=== PATIENT | female | born 1945 | race Caucasian/White ===

== ENCOUNTER → 2016-07-08 | Outpatient (CLI) | payer MEDICARE ==
--- NOTE | 2016-07-08 09:16 | BD ---
EXAMINATION TYPE: MG DEXA axial skeleton. DATE OF EXAM: 07/08/2016 7:49 AM COMPARISON: NONE CLINICAL HISTORY: Height: 62.5 Weight: 205 FRAX RISK QUESTIONS: Alcohol (3 or more units per day): no Family History (Parent hip fracture): no Glucocorticoids (More than 3mos): no (Ex: prednisone, prednisolone, methylprednisolone, dexamethasone, and hydrocortisone). History of Fracture in Adulthood: yes Secondary Osteoporosis: 1. Type 1 Diabetes: yes 2. Hyperthyroidism: no 3. Menopause before 45: yes, age 39 4. Malnutrition: no 5. Chronic liver disease: no Rheumatoid Arthritis: no Current Tobacco Use: no RISK FACTORS HISTORY OF: Hip Fracture (Right/Left): no Spine Fracture: no History of Wrist Fracture: no Surgery to Spine/Hip(right/left)/Wrist (right/left): no Other Fractures since Age 51: yes When: lower leg about 3 years ago; 2015 Family History of Osteoporosis: no Active: yes Diet low in dairy products/other sources of calcium: at least one serving a day Postmenopausal woman: yes Take estrogen and/or progesterone medications: no Lost more than 2 inches in height since high school: no Frequent falls: yes Poor Health: no Hyperparathyroidism: no Adrenal Insufficiency: no MEDICATIONS: Prednisone or other steroids: no Thyroid Medications: no Osteoporosis Medications: no Additional Medications: cholesterol meds, blood pressure, insulin Additional History: knee replacement, left low back pain when bends over, then loss of balance EXAM MEASUREMENTS: Bone mineral densitometry was performed using the [facility]. Bone mineral density as measured about the Lumbar spine is: ----- L1-L4(G/cm2): 1.648 T Score Values are as follows: ----- L2: 2.3 ----- L3: 2.9 ----- L4: 8.1 ----- L1-L4: 3.9 Bone mineral density BASELINE Bone mineral density about the R hip (g/cm2): 1.012 Bone mineral density about the L hip (g/cm2): 0.984 T Score values are as follows: -----R Neck: -0.2 -----L Neck: -0.4 -----R Intertrochanter: 0.5 -----L Intertrochanter: -0.2 Bone mineral density BASELINE IMPRESSION: Normal (Values between +1 and -1 indicate normal bone mass) Lumbar Spine & Bilateral Hips NOTE: T-SCORE=SD OF THE YOUNG ADULT MEAN.
== END | disposition home or self-care (01) ==
LOC: RADBDWWP 07:12
PROVIDERS: ATTEND Family Medicine
DX: Z78.0 Asymptomatic menopausal state (principal)
CPT/HCPCS: 77080

== ENCOUNTER 2016-10-19 09:58 | Day surgery (SDC) | payer MEDICARE ==
[2016-10-15 12:15] VITALS: BMI 35.2
[~2016-10-19 09:58] MED LIST: HYDROmorphone 1 MG/ML 1 ML SYRINGE IVP PRN; LACTATED RINGERS 1,000 ML IV SCH; LIDOCAINE 1% 20 ML VIAL (10MG/ML) FOR IV START INTRADERMA PRN; ONDANSETRON 4 MG/2 ML VIAL IVP ONE; ceFAZolin 2 GM in SODIUM CHLORIDE 0.9% 100 ML IVPB ONE
[2016-10-19 10:20] VITALS: TEMP 97.3
--- NOTE | 2016-10-19 10:26 | P.GSHP ---
History of Present Illness H&P Date: 10/19/16 Chief Complaint: Ulceration left third toe Patient is status post amputation of the left fifth toe. She has developed necrosis of the left third toe and has the proximal phalanx sticking out through the opening. She is a diabetic under poor control. - Constitutional Constitutional: Denies chills, Denies fever - EENT Eyes: denies blurred vision, denies pain Ears, nose, mouth and throat: Denies headache, Denies sore throat - Cardiovascular Cardiovascular: Reports decreased exercise tolerance, Reports edema, Denies chest pain, Denies dyspnea on exertion, Denies orthopnea, Denies paroxysmal nocturnal dyspnea, Denies shortness of breath - Respiratory Respiratory: Denies cough, Denies hemoptysis - Gastrointestinal Gastrointestinal: Denies abdominal pain, Denies coffee ground emesis, Denies diarrhea, Denies hematemesis, Denies jaundice, Denies melena, Denies nausea, Denies vomiting - Genitourinary (Female) Genitourinary: Denies dysuria, Denies hematuria - Genitourinary (Male) Genitourinary: Denies dysuria, Denies hematuria - Musculoskeletal Musculoskeletal: Denies myalgias - Integumentary Integumentary: Denies pruritus, Denies rash - Neurological Neurological: Denies numbness, Denies weakness - Psychiatric Psychiatric: Denies anxiety, Denies confusion, Denies depression, Denies paranoia - Endocrine Endocrine: Denies fatigue, Denies weight change - Hematologic/Lymphatic Hematologic/Lymphatic: Denies easy bleeding, Denies easy bruising, Denies lymphedema - Allergic/Immunologic Allergic/Immunologic: Denies anaphylaxis, Denies angioedema, Denies seasonal allergies Past Medical History Past Medical History: Coronary Artery Disease (CAD), Diabetes Mellitus, Hyperlipidemia, Myocardial Infarction ([place]) Additional Past Medical History / Comment(s): DIABETIC NEUROPATHY, HX OF CELLULITIS LEFT LEG Last Myocardial Infarction Date:: UNSURE History of Any Multi-Drug Resistant Organisms: None Reported Past Surgical History: Section, Cholecystectomy, Hernia Repair, Joint Replacement Additional Past Surgical History / Comment(s): IGNACIA cataract, LEFT SMALL toe amputation, LEFT KNEE REPLACEMENT, HX OF SKIN GRAFTS Past Anesthesia/Blood Transfusion Reactions: No Reported Reaction Past Psychological History: Depression Smoking Status: Former smoker Past Alcohol Use History: None Reported Additional Past Alcohol Use History / Comment(s): QUIT SMOKING 40 YRS AGO, SMOKED LESS THAN 1PPD FOR LESS THAN 10 YRS Past Drug Use History: None Reported - Past Family History Mother Family Medical History: Cancer Father Family Medical History: Cancer Medications and Allergies Home Medications Medication Instructions Recorded Confirmed Type Atenolol [Tenormin] 25 mg PO QAM 02/21/16 10/15/16 History Citalopram Hydrobromide 40 mg PO QAM 02/21/16 10/15/16 History [Citalopram HBr] Lisinopril [Lisinopril] 10 mg PO QAM 02/21/16 10/15/16 History Gemfibrozil [Lopid] 600 mg PO AC-BID 10/15/16 10/15/16 History Insulin NPH Hum/Reg Insulin Hm 25 unit SQ AC-LUNCH 10/15/16 10/15/16 History [NovoLIN 70-30 100 UNIT/ML VIAL] Insulin NPH Hum/Reg Insulin Hm 55 unit SQ AC-SUPPER 10/15/16 10/15/16 History [NovoLIN 70-30 100 UNIT/ML VIAL] Insulin NPH Hum/Reg Insulin Hm 65 unit SQ AC-BRKFST 10/15/16 10/15/16 History [NovoLIN 70-30 100 UNIT/ML VIAL] Mirabegron [Myrbetriq] 50 mg PO DAILY 10/15/16 10/15/16 History metFORMIN HCL 1,000 mg PO BID 10/15/16 10/15/16 History Allergies Allergy/AdvReac Type Severity Reaction Status Date / Time No Known Allergies Allergy Verified 10/15/16 12:07 Surgical - Exam Osteopathic Statement: *. No significant issues noted on an osteopathic structural exam other than those noted in the History and Physical/Consult. Vital Signs Temp Pulse Resp BP Pulse Ox 97.3 F L 84 18 130/63 99 10/19/16 10:18 10/19/16 10:18 10/19/16 10:18 10/19/16 10:18 10/19/16 10:18 - General well developed, well nourished, no distress, obese - Eyes normal ocular movement, no icteric - ENT no hearing loss, no congestion - Neck no masses, no bruits, trachea midline - Respiratory normal expansion, normal respiratory effort, clear to auscultation - Cardiovascular Rhythm: regular - Abdomen Abdomen: soft, non tender, no guarding, no rigid, no rebound - Integumentary no rash, no abnormal pigmentation - Neurologic no disoriented, no combative - Musculoskeletal normal gait, normal posture - Psychiatric oriented to time, oriented to person, oriented to place, speech is normal, memory intact Assessment and Plan (1) Diabetic foot ulcer associated with type 2 diabetes mellitus Status: Acute Plan: I discussed with the patient the options. We will proceed with amputation of the left third toe. I discussed with her the need to have better diabetes control. I discussed with her the possibility of leaving the wound open. I've also discussed with her the possibility of limb loss.
[2016-10-19] MEDS ORDERED: LIDOCAINE 1% 20 ML VIAL (10MG/ML) FOR IV START INTRADERMA ONE (10:45)
[2016-10-19 10:50] LABS: Glucose,Whole Blood 155 mg/dL (75-99)
[2016-10-19] MEDS ORDERED: PROPOFOL 10 MG/ML 20 ML VIAL IV ONE (10:53)
[2016-10-19] MEDS ORDERED: MIDAZOLAM 2 MG/2 ML VIAL ONE (10:53)
[2016-10-19] MEDS ORDERED: fentaNYL (PF) 50 MCG/ML 2 ML AMP ONE (10:53)
[2016-10-19] MEDS ORDERED: LIDOCAINE 1% INJ 10MG/ML (20 ML MDV) ONE (10:53)
[2016-10-19 11:59] VITALS: RESP 16
[2016-10-19 13:02] VITALS: BP 114/67; PULSE 67
--- NOTE | 2016-10-28 12:14 | P.PCN ---
Date of Procedure: 10/19/16 Preoperative Diagnosis: Hernandez grade 2 equivalent ulceration lateral left lower leg and Hernandez grade 3 ulceration with bone exposed left third toe Postoperative Diagnosis: Same Procedure(s) Performed: Amputation left third toe through proximal phalanx Anesthesia: MAC Surgeon: Collins Mendoza Estimated Blood Loss (ml): 20 Pathology: none sent Condition: stable Disposition: PACU Indications for Procedure: Patient has bone exposed with a gangrenous left third toe Operative Findings: Tissues of the very proximal toe and distal foot were clean and healthy with what appeared to be good blood supply Description of Procedure: With the patient supine position, under benefit of IV sedation we prepped and draped in standard fashion. We made a incision just proximal to the open wound of the distal toe. We excised around the entire toe through healthy tissue. We removed grossly the distal aspect of the toe. We then removed the distal portion of the proximal phalanx using a rongeur until we were well above the skin line. We irrigated with saline. We closed the incision with interrupted nylon. Sterile dressings were applied. The patient tolerated the procedure well. We then, with a sharp rongeur, debrided the ulcer in the anterior left lower leg. It was about 2.5 x 1.8 cm and about 0.2 cm in depth. Its dimensions were not changed with the debridement. There was a significant amount of slough which was removed with our curetting. We did not increase the size of the ulcer. This was removed down to healthy bleeding subcutaneous tissue. Hemostasis was accomplished with direct pressure. The wound was dressed with Opticel silver and a sterile wrap. She tolerated the procedure well.
== END 2016-10-19 13:35 | disposition home or self-care (01) ==
LOC: OR 09:58
PROVIDERS: ATTEND Thoracic Surgery (Cardiothoracic Vascular Surgery)
DX: E11.621 Type 2 diabetes mellitus with foot ulcer (principal); L97.524 Non-pressure chronic ulcer of other part of left foot with necrosis of bone; L97.821 Non-pressure chronic ulcer of other part of left lower leg limited to breakdown of skin; E11.65 Type 2 diabetes mellitus with hyperglycemia; E11.40 Type 2 diabetes mellitus with diabetic neuropathy, unspecified; I96 Gangrene, not elsewhere classified; M87.9 Osteonecrosis, unspecified; M86.9 Osteomyelitis, unspecified; I25.10 Atherosclerotic heart disease of native coronary artery without angina pectoris; E78.5 Hyperlipidemia, unspecified; I42.9 Cardiomyopathy, unspecified; I25.2 Old myocardial infarction; F32.9 Major depressive disorder, single episode, unspecified; Z87.891 Personal history of nicotine dependence; Z79.84 Long term (current) use of oral hypoglycemic drugs; Z79.4 Long term (current) use of insulin; Z79.899 Other long term (current) drug therapy
CPT/HCPCS: 88305; 88311; 87070; 87205; 87075; 28160; 11042; J2250; J0690; J2405; J2001; J3010; J2704

== ENCOUNTER → 2016-12-14 | Outpatient (CLI) | payer MEDICARE ==
--- NOTE | 2016-12-15 07:08 | MM ---
Reason for exam: screening (asymptomatic). Last mammogram was performed 1 year and 4 months ago. History: Patient is postmenopausal. Physical Findings: A clinical breast exam by your physician is recommended on an annual basis and results should be correlated with mammographic findings. MG 3D Screening Mammo W/Cad Bilateral CC and MLO view(s) were taken. Prior study comparison: August 05, 2015, bilateral MG screening mammo w CAD. May 11, 2014, bilateral MG screening mammo w CAD. There are scattered fibroglandular densities. No significant changes when compared with prior studies. ASSESSMENT: Benign, BI-RAD 2 RECOMMENDATION: Routine screening mammogram of both breasts in 1 year.
== END | disposition home or self-care (01) ==
LOC: RADMAMWWP 07:18
PROVIDERS: ATTEND Family Medicine
DX: Z12.31 Encounter for screening mammogram for malignant neoplasm of breast (principal)
CPT/HCPCS: 77063; G0202

== ENCOUNTER → 2017-02-03 | Outpatient (CLI) | payer MEDICARE ==
[2017-02-03 09:13] LABS: ALT 27 U/L (9-52); AST 20 U/L (14-36); Alkaline Phosphatase 119 U/L (38-126); Anion Gap 9 mmol/L; Blood Urea Nitrogen 35 mg/dL (7-17); Calcium 9.3 mg/dL (8.4-10.2); Carbon Dioxide 23 mmol/L (22-30); Chloride 110 mmol/L (98-107); Cholesterol 204 mg/dL (<200); Glucose 78 mg/dL (74-99); HDL Cholesterol 53 mg/dL (40-60); Non-African American GFR(MDRD) >60 (>60 ml/min/1.73 sqM); Potassium 5.1 mmol/L (3.5-5.1); Sodium 142 mmol/L (137-145); Total Bilirubin 0.5 mg/dL (0.2-1.3); Total Protein 6.9 g/dL (6.3-8.2); Triglycerides 103 mg/dL (<150)
[2017-02-03 16:03] LABS: Urine Creatinine 61.2 mg/dL
== END | disposition home or self-care (01) ==
LOC: LABWHC1 08:18
PROVIDERS: ATTEND Internal Medicine Endocrinology, Diabetes & Metabolism
DX: E11.65 Type 2 diabetes mellitus with hyperglycemia (principal)
CPT/HCPCS: 36415; 80053; 80061; 82043; 82570

== ENCOUNTER 2017-03-18 15:58 | Observation (INO) | payer MEDICARE ==
[2017-03-18] MEDS ORDERED: SODIUM CHLORIDE 0.9% 500 ML IV STA (16:22)
[2017-03-18 16:40] LABS: Glucose,Whole Blood 483 mg/dL (75-99)
[2017-03-18] MEDS ORDERED: SODIUM CHLORIDE 0.9% 1,000 ML IV ONE ×2 (16:40)
[2017-03-18] MEDS ORDERED: ONDANSETRON 4 MG/2 ML VIAL IVP STA (16:40)
[2017-03-18 16:52] LABS: Basophils % (A) 0 %; CH 28.9; CHCM 33.1; Eosinophils # (A) 0.1 k/uL (0-0.7); Eosinophils % (A) 1 %; HCT 35.5 % (34.0-46.0); HDW 2.78; HGB 11.4 gm/dL (11.4-16.0); Luc # (Auto) 0.22; Luc % (Auto) 3; Lymphocytes # (A) 1.4 k/uL (1.0-4.8); Lymphocytes % (A) 17 %; MCH 28.4 pg (25.0-35.0); MCHC 32.3 g/dL (31.0-37.0); Mean Platelet Volume 9.6; Monocytes # (A) 0.5 k/uL (0-1.0); Monocytes % (A) 5 %; Neutrophils # (A) 6.2 k/uL (1.3-7.7); Neutrophils % (A) 74 %; RBC 4.03 m/uL (3.80-5.40); RDW 14.2 % (11.5-15.5); WBC 8.4 k/uL (3.8-10.6); WBC (Perox) 9.18
[2017-03-18 16:58] LABS: INR 1.1 (<1.2); Partial Thromboplastin Time 24.6 sec (22.0-30.0); Prothrombin Time 10.7 sec (9.0-12.0)
[2017-03-18 17:07] LABS: ALT 24 U/L (9-52); AST 19 U/L (14-36); Alkaline Phosphatase 166 U/L (38-126); Anion Gap 13 mmol/L; Blood Urea Nitrogen 28 mg/dL (7-17); Calcium 9.5 mg/dL (8.4-10.2); Carbon Dioxide 23 mmol/L (22-30); Chloride 98 mmol/L (98-107); Magnesium 1.2 mg/dL (1.6-2.3); Non-African American GFR(MDRD) >60 (>60 ml/min/1.73 sqM); Potassium 4.5 mmol/L (3.5-5.1); Sodium 134 mmol/L (137-145); Total Bilirubin 0.5 mg/dL (0.2-1.3)
--- NOTE | 2017-03-18 17:16 | CT ---
EXAMINATION TYPE: CT brain sheridan goetz DATE OF EXAM: 03/18/2017 COMPARISON: NONE HISTORY: Fall today with frontal injury. Mulitiple facial abrasions CT DLP: 1582 mGycm Automated exposure control for dose reduction was used. TECHNIQUE: CT scan of the head and cervical spine are performed without contrast. FINDINGS: There is some cerebral cortical atrophy. There is bilateral thalamic calcification. There is no mass effect nor midline shift. There is no sign of intracranial hemorrhage. There is a left po sterior frontal lobe 1 cm extra-axial calcification at the convexity of the frontal lobe. This could be a calcifying meningioma. The calvarium is intact. There is scalp hematoma over the right frontal b one. The cervical vertebra have normal alignment. There is degenerative disc space narrowed from C3 to T1 with extensive spurring of the endplates from C3 to C7. Skull base is intact. Posterior elements are intact. I see no evidence of a fracture. There is posterior endplate spur formation C5-6 C6-7 with mi ld encroachment on the spinal canal. IMPRESSION: There is probably a left frontal calcifying small meningioma. Mild atrophy. Right frontal scalp hematoma. Spondylotic changes in the cervical spine. No fracture.
--- NOTE | 2017-03-18 17:18 | XR ---
EXAMINATION TYPE: XR elbow limited RT DATE OF EXAM: 03/18/2017 COMPARISON: NONE HISTORY: Elbow pain TECHNIQUE: 2 views FINDINGS: I see no fracture nor dislocation. Joint spaces are normal. There is no sign of elbow joint effusion. IMPRESSION: Negative right elbow exam
--- NOTE | 2017-03-18 17:20 | XR ---
EXAMINATION TYPE: XR facial bones complete DATE OF EXAM: 03/18/2017 COMPARISON: NONE HISTORY: Facial bruising TECHNIQUE: 4 views FINDINGS: Orbital margins appear intact. The paranasal sinuses appear normally aerated. Maxilla appea rs intact. I see no fracture. Mandible appears intact. IMPRESSION: Negative facial bone exam.
[2017-03-18 17:21] LABS: Creatine Kinase 93 U/L (30-135)
--- NOTE | 2017-03-18 17:21 | XR ---
EXAMINATION TYPE: XR chest 2V DATE OF EXAM: 03/18/2017 COMPARISON: 06/20/2010 HISTORY: Fall TECHNIQUE: Frontal and lateral views of the chest are obtained. FINDINGS: There is no heart failure nor confluent pneumonic infiltrate. Heart appears enlarged. Thor acic aorta is atheromatous. There is no sign of pleural effusion. Bony thorax appears intact. IMPRESSION: No active cardiopulmonary disease. No change.
[2017-03-18 17:22] LABS: Glucose 534 mg/dL (74-99)
[2017-03-18 17:34] LABS: Creatine Kinase MB 1.6 ng/mL (0.0-2.4); Troponin I <0.012 ng/mL (0.000-0.034)
[2017-03-18] MEDS ORDERED: POTASSIUM CHLORIDE ORAL LIQUID 40 MEQ/30 ML CUP PO ONE (17:44)
[2017-03-18] MEDS ORDERED: INSULIN REGULAR 100 UNIT/ML VIAL IV ONE ×2 (17:45→19:04)
[2017-03-18] MEDS ORDERED: INSULIN REGULAR 100 UNIT/ML VIAL SQ ONE (17:45)
[2017-03-18 18:12] LABS: Glucose,Whole Blood 441 mg/dL (75-99)
--- NOTE | 2017-03-18 18:48 | ED ---
Fall HPI - General Chief Complaint: Fall Stated Complaint: Fall Time Seen by Provider: 03/18/17 16:18 Source: patient Mode of arrival: EMS - History of Present Illness Initial Comments: 71 years old female fell today, she missed a step she said stopped was not too high at all she said it was 8 inches she lost her balance and she said she falls often she could follow-up with paper she stated she felt forward she hit her face and all surfaces now she has abrasion on her forehead also complaining about pain in the back of the neck and she has a headache she denies any loss of consciousness no nausea no vomiting no blurred vision no slurred speech. Denies any headaches no chest pain no shortness of breath no abdominal pain she said her sugar is quite high he was greater than 500 she ran out of her insulin few days ago and she has no money to buy - Related Data Home Medications Medication Instructions Recorded Confirmed Atenolol [Tenormin] 25 mg PO QAM 02/21/16 03/18/17 Citalopram Hydrobromide 60 mg PO QAM 02/21/16 03/18/17 [Citalopram HBr] Lisinopril [Lisinopril] 10 mg PO QAM 02/21/16 03/18/17 Gemfibrozil [Lopid] 600 mg PO AC-BID 10/15/16 03/18/17 Insulin NPH Hum/Reg Insulin Hm 25 unit SQ AC-LUNCH 10/15/16 03/18/17 [NovoLIN 70-30 100 UNIT/ML VIAL] Insulin NPH Hum/Reg Insulin Hm 55 unit SQ AC-SUPPER 10/15/16 03/18/17 [NovoLIN 70-30 100 UNIT/ML VIAL] Insulin NPH Hum/Reg Insulin Hm 66 unit SQ AC-BRKFST 10/15/16 03/18/17 [NovoLIN 70-30 100 UNIT/ML VIAL] metFORMIN HCL 1,000 mg PO BID 10/15/16 03/18/17 Atorvastatin [Lipitor] 40 mg PO HS 03/18/17 03/18/17 Mirabegron [Myrbetriq] 25 mg PO HS 03/18/17 03/18/17 Allergies Allergy/AdvReac Type Severity Reaction Status Date / Time No Known Allergies Allergy Verified 03/18/17 16:33 Review of Systems ROS Statement: Those systems with pertinent positive or pertinent negative responses have been documented in the HPI. ROS Other: All systems not noted in ROS Statement are negative. Past Medical History Past Medical History: Coronary Artery Disease (CAD), Diabetes Mellitus, Hyperlipidemia, Myocardial Infarction ([place]) Additional Past Medical History / Comment(s): ,DIABETIC NEUROPATHY, HX OF CELLULITIS LEFT LEG , amputation left 3rd toe and pinky toe. Last Myocardial Infarction Date:: UNSURE History of Any Multi-Drug Resistant Organisms: None Reported Past Surgical History: Section, Cholecystectomy, Hernia Repair, Joint Replacement Additional Past Surgical History / Comment(s): IGNACIA cataract, LEFT SMALL toe amputation, LEFT KNEE REPLACEMENT, HX OF SKIN GRAFTS Past Anesthesia/Blood Transfusion Reactions: No Reported Reaction Past Psychological History: Depression Smoking Status: Former smoker Past Alcohol Use History: None Reported Past Drug Use History: None Reported - Past Family History Mother Family Medical History: Cancer Father Family Medical History: Cancer General Exam - General Exam Comments Initial Comments: General: The patient is awake and alert, in no distress, and does not appear acutely ill. GCS is 15 Skin: Skin is warm and dry and no rashes or lesions are noted. She has some abrasions on the face Eye: Pupils are equal, round and reactive to light, extra-ocular movements are intact; there is normal conjunctiva bilaterally. Ears, nose, mouth and throat: There are moist mucous membranes and no oral lesions. Neck: The neck is supple, there is tenderness at C4 and C5 Cardiovascular: There is a regular rate and rhythm. No murmur, rub or gallop is appreciated. Respiratory: To auscultation bilateral, no wheezing no rhonchi no distress respiratory rich noticed Gastrointestinal: Soft, non-distended, non-tender abdomen without masses or organomegaly noted. There is no rebound or guarding present. Bowel sounds are unremarkable. Back: There is no tenderness to palpation in the midline. There is no obvious deformity. Musculoskeletal: Normal ROM, no tenderness, There is no pedal edema. There is no calf tenderness or swelling. No cords were appreciated. Neurological: CN II-XII intact, Cranial nerves III through XII are intact. There are no obvious motor or sensory deficits. Coordination appears grossly intact. Speech is normal. Psychiatric: Cooperative, appropriate mood & affect, normal judgment. Limitations: no limitations Course Vital Signs 03/18/17 03/18/17 03/18/17 16:00 17:24 18:54 Temperature 98.7 F Pulse Rate 70 67 72 Respiratory 19 19 17 Rate Blood Pressure 125/58 142/67 121/59 O2 Sat by Pulse 96 100 97 Oximetry 03/18/17 21:01 Temperature 99.2 F Pulse Rate 70 Respiratory 18 Rate Blood Pressure 142/64 O2 Sat by Pulse 95 Oximetry EKG is sinus rhythm with a first-degree AV block, ventricular rate is 70 GA interval is 210 QRS duration is 184 QT/QTc is 492/531, devious this EKG reveals left bundle branch block, today's EKG was compared with old EKG from 05/16/2012 she had no bundle-branch block the majority history bundle branch block Considering her hyperglycemia she was offered admission but sugar is 534 though she started ketoacidosis I discussed all her x-rays finding with her her chest x-ray is negative for elbow x-rays negative for head CT and cervical spine sure all unremarkable he did show meningioma head CT troponin is negative EKG is unchanged she do not want stay in the hospital she was given dexamethasone IV as well as subcu. She said she has her sugar because she ran out of insulin, her family guarantees that she would have and from tonight. Continue to monitor and the INITIAL comments below 200. - Reevaluation(s) Reevaluation #1: 03/18/17 21:07 Is in was reassessed at 2049 and sugar was still I finally she agreed to stay and she be admitted under Dr. Crain service for further evaluation and management Medical Decision Making - Lab Data Result diagrams: 03/18/17 16:00 03/18/17 16:00 Lab Results 03/18/17 03/18/17 03/18/17 Range/Units 16:00 16:00 16:00 WBC 8.4 (3.8-10.6) k/uL RBC 4.03 (3.80-5.40) m/uL Hgb 11.4 (11.4-16.0) gm/dL Hct 35.5 (34.0-46.0) % MCV 88.0 (80.0-100.0) fL MCH 28.4 (25.0-35.0) pg MCHC 32.3 (31.0-37.0) g/dL RDW 14.2 (11.5-15.5) % Plt Count 220 (150-450) k/uL Neutrophils % 74 % Lymphocytes % 17 % Monocytes % 5 % Eosinophils % 1 % Basophils % 0 % Neutrophils # 6.2 (1.3-7.7) k/uL Lymphocytes # 1.4 (1.0-4.8) k/uL Monocytes # 0.5 (0-1.0) k/uL Eosinophils # 0.1 (0-0.7) k/uL Basophils # 0.0 (0-0.2) k/uL PT (9.0-12.0) sec INR (<1.2) APTT (22.0-30.0) sec Sodium 134 L (137-145) mmol/L Potassium 4.5 (3.5-5.1) mmol/L Chloride 98 (98-107) mmol/L Carbon Dioxide 23 (22-30) mmol/L Anion Gap 13 mmol/L BUN 28 H (7-17) mg/dL Creatinine 0.87 (0.52-1.04) mg/dL Est GFR (MDRD) Af Amer >60 (>60 ml/min/1.73 sqM) Est GFR (MDRD) Non-Af >60 (>60 ml/min/1.73 sqM) Glucose 534 H* (74-99) mg/dL POC Glucose (mg/dL) (75-99) mg/dL POC Glu Director Of Strategic Sales ID Calcium 9.5 (8.4-10.2) mg/dL Magnesium 1.2 L (1.6-2.3) mg/dL Total Bilirubin 0.5 (0.2-1.3) mg/dL AST 19 (14-36) U/L ALT 24 (9-52) U/L Alkaline Phosphatase 166 H (38-126) U/L Total Creatine Kinase 93 (30-135) U/L CK-MB (CK-2) 1.6 (0.0-2.4) ng/mL CK-MB (CK-2) Rel Index 1.7 Troponin I <0.012 (0.000-0.034) ng/mL Total Protein 7.0 (6.3-8.2) g/dL Albumin 4.1 (3.5-5.0) g/dL 09/14/17 09/14/17 09/14/17 Range/Units 16:00 16:37 18:10 WBC (3.8-10.6) k/uL RBC (3.80-5.40) m/uL Hgb (11.4-16.0) gm/dL Hct (34.0-46.0) % MCV (80.0-100.0) fL MCH (25.0-35.0) pg MCHC (31.0-37.0) g/dL RDW (11.5-15.5) % Plt Count (150-450) k/uL Neutrophils % % Lymphocytes % % Monocytes % % Eosinophils % % Basophils % % Neutrophils # (1.3-7.7) k/uL Lymphocytes # (1.0-4.8) k/uL Monocytes # (0-1.0) k/uL Eosinophils # (0-0.7) k/uL Basophils # (0-0.2) k/uL PT 10.7 (9.0-12.0) sec INR 1.1 (<1.2) APTT 24.6 (22.0-30.0) sec Sodium (137-145) mmol/L Potassium (3.5-5.1) mmol/L Chloride (98-107) mmol/L Carbon Dioxide (22-30) mmol/L Anion Gap mmol/L BUN (7-17) mg/dL Creatinine (0.52-1.04) mg/dL Est GFR (MDRD) Af Amer (>60 ml/min/1.73 sqM) Est GFR (MDRD) Non-Af (>60 ml/min/1.73 sqM) Glucose (74-99) mg/dL POC Glucose (mg/dL) 483 H 441 H (75-99) mg/dL POC Glu Director Of Strategic Sales ID Angie Mcallister Joanna Calcium (8.4-10.2) mg/dL Magnesium (1.6-2.3) mg/dL Total Bilirubin (0.2-1.3) mg/dL AST (14-36) U/L ALT (9-52) U/L Alkaline Phosphatase (38-126) U/L Total Creatine Kinase (30-135) U/L CK-MB (CK-2) (0.0-2.4) ng/mL CK-MB (CK-2) Rel Index Troponin I (0.000-0.034) ng/mL Total Protein (6.3-8.2) g/dL Albumin (3.5-5.0) g/dL 03/18/17 03/18/17 Range/Units 18:59 20:15 WBC (3.8-10.6) k/uL RBC (3.80-5.40) m/uL Hgb (11.4-16.0) gm/dL Hct (34.0-46.0) % MCV (80.0-100.0) fL MCH (25.0-35.0) pg MCHC (31.0-37.0) g/dL RDW (11.5-15.5) % Plt Count (150-450) k/uL Neutrophils % % Lymphocytes % % Monocytes % % Eosinophils % % Basophils % % Neutrophils # (1.3-7.7) k/uL Lymphocytes # (1.0-4.8) k/uL Monocytes # (0-1.0) k/uL Eosinophils # (0-0.7) k/uL Basophils # (0-0.2) k/uL PT (9.0-12.0) sec INR (<1.2) APTT (22.0-30.0) sec Sodium (137-145) mmol/L Potassium (3.5-5.1) mmol/L Chloride (98-107) mmol/L Carbon Dioxide (22-30) mmol/L Anion Gap mmol/L BUN (7-17) mg/dL Creatinine (0.52-1.04) mg/dL Est GFR (MDRD) Af Amer (>60 ml/min/1.73 sqM) Est GFR (MDRD) Non-Af (>60 ml/min/1.73 sqM) Glucose (74-99) mg/dL POC Glucose (mg/dL) 393 H 361 H (75-99) mg/dL POC Glu Director Of Strategic Sales ID Alyssa Dale Danette Calcium (8.4-10.2) mg/dL Magnesium (1.6-2.3) mg/dL Total Bilirubin (0.2-1.3) mg/dL AST (14-36) U/L ALT (9-52) U/L Alkaline Phosphatase (38-126) U/L Total Creatine Kinase (30-135) U/L CK-MB (CK-2) (0.0-2.4) ng/mL CK-MB (CK-2) Rel Index Troponin I (0.000-0.034) ng/mL Total Protein (6.3-8.2) g/dL Albumin (3.5-5.0) g/dL Disposition Clinical Impression: Hyperglycemia, Facial trauma, Head injury, Neck injury, Meningioma Disposition: ADMITTED IP TO THIS HOSP Referrals: Shon Zhang MD [Primary Care Provider] - 1-2 days
[2017-03-18 19:01] LABS: Glucose,Whole Blood 393 mg/dL (75-99)
[2017-03-18 20:17] LABS: Glucose,Whole Blood 361 mg/dL (75-99)
[2017-03-18] MEDS ORDERED: NALOXONE 0.4 MG/ML 1 ML VIAL IV PRN (21:08)
[2017-03-18] MEDS ORDERED: ACETAMINOPHEN TAB 325 MG TAB PO PRN (21:08)
[2017-03-18] MEDS ORDERED: MAGNESIUM OXIDE 400 MG TAB PO STA (21:26)
[2017-03-18 23:07] VITALS: BMI 36.3
[2017-03-18 23:22] LABS: Glucose,Whole Blood 214 mg/dL (75-99)
[2017-03-19 06:07] LABS: Glucose,Whole Blood 264 mg/dL (75-99)
[2017-03-19 06:44] LABS: Appearance,Urine Cloudy (Clear); Bacteria,Urine Many /hpf; Bilirubin,Urine Negative (Negative); Glucose,Urine (UA) 1+ (Negative); Ketones,Urine Negative (Negative); Leukocyte Esterase,Urine Large (Negative); Nitrite,Urine Positive (Negative); Particle Count 19740; Protein,Urine Trace (Negative); RBC,Urine 2 /hpf (0-5); Specific Gravity,Urine 1.017 (1.001-1.035); Squamous Epithelial Cell,Urine 1 /hpf (0-4); UA Billing (MACRO vs. MICRO) MICRO; Urobilinogen,Urine <2.0 mg/dL (<2.0); WBC,Urine 44 /hpf (0-5)
[2017-03-19 07:05] LABS: Glucose,Whole Blood 265 mg/dL (75-99)
[2017-03-19] MEDS: GEMFIBROZIL 600 MG TAB PO SCH ×2 (07:55→17:18)
[2017-03-19] MEDS: CITALOPRAM HYDROBROMIDE 20 MG TAB PO SCH (07:55)
[2017-03-19] MEDS: ATENOLOL 25 MG TAB PO SCH (07:55)
[2017-03-19] MEDS: LISINOPRIL 10 MG TAB PO SCH (07:55)
[2017-03-19] MEDS: metFORMIN 500 MG TAB PO SCH ×2 (07:55→20:00)
[2017-03-19] MEDS: INSULIN NPH/REG INSULIN 70/30 300 UNIT/3 ML VIAL SQ SCH ×2 (08:19→12:42)
[2017-03-19 12:18] LABS: Glucose,Whole Blood 332 mg/dL (75-99)
--- NOTE | 2017-03-19 15:08 | P.HPIM ---
History of Present Illness 2-year-old female came in with complains of fall and patient underwent workup for falling , CT of the head and neck along with the x-rays multiple other x- rays all of which are negative for any fractures. Patient felt lightheaded and weak and fell. Patient is found to have hyponatremia secondary to hyperglycemia patient is severely hyperglycemic and patient the stop using her insulin for last few days as she ran out of insulin and doesn't have money to buy insulin. Patient denied any fever, chills, nausea, vomiting. Patient does have a diabetic foot ulcer on the third great toe not sure whether that is infected are not patient's wound is pretty deep and also colitis cannot be ruled out. Because of which I'm consulting infectious disease. Her blood sugars have come down patient was restarted back on on her insulin regimen patient follows with Dr. Thakkar endocrinology for diabetes mellitus as an outpatient. Patient is also found to have incidental finding of calcified meningioma which may need further workup with MRI as an outpatient. Patient denied any dysuria patient denied any nausea vomiting denied any abdominal pain. Review of Systems REVIEW OF SYSTEMS: CONSTITUTIONAL: No fever, no malaise, no fatigue. HEENT: No recent visual problems or hearing problems. Denied any sore throat. CARDIOVASCULAR: No chest pain, orthopnea, PND, no palpitations, no syncope. PULMONARY: No shortness of breath, no cough, no hemoptysis. GASTROINTESTINAL: No diarrhea, no nausea, no vomiting, no abdominal pain. Normoactive bowel sounds. NEUROLOGICAL: No headaches, no weakness, no numbness. HEMATOLOGICAL: Denies any bleeding or petechiae. GENITOURINARY: Denies any burning micturition, frequency, or urgency. MUSCULOSKELETAL/RHEUMATOLOGICAL: Denies any joint pain, swelling, or any muscle pain. ENDOCRINE: Denies any polyuria or polydipsia. The rest of the 14-point review of systems is negative. Past Medical History Past Medical History: Coronary Artery Disease (CAD), Diabetes Mellitus, Hyperlipidemia, Myocardial Infarction ([place]) Additional Past Medical History / Comment(s): ,DIABETIC NEUROPATHY, HX OF CELLULITIS LEFT LEG , amputation left 3rd toe and pinky toe. Last Myocardial Infarction Date:: UNSURE History of Any Multi-Drug Resistant Organisms: None Reported Past Surgical History: Section, Cholecystectomy, Hernia Repair, Joint Replacement Additional Past Surgical History / Comment(s): IGNACIA cataract, LEFT SMALL toe amputation, LEFT KNEE REPLACEMENT, HX OF SKIN GRAFTS Past Anesthesia/Blood Transfusion Reactions: No Reported Reaction Past Psychological History: Depression Smoking Status: Former smoker Past Alcohol Use History: None Reported Additional Past Alcohol Use History / Comment(s): QUIT SMOKING 40 YRS AGO, SMOKED LESS THAN 1PPD FOR LESS THAN 10 YRS Past Drug Use History: None Reported - Past Family History Mother Family Medical History: Cancer Father Family Medical History: Cancer Medications and Allergies Home Medications Medication Instructions Recorded Confirmed Type Atenolol [Tenormin] 25 mg PO QAM 02/21/16 03/18/17 History Citalopram Hydrobromide 60 mg PO QAM 02/21/16 03/18/17 History [Citalopram HBr] Lisinopril [Lisinopril] 10 mg PO QAM 02/21/16 03/18/17 History Gemfibrozil [Lopid] 600 mg PO AC-BID 10/15/16 03/18/17 History Insulin NPH Hum/Reg Insulin Hm 25 unit SQ AC-LUNCH 10/15/16 03/18/17 History [NovoLIN 70-30 100 UNIT/ML VIAL] Insulin NPH Hum/Reg Insulin Hm 55 unit SQ AC-SUPPER 10/15/16 03/18/17 History [NovoLIN 70-30 100 UNIT/ML VIAL] Insulin NPH Hum/Reg Insulin Hm 66 unit SQ AC-BRKFST 10/15/16 03/18/17 History [NovoLIN 70-30 100 UNIT/ML VIAL] metFORMIN HCL 1,000 mg PO BID 10/15/16 03/18/17 History Atorvastatin [Lipitor] 40 mg PO HS 03/18/17 03/18/17 History Mirabegron [Myrbetriq] 25 mg PO HS 03/18/17 03/18/17 History Allergies Allergy/AdvReac Type Severity Reaction Status Date / Time No Known Allergies Allergy Verified 03/18/17 16:33 Physical Exam Vitals: Vital Signs Temp Pulse Pulse Resp BP BP Pulse Ox 03/19/17 14:30 98.6 F 75 16 98/50 94 L 03/19/17 07:00 99.3 F 75 18 119/61 90 L 03/18/17 23:38 74 14 03/18/17 23:00 97.4 F L 74 14 119/58 96 03/18/17 21:01 99.2 F 70 18 142/64 95 03/18/17 18:54 72 17 121/59 97 03/18/17 17:24 67 19 142/67 100 03/18/17 16:00 98.7 F 70 19 125/58 96 Intake and Output 03/19/17 03/19/17 03/19/17 06:59 14:59 22:59 Other: Voiding Method Toilet # Voids 1 1 # Bowel Movements 1 Weight 92.986 kg PHYSICAL EXAMINATION: GENERAL: The patient is alert and oriented x3, not in any acute distress. Well developed, well nourished. HEENT: Pupils are round and equally reacting to light. EOMI. No scleral icterus. No conjunctival pallor. Normocephalic, atraumatic. No pharyngeal erythema. No thyromegaly. CARDIOVASCULAR: S1 and S2 present. No murmurs, rubs, or gallops. PULMONARY: Chest is clear to auscultation, no wheezing or crackles. ABDOMEN: Soft, nontender, nondistended, normoactive bowel sounds. No palpable organomegaly. MUSCULOSKELETAL: No joint swelling or deformity. EXTREMITIES: No cyanosis, clubbing, or pedal edema. Patient does have an ulcer on the third great toe cannot rule out osteomyelitis with some redness not sure whether patient has cellulitis around that area. NEUROLOGICAL: Gross neurological examination did not reveal any focal deficits. SKIN: No rashes. Results CBC & Chem 7: 03/18/17 16:00 03/18/17 16:00 Labs: Abnormal Lab Results - Last 24 Hours (Table) 03/18/17 03/18/17 03/18/17 Range/Units 16:00 16:37 18:10 Sodium 134 L (137-145) mmol/L BUN 28 H (7-17) mg/dL Glucose 534 H* (74-99) mg/dL POC Glucose (mg/dL) 483 H 441 H (75-99) mg/dL Magnesium 1.2 L (1.6-2.3) mg/dL Alkaline Phosphatase 166 H (38-126) U/L Urine Appearance (Clear) Urine Protein (Negative) Urine Glucose (UA) (Negative) Urine Nitrite (Negative) Ur Leukocyte Esterase (Negative) Urine WBC (0-5) /hpf Urine Bacteria (None) /hpf 03/18/17 03/18/17 03/18/17 Range/Units 18:59 20:15 23:19 Sodium (137-145) mmol/L BUN (7-17) mg/dL Glucose (74-99) mg/dL POC Glucose (mg/dL) 393 H 361 H 214 H (75-99) mg/dL Magnesium (1.6-2.3) mg/dL Alkaline Phosphatase (38-126) U/L Urine Appearance (Clear) Urine Protein (Negative) Urine Glucose (UA) (Negative) Urine Nitrite (Negative) Ur Leukocyte Esterase (Negative) Urine WBC (0-5) /hpf Urine Bacteria (None) /hpf 03/19/17 03/19/17 03/19/17 Range/Units 03:29 06:06 07:01 Sodium (137-145) mmol/L BUN (7-17) mg/dL Glucose (74-99) mg/dL POC Glucose (mg/dL) 264 H 265 H (75-99) mg/dL Magnesium (1.6-2.3) mg/dL Alkaline Phosphatase (38-126) U/L Urine Appearance Cloudy H (Clear) Urine Protein Trace H (Negative) Urine Glucose (UA) 1+ H (Negative) Urine Nitrite Positive H (Negative) Ur Leukocyte Esterase Large H (Negative) Urine WBC 44 H (0-5) /hpf Urine Bacteria Many H (None) /hpf 03/19/17 Range/Units 12:16 Sodium (137-145) mmol/L BUN (7-17) mg/dL Glucose (74-99) mg/dL POC Glucose (mg/dL) 332 H (75-99) mg/dL Magnesium (1.6-2.3) mg/dL Alkaline Phosphatase (38-126) U/L Urine Appearance (Clear) Urine Protein (Negative) Urine Glucose (UA) (Negative) Urine Nitrite (Negative) Ur Leukocyte Esterase (Negative) Urine WBC (0-5) /hpf Urine Bacteria (None) /hpf Thrombosis Risk Factor Assmnt - Choose All That Apply Any of the Below Risk Factors Present?: Yes Each Factor Represents 1 point: Obesity (BMI >25), Swollen legs (current) Other Risk Factors: Yes Each Risk Factor Represents 2 Points: Age 61-74 years Other congenital or acquired thrombophilia - If yes, enter type in comment: No Thrombosis Risk Factor Assessment Total Risk Factor Score: 4 Thrombosis Risk Factor Assessment Level: Moderate Risk Assessment and Plan Plan: #1 hyperglycemia without any DKA: Due to noncompliance with medications patient' s blood sugars have come down after starting her on her home regimen along with sliding scale up titrated as needed. Patient also takes metformin which will be continued #2 diabetic foot ulcer on the third toe on the plantar aspect: Wound cultures will be obtained infectious disease and podiatry will be consulted. #3 incidental finding of meningioma: Will need outpatient workup with an MRI. #4 hyperlipidemia #5 coronary artery disease For above-mentioned chronic medical problems will continue her home medications
--- NOTE | 2017-03-19 16:32 | P.CON ---
Consult Note - . Consult date: 03/19/17 Assessment/Plan:: History of Present Illness seen at bedside resting comfortably. She was seen at my office yesterday for treatment of acute avascular right third toe. This became infected in patient presented for treatment. During the office visit patient had debridement of the avascular tissue and infected tissue down to and including bone of the distal phalanx of the right third toe. During her exit from the office patient fell as to sustained trauma to her head resulting into a hematoma of the area. She was transferred to the facility and admitted for treatment of this traumatic injury as well as for hyper glycemia. Patient has been seen by infectious disease and is now currently on Zosyn as well as metal honey to the toe. He should is resting comfortably in voices no complaints. Review of Systems REVIEW OF SYSTEMS: CONSTITUTIONAL: No fever, no malaise, no fatigue. HEENT: No recent visual problems or hearing problems. Denied any sore throat. CARDIOVASCULAR: No chest pain, orthopnea, PND, no palpitations, no syncope. PULMONARY: No shortness of breath, no cough, no hemoptysis. GASTROINTESTINAL: No diarrhea, no nausea, no vomiting, no abdominal pain. Normoactive bowel sounds. NEUROLOGICAL: No headaches, no weakness, no numbness. HEMATOLOGICAL: Denies any bleeding or petechiae. GENITOURINARY: Denies any burning micturition, frequency, or urgency. MUSCULOSKELETAL/RHEUMATOLOGICAL: Denies any joint pain, swelling, or any muscle pain. ENDOCRINE: Denies any polyuria or polydipsia. The rest of the 14-point review of systems is negative. Past Medical History Past Medical History: Coronary Artery Disease (CAD), Diabetes Mellitus, Hyperlipidemia, Myocardial Infarction ([place]) Additional Past Medical History / Comment(s): ,DIABETIC NEUROPATHY, HX OF CELLULITIS LEFT LEG , amputation left 3rd toe and pinky toe. Last Myocardial Infarction Date:: UNSURE History of Any Multi-Drug Resistant Organisms: None Reported Past Surgical History: Section, Cholecystectomy, Hernia Repair, Joint Replacement Additional Past Surgical History / Comment(s): IGNACIA cataract, LEFT SMALL toe amputation, LEFT KNEE REPLACEMENT, HX OF SKIN GRAFTS Past Anesthesia/Blood Transfusion Reactions: No Reported Reaction Past Psychological History: Depression Smoking Status: Former smoker Past Alcohol Use History: None Reported Additional Past Alcohol Use History / Comment(s): QUIT SMOKING 40 YRS AGO, SMOKED LESS THAN 1PPD FOR LESS THAN 10 YRS Past Drug Use History: None Reported - Past Family History Mother Family Medical History: Cancer Father Family Medical History: Cancer Medications and Allergies Home Medications Medication Instructions Recorded Confirmed Type Atenolol [Tenormin] 25 mg PO QAM 02/21/16 03/18/17 History Citalopram Hydrobromide 60 mg PO QAM 02/21/16 03/18/17 History [Citalopram HBr] Lisinopril [Lisinopril] 10 mg PO QAM 02/21/16 03/18/17 History Gemfibrozil [Lopid] 600 mg PO AC-BID 10/15/16 03/18/17 History Insulin NPH Hum/Reg Insulin Hm 25 unit SQ AC-LUNCH 10/15/16 03/18/17 History [NovoLIN 70-30 100 UNIT/ML VIAL] Insulin NPH Hum/Reg Insulin Hm 55 unit SQ AC-SUPPER 10/15/16 03/18/17 History [NovoLIN 70-30 100 UNIT/ML VIAL] Insulin NPH Hum/Reg Insulin Hm 66 unit SQ AC-BRKFST 10/15/16 03/18/17 History [NovoLIN 70-30 100 UNIT/ML VIAL] metFORMIN HCL 1,000 mg PO BID 10/15/16 03/18/17 History Atorvastatin [Lipitor] 40 mg PO HS 03/18/17 03/18/17 History Mirabegron [Myrbetriq] 25 mg PO HS 03/18/17 03/18/17 History Allergies Allergy/AdvReac Type Severity Reaction Status Date / Time No Known Allergies Allergy Verified 03/18/17 16:33 Physical Exam Vitals: Vital Signs Temp Pulse Pulse Resp BP BP Pulse Ox 03/19/17 14:30 98.6 F 75 16 98/50 94 L 03/19/17 07:00 99.3 F 75 18 119/61 90 L 03/18/17 23:38 74 14 03/18/17 23:00 97.4 F L 74 14 119/58 96 03/18/17 21:01 99.2 F 70 18 142/64 95 03/18/17 18:54 72 17 121/59 97 03/18/17 17:24 67 19 142/67 100 03/18/17 16:00 98.7 F 70 19 125/58 96 Intake and Output 03/19/17 03/19/17 03/19/17 06:59 14:59 22:59 Other: Voiding Method Toilet # Voids 1 1 # Bowel Movements 1 Weight 92.986 kg PHYSICAL EXAMINATION: GENERAL: The patient is alert and oriented x3, not in any acute distress. Well developed, well nourished. HEENT: Pupils are round and equally reacting to light. EOMI. No scleral icterus. No conjunctival pallor. Normocephalic, atraumatic. No pharyngeal erythema. No thyromegaly. CARDIOVASCULAR: S1 and S2 present. No murmurs, rubs, or gallops. PULMONARY: Chest is clear to auscultation, no wheezing or crackles. ABDOMEN: Soft, nontender, nondistended, normoactive bowel sounds. No palpable organomegaly. MUSCULOSKELETAL: No joint swelling or deformity. EXTREMITIES: The right third toe appears stable from the debridement that was performed yesterday. There is no significant changes in her neurovascular muscular status. NEUROLOGICAL: Gross neurological examination did not reveal any focal deficits. SKIN: No rashes. Results CBC & Chem 7: 03/18/17 16:00 03/18/17 16:00 Labs: Abnormal Lab Results - Last 24 Hours (Table) 03/18/17 03/18/17 03/18/17 Range/Units 16:00 16:37 18:10 Sodium 134 L (137-145) mmol/L BUN 28 H (7-17) mg/dL Glucose 534 H* (74-99) mg/dL POC Glucose (mg/dL) 483 H 441 H (75-99) mg/dL Magnesium 1.2 L (1.6-2.3) mg/dL Alkaline Phosphatase 166 H (38-126) U/L Urine Appearance (Clear) Urine Protein (Negative) Urine Glucose (UA) (Negative) Urine Nitrite (Negative) Ur Leukocyte Esterase (Negative) Urine WBC (0-5) /hpf Urine Bacteria (None) /hpf 03/18/17 03/18/17 03/18/17 Range/Units 18:59 20:15 23:19 Sodium (137-145) mmol/L BUN (7-17) mg/dL Glucose (74-99) mg/dL POC Glucose (mg/dL) 393 H 361 H 214 H (75-99) mg/dL Magnesium (1.6-2.3) mg/dL Alkaline Phosphatase (38-126) U/L Urine Appearance (Clear) Urine Protein (Negative) Urine Glucose (UA) (Negative) Urine Nitrite (Negative) Ur Leukocyte Esterase (Negative) Urine WBC (0-5) /hpf Urine Bacteria (None) /hpf 03/19/17 03/19/17 03/19/17 Range/Units 03:29 06:06 07:01 Sodium (137-145) mmol/L BUN (7-17) mg/dL Glucose (74-99) mg/dL POC Glucose (mg/dL) 264 H 265 H (75-99) mg/dL Magnesium (1.6-2.3) mg/dL Alkaline Phosphatase (38-126) U/L Urine Appearance Cloudy H (Clear) Urine Protein Trace H (Negative) Urine Glucose (UA) 1+ H (Negative) Urine Nitrite Positive H (Negative) Ur Leukocyte Esterase Large H (Negative) Urine WBC 44 H (0-5) /hpf Urine Bacteria Many H (None) /hpf 03/19/17 Range/Units 12:16 Sodium (137-145) mmol/L BUN (7-17) mg/dL Glucose (74-99) mg/dL POC Glucose (mg/dL) 332 H (75-99) mg/dL Magnesium (1.6-2.3) mg/dL Alkaline Phosphatase (38-126) U/L Urine Appearance (Clear) Urine Protein (Negative) Urine Glucose (UA) (Negative) Urine Nitrite (Negative) Ur Leukocyte Esterase (Negative) Urine WBC (0-5) /hpf Urine Bacteria (None) /hpf Thrombosis Risk Factor Assmnt - Choose All That Apply Any of the Below Risk Factors Present?: Yes Each Factor Represents 1 point: Obesity (BMI >25), Swollen legs (current) Other Risk Factors: Yes Each Risk Factor Represents 2 Points: Age 61-74 years Other congenital or acquired thrombophilia - If yes, enter type in comment: No Thrombosis Risk Factor Assessment Total Risk Factor Score: 4 Thrombosis Risk Factor Assessment Level: Moderate Risk Assessment and Plan Plan: #Review treatment plan and patient status at this time. Patient had a tissue culture sent out yesterday from our office which consisted of osseous tissue that was debrided. We will forward this to the hospital infectious disease when available. Agree with current treatment plan. Follow thank you for this consult For above-mentioned chronic medical problems will continue her home medications
[2017-03-19] MEDS: PIPERACILLIN-TAZOBACTAM 3.375 GM in DEXTROSE/WATER 1 50ML.BAG IVPB SCH (16:34)
[2017-03-19 17:10] LABS: Glucose,Whole Blood 226 mg/dL (75-99)
[2017-03-19] MEDS: INSULIN LISPRO (humaLOG) 300 UNIT/3 ML VIAL SQ SCH ×2 (17:19→20:42)
[2017-03-19] MEDS ORDERED: INSULIN NPH/REG INSULIN 70/30 300 UNIT/3 ML VIAL SQ SCH (17:30)
--- NOTE | 2017-03-19 19:38 | P.CNNES ---
History of Present Illness Consult date: 03/19/17 Reason for Consult: Patient with history of fall and meningioma on brain imaging. 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 She states she was going down a flight of cement stares when she lost her balance and fell forwards. She struck the front of her face onto the ground and did sustain some periorbital contusions. She did sustain some abrasions to the forehead area as well. She denied any loss of consciousness. She did not have any seizure-like activity associated with the fall. EMS was called to the scene and she was brought in to the emergency room at [facility] for further evaluation. Her blood sugars in the ER were greater than 500. After initial evaluation in the ER by Dr. Acharya her blood sugars were noted to be 534. The patient had no evidence of diabetic ketoacidosis. On further questioning the patient apparently has a long-standing history of diabetes mellitus. She had run out of her insulin for several days and she was short on finances. She was evaluated in the ER and was sent for computed tomography scan of the brain and cervical spine. Her computed tomography scan of the brain revealed a probable left frontal calcification suggesting a small meningioma. There is mild cortical atrophy and a right frontal scalp hematoma noted. CT of the cervical spine revealed only spondylitic changes with no evidence of fracture. The patient denies any history of seizures in the past. She did undergo routine EEG today which is reviewed and is moderately slow with no evidence of any epileptiform discharges. The patient states that she has been monitoring her blood sugars closely. Her last hemoglobin A1c was 8.4. 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 We have reviewed the CAT scan report and films today in detail. There does appear to be a calcification on the hi cortical surface of the left frontal lobe. We would recommend the patient undergo an MRI of the brain with and without gadolinium as an outpatient and to follow-up in the outpatient neurology clinic once this is completed. The patient otherwise seems to be making slow progress. As noted she does have bilateral periorbital contusions. She denies any headache or focal weakness at this time. Her overall prognosis at this time remains guarded. Neurology is now been consulted for further evaluation and recommendations. Review of Systems Constitutional: Denies chills, Denies fever Eyes: denies as per HPI (Patient has evidence of bilateral periorbital contusions.), denies blurred vision, denies pain Ears, nose, mouth and throat: Denies headache, Denies sore throat Cardiovascular: Denies chest pain, Denies shortness of breath Respiratory: Denies cough Gastrointestinal: Denies abdominal pain, Denies diarrhea, Denies nausea, Denies vomiting Genitourinary: Denies dysuria, Denies hematuria Musculoskeletal: Denies myalgias Integumentary: Denies pruritus, Denies rash Neurological: Reports change in mentation, Reports confusion, Reports head injury, Reports paresthesias, Reports syncope, Reports tingling, Denies numbness , Denies weakness Psychiatric: Denies anxiety, Denies depression Endocrine: Denies fatigue, Denies weight change Past Medical History Past Medical History: Coronary Artery Disease (CAD), Diabetes Mellitus, Hyperlipidemia, Myocardial Infarction (AL) Additional Past Medical History / Comment(s): ,DIABETIC NEUROPATHY, HX OF CELLULITIS LEFT LEG , amputation left 3rd toe and pinky toe. Last Myocardial Infarction Date:: UNSURE History of Any Multi-Drug Resistant Organisms: None Reported Past Surgical History: Section, Cholecystectomy, Hernia Repair, Joint Replacement Additional Past Surgical History / Comment(s): IGNACIA cataract, LEFT SMALL toe amputation, LEFT KNEE REPLACEMENT, HX OF SKIN GRAFTS Past Anesthesia/Blood Transfusion Reactions: No Reported Reaction Past Psychological History: Depression Smoking Status: Former smoker Past Alcohol Use History: None Reported Additional Past Alcohol Use History / Comment(s): QUIT SMOKING 40 YRS AGO, SMOKED LESS THAN 1PPD FOR LESS THAN 10 YRS Past Drug Use History: None Reported - Past Family History Mother Family Medical History: Cancer Father Family Medical History: Cancer Medications and Allergies Home Medications Medication Instructions Recorded Confirmed Type Atenolol [Tenormin] 25 mg PO QAM 02/21/16 03/18/17 History Citalopram Hydrobromide 60 mg PO QAM 02/21/16 03/18/17 History [Citalopram HBr] Lisinopril [Lisinopril] 10 mg PO QAM 02/21/16 03/18/17 History Gemfibrozil [Lopid] 600 mg PO AC-BID 10/15/16 03/18/17 History Insulin NPH Hum/Reg Insulin Hm 25 unit SQ AC-LUNCH 10/15/16 03/18/17 History [NovoLIN 70-30 100 UNIT/ML VIAL] Insulin NPH Hum/Reg Insulin Hm 55 unit SQ AC-SUPPER 10/15/16 03/18/17 History [NovoLIN 70-30 100 UNIT/ML VIAL] Insulin NPH Hum/Reg Insulin Hm 66 unit SQ AC-BRKFST 10/15/16 03/18/17 History [NovoLIN 70-30 100 UNIT/ML VIAL] metFORMIN HCL 1,000 mg PO BID 10/15/16 03/18/17 History Atorvastatin [Lipitor] 40 mg PO HS 03/18/17 03/18/17 History Mirabegron [Myrbetriq] 25 mg PO HS 03/18/17 03/18/17 History Allergies Allergy/AdvReac Type Severity Reaction Status Date / Time No Known Allergies Allergy Verified 03/18/17 16:33 Physical Examination - Vital Signs Vital Signs: Vital Signs Temp Pulse Pulse Resp BP BP Pulse Ox 03/19/17 07:00 99.3 F 75 18 119/61 90 L 03/18/17 23:38 74 14 03/18/17 23:00 97.4 F L 74 14 119/58 96 03/18/17 21:01 99.2 F 70 18 142/64 95 03/18/17 18:54 72 17 121/59 97 03/18/17 17:24 67 19 142/67 100 03/18/17 16:00 98.7 F 70 19 125/58 96 Intake and Output 03/18/17 03/19/17 03/19/17 22:59 06:59 14:59 Other: Voiding Method Toilet # Voids 1 1 Weight 92.986 kg 92.986 kg - Constitutional General appearance: average body habitus, cooperative - EENT EENT: PERRL, mucous membranes moist - Respiratory Respiratory: lungs clear, normal breath sounds - Cardiovascular Cardiovascular: regular rate, normal S1, normal S2 Extremities: no peripheral edema bilaterally - Gastrointestinal Gastrointestinal: normoactive bowel sounds - Integumentary Integumentary: normal - Neurologic Cranial nerve examination: PERRL, EOMI, VFF, V1/V2/V3 grossly intact, face symmetric, tongue midline, intact gag reflex, intact corneal reflex, normal palatal elevation Speech examination: intact Sensorimotor examination: intact Detailed motor examination: grossly full strength in all extremities Motor examination - right side: 4/5: biceps, triceps, wrist flexion, wrist extension, senior quality technician, hip flexors, knee extensors, dorsiflexion, toe extension (EHL) , plantarflexion Motor examination - left side: 4/5: biceps, triceps, wrist flexion, wrist extension, senior quality technician, hip flexors, knee extensors, dorsiflexion, toe extension (EHL) , plantarflexion Detailed sensory examination: intact Reflex and gait examination: intact Reflexes: 1+: ankle, bicep, knee, tricep - Musculoskeletal Musculoskeletal: no pain - Psychiatric Psychiatric: mood/affect appropriate, cooperative Results - Laboratory Findings CBC and BMP: 03/18/17 16:00 03/18/17 16:00 Abnormal Lab Findings: Abnormal Labs 03/18/17 03/18/17 03/18/17 16:00 16:37 18:10 Sodium 134 L BUN 28 H Glucose 534 H* POC Glucose (mg/dL) 483 H 441 H Magnesium 1.2 L Alkaline Phosphatase 166 H Urine Appearance Urine Protein Urine Glucose (UA) Urine Nitrite Ur Leukocyte Esterase Urine WBC Urine Bacteria 03/18/17 03/18/17 03/18/17 18:59 20:15 23:19 Sodium BUN Glucose POC Glucose (mg/dL) 393 H 361 H 214 H Magnesium Alkaline Phosphatase Urine Appearance Urine Protein Urine Glucose (UA) Urine Nitrite Ur Leukocyte Esterase Urine WBC Urine Bacteria 03/19/17 03/19/17 03/19/17 03:29 06:06 07:01 Sodium BUN Glucose POC Glucose (mg/dL) 264 H 265 H Magnesium Alkaline Phosphatase Urine Appearance Cloudy H Urine Protein Trace H Urine Glucose (UA) 1+ H Urine Nitrite Positive H Ur Leukocyte Esterase Large H Urine WBC 44 H Urine Bacteria Many H 03/19/17 12:16 Sodium BUN Glucose POC Glucose (mg/dL) 332 H Magnesium Alkaline Phosphatase Urine Appearance Urine Protein Urine Glucose (UA) Urine Nitrite Ur Leukocyte Esterase Urine WBC Urine Bacteria Assessment and Plan (1) Head injury Status: Acute Code(s): S09.90XA - UNSPECIFIED INJURY OF HEAD, INITIAL ENCOUNTER (2) Facial trauma Status: Acute Code(s): S09.93XA - UNSPECIFIED INJURY OF FACE, INITIAL ENCOUNTER (3) Diabetic neuropathy Status: Acute Code(s): E11.40 - TYPE 2 DIABETES MELLITUS WITH DIABETIC NEUROPATHY, UNSP (4) Hyperglycemia Status: Acute Code(s): R73.9 - HYPERGLYCEMIA, UNSPECIFIED (5) Meningioma Status: Acute Code(s): D32.9 - BENIGN NEOPLASM OF MENINGES, UNSPECIFIED Plan: This patient is a 71-year-old female who unfortunately 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 She was going down a flight of cement steps and tripped and fell. She fell forward and sustained multiple contusions to the face. She denied any loss of consciousness. She was feeling very weak and was found to have evidence of severe hyperglycemia secondary to uncontrolled diabetes mellitus. She was taken to the emergency room at [facility]. She was seen in the ER by Dr. Acharya. Computed tomography scan of the brain was performed and revealed evidence of a left frontal meningioma with no other acute findings of stroke or hemorrhage. The patient has a history of diabetic peripheral neuropathy. Her blood sugars were over 500 on admission to the ER as she had run out of her insulin medication at home. Her computed tomography scan is noted revealed a left frontal meningioma. We are recommending the patient undergo an MRI of the brain with and without gadolinium that may be done in the outpatient setting. She should follow-up in the outpatient neurology clinic for further treatment and management once the MRI is completed. Patient is advised to continue tight control of her blood sugars. She is at risk of having multiple falls due to the diabetic neuropathy in the lower extremities. She did undergo routine EEG today which was reviewed and does reveal moderate slowing consistent with a mild to moderate degree of encephalopathy. We will continue close neurological follow-up of this patient during this admission. Overall prognosis at this time remains very guarded. Time with Patient: Greater than 30
[2017-03-19 20:43] LABS: Glucose,Whole Blood 135 mg/dL (75-99)
[2017-03-19] MEDS ORDERED: ATORVASTATIN 40 MG TAB PO SCH (21:00)
[2017-03-19] MEDS ORDERED: NON-FORMULARY DRUG (Mirabegron [Myrbetriq] 25 MG) PO SCH (21:00)
--- NOTE | 2017-03-19 21:31 | EEG ---
ELECTROENCEPHALOGRAM REPORT DATE OF EE03/19/2017 Room number 407, bed 2. REFERRING PHYSICIAN: Shaquille Crain M.D. INTERPRETING PHYSICIAN: Rhett Melchor M.D. INDICATION FOR EXAMINATION: This patient is a 71-year-old female being evaluated for closed head injury and fall. Patient has neuroimaging studies suggesting a left frontal meningioma. AGE: 71. EEG FINDINGS: A routine 21-channel awake digital EEG recording was accomplished utilizing the 10-20 international system with bipolar and referential montages. The background activity in the most alert resting state consists of a low to medium amplitude, fairly well developed and well sustained 6 Hertz activity over the posterior head regions. This posterior rhythm attenuates to eye opening. There is a small amount of low amplitude 18-20 Hertz beta activity seen maximally over the anterior head regions. Muscle and movement artifact was observed on a few occasions during the tracing. Hyperventilation was not performed. Photic stimulation at flash frequencies of 2-30 Hertz produced a good symmetrical occipital driving response. No epileptiform discharges were seen. IMPRESSION: This EEG is moderately abnormal in a diffuse fashion due to slowing of the EEG background. The EEG failed to reveal any focal, lateralized, or epileptiform abnormalities. Clinical correlation is recommended. . MMODL / IJN: [id number] /
--- NOTE | 2017-03-19 21:41 | NM ---
EXAMINATION TYPE: NM bone 3 phase DATE OF EXAM: 03/19/2017 COMPARISON: NONE HISTORY: Triple phase bone scintigraphy was performed following the injection of22.8 mCi Tc 99m MDP. Immediat e images and 5 hours post injection images acquired. FINDINGS: The flow study shows some hyperemia of the right foot compared to the left. There is slight increased uptake at the right talonavicular joint region compared to the left. Metatarsal uptake is fairly nor mal. IMPRESSION: There is hyperemia of the right foot compared to the left consistent with cellulitis. Small area of i ncreased uptake in the right foot near the talonavicular joint is more consistent with arthritic dise ase. I do not see evidence for osteomyelitis.
[2017-03-19 22:31] LABS: Hemoglobin A1C 9.2 % (4.2-6.1)
--- NOTE | 2017-03-19 23:43 | P.CONS ---
History of Present Illness - Reason for Consult Consult date: 03/19/17 - Chief Complaint Ulcer right foot - History of Present Illness Pleasant 71-year-old female known to the infectious disease service because of her difficulties with peripheral vascular disease, prior diabetic foot infections with gangrene to toes resulting in prior toe amputations. Presents with ongoing difficulty to the right foot second toe. She's been having some increasing ulceration. It markedly worsen. She was in the outpatient setting. She has some further debridement. Plater primary apparently occurred. She now presents with the ulceration to the toe. Some local surrounding cellulitis and edema. She feels somewhat poorly. Apparently she suffered a significant fall yesterday which precipitated her admission. No evidence of any facial fractures her right arm fractures. Review of Systems HEENT:Denies headache or acute visual change. Denies sinus or mouth discomforts. Denies neck stiffness or pain. Denies significant oral cavity pain. Denies difficulty on swallowing. Lungs: Denies significant shortness of breath, cough, sputum production, or hemoptysis. Cardiovascular: Denies significant shortness of breath, chest pain, chest wall pain, orthopnea, dyspnea on exertion, syncope Gastrointestinal:Denies nausea, vomiting, diarrhea, constipation, hematemesis, melena, hematochezia. No no significant change of bowel habit noticed. Musculoskeletal: denies significant myalgias or arthralgias. No new joint swelling. Denies new back pain. Skin: Denies new rash or lesions. No new ulcers or wounds are related.. Neuro: Denies headache or visual change. Denies any acute new onset right or left-sided weakness. Did have difficulty with the fall yesterday. Denies syncope or acute dizziness before the fall. Relates that she simply misstepped and fell on steps Psychiatric:Denies anxiety or depression. Endocrine: Chronic fatigue and weight gain Past Medical History Past Medical History: Coronary Artery Disease (CAD), Diabetes Mellitus, Hyperlipidemia, Myocardial Infarction (SD) Additional Past Medical History / Comment(s): ,DIABETIC NEUROPATHY, HX OF CELLULITIS LEFT LEG , amputation left 3rd toe and pinky toe. Last Myocardial Infarction Date:: UNSURE History of Any Multi-Drug Resistant Organisms: None Reported Past Surgical History: Section, Cholecystectomy, Hernia Repair, Joint Replacement Additional Past Surgical History / Comment(s): IGNACIA cataract, LEFT SMALL toe amputation, LEFT KNEE REPLACEMENT, HX OF SKIN GRAFTS Past Anesthesia/Blood Transfusion Reactions: No Reported Reaction Past Psychological History: Depression Smoking Status: Former smoker Past Alcohol Use History: None Reported Additional Past Alcohol Use History / Comment(s): QUIT SMOKING 40 YRS AGO, SMOKED LESS THAN 1PPD FOR LESS THAN 10 YRS. Lives independently. No alcohol use. 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 No experience. No international travel. Has a pet dog in the home care for by her daughter Past Drug Use History: None Reported - Past Family History Mother Family Medical History: Cancer Father Family Medical History: Cancer Medications and Allergies Home Medications and Allergies Comment(s): Current Medications Acetaminophen (Tylenol Tab) 650 mg PO Q6HR PRN PRN Reason: Mild Pain or Fever > 100.5 Atenolol (Tenormin) 25 mg PO QAM [facility] Last Admin: 03/19/17 07:55 Dose: 25 mg Atorvastatin Calcium (Lipitor) 40 mg PO HS [facility] Last Admin: 03/19/17 20:00 Dose: 40 mg Citalopram Hydrobromide (Celexa) 60 mg PO QAM [facility] Last Admin: 03/19/17 07:55 Dose: 60 mg Gemfibrozil (Lopid) 600 mg PO AC-BID [facility] Last Admin: 03/19/17 17:18 Dose: 600 mg Piperacillin/Tazobactam/ (Dextrose 3.375 gm/ IV Solution) 50 mls @ 12.5 mls/hr IVPB Q8HR [facility] Last Admin: 03/19/17 16:34 Dose: 12.5 mls/hr Insulin Human Isoph/Insulin Regular (Humulin 70/30 Vial) 25 unit SQ AC-LUNCH [facility] Last Admin: 03/19/17 12:42 Dose: 25 unit Insulin Human Isoph/Insulin Regular (Humulin 70/30 Vial) 55 unit SQ AC-SUPPER [facility] Last Admin: 03/19/17 17:19 Dose: 55 unit Insulin Human Isoph/Insulin Regular (Humulin 70/30 Vial) 66 unit SQ AC-BRKFST [facility] Last Admin: 03/19/17 08:19 Dose: 66 unit Insulin Human Lispro (Humalog) 0 unit SQ ACHS [facility] PRN Reason: Protocol Last Admin: 03/19/17 20:42 Dose: 1 unit Lisinopril (Zestril) 10 mg PO QAM [facility] Last Admin: 03/19/17 07:55 Dose: 10 mg Metformin HCl (Glucophage) 1,000 mg PO BID [facility] Last Admin: 03/19/17 20:00 Dose: 1,000 mg Multivitamins (Theragran) 1 each PO DAILY@1200 [facility] Naloxone HCl (Narcan) 0.2 mg IV Q2M PRN PRN Reason: Opioid Reversal Non-Formulary Medication (Mirabegron [Myrbetriq]) 25 mg PO [facility] Home Medications Medication Instructions Recorded Confirmed Type Atenolol [Tenormin] 25 mg PO QAM 02/21/16 03/18/17 History Citalopram Hydrobromide 60 mg PO QA 02/21/16 03/18/17 History [Citalopram HBr] Lisinopril [Lisinopril] 10 mg PO QAM 02/21/16 03/18/17 History Gemfibrozil [Lopid] 600 mg PO AC-BID 10/15/16 03/18/17 History Insulin NPH Hum/Reg Insulin Hm 25 unit SQ AC-LUNCH 10/15/16 03/18/17 History [NovoLIN 70-30 100 UNIT/ML VIAL] Insulin NPH Hum/Reg Insulin Hm 55 unit SQ AC-SUPPER 10/15/16 03/18/17 History [NovoLIN 70-30 100 UNIT/ML VIAL] Insulin NPH Hum/Reg Insulin Hm 66 unit SQ AC-BRKFST 10/15/16 03/18/17 History [NovoLIN 70-30 100 UNIT/ML VIAL] metFORMIN HCL 1,000 mg PO BID 10/15/16 03/18/17 History Atorvastatin [Lipitor] 40 mg PO 03/18/17 03/18/17 History Mirabegron [Myrbetriq] 25 mg PO 03/18/17 03/18/17 History Allergies Allergy/AdvReac Type Severity Reaction Status Date / Time No Known Allergies Allergy Verified 03/18/17 16:33 Physical Exam Vitals: Vital Signs Temp Pulse Resp BP Pulse Ox 03/19/17 14:30 98.6 F 75 16 98/50 94 L 03/19/17 07:00 99.3 F 75 18 119/61 90 L 03/18/17 23:38 74 14 Intake and Output 03/19/17 03/19/17 03/20/17 14:59 22:59 06:59 Other: # Voids 1 1 # Bowel Movements 1 Pleasant 8-year-old woman presents to hospital with complaints of fall and nonhealing ulceration to her right foot second toe HEENT: Anicteric conjunctiva are pink and moist nasal mucosa grossly intact without significant lesions, there is no thrush. Neck: The neck is supple without significant lymphadenopathy or thyromegaly. Lungs: Good bilateral air entry without significant crackles or wheezing. There is no significant bronchial sounds. There is no egophony or dullness. Heart: Regular rate and rhythm with an audible S1-S2, no S3 no S4. There is no significant murmur click or rub, PMI was nondisplaced. Abdomen: Positive bowel sounds soft and nontender without palpable masses or organomegaly. There was no guarding or rebound. Extremities: The upper extremities have excellent pulses they are symmetric, no significant petechiae or telangiectasia. No splinter hemorrhages were noted. Left foot shows evidence the prior toe amputations. Right foot shows evidence of the ulceration to the second toe. There is a surgical debridement that occurred. He does appear to be bony material exposed at the base. There some swelling and deformity to the distal tip. Neuro: Awake alert oriented to person place and time. There are no acute new gross focal sensory motor deficits. Skin evidence of the extensive ecchymosis to her face especially to the right periorbital area and right arm. No fractures are noted. Significant amounts of edema or also seen at these areas. Results CBC & Chem 7: 03/18/17 16:00 03/18/17 16:00 Labs: Abnormal Lab Results - Last 24 Hours (Table) 03/18/17 03/19/17 03/19/17 Range/Units 16:00 03:29 06:06 ESR (0-20) mm/hr POC Glucose (mg/dL) 264 H (75-99) mg/dL Hemoglobin A1c 9.2 H (4.2-6.1) % C-Reactive Protein (<10.0) mg/L Urine Appearance Cloudy H (Clear) Urine Protein Trace H (Negative) Urine Glucose (UA) 1+ H (Negative) Urine Nitrite Positive H (Negative) Ur Leukocyte Esterase Large H (Negative) Urine WBC 44 H (0-5) /hpf Urine Bacteria Many H (None) /hpf 03/19/17 03/19/17 03/19/17 Range/Units 07:01 12:16 15:52 ESR 64 H (0-20) mm/hr POC Glucose (mg/dL) 265 H 332 H (75-99) mg/dL Hemoglobin A1c (4.2-6.1) % C-Reactive Protein (<10.0) mg/L Urine Appearance (Clear) Urine Protein (Negative) Urine Glucose (UA) (Negative) Urine Nitrite (Negative) Ur Leukocyte Esterase (Negative) Urine WBC (0-5) /hpf Urine Bacteria (None) /hpf 03/19/17 03/19/17 03/19/17 Range/Units 15:52 17:07 20:40 ESR (0-20) mm/hr POC Glucose (mg/dL) 226 H 135 H (75-99) mg/dL Hemoglobin A1c (4.2-6.1) % C-Reactive Protein 53.4 H (<10.0) mg/L Urine Appearance (Clear) Urine Protein (Negative) Urine Glucose (UA) (Negative) Urine Nitrite (Negative) Ur Leukocyte Esterase (Negative) Urine WBC (0-5) /hpf Urine Bacteria (None) /hpf Laboratory Results WBC 8.4 k/uL (3.8-10.6) 03/18/17 16:00 RBC 4.03 m/uL (3.80-5.40) 03/18/17 16:00 Hgb 11.4 gm/dL (11.4-16.0) 03/18/17 16:00 Hct 35.5 % (34.0-46.0) 03/18/17 16:00 MCV 88.0 fL (80.0-100.0) 03/18/17 16:00 MCH 28.4 pg (25.0-35.0) 03/18/17 16:00 MCHC 32.3 g/dL (31.0-37.0) 03/18/17 16:00 RDW 14.2 % (11.5-15.5) 03/18/17 16:00 Plt Count 220 k/uL (150-450) 03/18/17 16:00 Neutrophils % 74 % 03/18/17 16:00 Lymphocytes % 17 % 03/18/17 16:00 Monocytes % 5 % 03/18/17 16:00 Eosinophils % 1 % 03/18/17 16:00 Basophils % 0 % 03/18/17 16:00 Neutrophils # 6.2 k/uL (1.3-7.7) 03/18/17 16:00 Lymphocytes # 1.4 k/uL (1.0-4.8) 03/18/17 16:00 Monocytes # 0.5 k/uL (0-1.0) 03/18/17 16:00 Eosinophils # 0.1 k/uL (0-0.7) 03/18/17 16:00 Basophils # 0.0 k/uL (0-0.2) 03/18/17 16:00 ESR 64 mm/hr (0-20) H 03/19/17 15:52 PT 10.7 sec (9.0-12.0) 03/18/17 16:00 INR 1.1 (<1.2) 03/18/17 16:00 APTT 24.6 sec (22.0-30.0) 03/18/17 16:00 Sodium 134 mmol/L (137-145) L 03/18/17 16:00 Potassium 4.5 mmol/L (3.5-5.1) 03/18/17 16:00 Chloride 98 mmol/L (98-107) 03/18/17 16:00 Carbon Dioxide 23 mmol/L (22-30) 03/18/17 16:00 Anion Gap 13 mmol/L 03/18/17 16:00 BUN 28 mg/dL (7-17) H 03/18/17 16:00 Creatinine 0.87 mg/dL (0.52-1.04) 03/18/17 16:00 Est GFR (MDRD) Af Amer >60 (>60 ml/min/1.73 sqM) 03/18/17 16:00 Est GFR (MDRD) Non-Af >60 (>60 ml/min/1.73 sqM) 03/18/17 16:00 Glucose 534 mg/dL (74-99) H* 03/18/17 16:00 POC Glucose (mg/dL) 135 mg/dL (75-99) H 03/19/17 20:40 POC Glu Cork Tile Floor Layer ID Mahad, Radha 03/19/17 20:[address] Glu mg/dL 217 mg/dL 03/18/17 16:00 Hemoglobin A1c 9.2 % (4.2-6.1) H 03/18/17 16:00 Calcium 9.5 mg/dL (8.4-10.2) 03/18/17 16:00 Magnesium 1.2 mg/dL (1.6-2.3) L 03/18/17 16:00 Total Bilirubin 0.5 mg/dL (0.2-1.3) 03/18/17 16:00 AST 19 U/L (14-36) 03/18/17 16:00 ALT 24 U/L (9-52) 03/18/17 16:00 Alkaline Phosphatase 166 U/L (38-126) H 03/18/17 16:00 Total Creatine Kinase 93 U/L (30-135) 03/18/17 16:00 CK-MB (CK-2) 1.6 ng/mL (0.0-2.4) 03/18/17 16:00 CK-MB (CK-2) Rel Index 1.7 03/18/17 16:00 Troponin I <0.012 ng/mL (0.000-0.034) 03/18/17 16:00 C-Reactive Protein 53.4 mg/L (<10.0) H 03/19/17 15:52 Total Protein 7.0 g/dL (6.3-8.2) 03/18/17 16:00 Albumin 4.1 g/dL (3.5-5.0) 03/18/17 16:00 Urine Color Yellow 03/19/17 03:29 Urine Appearance Cloudy (Clear) H 03/19/17 03:29 Urine pH 5.0 (5.0-8.0) 03/19/17 03:29 Ur Specific [place] 1.017 (1.001-1.035) 03/19/17 03:29 Urine Protein Trace (Negative) H 03/19/17 03:29 Urine Glucose (UA) 1+ (Negative) H 03/19/17 03:29 Urine Ketones Negative (Negative) 03/19/17 03:29 Urine Blood Negative (Negative) 03/19/17 03:29 Urine Nitrite Positive (Negative) H 03/19/17 03:29 Urine Bilirubin Negative (Negative) 03/19/17 03:29 Urine Urobilinogen <2.0 mg/dL (<2.0) 03/19/17 03:29 Ur Leukocyte Esterase Large (Negative) H 03/19/17 03:29 Urine RBC 2 /hpf (0-5) 03/19/17 03:29 Urine WBC 44 /hpf (0-5) H 03/19/17 03:29 Ur Squamous Epith Cells 1 /hpf (0-4) 03/19/17 03:29 Urine Bacteria Many /hpf (None) H 03/19/17 03:29 Assessment and Plan (1) Diabetic foot ulcer associated with type 2 diabetes mellitus Narrative/Plan: 71-year-old female presents to Hospital status post fall. She had had some debridement performed her right foot. And then suffered a fall resulting in her facial and right arm trauma. No fractures are noted. She is under good pain control this time. There is evidence of the significant Hernandez grade 3 diabetic lower extremity ulcerations the right foot second toe with evidence of some bony necrosis. Outpatient bone culture and pathology apparently arm process and I requested. Repeat cultures presented. Bone scan requested for extent of infection. Local wound care with therahoney is requested. Changed every other day. Elevate of the limb. Check her protein status and supplement as indicated. Antimicrobial therapy with Zosyn is requested given her diabetes and prior toe loss. Will monitor. Status: Acute (2) Facial trauma Status: Acute
[2017-03-20] MEDS: PIPERACILLIN-TAZOBACTAM 3.375 GM in DEXTROSE/WATER 1 50ML.BAG IVPB SCH ×2 (00:15→08:20)
[2017-03-20 07:55] VITALS: BP 117/60; PULSE 64; RESP 20; TEMP 97.3
[2017-03-20 07:57] LABS: Glucose,Whole Blood 94 mg/dL (75-99)
[2017-03-20] MEDS: INSULIN LISPRO (humaLOG) 300 UNIT/3 ML VIAL SQ SCH ×2 (08:13→12:59)
[2017-03-20] MEDS: CITALOPRAM HYDROBROMIDE 20 MG TAB PO SCH (08:14)
[2017-03-20] MEDS: metFORMIN 500 MG TAB PO SCH (08:14)
[2017-03-20] MEDS: ATENOLOL 25 MG TAB PO SCH (08:15)
[2017-03-20] MEDS: LISINOPRIL 10 MG TAB PO SCH (08:15)
[2017-03-20] MEDS: GEMFIBROZIL 600 MG TAB PO SCH (08:15)
[2017-03-20 08:49] LABS: Glucose,Whole Blood 233 mg/dL (75-99)
[2017-03-20] MEDS: INSULIN NPH/REG INSULIN 70/30 300 UNIT/3 ML VIAL SQ SCH ×2 (08:52→12:59)
[2017-03-20] MEDS ORDERED: MULTIVITAMINS, THERA 1 EACH TAB PO SCH (12:00)
[2017-03-20 12:04] LABS: Glucose,Whole Blood 204 mg/dL (75-99)
--- NOTE | 2017-03-20 13:34 | P.DS ---
Providers Date of admission: 03/18/17 21:08 Attending physician: Raúl Crain Consults: 03/18/17 21:08 Consult Physician Stat Consulting Provider: Rhett Melchor Consult Reason/Comments: Meningioma Do you want consulting provider notified?: Yes 03/19/17 12:59 Consult Physician Routine Consulting Provider: Richy Alarcon Consult Reason/Comments: foot wound Do you want consulting provider notified?: Yes 03/19/17 15:09 Consult Physician Routine Consulting Provider: Oren Acharya Consult Reason/Comments: right third toe wound Do you want consulting provider notified?: Yes Primary care physician: [facility] Course: Patient was admitted for hyperglycemia due to noncompliance medications her hyperglycemia improved after she was initiated back on her insulin regimen. Patient does have a also on the third toe in the right foot and the cultures were obtained so far negative not sure whether she has an infection in that area are not patient was evaluated Dr. Rodriguez he recommended IV antibiotics for now we'll check with Dr. Rodriguez any patient doesn't need IV antiemetics patient will be discharged today. Patient was evaluated by podiatry as well. GENERAL: The patient is alert and oriented x3, not in any acute distress. Well developed, well nourished. HEENT: Pupils are round and equally reacting to light. EOMI. No scleral icterus. No conjunctival pallor. Normocephalic, atraumatic. No pharyngeal erythema. No thyromegaly. CARDIOVASCULAR: S1 and S2 present. No murmurs, rubs, or gallops. PULMONARY: Chest is clear to auscultation, no wheezing or crackles. ABDOMEN: Soft, nontender, nondistended, normoactive bowel sounds. No palpable organomegaly. MUSCULOSKELETAL: No joint swelling or deformity. EXTREMITIES: No cyanosis, clubbing, or pedal edema. Patient does have an ulcer on the third great toe cannot rule out osteomyelitis with some redness not sure whether patient has cellulitis around that area. NEUROLOGICAL: Gross neurological examination did not reveal any focal deficits. SKIN: No rashes. #1 hyperglycemia without any DKA: Due to noncompliance with medications patient' s blood sugars have come down after starting her on her home regimen along with sliding scale up titrated as needed. Patient also takes metformin which will be continued #2 diabetic foot ulcer on the third toe on the plantar aspect: Wound cultures will be obtained infectious disease and podiatry will be consulted. #3 incidental finding of meningioma: Will need outpatient workup with an MRI. #4 hyperlipidemia #5 coronary artery disease Plan - Discharge Summary New Discharge Prescriptions: Continue Lisinopril 10 mg PO QAM Citalopram Hydrobromide [Citalopram HBr] 60 mg PO QAM Gemfibrozil [Lopid] 600 mg PO AC-BID metFORMIN HCL 1,000 mg PO BID Insulin NPH Hum/Reg Insulin Hm [NovoLIN 70-30 100 UNIT/ML VIAL] 55 unit SQ AC -SUPPER Mirabegron [Myrbetriq] 25 mg PO HS Atorvastatin [Lipitor] 40 mg PO HS Insulin NPH Hum/Reg Insulin Hm [NovoLIN 70-30 100 UNIT/ML VIAL] 66 unit SQ AC -BRKFST #1 each Insulin NPH Hum/Reg Insulin Hm [NovoLIN 70-30 100 UNIT/ML VIAL] 25 unit SQ AC -LUNCH #1 each Discontinued Atenolol [Tenormin] 25 mg PO QAM Discharge Medication List Citalopram Hydrobromide [Citalopram HBr] 60 mg PO QAM 02/21/16 [History] Lisinopril 10 mg PO QAM 02/21/16 [History] Gemfibrozil [Lopid] 600 mg PO AC-BID 10/15/16 [History] Insulin NPH Hum/Reg Insulin Hm [NovoLIN 70-30 100 UNIT/ML VIAL] 55 unit SQ AC- SUPPER 10/15/16 [History] metFORMIN HCL 1,000 mg PO BID 10/15/16 [History] Atorvastatin [Lipitor] 40 mg PO HS 03/18/17 [History] Mirabegron [Myrbetriq] 25 mg PO HS 03/18/17 [History] Insulin NPH Hum/Reg Insulin Hm [NovoLIN 70-30 100 UNIT/ML VIAL] 25 unit SQ AC- LUNCH #1 each 03/20/17 [Rx] Insulin NPH Hum/Reg Insulin Hm [NovoLIN 70-30 100 UNIT/ML VIAL] 66 unit SQ AC- BRKFST #1 each 03/20/17 [Rx] Follow up Appointment(s)/Referral(s): Shon Zhang MD [Primary Care Provider] - 3 Days Discharge Disposition: HOME SELF-CARE
== END 2017-03-20 15:29 | disposition home or self-care (01) ==
LOC: EC 15:58 → 4MS4W 21:08 → INTOOBSV 21:08
PROVIDERS: ADMIT Hospitalist; ATTEND Hospitalist
DX: E11.65 Type 2 diabetes mellitus with hyperglycemia (principal); S00.03XA Contusion of scalp, initial encounter; W10.8XXA Fall (on) (from) other stairs and steps, initial encounter; Y93.89 Activity, other specified; Y92.531 Health care provider office as the place of occurrence of the external cause; S00.81XA Abrasion of other part of head, initial encounter; I25.2 Old myocardial infarction; I25.10 Atherosclerotic heart disease of native coronary artery without angina pectoris; E78.5 Hyperlipidemia, unspecified; F32.9 Major depressive disorder, single episode, unspecified; S19.9XXA Unspecified injury of neck, initial encounter; D32.9 Benign neoplasm of meninges, unspecified; S00.11XA Contusion of right eyelid and periocular area, initial encounter; S00.12XA Contusion of left eyelid and periocular area, initial encounter; E11.42 Type 2 diabetes mellitus with diabetic polyneuropathy; E87.1 Hypo-osmolality and hyponatremia; E11.621 Type 2 diabetes mellitus with foot ulcer; L97.514 Non-pressure chronic ulcer of other part of right foot with necrosis of bone; E11.51 Type 2 diabetes mellitus with diabetic peripheral angiopathy without gangrene; Z79.899 Other long term (current) drug therapy; Z79.4 Long term (current) use of insulin; Z79.84 Long term (current) use of oral hypoglycemic drugs; Z89.422 Acquired absence of other left toe(s); Z87.891 Personal history of nicotine dependence; Z91.14 Patient's other noncompliance with medication regimen
CPT/HCPCS: 96365; 96366 ×2; 96376; 96361; 96375; 99285; 36415; 95819; 93005; 97116; 97162; 84134; 80053; 85652; 83036; 82550; 82553; 83735; 84484; 85025; 85610; 85730; 86140; 81001; 70150; 71020; 73070; 72125; 70450; 78315; G0378 ×3; A9503; J2405; J2543 ×2

== ENCOUNTER 2017-03-30 16:15 | Inpatient (IN) | payer MEDICARE ==
[2017-03-30] MEDS ORDERED: PIPERACILLIN-TAZOBACTAM 3.375 GM in DEXTROSE/WATER 1 50ML.BAG IVPB STA (16:40)
[2017-03-30] MEDS ORDERED: ACETAMINOPHEN TAB 500 MG TAB PO STA (16:40)
[2017-03-30] MEDS ORDERED: IBUPROFEN 600 MG TAB PO STA (16:40)
[2017-03-30] MEDS ORDERED: VANCOMYCIN IV PER PHARMACY 1 EACH MISC MISCELLANE PRN (16:40)
--- NOTE | 2017-03-30 16:47 | ED ---
Lower Extremity Injury HPI <Clayton Betts - Last Filed: 03/30/17 17:12> - General Source: patient, RN notes reviewed, old records reviewed Mode of arrival: wheelchair Limitations: no limitations <Katia Wattersily - Last Filed: 03/30/17 20:20> - General Chief Complaint: Extremity Injury, Lower Stated Complaint: Foot Pain-sent by Time Seen by Provider: 03/30/17 16:32 - History of Present Illness Initial Comments: this is a 71-year-old female presents to the emergency Department chief complaint of infected right third toe. Patient has been managed by Dr. Alarcon for diabetic avascular third toe. Patient was seen earlier today and was sent here to be admitted for further evaluation. Patient is noted to have a fever 101.2. She's had no recent Motrin or Tylenol. She reports that her foot is very painful. She reports it feels warm and hot to touch extending from the toe up to the mid calf. She also has a history of skin grafts over bilateral lower extremities for recurrent wounds. Patient reports that she's had no cough , denies any specific shortness of breath. She denies any specific chest pain. Patient reports that they did cultures over her wound and was told that it was Staphylococcus aureus and Streptococcus anginosus. has a history of diabetes reports that her blood sugars running elevated. Patient was seen and admitted approximately one week ago due to a fall due to an episode of hyperglycemia. She reports that she had facial trauma and has bruising around her face of this time. (Kacy Watters) - Related Data Home Medications Medication Instructions Recorded Confirmed Citalopram Hydrobromide 60 mg PO QAM 02/21/16 03/30/17 [Citalopram HBr] Lisinopril 10 mg PO QAM 02/21/16 03/30/17 Gemfibrozil [Lopid] 600 mg PO AC-BID 10/15/16 03/30/17 Insulin NPH Hum/Reg Insulin Hm 55 unit SQ AC-SUPPER 10/15/16 03/30/17 [NovoLIN 70-30 100 UNIT/ML VIAL] metFORMIN HCL 1,000 mg PO BID 10/15/16 03/30/17 Atorvastatin [Lipitor] 40 mg PO HS 03/18/17 03/30/17 Mirabegron [Myrbetriq] 25 mg PO HS 03/18/17 03/30/17 Cephalexin [Keflex] 500 mg PO QID 03/30/17 03/30/17 Previous Rx's Medication Instructions Recorded Insulin NPH Hum/Reg Insulin Hm 25 unit SQ AC-LUNCH #1 each 03/20/17 [NovoLIN 70-30 100 UNIT/ML VIAL] Insulin NPH Hum/Reg Insulin Hm 66 unit SQ AC-BRKFST #1 each 03/20/17 [NovoLIN 70-30 100 UNIT/ML VIAL] Allergies Allergy/AdvReac Type Severity Reaction Status Date / Time No Known Allergies Allergy Verified 03/30/17 17:22 Review of Systems ROS Other: All systems not noted in ROS Statement are negative. <Clayton Betts - Last Filed: 03/30/17 17:12> ROS Other: All systems not noted in ROS Statement are negative. <Kacy Watters - Last Filed: 03/30/17 20:20> ROS Statement: Those systems with pertinent positive or pertinent negative responses have been documented in the HPI. Past Medical History Past Medical History: Coronary Artery Disease (CAD), Diabetes Mellitus, Hyperlipidemia, Myocardial Infarction ([place]) Additional Past Medical History / Comment(s): ,DIABETIC NEUROPATHY, HX OF CELLULITIS LEFT LEG , amputation left 3rd toe and pinky toe. Last Myocardial Infarction Date:: UNSURE History of Any Multi-Drug Resistant Organisms: None Reported Past Surgical History: Section, Cholecystectomy, Hernia Repair, Joint Replacement Additional Past Surgical History / Comment(s): IGNACIA cataract, LEFT SMALL toe amputation, LEFT KNEE REPLACEMENT, HX OF SKIN GRAFTS Past Anesthesia/Blood Transfusion Reactions: No Reported Reaction Past Psychological History: Depression Smoking Status: Former smoker Past Alcohol Use History: None Reported Past Drug Use History: None Reported - Past Family History Mother Family Medical History: Cancer Father Family Medical History: Cancer <Kacy Watters - Last Filed: 03/30/17 20:20> General Exam <Clayton Betts - Last Filed: 03/30/17 17:12> Limitations: no limitations General appearance: alert, in no apparent distress Head exam: Present: atraumatic, normocephalic, normal inspection Eye exam: Present: normal appearance, PERRL, EOMI, other (ecchymosis underneath bilateral eyes.). Absent: scleral icterus, conjunctival injection, periorbital swelling ENT exam: Present: normal exam, mucous membranes moist Neck exam: Present: normal inspection. Absent: tenderness, meningismus, lymphadenopathy Respiratory exam: Present: normal lung sounds bilaterally. Absent: respiratory distress, wheezes, rales, rhonchi, stridor Cardiovascular Exam: Present: regular rate, normal rhythm, normal heart sounds. Absent: systolic murmur, diastolic murmur, rubs, gallop, clicks GI/Abdominal exam: Present: soft, normal bowel sounds. Absent: distended, tenderness, guarding, rebound, rigid Extremities exam: Present: normal inspection, full ROM, normal capillary refill. Absent: tenderness, pedal edema, joint swelling, calf tenderness Right Foot/Toe exam: Present: abrasion. Absent: normal inspection, full ROM Neurovascular tendon exam: Present: no vascular compromise Back exam: Present: normal inspection Neurological exam: Present: alert Psychiatric exam: Present: normal affect, normal mood Skin exam: Present: warm, dry, intact, normal color. Absent: rash <Kacy Watters - Last Filed: 03/30/17 20:20> - General Exam Comments Initial Comments: 71-year-old female. Patient is alert and oriented. No acute distress. ( Kacy Watters) Course <Clayton Betts - Last Filed: 03/30/17 17:12> <Kacy Watters - Last Filed: 03/30/17 20:20> Vital Signs 03/30/17 03/30/17 16:26 18:37 Temperature 101.7 F H 99.2 F Pulse Rate 79 74 Respiratory 18 18 Rate Blood Pressure 114/79 105/57 O2 Sat by Pulse 99 95 Oximetry - Reevaluation(s) Reevaluation #1: 03/30/17 17:12 PA supervision did do a [id number] evaluation the patient and she has have evidence of infection and necrosis of the right third toe. There is some evidence of cellulitis. She will be admitted. I did discuss case with Dr. Helm. (Clayton Betts) Medical Decision Making <Clayton Betts - Last Filed: 03/30/17 17:12> - Lab Data Result diagrams: 03/30/17 17:30 03/30/17 17:30 - Radiology Data Radiology results: report reviewed <Kacy Watters - Last Filed: 03/30/17 20:20> - Medical Decision Making 8-year-old female with right third toe infection sent in here by Dr. Alarcon. Patient was to be admitted for IV antibiotics with consults to Dr. Rodriguez, Dr. Smith, and Dr. Alarcon. Patient arrived to emergency department with a few 101.7. Given Tylenol and Motrin. Patient labwork was reviewed and have elevated white blood cell count 12.3. Patient lactic acid was 1.6. Blood cultures obtained. Was also noted the patient had a culture of her wound sent in by Dr. Alarcon. The wound cultures was positive for Staphylococcus aureus and Streptococcus anginosus. patient started on IV Zosyn and vancomycin. Patient's chest x-ray showed evidence of cardiomegaly. Right foot x-ray shows evidence of changes in the middle toe. Patient admitted to Dr. castle. Patient understands treatment plan. Cardiac enzymes are within normal limits. Patient also started on insulin sliding scale protocol. (Kacy Watters) 03/30/17 18:15 EKG performed at 1805 shows sinus rhythm with PACs with a burning conduction. Left axis deviation. Nonspecific intraventricular block. Possible lateral infarct. Ventricular rate 72 bpm. VA interval 202 ms. QRS duration 172 ms. QT QTc is 452/508 ms. (Kacy Watters) - Radiology Data Destructive changes of distal phalanx of the third toe consistent with osteomyelitis her amputation. No fracture. Panel spurring noted. cxr shows mild cardiomegaly. No active cardiopulmonary disease. No acute changes. (Kacy Watters) Disposition <Clayton Betts - Last Filed: 03/30/17 17:12> Time of Disposition: 17:48 <Kacy Watters - Last Filed: 03/30/17 20:20> Clinical Impression: Abscess of third toe, right, Fever, Diabetic neuropathy Disposition: ADMITTED IP TO THIS HOSP Condition: Stable
[2017-03-30] MEDS ORDERED: VANCOMYCIN 1,750 MG in SODIUM CHLORIDE 0.9% 250 ML IVPB ONE (17:00)
[2017-03-30 17:44] LABS: Basophils % (A) 0 %; CH 28.6; CHCM 31.5; Eosinophils # (A) 0.1 k/uL (0-0.7); Eosinophils % (A) 1 %; HCT 33.4 % (34.0-46.0); HDW 2.56; HGB 10.4 gm/dL (11.4-16.0); Luc % (Auto) 2; Lymphocytes # (A) 1.7 k/uL (1.0-4.8); Lymphocytes % (A) 14 %; MCH 28.4 pg (25.0-35.0); MCHC 31.1 g/dL (31.0-37.0); MCV 91.2 fL (80.0-100.0); Mean Platelet Volume 8.6; Monocytes # (A) 0.7 k/uL (0-1.0); Monocytes % (A) 6 %; Neutrophils # (A) 9.6 k/uL (1.3-7.7); Neutrophils % (A) 78 %; RBC 3.66 m/uL (3.80-5.40); RDW 14.3 % (11.5-15.5); WBC 12.3 k/uL (3.8-10.6); WBC (Perox) 12.55
[2017-03-30] MEDS: SODIUM CHLORIDE 0.9% 1,000 ML IV SCH (17:44)
[2017-03-30] MEDS: SODIUM CHLORIDE 0.9% 500 ML IV SCH ×3 (17:46→20:17)
[2017-03-30] MEDS ORDERED: ONDANSETRON 4 MG/2 ML VIAL IVP PRN (17:48)
[2017-03-30] MEDS ORDERED: HYDROcodone/APAP 5-325MG 1 EACH TAB PO PRN (17:48)
[2017-03-30] MEDS ORDERED: NALOXONE 0.4 MG/ML 1 ML VIAL IV PRN (17:48)
[2017-03-30] MEDS ORDERED: IBUPROFEN 400 MG TAB PO PRN (17:48)
[2017-03-30] MEDS ORDERED: HYDROmorphone 1 MG/ML 1 ML SYRINGE IV PRN (17:48)
[2017-03-30 17:54] LABS: Prothrombin Time 10.2 sec (9.0-12.0)
[2017-03-30 17:59] LABS: ALT 25 U/L (9-52); AST 16 U/L (14-36); Alkaline Phosphatase 139 U/L (38-126); Anion Gap 14 mmol/L; Blood Urea Nitrogen 28 mg/dL (7-17); Calcium 9.4 mg/dL (8.4-10.2); Carbon Dioxide 20 mmol/L (22-30); Chloride 109 mmol/L (98-107); Glucose 70 mg/dL (74-99); Non-African American GFR(MDRD) >60 (>60 ml/min/1.73 sqM); Potassium 5.2 mmol/L (3.5-5.1); Sodium 143 mmol/L (137-145); Total Bilirubin 0.3 mg/dL (0.2-1.3); Total Protein 6.9 g/dL (6.3-8.2)
[2017-03-30 18:03] LABS: Appearance,Urine Cloudy (Clear); Bilirubin,Urine Negative (Negative); Glucose,Urine (UA) Negative (Negative); Ketones,Urine Negative (Negative); Leukocyte Esterase,Urine Moderate (Negative); Mucus,Urine Rare /hpf; Nitrite,Urine Negative (Negative); PH, Urine 5.5 (5.0-8.0); Particle Count 2280; Protein,Urine Trace (Negative); RBC,Urine 2 /hpf (0-5); Specific Gravity,Urine 1.017 (1.001-1.035); Squamous Epithelial Cell,Urine 12 /hpf (0-4); UA Billing (MACRO vs. MICRO) MICRO; Urobilinogen,Urine <2.0 mg/dL (<2.0); WBC,Urine 6 /hpf (0-5)
--- NOTE | 2017-03-30 18:07 | XR ---
EXAMINATION TYPE: XR chest 2V DATE OF EXAM: 03/30/2017 COMPARISON: 03/18/2017 HISTORY: Fever TECHNIQUE: Frontal and lateral views of the chest are obtained. FINDINGS: There is no heart failure nor confluent pneumonic infiltrate. Heart appears enlarged. Thor acic aorta is atheromatous. There is no pleural effusion. Bony thorax is intact. Thoracic aorta is a theromatous. IMPRESSION: Mild cardiomegaly. No active cardiopulmonary disease. No change.
--- NOTE | 2017-03-30 18:08 | XR ---
EXAMINATION TYPE: XR foot complete RT DATE OF EXAM: 03/30/2017 COMPARISON: NONE HISTORY: Third toe infection TECHNIQUE: 3 views FINDINGS: There are destructive changes at the tip of the third toe with loss of most of the distal p halanx. There is no fracture. There is no dislocation. IMPRESSION: Destructive changes of the distal phalanx of the third toe consistent with osteomyelitis or amputation. No fracture. Calcaneal spurring noted.
[2017-03-30 18:14] LABS: Creatine Kinase 32 U/L (30-135)
[2017-03-30 18:27] LABS: Creatine Kinase MB 0.8 ng/mL (0.0-2.4); Troponin I <0.012 ng/mL (0.000-0.034)
[2017-03-30 20:06] LABS: Glucose,Whole Blood 167 mg/dL (75-99)
[2017-03-30] MEDS: INSULIN LISPRO (humaLOG) 300 UNIT/3 ML VIAL SQ SCH (20:19)
[2017-03-30] MEDS: metFORMIN 500 MG TAB PO SCH (20:19)
[2017-03-30] MEDS: ATORVASTATIN 40 MG TAB PO SCH (20:19)
[2017-03-30] MEDS ORDERED: NON-FORMULARY DRUG (Mirabegron [Myrbetriq] 25 MG) PO SCH (21:00)
[2017-03-30 21:32] LABS: Hemoglobin A1C 8.7 % (4.2-6.1)
[2017-03-31] MEDS: SODIUM CHLORIDE 0.9% 1,000 ML IV SCH ×4 (04:47→22:05)
[2017-03-31 07:06] LABS: Glucose,Whole Blood 110 mg/dL (75-99)
[2017-03-31] MEDS: INSULIN LISPRO (humaLOG) 300 UNIT/3 ML VIAL SQ SCH ×4 (07:24→21:26)
[2017-03-31] MEDS: GEMFIBROZIL 600 MG TAB PO SCH ×2 (07:28→17:31)
[2017-03-31] MEDS: metFORMIN 500 MG TAB PO SCH ×2 (07:29→17:31)
[2017-03-31 08:17] LABS: Anion Gap 9 mmol/L; Blood Urea Nitrogen 28 mg/dL (7-17); Calcium 8.5 mg/dL (8.4-10.2); Carbon Dioxide 21 mmol/L (22-30); Chloride 115 mmol/L (98-107); Glucose 108 mg/dL (74-99); Non-African American GFR(MDRD) 52 (>60 ml/min/1.73 sqM); Potassium 4.6 mmol/L (3.5-5.1); Sodium 145 mmol/L (137-145)
[2017-03-31] MEDS ORDERED: LISINOPRIL 10 MG TAB PO SCH (09:00)
[2017-03-31] MEDS: CITALOPRAM HYDROBROMIDE 20 MG TAB PO SCH (09:57)
[2017-03-31] MEDS: ENOXAPARIN 40 MG/0.4 ML SYRINGE SQ SCH (09:58)
[2017-03-31] MEDS: VANCOMYCIN 1,500 MG in SODIUM CHLORIDE 0.9% 250 ML IVPB SCH (10:01)
--- NOTE | 2017-03-31 11:43 | P.CRDCN ---
History of Present Illness History of present illness: Patient interviewed and examined. Elderly female with cardiomyopathy admitted with a foot infection, underlying diabetes, she was febrile blood pressure was low. Twelve-lead ECG shows a mild prolonged AL interval with a left bundle branch block., Ischemic cardio myopathy last ejection fraction in the office was 35% Examination heart sounds are soft no S3 gallop. Hepatojugular reflux noted but the patient denies any undue shortness of breath no breathing trouble while lying flat and she looks comfortable. Blood pressure ranges from 90-1 24 mmHg. Currently she is on lisinopril. In the office she is on beta blockers. Impression Ischemic cardio myopathy Congestive heart failure, chronic systolic without acute exacerbation at this time Left bundle branch block with a wide QRS and a mildly prolonged AL interval Infected foot and toe, underlying diabetes, underlying PVD High risk for device-related infection Suggest Add Toprol-XL 25 g by mouth daily in the morning and switch lisinopril to 10 mg in the evening as long as blood pressure is greater than 110 mmHg Gradually maximize medications Lipid panel, continue statins Baby aspirin Medical treatment for coronary myopathy and chronic heart failure and management of infected foot with underlying severe PVD Follow-up with Dr. Greer as an outpatient See full dictation by nurse practitioner Past Medical History Past Medical History: Coronary Artery Disease (CAD), Diabetes Mellitus, Hyperlipidemia, Myocardial Infarction ([place]) Additional Past Medical History / Comment(s): ,DIABETIC NEUROPATHY, HX OF CELLULITIS LEFT LEG , amputation left 3rd toe and pinky toe. Last Myocardial Infarction Date:: UNSURE History of Any Multi-Drug Resistant Organisms: None Reported Past Surgical History: Section, Cholecystectomy, Hernia Repair, Joint Replacement Additional Past Surgical History / Comment(s): IGNACIA cataract, LEFT SMALL toe amputation, LEFT KNEE REPLACEMENT, HX OF SKIN GRAFTS Past Anesthesia/Blood Transfusion Reactions: No Reported Reaction Past Psychological History: Depression Smoking Status: Former smoker Past Alcohol Use History: None Reported Past Drug Use History: None Reported - Past Family History Mother Family Medical History: Cancer Father Family Medical History: Cancer Medications and Allergies Home Medications Medication Instructions Recorded Confirmed Type Citalopram Hydrobromide 60 mg PO QAM 02/21/16 03/30/17 History [Citalopram HBr] Lisinopril 10 mg PO QAM 02/21/16 03/30/17 History Gemfibrozil [Lopid] 600 mg PO AC-BID 04/13/17 09/26/17 History Insulin NPH Hum/Reg Insulin Hm 55 unit SQ AC-SUPPER 10/15/16 03/30/17 History [NovoLIN 70-30 100 UNIT/ML VIAL] metFORMIN HCL 1,000 mg PO BID 10/15/16 03/30/17 History Atorvastatin [Lipitor] 40 mg PO HS 03/18/17 03/30/17 History Mirabegron [Myrbetriq] 25 mg PO HS 03/18/17 03/30/17 History Insulin NPH Hum/Reg Insulin Hm 25 unit SQ AC-LUNCH #1 each 03/20/17 03/30/17 Rx [NovoLIN 70-30 100 UNIT/ML VIAL] Insulin NPH Hum/Reg Insulin Hm 66 unit SQ AC-BRKFST #1 each 03/20/17 03/30/17 Rx [NovoLIN 70-30 100 UNIT/ML VIAL] Cephalexin [Keflex] 500 mg PO QID 03/30/17 03/30/17 History Allergies Allergy/AdvReac Type Severity Reaction Status Date / Time No Known Allergies Allergy Verified 03/30/17 17:22 Physical Exam Vitals: Vital Signs Temp Pulse Pulse Resp BP BP BP 03/31/17 07:00 97.9 F 68 18 124/63 03/30/17 22:55 66 97/51 03/30/17 22:06 99.9 F H 70 18 95/59 03/30/17 18:37 99.2 F 74 18 105/57 03/30/17 16:26 101.7 F H 79 18 114/79 Pulse Ox 03/31/17 07:00 98 03/30/17 22:55 03/30/17 22:06 96 03/30/17 18:37 95 03/30/17 16:26 99 Intake and Output 03/30/17 03/31/17 03/31/17 22:59 06:59 14:59 Intake Total 450 1260 Balance 450 1260 Intake: IV 1260 Piperacillin-Tazobactam 3 50 .375 gm In Dextrose/Water 1 50ml.bag @ 12.5 mls/hr IVPB ONCE STA Rx#: [id number] Sodium Chloride 0.9% 1, 960 000 ml @ 120 mls/hr IV . Q8H20M [facility] Rx#:[id number] Vancomycin 1,750 mg In 250 Sodium Chloride 0.9% 250 ml @ 125 mls/hr IVPB ONCE ONE Rx#:[id number] Oral 450 Other: Voiding Method Toilet # Voids 1 1 Weight 91.626 kg Results 03/30/17 17:30 03/31/17 07:18 Cardiac Enzymes 03/30/17 03/30/17 Range/Units 17:30 17:30 AST 16 (14-36) U/L CK-MB (CK-2) 0.8 (0.0-2.4) ng/mL Troponin I <0.012 (0.000-0.034) ng/mL Coagulation 03/30/17 Range/Units 17:30 PT 10.2 (9.0-12.0) sec APTT 28.0 (22.0-30.0) sec CBC 03/30/17 Range/Units 17:30 WBC 12.3 H (3.8-10.6) k/uL RBC 3.66 L (3.80-5.40) m/uL Hgb 10.4 L (11.4-16.0) gm/dL Hct 33.4 L (34.0-46.0) % Plt Count 369 (150-450) k/uL Comprehensive Metabolic Panel 03/30/17 03/31/17 Range/Units 17:30 07:18 Sodium 143 145 (137-145) mmol/L Potassium 5.2 H 4.6 (3.5-5.1) mmol/L Chloride 109 H 115 H (98-107) mmol/L Carbon Dioxide 20 L 21 L (22-30) mmol/L BUN 28 H 28 H (7-17) mg/dL Creatinine 0.90 1.04 (0.52-1.04) mg/dL Glucose 70 L 108 H (74-99) mg/dL Calcium 9.4 8.5 (8.4-10.2) mg/dL AST 16 (14-36) U/L ALT 25 (9-52) U/L Alkaline Phosphatase 139 H (38-126) U/L Total Protein 6.9 (6.3-8.2) g/dL Albumin 3.7 (3.5-5.0) g/dL Current Medications Generic Name Dose Route Start Last Admin Trade Name Freq PRN Reason Stop Dose Admin Acetaminophen 650 mg 03/30/17 17:48 Tylenol Tab PO Q6HR PRN Mild Pain or Fever > 100.5 Hydrocodone Bitart/Acetaminophen 1 each 03/30/17 17:48 [place] 5-325 PO Q4HR PRN Moderate Pain Atorvastatin Calcium 40 mg 03/30/17 21:00 03/30/17 20:19 Lipitor PO 40 mg HS [facility]BA Administration Citalopram Hydrobromide 60 mg 03/31/17 09:00 03/31/17 09:57 Celexa PO 60 mg QAM ALBA Administration Enoxaparin Sodium 40 mg 03/31/17 09:00 03/31/17 09:58 Lovenox SQ 40 mg DAILY ALBA Administration Gemfibrozil 600 mg 03/31/17 07:30 03/31/17 07:28 Lopid PO 600 mg AC-BID ALBA Administration Hydromorphone HCl 1 mg 03/30/17 17:48 Dilaudid IV Q3HR PRN Severe Pain Sodium Chloride 1,000 mls @ 120 mls/hr 03/30/17 16:40 03/31/17 04:47 Saline 0.9% IV 120 mls/hr .Q8H20M [facility]BA Administration Vancomycin HCl 1,500 mg/ 250 mls @ 125 mls/hr 03/31/17 09:00 03/31/17 10:01 Sodium Chloride IVPB 125 mls/hr Q18H [facility]BA Administration Ibuprofen 400 mg 03/30/17 17:48 Motrin PO Q6HR PRN Mild Pain or Fever > 100.5 Insulin Human Lispro 0 unit 03/30/17 21:00 03/31/17 07:24 Humalog SQ Not Given ACHS [facility] Protocol Lisinopril 10 mg 03/31/17 09:00 03/31/17 09:59 Zestril PO 10 mg QAM [facility]BA Administration Metformin HCl 1,000 mg 03/30/17 18:15 03/31/17 07:29 Glucophage PO 1,000 mg BID-W/MEALS [facility] Administration Naloxone HCl 0.2 mg 03/30/17 17:48 Narcan IV Q2M PRN Opioid Reversal Non-Formulary Medication 25 mg 03/30/17 21:00 Mirabegron [Myrbetriq] PO HS [facility] Ondansetron HCl 4 mg 03/30/17 17:48 Zofran IVP Q8HR PRN Nausea And Vomiting Intake and Output 03/30/17 03/31/17 03/31/17 22:59 06:59 14:59 Intake Total 450 1260 Balance 450 1260 Intake: IV 1260 Piperacillin-Tazobactam 3 50 .375 gm In Dextrose/Water 1 50ml.bag @ 12.5 mls/hr IVPB ONCE STA Rx#: [id number] Sodium Chloride 0.9% 1, 960 000 ml @ 120 mls/hr IV . Q8H20M [facility] Rx#:[id number] Vancomycin 1,750 mg In 250 Sodium Chloride 0.9% 250 ml @ 125 mls/hr IVPB ONCE ONE Rx#:[id number] Oral 450 Other: Voiding Method Toilet # Voids 1 1 Weight 91.626 kg 03/30/17 17:30 03/31/17 07:18
[2017-03-31 11:45] LABS: Glucose,Whole Blood 203 mg/dL (75-99)
--- NOTE | 2017-03-31 12:19 | ECHOF ---
Referral Reason:history of heart failure MEASUREMENTS -------- HEIGHT: 160.0 cm WEIGHT: 91.6 kg BP: 124/63 RVIDd: 3.3 cm (< 3.3) IVSd: 1.2 cm (0.6 - 1.1) LVIDd: 4.6 cm (3.9 - 5.3) LVPWd: 1.6 cm (0.6 - 1.1) IVSs: 1.4 cm LVIDs: 3.9 cm LVPWs: 1.6 cm LA Diam: 3.2 cm (2.7 - 3.8) LAESV Index (A-L): 41.66 ml/m Ao Diam: 3.1 cm (2.0 - 3.7) AV Cusp: 1.7 cm (1.5 - 2.6) LA Diam: 3.9 cm (2.7 - 3.8) MV EXCURSION: 14.056 mm (> 18.000) MV EF SLOPE: 51 mm/s (70 - 150) EPSS: 0.8 cm MV E Marvin: 0.59 m/s MV DecT: 190 ms MV A Marvin: 0.88 m/s MV E/A Ratio: 0.67 RAP: 5.00 mmHg RVSP: 33.76 mmHg FINDINGS -------- Sinus rhythm. This was a technically good study. The left ventricular size is normal. There is mild concentric left ventricular hypertrophy. Overall left ventricular systolic function is mild-moderately impaired with, an EF between 40 - 45 %. EF 40% , DISTAL SEPTAL AKINESIS Anterseptal Hypokinesis Inferior Hypokinesis [place] Hypokinesis. Distal Septal Hypokinesis. The right ventricle is normal in size. LA is severely dilated >40 ml/m2 The right atrial size is normal. The aortic valve is trileaflet, and appears structurally normal. No aortic stenosis or regurgitation. Mild mitral annular calcification present. Mild mitral regurgitation is present. Mild tricuspid regurgitation present. There is no evidence of pulmonary hypertension. The right ventricular systolic pressure, as measured by Doppler, is 33.76mmHg. Trace/mild (physiologic) pulmonic regurgitation. The aortic root size is normal. There is no pericardial effusion. CONCLUSIONS -------- 1. The left ventricular size is normal. 2. The aortic valve is trileaflet, and appears structurally normal. No aortic stenosis or regurgitation. 3. Mild mitral annular calcification present. 4. Mild mitral regurgitation is present. 5. Mild tricuspid regurgitation present. 6. There is no evidence of pulmonary hypertension. 7. The right ventricular systolic pressure, as measured by Doppler, is 33.76mmHg. 8. Trace/mild (physiologic) pulmonic regurgitation. 9. The aortic root size is normal. 10. There is no pericardial effusion. 11. There is mild concentric left ventricular hypertrophy. 12. Overall left ventricular systolic function is mild-moderately impaired with, an EF between 40 - 45 %. 13. EF 40% , DISTAL SEPTAL AKINESIS 14. Anterseptal Hypokinesis 15. Inferior Hypokinesis 16. [place] Hypokinesis. 17. Distal Septal Hypokinesis. 18. LA is severely dilated >40 ml/m2 HUMAN RESOURCES CONSULTANT: Jenifer Rehman RDCS
--- NOTE | 2017-03-31 13:54 | P.CRDCN ---
History of Present Illness Consult date: 03/31/17 History of present illness: This is a 71-year-old female. She sees Dr. Laws as an outpatient. She has past medical history significant for ischemic cardiomyopathy with chronic systolic dysfunction, diabetes mellitus, hyperlipidemia and CAD. Her last ejection fraction in the office was 35% in 2016. She is admitted to the hospital with chronic right great toe infection. We are asked to see the patient. She is seen laying down in bed in no acute distress. She denies symptoms of chest pain, shortness of breath, palpitations or diaphoresis. She does state she felt dizzy last week one day and fell while leaving Dr. Alarcon's office after wound care treatment. Review of office records reveal the pt is prescribed beta rosa but not currently taking. Review of Systems Extensive review of systems performed, negative except mentioned in HPI. Past Medical History Past Medical History: Coronary Artery Disease (CAD), Diabetes Mellitus, Hyperlipidemia, Myocardial Infarction (MA) Additional Past Medical History / Comment(s): ,DIABETIC NEUROPATHY, HX OF CELLULITIS LEFT LEG , amputation left 3rd toe and pinky toe. Last Myocardial Infarction Date:: UNSURE History of Any Multi-Drug Resistant Organisms: None Reported Past Surgical History: Section, Cholecystectomy, Hernia Repair, Joint Replacement Additional Past Surgical History / Comment(s): IGNACIA cataract, LEFT SMALL toe amputation, LEFT KNEE REPLACEMENT, HX OF SKIN GRAFTS Past Anesthesia/Blood Transfusion Reactions: No Reported Reaction Past Psychological History: Depression Smoking Status: Former smoker Past Alcohol Use History: None Reported Past Drug Use History: None Reported - Past Family History Mother Family Medical History: Cancer Father Family Medical History: Cancer Medications and Allergies Home Medications Medication Instructions Recorded Confirmed Type Citalopram Hydrobromide 60 mg PO QAM 02/21/16 03/30/17 History [Citalopram HBr] Lisinopril 10 mg PO QAM 02/21/16 03/30/17 History Gemfibrozil [Lopid] 600 mg PO AC-BID 10/15/16 03/30/17 History Insulin NPH Hum/Reg Insulin Hm 55 unit SQ AC-SUPPER 10/15/16 03/30/17 History [NovoLIN 70-30 100 UNIT/ML VIAL] metFORMIN HCL 1,000 mg PO BID 10/15/16 03/30/17 History Atorvastatin [Lipitor] 40 mg PO HS 03/18/17 03/30/17 History Mirabegron [Myrbetriq] 25 mg PO HS 03/18/17 03/30/17 History Insulin NPH Hum/Reg Insulin Hm 25 unit SQ AC-LUNCH #1 each 03/20/17 03/30/17 Rx [NovoLIN 70-30 100 UNIT/ML VIAL] Insulin NPH Hum/Reg Insulin Hm 66 unit SQ AC-BRKFST #1 each 03/20/17 03/30/17 Rx [NovoLIN 70-30 100 UNIT/ML VIAL] Cephalexin [Keflex] 500 mg PO QID 03/30/17 03/30/17 History Allergies Allergy/AdvReac Type Severity Reaction Status Date / Time No Known Allergies Allergy Verified 03/30/17 17:22 Physical Exam Vitals: Vital Signs Temp Pulse Pulse Resp BP BP BP 03/31/17 07:00 97.9 F 68 18 124/63 03/30/17 22:55 66 97/51 03/30/17 22:06 99.9 F H 70 18 95/59 03/30/17 18:37 99.2 F 74 18 105/57 03/30/17 16:26 101.7 F H 79 18 114/79 Pulse Ox 03/31/17 07:00 98 03/30/17 22:55 03/30/17 22:06 96 03/30/17 18:37 95 03/30/17 16:26 99 Intake and Output 03/30/17 03/31/17 03/31/17 22:59 06:59 14:59 Intake Total 450 1260 Balance 450 1260 Intake: IV 1260 Piperacillin-Tazobactam 3 50 .375 gm In Dextrose/Water 1 50ml.bag @ 12.5 mls/hr IVPB ONCE STA Rx#: [id number] Sodium Chloride 0.9% 1, 960 000 ml @ 120 mls/hr IV . Q8H20M ALBA Rx#:[id number] Vancomycin 1,750 mg In 250 Sodium Chloride 0.9% 250 ml @ 125 mls/hr IVPB ONCE ONE Rx#:[id number] Oral 450 Other: Voiding Method Toilet # Voids 1 1 Weight 91.626 kg GENERAL: This is a 71-year-old female in no apparent distress at the time of my examination. Obese. HEENT: Head is atraumatic, normocephalic. Pupils are equal, round. Sclerae anicteric. Conjunctivae are clear. Mucous membranes of the mouth are moist. Neck is supple. There is no jugular venous distention. No carotid bruit is heard. Hepatojugular reflex noted. LUNGS: Clear to auscultation no wheezes, rales or rhonchi. No chest wall tenderness is noted on palpation or with deep breathing. HEART: Regular rate and rhythm without murmurs, rubs or gallops. S1 and S2 heard. ABDOMEN: Soft, nontender. Bowel sounds are heard. No organomegaly noted. EXTREMITIES: 1+ peripheral pulses. Right lower extremity with increased erythema around the ankle, warm to touch with no calf tenderness bilaterally. No edema bilaterally. NEUROLOGIC: Patient is awake, alert and oriented x3. Results 03/30/17 17:30 03/31/17 07:18 Cardiac Enzymes 03/30/17 03/30/17 Range/Units 17:30 17:30 AST 16 (14-36) U/L CK-MB (CK-2) 0.8 (0.0-2.4) ng/mL Troponin I <0.012 (0.000-0.034) ng/mL Coagulation 03/30/17 Range/Units 17:30 PT 10.2 (9.0-12.0) sec APTT 28.0 (22.0-30.0) sec CBC 03/30/17 Range/Units 17:30 WBC 12.3 H (3.8-10.6) k/uL RBC 3.66 L (3.80-5.40) m/uL Hgb 10.4 L (11.4-16.0) gm/dL Hct 33.4 L (34.0-46.0) % Plt Count 369 (150-450) k/uL Comprehensive Metabolic Panel 03/30/17 03/31/17 Range/Units 17:30 07:18 Sodium 143 145 (137-145) mmol/L Potassium 5.2 H 4.6 (3.5-5.1) mmol/L Chloride 109 H 115 H (98-107) mmol/L Carbon Dioxide 20 L 21 L (22-30) mmol/L BUN 28 H 28 H (7-17) mg/dL Creatinine 0.90 1.04 (0.52-1.04) mg/dL Glucose 70 L 108 H (74-99) mg/dL Calcium 9.4 8.5 (8.4-10.2) mg/dL AST 16 (14-36) U/L ALT 25 (9-52) U/L Alkaline Phosphatase 139 H (38-126) U/L Total Protein 6.9 (6.3-8.2) g/dL Albumin 3.7 (3.5-5.0) g/dL Current Medications Generic Name Dose Route Start Last Admin Trade Name Freq PRN Reason Stop Dose Admin Acetaminophen 650 mg 03/30/17 17:48 Tylenol Tab PO Q6HR PRN Mild Pain or Fever > 100.5 Hydrocodone Bitart/Acetaminophen 1 each 03/30/17 17:48 [place] 5-325 PO Q4HR PRN Moderate Pain Atorvastatin Calcium 40 mg 03/30/17 21:00 03/30/17 20:19 Lipitor PO 40 mg HS ALBA Administration Citalopram Hydrobromide 60 mg 03/31/17 09:00 03/31/17 09:57 Celexa PO 60 mg QAM ALBA Administration Enoxaparin Sodium 40 mg 03/31/17 09:00 03/31/17 09:58 Lovenox SQ 40 mg DAILY ALBA Administration Gemfibrozil 600 mg 03/31/17 07:30 03/31/17 07:28 Lopid PO 600 mg AC-BID ALBA Administration Hydromorphone HCl 1 mg 03/30/17 17:48 Dilaudid IV Q3HR PRN Severe Pain Sodium Chloride 1,000 mls @ 120 mls/hr 03/30/17 16:40 03/31/17 11:43 Saline 0.9% IV Not Given .Q8H20M ALBA Vancomycin HCl 1,500 mg/ 250 mls @ 125 mls/hr 03/31/17 09:00 03/31/17 10:01 Sodium Chloride IVPB 125 mls/hr Q18H ALBA Administration Ibuprofen 400 mg 03/30/17 17:48 Motrin PO Q6HR PRN Mild Pain or Fever > 100.5 Insulin Human Lispro 0 unit 03/30/17 21:00 03/31/17 12:48 Humalog SQ 2 unit ACHS ALBA Administration Protocol Lisinopril 10 mg 03/31/17 09:00 03/31/17 09:59 Zestril PO 10 mg QAM ALBA Administration Metformin HCl 1,000 mg 03/30/17 18:15 03/31/17 07:29 Glucophage PO 1,000 mg BID-W/MEALS ALBA Administration Naloxone HCl 0.2 mg 03/30/17 17:48 Narcan IV Q2M PRN Opioid Reversal Ondansetron HCl 4 mg 03/30/17 17:48 Zofran IVP Q8HR PRN Nausea And Vomiting Intake and Output 03/30/17 03/31/17 03/31/17 22:59 06:59 14:59 Intake Total 450 1260 Balance 450 1260 Intake: IV 1260 Piperacillin-Tazobactam 3 50 .375 gm In Dextrose/Water 1 50ml.bag @ 12.5 mls/hr IVPB ONCE STA Rx#: [id number] Sodium Chloride 0.9% 1, 960 000 ml @ 120 mls/hr IV . Q8H20M ALBA Rx#:[id number] Vancomycin 1,750 mg In 250 Sodium Chloride 0.9% 250 ml @ 125 mls/hr IVPB ONCE ONE Rx#:[id number] Oral 450 Other: Voiding Method Toilet # Voids 1 1 Weight 91.626 kg 03/30/17 17:30 03/31/17 07:18 EKG Interpretations (text) EKG shows mild prolonged [place] interval with a left bundle-branch block. Assessment and Plan Plan: ASSESSMENT 1. Ischemic cardiomyopathy 2. Chronic systolic heart failure with acute exacerbation at this time 3. Left bundle branch block with wide QRS 4. Chronic right great toe infection 5. Diabetes mellitus 6. Peripheral vascular disease PLAN At Toprol XL 25 mg daily to start tomorrow morning. Change lisinopril to 10 mg in the evening as long as blood pressures greater than 110 mmHg. We will gradually maximize medications. Repeat 2D echo and doppler to assess LV function. Nurse Practitioner note has been reviewed, I agree with a documented findings and plan of care. Patient was seen and examined.
[2017-03-31] MEDS: ASPIRIN 81 MG PO SCH (14:20)
[2017-03-31] MEDS: ACETAMINOPHEN TAB 325 MG TAB PO PRN (15:27)
[2017-03-31 16:40] LABS: Glucose,Whole Blood 223 mg/dL (75-99)
--- NOTE | 2017-03-31 17:24 | HP ---
HISTORY AND PHYSICAL DATE OF ADMISSION: 03/30/2017 DATE OF SERVICE: 03/31/2017 PRESENTING COMPLAINT: Right third toe infection. HISTORY OF PRESENTING COMPLAINT: This is a 71-year-old patient, my nurse practitioner saw earlier today. Chronic stable medical conditions include diabetes, meningioma being worked up as an outpatient, hyperlipidemia, coronary artery disease, peripheral neuropathy, and congestive heart failure. EF 35%. The patient developed a right third toe wound about 2 weeks ago. Then took a fall with further injury. The patient had followed up with Dr. Alarcon in the clinic. The patient's toe is now hurting, inflamed, slight drainage. Admitted with sepsis picture. REVIEW OF SYSTEMS: CONSTITUTIONAL: Fever, tired. HEENT: None. RESPIRATORY: None. CARDIOVASCULAR: None. GASTROINTESTINAL: None. GENITOURINARY: None. MUSCULOSKELETAL: As above. DERMATOLOGICAL: As above. LYMPHATIC: None. PSYCHIATRY: None. NEUROLOGICAL: Numbness and tingling in hands and feet. PAST MEDICAL HISTORY: Diabetes mellitus type 2, coronary artery disease, hyperlipidemia, peripheral neuropathy, amputation of the third left toe and pinky toe. PAST SURGICAL HISTORY: , cholecystectomy, hernia repair, bilateral cataract, left small toe amputation, left third toe amputation, left knee replacement, skin graft. SOCIAL HISTORY: Does not smoke or drink alcohol. Lives by herself. 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 FAMILY HISTORY: Cancer type unknown. HOME MEDICATIONS: 1. Metformin 1000 mg p.o. b.i.d. 2. Myrbetriq 25 mg p.o. q.h.s. 3. Lisinopril 10 mg p.o. in the morning. 4. Novolin 70/30 25 units with lunch and 60 units with breakfast and 55 with supper. 5. Lopid 600 mg a.c. b.i.d. 6. Celexa 60 mg p.o. daily. 7. Keflex 100 mg p.o. q.i.d. 8. Lipitor 40 mg q.h.s. ALLERGIES: None. PHYSICAL EXAMINATION: Vital signs on presentation, temperature 101.7, pulse 79, respiration 18, blood pressure 114/79, pulse ox 99% room air. GENERAL APPEARANCE: Well built, lying in bed, not in distress. EYES: Pupils equal. Conjunctivae normal. HEENT: Oral cavity normal. NECK: JVD not raised. Mass not palpable. RESPIRATORY: Effort normal. LUNGS: Fair entry. CARDIOVASCULAR: First and second sounds are normal. No edema. ABDOMEN: Soft, nontender. Liver and spleen not palpable. LYMPHATIC: No lymph node palpable in neck or axillae. PSYCHIATRY: Alert and oriented x3. Mood and affect normal. NEUROLOGICAL: Pupils appear grossly intact. Power is grossly intact. Right foot toe in a dressing. INVESTIGATIONS: White count 12.3, hemoglobin 10.4, potassium 5.2, BUN 28, creatinine 0.90. Accu-Cheks are noted. Foot x-ray: Destructive changes of the distal phalanx of the third toe consistent with osteomyelitis. ASSESSMENT: 1. Possible acute osteomyelitis of the distal phalanx on the right third toe in a patient with known diabetes. 2. Diabetes mellitus type 2, chronically on insulin causing peripheral neuropathy. 3. Meningioma outpatient workup in place. 4. Hyperlipidemia. 5. Coronary artery disease. 6. Chronic congestive heart failure from systolic dysfunction, ejection fraction 30% from underlying ischemic heart disease. PLAN: Home medications are resumed. Patient is on IV vancomycin. Consultation to Vascular and ID, both were done. Care was discussed with the patient. Follow Accu-Cheks. MMODL / IJN: [id number] /
--- NOTE | 2017-03-31 21:02 | P.CONS ---
History of Present Illness - Reason for Consult Consult date: 03/31/17 - Chief Complaint Gangrene to toe - History of Present Illness Pleasant 71-year-old female known to the infectious disease service because of her difficulties with peripheral vascular disease, prior diabetic foot infections with gangrene to toes resulting in prior toe amputations. Presents with ongoing difficulty to the right foot third toe. She's been having some increasing ulceration. It markedly worsen. She was in the outpatient setting. There was some debridements to some necrotic bone that was performed. The now has worsening changes with some dry gangrenous changes to the distal aspect of the toe. With concerns to worsening infection she's been brought into hospital for further intervention. This was on relates that she feels better since last time she was seen. The time she just suffered a fall and had extensive ecchymosis to her face and right arm which are now improving. Overall discomfort is improved but she is worried about the toe. She is denying significant fever or chills. Does not feel well overall. Review of Systems HEENT:Denies headache or acute visual change. Denies sinus or mouth discomforts. Denies neck stiffness or pain. Denies significant oral cavity pain. Denies difficulty on swallowing. Lungs: Denies significant shortness of breath, cough, sputum production, or hemoptysis. Cardiovascular: Denies significant shortness of breath, chest pain, chest wall pain, orthopnea, dyspnea on exertion, syncope Gastrointestinal:Denies nausea, vomiting, diarrhea, constipation, hematemesis, melena, hematochezia. No no significant change of bowel habit noticed. Musculoskeletal: denies significant myalgias or arthralgias. Foot changes as per the HPI. Denies new back pain. Skin: As per the HPI Neuro: Denies headache or visual change. Denies any acute new onset right or left-sided weakness. Did have difficulty with the fall yesterday. Denies syncope or acute dizziness before the fall. Relates that she simply misstepped and fell on steps Psychiatric:Denies anxiety or depression. Endocrine: Chronic fatigue and weight gain Past Medical History Past Medical History: Coronary Artery Disease (CAD), Diabetes Mellitus, Hyperlipidemia, Myocardial Infarction ([place]) Additional Past Medical History / Comment(s): ,DIABETIC NEUROPATHY, HX OF CELLULITIS LEFT LEG , amputation left 3rd toe and pinky toe. Last Myocardial Infarction Date:: UNSURE History of Any Multi-Drug Resistant Organisms: None Reported Past Surgical History: Section, Cholecystectomy, Hernia Repair, Joint Replacement Additional Past Surgical History / Comment(s): IGNACIA cataract, LEFT SMALL toe amputation, LEFT KNEE REPLACEMENT, HX OF SKIN GRAFTS Past Anesthesia/Blood Transfusion Reactions: No Reported Reaction Past Psychological History: Depression Additional Psychological History / Comment(s): QUIT SMOKING 40 YRS AGO, SMOKED LESS THAN 1PPD FOR LESS THAN 10 YRS. Lives independently. No alcohol use. 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 No experience. No international travel. Has a pet dog in the home care for by her daughter Smoking Status: Former smoker Past Alcohol Use History: None Reported Past Drug Use History: None Reported - Past Family History Mother Family Medical History: Cancer Father Family Medical History: Cancer Medications and Allergies Home Medications and Allergies Comment(s): Current Medications Acetaminophen (Tylenol Tab) 650 mg PO Q6HR PRN PRN Reason: Mild Pain or Fever > 100.5 Last Admin: 03/31/17 15:27 Dose: 650 mg Hydrocodone Bitart/Acetaminophen ([place] 5-325) 1 each PO Q4HR PRN PRN Reason: Moderate Pain Aspirin (Aspirin) 81 mg PO DAILY [facility] Last Admin: 03/31/17 14:20 Dose: 81 mg Atorvastatin Calcium (Lipitor) 40 mg PO HS [facility] Last Admin: 03/30/17 20:19 Dose: 40 mg Citalopram Hydrobromide (Celexa) 60 mg PO QAM [facility] Last Admin: 03/31/17 09:57 Dose: 60 mg Enoxaparin Sodium (Lovenox) 40 mg SQ DAILY [facility] Last Admin: 03/31/17 09:58 Dose: 40 mg Gemfibrozil (Lopid) 600 mg PO AC-BID [facility] Last Admin: 03/31/17 17:31 Dose: 600 mg Hydromorphone HCl (Dilaudid) 1 mg IV Q3HR PRN PRN Reason: Severe Pain Sodium Chloride (Saline 0.9%) 1,000 mls @ 120 mls/hr IV .Q8H20M [facility] Last Admin: 03/31/17 14:20 Dose: 120 mls/hr Vancomycin HCl 1,500 mg/ (Sodium Chloride) 250 mls @ 125 mls/hr IVPB Q18H [facility] Last Admin: 03/31/17 10:01 Dose: 125 mls/hr Ibuprofen (Motrin) 400 mg PO Q6HR PRN PRN Reason: Mild Pain or Fever > 100.5 Insulin Human Lispro (Humalog) 0 unit SQ ACHS [facility] PRN Reason: Protocol Last Admin: 03/31/17 18:02 Dose: 3 unit Lisinopril (Zestril) 10 mg PO HS [facility] Metformin HCl (Glucophage) 1,000 mg PO BID-W/MEALS [facility] Last Admin: 03/31/17 17:31 Dose: 1,000 mg Metoprolol Succinate (Toprol Xl) 25 mg PO DAILY [facility] Naloxone HCl (Narcan) 0.2 mg IV Q2M PRN PRN Reason: Opioid Reversal Ondansetron HCl (Zofran) 4 mg IVP Q8HR PRN PRN Reason: Nausea And Vomiting Home Medications Medication Instructions Recorded Confirmed Type Citalopram Hydrobromide 60 mg PO QAM 02/21/16 03/30/17 History [Citalopram HBr] Lisinopril 10 mg PO QAM 02/21/16 03/30/17 History Gemfibrozil [Lopid] 600 mg PO AC-BID 10/15/16 03/30/17 History Insulin NPH Hum/Reg Insulin Hm 55 unit SQ AC-SUPPER 10/15/16 03/30/17 History [NovoLIN 70-30 100 UNIT/ML VIAL] metFORMIN HCL 1,000 mg PO BID 10/15/16 03/30/17 History Atorvastatin [Lipitor] 40 mg PO HS 03/18/17 03/30/17 History Mirabegron [Myrbetriq] 25 mg PO HS 03/18/17 03/30/17 History Insulin NPH Hum/Reg Insulin Hm 25 unit SQ AC-LUNCH #1 each 03/20/17 03/30/17 Rx [NovoLIN 70-30 100 UNIT/ML VIAL] Insulin NPH Hum/Reg Insulin Hm 66 unit SQ AC-BRKFST #1 each 03/20/17 03/30/17 Rx [NovoLIN 70-30 100 UNIT/ML VIAL] Cephalexin [Keflex] 500 mg PO QID 03/30/17 03/30/17 History Allergies Allergy/AdvReac Type Severity Reaction Status Date / Time No Known Allergies Allergy Verified 03/30/17 17:22 Physical Exam Vitals: Vital Signs Temp Pulse Resp BP BP Pulse Ox 03/31/17 15:03 68 18 03/31/17 15:00 100.4 F H 82 24 114/66 96 03/31/17 07:00 97.9 F 68 18 124/63 98 03/30/17 22:55 66 97/51 03/30/17 22:06 99.9 F H 70 18 95/59 96 Intake and Output 03/31/17 03/31/17 03/31/17 06:59 14:59 22:59 Intake Total 1260 1570 Balance 1260 1570 Intake: IV 1260 1090 Piperacillin-Tazobactam 3 50 .375 gm In Dextrose/Water 1 50ml.bag @ 12.5 mls/hr IVPB ONCE STA Rx#: [id number] Sodium Chloride 0.9% 1, 960 840 000 ml @ 120 mls/hr IV . Q8H20M [facility] Rx#:[id number] Vancomycin 1,750 mg In 250 250 Sodium Chloride 0.9% 250 ml @ 125 mls/hr IVPB ONCE ONE Rx#:[id number] Oral 480 Other: Voiding Method Toilet # Voids 1 1 Weight 91.626 kg 91.626 kg Patient Weight 04/01/17 06:59 Weight 91.626 kg Pleasant 8-year-old woman presents to hospital with complaints nonhealing ulceration to her right foot third toe HEENT: Anicteric conjunctiva are pink and moist nasal mucosa grossly intact without significant lesions, there is no thrush. Neck: The neck is supple without significant lymphadenopathy or thyromegaly. Lungs: Good bilateral air entry without significant crackles or wheezing. There is no significant bronchial sounds. There is no egophony or dullness. Heart: Regular rate and rhythm with an audible S1-S2, no S3 no S4. There is no significant murmur click or rub, PMI was nondisplaced. Abdomen: Positive bowel sounds soft and nontender without palpable masses or organomegaly. There was no guarding or rebound. Extremities: The upper extremities have excellent pulses they are symmetric, no significant petechiae or telangiectasia. No splinter hemorrhages were noted. Left foot shows evidence the prior toe amputations. Right foot shows evidence of the ulceration to the third toe. There is a surgical debridement that occurred. The tip is now with evidence of black necrosis some swelling without purulent drainage or foul odor. There is minimal erythema to the dorsum of the foot. The foot itself is not tender but is neuropathic. Neuro: Awake alert oriented to person place and time. There are no acute new gross focal sensory motor deficits. Skin evidence of improvement to the ecchymosis to her face especially to the right periorbital area and right arm. No fractures are noted. Results CBC & Chem 7: 03/30/17 17:30 03/31/17 07:18 Labs: Abnormal Lab Results - Last 24 Hours (Table) 03/30/17 03/31/17 03/31/17 Range/Units 17:30 07:04 07:18 Chloride 115 H (98-107) mmol/L Carbon Dioxide 21 L (22-30) mmol/L BUN 28 H (7-17) mg/dL Glucose 108 H (74-99) mg/dL POC Glucose (mg/dL) 110 H (75-99) mg/dL Hemoglobin A1c 8.7 H (4.2-6.1) % 03/31/17 03/31/17 Range/Units 11:43 16:38 Chloride (98-107) mmol/L Carbon Dioxide (22-30) mmol/L BUN (7-17) mg/dL Glucose (74-99) mg/dL POC Glucose (mg/dL) 203 H 223 H (75-99) mg/dL Hemoglobin A1c (4.2-6.1) % Microbiology - Last 24 Hours (Table) 03/30/17 17:30 Blood Culture - Preliminary Blood No Growth after 24 hours 03/30/17 17:30 Urine Culture - Preliminary Urine,Voided Laboratory Results WBC 12.3 k/uL (3.8-10.6) H 03/30/17 17:30 RBC 3.66 m/uL (3.80-5.40) L 03/30/17 17:30 Hgb 10.4 gm/dL (11.4-16.0) L 03/30/17 17:30 Hct 33.4 % (34.0-46.0) L 03/30/17 17:30 MCV 91.2 fL (80.0-100.0) 03/30/17 17:30 MCH 28.4 pg (25.0-35.0) 03/30/17 17:30 MCHC 31.1 g/dL (31.0-37.0) 03/30/17 17:30 RDW 14.3 % (11.5-15.5) 03/30/17 17:30 Plt Count 369 k/uL (150-450) 03/30/17 17:30 Neutrophils % 78 % 03/30/17 17:30 Lymphocytes % 14 % 03/30/17 17:30 Monocytes % 6 % 03/30/17 17:30 Eosinophils % 1 % 03/30/17 17:30 Basophils % 0 % 03/30/17 17:30 Neutrophils # 9.6 k/uL (1.3-7.7) H 03/30/17 17:30 Lymphocytes # 1.7 k/uL (1.0-4.8) 03/30/17 17:30 Monocytes # 0.7 k/uL (0-1.0) 03/30/17 17:30 Eosinophils # 0.1 k/uL (0-0.7) 03/30/17 17:30 Basophils # 0.0 k/uL (0-0.2) 03/30/17 17:30 PT 10.2 sec (9.0-12.0) 03/30/17 17:30 INR 1.0 (<1.2) 03/30/17 17:30 APTT 28.0 sec (22.0-30.0) 03/30/17 17:30 Sodium 145 mmol/L (137-145) 03/31/17 07:18 Potassium 4.6 mmol/L (3.5-5.1) 03/31/17 07:18 Chloride 115 mmol/L (98-107) H 03/31/17 07:18 Carbon Dioxide 21 mmol/L (22-30) L 03/31/17 07:18 Anion Gap 9 mmol/L 03/31/17 07:18 BUN 28 mg/dL (7-17) H 03/31/17 07:18 Creatinine 1.04 mg/dL (0.52-1.04) 03/31/17 07:18 Est GFR (MDRD) Af Amer >60 (>60 ml/min/1.73 sqM) 03/31/17 07:18 Est GFR (MDRD) Non-Af 52 (>60 ml/min/1.73 sqM) 03/31/17 07:18 Glucose 108 mg/dL (74-99) H 03/31/17 07:18 POC Glucose (mg/dL) 223 mg/dL (75-99) H 03/31/17 16:38 POC Glu [employer] Developer ID Dora Adamson 03/31/17 16:[address] Glu mg/dL 203 mg/dL 03/30/17 17:30 Hemoglobin A1c 8.7 % (4.2-6.1) H 03/30/17 17:30 Plasma Lactic Acid Conrad 1.6 mmol/L (0.7-2.0) 03/30/17 17:30 Calcium 8.5 mg/dL (8.4-10.2) 03/31/17 07:18 Total Bilirubin 0.3 mg/dL (0.2-1.3) 03/30/17 17:30 AST 16 U/L (14-36) 03/30/17 17:30 ALT 25 U/L (9-52) 03/30/17 17:30 Alkaline Phosphatase 139 U/L (38-126) H 03/30/17 17:30 Total Creatine Kinase 32 U/L (30-135) 03/30/17 17:30 CK-MB (CK-2) 0.8 ng/mL (0.0-2.4) 03/30/17 17:30 CK-MB (CK-2) Rel Index 2.5 03/30/17 17:30 Troponin I <0.012 ng/mL (0.000-0.034) 03/30/17 17:30 Total Protein 6.9 g/dL (6.3-8.2) 03/30/17 17:30 Albumin 3.7 g/dL (3.5-5.0) 03/30/17 17:30 Urine Color Yellow 03/30/17 17:30 Urine Appearance Cloudy (Clear) H 03/30/17 17:30 Urine pH 5.5 (5.0-8.0) 03/30/17 17:30 Ur Specific [place] 1.017 (1.001-1.035) 03/30/17 17:30 Urine Protein Trace (Negative) H 03/30/17 17:30 Urine Glucose (UA) Negative (Negative) 09/26/17 17:30 Urine Ketones Negative (Negative) 03/30/17 17:30 Urine Blood Negative (Negative) 03/30/17 17:30 Urine Nitrite Negative (Negative) 03/30/17 17:30 Urine Bilirubin Negative (Negative) 03/30/17 17:30 Urine Urobilinogen <2.0 mg/dL (<2.0) 03/30/17 17:30 Ur Leukocyte Esterase Moderate (Negative) H 03/30/17 17:30 Urine RBC 2 /hpf (0-5) 03/30/17 17:30 Urine WBC 6 /hpf (0-5) H 03/30/17 17:30 Ur Squamous Epith Cells 12 /hpf (0-4) H 03/30/17 17:30 Urine Mucus Rare /hpf (None) H 03/30/17 17:30 Microbiology 03/30/17 17:30 Blood Blood Culture - Preliminary No Growth after 24 hours 03/30/17 17:30 Urine,Voided Urine Culture - Preliminary Assessment and Plan (1) 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 She did have the tip that had bony necrosis debrided. There is evidence of some dry gangrenous changes to the distal aspect of the toe with some swelling of the rest of the toe and erythema of the dorsum of the foot. Antibiotic therapy with vancomycin and Zosyn have been requested while cultures are in process. She may require further surgical intervention to that toe including amputation. We'll ensure adequate blood sugar control, adequate protein intake and a multivitamin. Elevation of foot while she is at rest. She is recovering well from the fall in the large ecchymotic areas are improving. Status: Acute (2) Gangrene of toe of left foot Status: Acute (3) Diabetic ulcer of left lower leg associated with diabetes mellitus due to underlying condition Status: Acute
[2017-03-31 21:25] LABS: Glucose,Whole Blood 154 mg/dL (75-99)
[2017-03-31] MEDS: ATORVASTATIN 40 MG TAB PO SCH (21:26)
[2017-04-01] MEDS: SODIUM CHLORIDE 0.9% 1,000 ML IV SCH ×3 (02:42→12:02)
[2017-04-01] MEDS: VANCOMYCIN 1,500 MG in SODIUM CHLORIDE 0.9% 250 ML IVPB SCH ×2 (04:00→21:57)
[2017-04-01 06:58] LABS: Glucose,Whole Blood 216 mg/dL (75-99)
[2017-04-01] MEDS: INSULIN LISPRO (humaLOG) 300 UNIT/3 ML VIAL SQ SCH ×4 (08:00→22:00)
[2017-04-01] MEDS: ENOXAPARIN 40 MG/0.4 ML SYRINGE SQ SCH (08:01)
[2017-04-01] MEDS: metFORMIN 500 MG TAB PO SCH ×2 (08:01→17:05)
[2017-04-01] MEDS: METOPROLOL SUCCINATE (ER) 25 MG TAB.ER.24H PO SCH (08:02)
[2017-04-01] MEDS: CITALOPRAM HYDROBROMIDE 20 MG TAB PO SCH (08:02)
[2017-04-01] MEDS: ASPIRIN 81 MG PO SCH (08:02)
[2017-04-01] MEDS: GEMFIBROZIL 600 MG TAB PO SCH ×2 (08:02→17:05)
[2017-04-01 08:46] LABS: Anion Gap 12 mmol/L; Blood Urea Nitrogen 17 mg/dL (7-17); Calcium 8.9 mg/dL (8.4-10.2); Carbon Dioxide 19 mmol/L (22-30); Chloride 112 mmol/L (98-107); Cholesterol 143 mg/dL (<200); Glucose 211 mg/dL (74-99); HDL Cholesterol 48 mg/dL (40-60); Non-African American GFR(MDRD) >60 (>60 ml/min/1.73 sqM); Potassium 4.7 mmol/L (3.5-5.1); Sodium 143 mmol/L (137-145)
[2017-04-01 11:38] LABS: Glucose,Whole Blood 225 mg/dL (75-99)
--- NOTE | 2017-04-01 13:31 | P.PN ---
Subjective We are seeing this patient today in follow-up from initial consultation. She is a 71-year-old female with past medical history significant for CAD, diabetes mellitus, hyperlipidemia, systolic heart failure and ischemic cardiomyopathy. She is currently being treated for an infected right great toe. Echocardiogram yesterday revealed LV function improvement from previous echo with EF 40-45%. Toprol was added to daily regimen and lisinopril was changed to HS dosing. Lipid panel this morning shows LDL 70, HDL 48. TC 143 and triglycerides 126. She is currently maintained on atorvastatin 40mg daily. Objective - Vital Signs Vital signs: Vital Signs Temp 97.6 F 04/01/17 07:00 Pulse 74 04/01/17 08:00 Resp 18 04/01/17 07:00 BP 132/60 04/01/17 07:00 Pulse Ox 95 04/01/17 07:00 Intake & Output 03/31/17 04/01/17 04/01/17 18:59 06:59 18:59 Intake Total 1570 1974 Balance 1570 1974 Weight 91.626 kg Intake: IV 1090 1025 Sodium Chloride 0.9% 1, 840 1025 000 ml @ 75 mls/hr IV . [id number] [facility] Rx#:[id number] Vancomycin 1,750 mg In 250 Sodium Chloride 0.9% 250 ml @ 125 mls/hr IVPB ONCE ONE Rx#:[id number] Intake, IV Titration 250 Amount Vancomycin 1,500 mg In 250 Sodium Chloride 0.9% 250 ml @ 125 mls/hr IVPB Q18H [facility] Rx#:[id number] Oral 480 700 Other: Voiding Method Toilet Toilet Toilet # Voids 1 1 - Exam GENERAL: Well-appearing, well-nourished and in no acute distress. Obese. NECK: Supple without JVD or thyromegaly. LUNGS: Breath sounds clear to auscultation bilaterally. Respiration equal and unlabored. No wheezes, rales or rhonchi. HEART: Regular rate and rhythm without murmurs, rubs or gallops. S1 and S2 heard. EXTREMITIES: Normal range of motion, no edema. No clubbing or cyanosis. Peripheral pulses intact and strong. - Labs CBC & Chem 7: 03/30/17 17:30 04/01/17 07:54 Labs: Abnormal Lab Results - Last 24 Hours (Table) 03/31/17 03/31/17 03/31/17 Range/Units 11:43 16:38 21:18 Chloride (98-107) mmol/L Carbon Dioxide (22-30) mmol/L Glucose (74-99) mg/dL POC Glucose (mg/dL) 203 H 223 H 154 H (75-99) mg/dL 04/01/17 04/01/17 Range/Units 06:56 07:54 Chloride 112 H (98-107) mmol/L Carbon Dioxide 19 L (22-30) mmol/L Glucose 211 H (74-99) mg/dL POC Glucose (mg/dL) 216 H (75-99) mg/dL Microbiology - Last 24 Hours (Table) 03/30/17 17:30 Urine Culture - Final Urine,Voided 03/30/17 17:30 Blood Culture - Preliminary Blood No Growth after 24 hours Assessment and Plan Plan: ASSESSMENT 1. Ischemic cardiomyopathy 2. Chronic systolic heart failure with acute exacerbation at this time 3. Left bundle branch block with wide QRS 4. Chronic right great toe infection 5. Diabetes mellitus 6. Peripheral vascular disease PLAN Blood pressure 132/60 heart rate 74 on new medication regimen. Continue medications as previously ordered. We will follow this patient as needed. Nurse Practitioner note has been reviewed, I agree with a documented findings and plan of care. Patient was seen and examined.
--- NOTE | 2017-04-01 14:44 | P.PN ---
Subjective Patient was admitted for gangrene of the left third toe and ulcer in the toe patient has diabetic foot ulcer patient is presently on vancomycin as per infectious disease and patient will undergo toe amputation. Patient is presently euvolemic but does have history of congestive heart failure with ejection fraction of around 35% IV fluids will be discontinued and the patient was evaluated by cardiology for preoperative clearance. Patient denied any fever, chills, nausea, vomiting, abdominal pain, dysuria. Objective - Vital Signs Vital signs: Vital Signs Temp 97.6 F 04/01/17 07:00 Pulse 74 04/01/17 08:00 Resp 18 04/01/17 07:00 BP 132/60 04/01/17 07:00 Pulse Ox 95 04/01/17 07:00 Intake & Output 03/31/17 04/01/17 04/01/17 18:59 06:59 18:59 Intake Total 1570 1974 Balance 1570 1974 Weight 91.626 kg Intake: IV 1090 1025 Sodium Chloride 0.9% 1, 840 1025 000 ml @ 75 mls/hr IV . [id number] [facility] Rx#:[id number] Vancomycin 1,750 mg In 250 Sodium Chloride 0.9% 250 ml @ 125 mls/hr IVPB ONCE ONE Rx#:[id number] Intake, IV Titration 250 Amount Vancomycin 1,500 mg In 250 Sodium Chloride 0.9% 250 ml @ 125 mls/hr IVPB Q18H [facility] Rx#:[id number] Oral 480 700 Other: Voiding Method Toilet Toilet Toilet # Voids 1 1 - Exam PHYSICAL EXAMINATION: GENERAL: The patient is alert and oriented x3, not in any acute distress. Well developed, well nourished. HEENT: Pupils are round and equally reacting to light. EOMI. No scleral icterus. No conjunctival pallor. Normocephalic, atraumatic. No pharyngeal erythema. No thyromegaly. CARDIOVASCULAR: S1 and S2 present. No murmurs, rubs, or gallops. PULMONARY: Chest is clear to auscultation, no wheezing or crackles. ABDOMEN: Soft, nontender, nondistended, normoactive bowel sounds. No palpable organomegaly. MUSCULOSKELETAL: No joint swelling or deformity. EXTREMITIES: No cyanosis, clubbing, or pedal edema. Patient has ulceration of the left third toe along with some erythema on the dorsum of the left foot NEUROLOGICAL: Gross neurological examination did not reveal any focal deficits. SKIN: No rashes. - Labs CBC & Chem 7: 03/30/17 17:30 04/01/17 07:54 Labs: Abnormal Lab Results - Last 24 Hours (Table) 03/31/17 03/31/17 04/01/17 Range/Units 16:38 21:18 06:56 Chloride (98-107) mmol/L Carbon Dioxide (22-30) mmol/L Glucose (74-99) mg/dL POC Glucose (mg/dL) 223 H 154 H 216 H (75-99) mg/dL 04/01/17 04/01/17 Range/Units 07:54 11:37 Chloride 112 H (98-107) mmol/L Carbon Dioxide 19 L (22-30) mmol/L Glucose 211 H (74-99) mg/dL POC Glucose (mg/dL) 225 H (75-99) mg/dL Microbiology - Last 24 Hours (Table) 03/30/17 17:30 Urine Culture - Final Urine,Voided 03/30/17 17:30 Blood Culture - Preliminary Blood No Growth after 24 hours Assessment and Plan Plan: #1 gangrene of the left torso with a diabetic foot ulcer: Patient the is on IV antibodies the form of IV vancomycin patient will undergo amputation procedure by podiatric. #2 type 2 diabetes mellitus fairly controlled blood sugars, continue with present regimen titrate insulin as needed. #3 can start failure chronic systolic dysfunction ejection fraction of 35%: Patient is euvolemic without any acute exacerbation at this point of time IV fluids will be discontinued. #4 history of meningioma follow-up as outpatient #5 coronary artery disease.
[2017-04-01 16:59] LABS: Glucose,Whole Blood 174 mg/dL (75-99)
[2017-04-01] MEDS: ATORVASTATIN 40 MG TAB PO SCH (20:15)
[2017-04-01] MEDS ORDERED: LISINOPRIL 5 MG TAB PO SCH (21:00)
[2017-04-01] MEDS ORDERED: LISINOPRIL 10 MG TAB PO SCH (21:00)
[2017-04-01 21:33] LABS: Glucose,Whole Blood 140 mg/dL (75-99)
--- NOTE | 2017-04-01 22:00 | P.PN ---
Subjective Principal diagnosis: Gangrene toe Pleasant 71-year-old female known to the infectious disease service because of her difficulties with peripheral vascular disease, prior diabetic foot infections with gangrene to toes resulting in prior toe amputations. Presents with ongoing difficulty to the right foot third toe. She's been having some increasing ulceration. It markedly worsen. She was in the outpatient setting. There was some debridements to some necrotic bone that was performed. The now has worsening changes with some dry gangrenous changes to the distal aspect of the toe. With concerns to worsening infection she's been brought into hospital for further intervention. This was on relates that she feels better since last time she was seen. The time she just suffered a fall and had extensive ecchymosis to her face and right arm which are now improving. Overall discomfort is improved but she is worried about the toe. She is denying significant fever or chills. Does not feel well overall. Awaits evaluation from her roving carrier. Objective - Vital Signs Vital signs: Vital Signs Temp 98.5 F 04/01/17 20:14 Pulse 82 04/01/17 20:14 Resp 16 04/01/17 20:14 BP 134/60 04/01/17 20:14 Pulse Ox 94 L 04/01/17 20:14 Intake & Output 04/01/17 04/01/17 04/02/17 06:59 18:59 06:59 Intake Total 1974 600 Balance 1974 600 Intake: IV 1025 600 Sodium Chloride 0.9% 1, 1025 600 000 ml @ 75 mls/hr IV . [id number] [facility] Rx#:[id number] Intake, IV Titration 250 Amount Vancomycin 1,500 mg In 250 Sodium Chloride 0.9% 250 ml @ 125 mls/hr IVPB Q18H [facility] Rx#:[id number] Oral 700 Other: Voiding Method Toilet Toilet # Voids 1 6 - Exam Mj 71-year-old woman presents to hospital with complaints nonhealing ulceration to her right foot third toe HEENT: Anicteric conjunctiva are pink and moist nasal mucosa grossly intact without significant lesions, there is no thrush. Neck: The neck is supple without significant lymphadenopathy or thyromegaly. Lungs: Good bilateral air entry without significant crackles or wheezing. There is no significant bronchial sounds. There is no egophony or dullness. Heart: Regular rate and rhythm with an audible S1-S2, no S3 no S4. There is no significant murmur click or rub, PMI was nondisplaced. Abdomen: Positive bowel sounds soft and nontender without palpable masses or organomegaly. There was no guarding or rebound. Extremities: The upper extremities have excellent pulses they are symmetric, no significant petechiae or telangiectasia. No splinter hemorrhages were noted. Left foot shows evidence the prior toe amputations. Right foot shows evidence of the ulceration to the third toe. There is a surgical debridement that occurred. The tip is now with evidence of black necrosis some swelling without purulent drainage or foul odor. There is minimal erythema to the dorsum of the foot. The foot itself is not tender but is neuropathic. Neuro: Awake alert oriented to person place and time. There are no acute new gross focal sensory motor deficits. Skin evidence of improvement to the ecchymosis to her face especially to the right periorbital area and right arm. No fractures are noted. - Labs CBC & Chem 7: 03/30/17 17:30 04/01/17 07:54 Labs: Abnormal Lab Results - Last 24 Hours (Table) 04/01/17 04/01/17 04/01/17 Range/Units 06:56 07:54 11:37 Chloride 112 H (98-107) mmol/L Carbon Dioxide 19 L (22-30) mmol/L Glucose 211 H (74-99) mg/dL POC Glucose (mg/dL) 216 H 225 H (75-99) mg/dL 04/01/17 04/01/17 Range/Units 16:54 21:30 Chloride (98-107) mmol/L Carbon Dioxide (22-30) mmol/L Glucose (74-99) mg/dL POC Glucose (mg/dL) 174 H 140 H (75-99) mg/dL Microbiology - Last 24 Hours (Table) 03/30/17 17:30 Blood Culture - Preliminary Blood No Growth after 48 hours 03/30/17 17:30 Urine Culture - Final Urine,Voided Laboratory Results WBC 12.3 k/uL (3.8-10.6) H 03/30/17 17:30 RBC 3.66 m/uL (3.80-5.40) L 03/30/17 17:30 Hgb 10.4 gm/dL (11.4-16.0) L 03/30/17 17:30 Hct 33.4 % (34.0-46.0) L 03/30/17 17:30 MCV 91.2 fL (80.0-100.0) 03/30/17 17:30 MCH 28.4 pg (25.0-35.0) 03/30/17 17:30 MCHC 31.1 g/dL (31.0-37.0) 03/30/17 17:30 RDW 14.3 % (11.5-15.5) 03/30/17 17:30 Plt Count 369 k/uL (150-450) 03/30/17 17:30 Neutrophils % 78 % 03/30/17 17:30 Lymphocytes % 14 % 03/30/17 17:30 Monocytes % 6 % 03/30/17 17:30 Eosinophils % 1 % 03/30/17 17:30 Basophils % 0 % 03/30/17 17:30 Neutrophils # 9.6 k/uL (1.3-7.7) H 03/30/17 17:30 Lymphocytes # 1.7 k/uL (1.0-4.8) 03/30/17 17:30 Monocytes # 0.7 k/uL (0-1.0) 03/30/17 17:30 Eosinophils # 0.1 k/uL (0-0.7) 03/30/17 17:30 Basophils # 0.0 k/uL (0-0.2) 03/30/17 17:30 PT 10.2 sec (9.0-12.0) 03/30/17 17:30 INR 1.0 (<1.2) 03/30/17 17:30 APTT 28.0 sec (22.0-30.0) 03/30/17 17:30 Sodium 143 mmol/L (137-145) 04/01/17 07:54 Potassium 4.7 mmol/L (3.5-5.1) 04/01/17 07:54 Chloride 112 mmol/L (98-107) H 04/01/17 07:54 Carbon Dioxide 19 mmol/L (22-30) L 04/01/17 07:54 Anion Gap 12 mmol/L 04/01/17 07:54 BUN 17 mg/dL (7-17) 04/01/17 07:54 Creatinine 0.75 mg/dL (0.52-1.04) 04/01/17 07:54 Est GFR (MDRD) Af Amer >60 (>60 ml/min/1.73 sqM) 04/01/17 07:54 Est GFR (MDRD) Non-Af >60 (>60 ml/min/1.73 sqM) 04/01/17 07:54 Glucose 211 mg/dL (74-99) H 04/01/17 07:54 POC Glucose (mg/dL) 140 mg/dL (75-99) H 04/01/17 21:30 POC Glu [employer] ID Olinda Wood 04/01/17 21:[address] Glu mg/dL 203 mg/dL 03/30/17 17:30 Hemoglobin A1c 8.7 % (4.2-6.1) H 03/30/17 17:30 Plasma Lactic Acid Conrad 1.6 mmol/L (0.7-2.0) 03/30/17 17:30 Calcium 8.9 mg/dL (8.4-10.2) 04/01/17 07:54 Total Bilirubin 0.3 mg/dL (0.2-1.3) 03/30/17 17:30 AST 16 U/L (14-36) 03/30/17 17:30 ALT 25 U/L (9-52) 03/30/17 17:30 Alkaline Phosphatase 139 U/L (38-126) H 03/30/17 17:30 Total Creatine Kinase 32 U/L (30-135) 03/30/17 17:30 CK-MB (CK-2) 0.8 ng/mL (0.0-2.4) 03/30/17 17:30 CK-MB (CK-2) Rel Index 2.5 03/30/17 17:30 Troponin I <0.012 ng/mL (0.000-0.034) 03/30/17 17:30 Total Protein 6.9 g/dL (6.3-8.2) 03/30/17 17:30 Albumin 3.7 g/dL (3.5-5.0) 03/30/17 17:30 Triglycerides 126 mg/dL (<150) 04/01/17 07:54 Cholesterol 143 mg/dL (<200) 04/01/17 07:54 LDL Cholesterol, Calc 70 mg/dL (0-99) 04/01/17 07:54 HDL Cholesterol 48 mg/dL (40-60) 04/01/17 07:54 Urine Color Yellow 03/30/17 17:30 Urine Appearance Cloudy (Clear) H 03/30/17 17:30 Urine pH 5.5 (5.0-8.0) 03/30/17 17:30 Ur Specific [place] 1.017 (1.001-1.035) 03/30/17 17:30 Urine Protein Trace (Negative) H 03/30/17 17:30 Urine Glucose (UA) Negative (Negative) 03/30/17 17:30 Urine Ketones Negative (Negative) 03/30/17 17:30 Urine Blood Negative (Negative) 03/30/17 17:30 Urine Nitrite Negative (Negative) 03/30/17 17:30 Urine Bilirubin Negative (Negative) 03/30/17 17:30 Urine Urobilinogen <2.0 mg/dL (<2.0) 03/30/17 17:30 Ur Leukocyte Esterase Moderate (Negative) H 03/30/17 17:30 Urine RBC 2 /hpf (0-5) 03/30/17 17:30 Urine WBC 6 /hpf (0-5) H 03/30/17 17:30 Ur Squamous Epith Cells 12 /hpf (0-4) H 03/30/17 17:30 Urine Mucus Rare /hpf (None) H 03/30/17 17:30 Microbiology 03/30/17 17:30 Blood Blood Culture - Preliminary No Growth after 48 hours 03/30/17 17:30 Urine,Voided Urine Culture - Final Assessment and Plan (1) 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 She did have the tip that had bony necrosis debrided. There is evidence of some dry gangrenous changes to the distal aspect of the toe with some swelling of the rest of the toe and erythema of the dorsum of the foot. Antibiotic therapy with vancomycin and Zosyn have been requested while cultures are in process. She may require further surgical intervention to that toe including amputation. We'll ensure adequate blood sugar control, adequate protein intake and a multivitamin. Elevation of foot while she is at rest. She is recovering well from the fall in the large ecchymotic areas are improving. Await podiatry input likely will need amputation of that digit. Status: Acute (2) Gangrene of toe of left foot Status: Acute (3) Diabetic ulcer of left lower leg associated with diabetes mellitus due to underlying condition Status: Acute
[2017-04-01] MEDS: ACETAMINOPHEN TAB 325 MG TAB PO PRN (23:27)
[2017-04-02 07:00] LABS: Glucose,Whole Blood 191 mg/dL (75-99)
[2017-04-02] MEDS: GEMFIBROZIL 600 MG TAB PO SCH ×2 (08:06→19:08)
[2017-04-02] MEDS: metFORMIN 500 MG TAB PO SCH ×2 (08:06→19:11)
[2017-04-02] MEDS: ASPIRIN 81 MG PO SCH (08:06)
[2017-04-02] MEDS: INSULIN LISPRO (humaLOG) 300 UNIT/3 ML VIAL SQ SCH ×4 (08:06→21:19)
[2017-04-02] MEDS: ENOXAPARIN 40 MG/0.4 ML SYRINGE SQ SCH (08:07)
[2017-04-02] MEDS: CITALOPRAM HYDROBROMIDE 20 MG TAB PO SCH (08:07)
[2017-04-02] MEDS: METOPROLOL SUCCINATE (ER) 25 MG TAB.ER.24H PO SCH (08:08)
[2017-04-02 08:27] LABS: CH 27.7; CHCM 29.8; HCT 31.3 % (34.0-46.0); HDW 2.57; HGB 9.6 gm/dL (11.4-16.0); Hypochromasia Marked; MCH 28.7 pg (25.0-35.0); MCHC 30.8 g/dL (31.0-37.0); MCV 93.3 fL (80.0-100.0); RBC 3.36 m/uL (3.80-5.40); RDW 13.4 % (11.5-15.5); WBC 11.5 k/uL (3.8-10.6)
[2017-04-02 08:41] LABS: Anion Gap 12 mmol/L; Blood Urea Nitrogen 16 mg/dL (7-17); Carbon Dioxide 22 mmol/L (22-30); Chloride 106 mmol/L (98-107); Glucose 189 mg/dL (74-99); Non-African American GFR(MDRD) >60 (>60 ml/min/1.73 sqM); Potassium 4.5 mmol/L (3.5-5.1); Sodium 140 mmol/L (137-145)
[2017-04-02] MEDS ORDERED: METOPROLOL SUCCINATE (ER) 25 MG TAB.ER.24H PO STA (09:35)
--- NOTE | 2017-04-02 09:47 | P.PN ---
Subjective Patient interviewed and examined She is lying comfortably in bed. No orthopnea no PND. Denies any chest discomfort She has been here since Wednesday of this week and her blood pressures were reviewed and are within normal limits. Heart rate 7 the normal limits. She does have a mild hepatojugular reflux on examination heart sounds are normal. Breath sounds are reduced bilaterally but no rhonchi no crackles She has bilateral trophic changes in lower extremities and her feet are bandaged and she is waiting for some form of vascular assessment and intervention but the extent of surgical intervention is unclear to me at this point. She was seen by me on March 31. I started her on lisinopril 10 mg by mouth daily as well as Toprol-XL and she has tolerated these medications well. Renal function and lites have been stable. She is anemic Impression Cardiomyopathy, ischemic, anterior hypokinesis Congestive heart failure, stable Diabetic state, adult-onset Severe peripheral vascular disease awaiting further assessment and possible intervention. The exact nature of surgery has not been documented on the chart Suggest Maximize cardiac myopathy and heart failure medications for the Increase Toprol to 50 mrem daily in the morning Go back to lisinopril 10 mg by mouth in the evening Lasix 40 mg by mouth daily in the morning For risk assessment prior to surgery one also needs to know the extent of surgical intervention, for appropriate risk stratification The patient is stable at this point and may proceed with any surgical intervention on her foot IV fluid status needs to be monitored carefully perioperatively Will continue to follow Patient should be on telemetry. She did have a syncopal spell in an outpatient facility recently Objective - Vital Signs Vital signs: Vital Signs Temp 97.9 F 04/02/17 07:00 Pulse 71 04/02/17 07:00 Resp 16 04/02/17 07:00 BP 137/63 04/02/17 07:00 Pulse Ox 92 L 04/01/17 23:00 Intake & Output 04/01/17 04/02/17 04/02/17 18:59 06:59 18:59 Intake Total 600 1040 Balance 600 1040 Intake: IV 600 Sodium Chloride 0.9% 1, 600 000 ml @ 75 mls/hr IV . [id number] [facility] Rx#:[id number] Intake, IV Titration 500 Amount Vancomycin 1,500 mg In 500 Sodium Chloride 0.9% 250 ml @ 125 mls/hr IVPB Q18H [facility] Rx#:[id number] Oral 540 Other: Voiding Method Toilet Toilet Toilet # Voids 6 1 1 - Labs CBC & Chem 7: 04/02/17 07:49 04/02/17 07:49 Labs: Abnormal Lab Results - Last 24 Hours (Table) 04/01/17 04/01/17 04/01/17 Range/Units 11:37 16:54 21:30 WBC (3.8-10.6) k/uL RBC (3.80-5.40) m/uL Hgb (11.4-16.0) gm/dL Hct (34.0-46.0) % MCHC (31.0-37.0) g/dL Glucose (74-99) mg/dL POC Glucose (mg/dL) 225 H 174 H 140 H (75-99) mg/dL 04/02/17 04/02/17 04/02/17 Range/Units 06:55 07:49 07:49 WBC 11.5 H (3.8-10.6) k/uL RBC 3.36 L (3.80-5.40) m/uL Hgb 9.6 L (11.4-16.0) gm/dL Hct 31.3 L (34.0-46.0) % MCHC 30.8 L (31.0-37.0) g/dL Glucose 189 H (74-99) mg/dL POC Glucose (mg/dL) 191 H (75-99) mg/dL Microbiology - Last 24 Hours (Table) 03/30/17 17:30 Blood Culture - Preliminary Blood No Growth after 48 hours
[2017-04-02] MEDS: FUROSEMIDE 40 MG TAB PO SCH (10:11)
--- NOTE | 2017-04-02 10:58 | P.PN ---
Subjective Patient was admitted for gangrene of the left third toe and ulcer in the toe patient has diabetic foot ulcer patient is presently on vancomycin as per infectious disease and patient will undergo toe amputation. Patient is presently euvolemic but does have history of congestive heart failure with ejection fraction of around 35% IV fluids will be discontinued and the patient was evaluated by cardiology for preoperative clearance. 04/02/2017 Respiratory status did improve and the patient is awaiting amputation procedure. Patient denied any fever, chills, nausea, vomiting, abdominal pain, dysuria. Objective - Vital Signs Vital signs: Vital Signs Temp 97.9 F 04/02/17 07:00 Pulse 71 04/02/17 07:00 Resp 16 04/02/17 07:00 BP 137/63 04/02/17 07:00 Pulse Ox 92 L 04/01/17 23:00 Intake & Output 04/01/17 04/02/17 04/02/17 18:59 06:59 18:59 Intake Total 600 1040 Balance 600 1040 Intake: IV 600 Sodium Chloride 0.9% 1, 600 000 ml @ 75 mls/hr IV . [id number] [facility] Rx#:[id number] Intake, IV Titration 500 Amount Vancomycin 1,500 mg In 500 Sodium Chloride 0.9% 250 ml @ 125 mls/hr IVPB Q18H [facility] Rx#:[id number] Oral 540 Other: Voiding Method Toilet Toilet Toilet # Voids 6 1 1 # Bowel Movements 1 - Exam PHYSICAL EXAMINATION: GENERAL: The patient is alert and oriented x3, not in any acute distress. Well developed, well nourished. HEENT: Pupils are round and equally reacting to light. EOMI. No scleral icterus. No conjunctival pallor. Normocephalic, atraumatic. No pharyngeal erythema. No thyromegaly. CARDIOVASCULAR: S1 and S2 present. No murmurs, rubs, or gallops. PULMONARY: Chest is clear to auscultation, no wheezing or crackles. ABDOMEN: Soft, nontender, nondistended, normoactive bowel sounds. No palpable organomegaly. MUSCULOSKELETAL: No joint swelling or deformity. EXTREMITIES: No cyanosis, clubbing, or pedal edema. Patient has ulceration of the left third toe along with some erythema on the dorsum of the left foot NEUROLOGICAL: Gross neurological examination did not reveal any focal deficits. SKIN: No rashes. - Labs CBC & Chem 7: 04/02/17 07:49 04/02/17 07:49 Labs: Abnormal Lab Results - Last 24 Hours (Table) 04/01/17 04/01/17 04/01/17 Range/Units 11:37 16:54 21:30 WBC (3.8-10.6) k/uL RBC (3.80-5.40) m/uL Hgb (11.4-16.0) gm/dL Hct (34.0-46.0) % MCHC (31.0-37.0) g/dL Glucose (74-99) mg/dL POC Glucose (mg/dL) 225 H 174 H 140 H (75-99) mg/dL 04/02/17 04/02/17 04/02/17 Range/Units 06:55 07:49 07:49 WBC 11.5 H (3.8-10.6) k/uL RBC 3.36 L (3.80-5.40) m/uL Hgb 9.6 L (11.4-16.0) gm/dL Hct 31.3 L (34.0-46.0) % MCHC 30.8 L (31.0-37.0) g/dL Glucose 189 H (74-99) mg/dL POC Glucose (mg/dL) 191 H (75-99) mg/dL Microbiology - Last 24 Hours (Table) 03/30/17 17:30 Blood Culture - Preliminary Blood No Growth after 48 hours Assessment and Plan Plan: #1 gangrene of the left torso with a diabetic foot ulcer: Patient the is on IV antibodies the form of IV vancomycin patient will undergo amputation procedure by podiatry. #2 type 2 diabetes mellitus fairly controlled blood sugars, continue with present regimen titrate insulin as needed. #3 can start failure chronic systolic dysfunction ejection fraction of 35%: Patient is euvolemic without any acute exacerbation at this point of time IV fluids will be discontinued. #4 history of meningioma follow-up as outpatient #5 coronary artery disease.
[2017-04-02 11:43] LABS: Glucose,Whole Blood 194 mg/dL (75-99)
--- NOTE | 2017-04-02 12:35 | P.CON ---
Consult Note - . Consult date: 04/02/17 Assessment/Plan:: Reason for Consult Consult date: 04/02/17 - Chief Complaint Gangrene to toe - History of Present Illness Patient is being seen in consultation for gangrene acute right third toe with ascending cellulitis. Seen in my office on Wednesday for follow-up care of this ulcer she began to have increasing symptoms of infection over the week. This has increased since her discharge from the hospital 2 weeks ago. Patient during the office visit had aggressive debridement of infected necrotic tissue including the distal phalanx from the right third toe. Her debridement a dry sterile dressing was applied and patient was given instructions to be admitted through the emergency room for treatment of same. After her admission patient was to be consult by infectious disease as well as a cardiac physical therapy supervisor per patient's request. Patient is being seen at bedside resting comfortably voices no complaints. Review of Systems HEENT:Denies headache or acute visual change. Denies sinus or mouth discomforts. Denies neck stiffness or pain. Denies significant oral cavity pain. Denies difficulty on swallowing. Lungs: Denies significant shortness of breath, cough, sputum production, or hemoptysis. Cardiovascular: Denies significant shortness of breath, chest pain, chest wall pain, orthopnea, dyspnea on exertion, syncope Gastrointestinal:Denies nausea, vomiting, diarrhea, constipation, hematemesis, melena, hematochezia. No no significant change of bowel habit noticed. Musculoskeletal: denies significant myalgias or arthralgias. Foot changes as per the HPI. Denies new back pain. Skin: As per the HPI Neuro: Denies headache or visual change. Denies any acute new onset right or left-sided weakness. Did have difficulty with the fall yesterday. Denies syncope or acute dizziness before the fall. Relates that she simply misstepped and fell on steps Psychiatric:Denies anxiety or depression. Endocrine: Chronic fatigue and weight gain Past Medical History Past Medical History: Coronary Artery Disease (CAD), Diabetes Mellitus, Hyperlipidemia, Myocardial Infarction ([place]) Additional Past Medical History / Comment(s): ,DIABETIC NEUROPATHY, HX OF CELLULITIS LEFT LEG , amputation left 3rd toe and pinky toe. Last Myocardial Infarction Date:: UNSURE History of Any Multi-Drug Resistant Organisms: None Reported Past Surgical History: Section, Cholecystectomy, Hernia Repair, Joint Replacement Additional Past Surgical History / Comment(s): IGNACIA cataract, LEFT SMALL toe amputation, LEFT KNEE REPLACEMENT, HX OF SKIN GRAFTS Past Anesthesia/Blood Transfusion Reactions: No Reported Reaction Past Psychological History: Depression Additional Psychological History / Comment(s): QUIT SMOKING 40 YRS AGO, SMOKED LESS THAN 1PPD FOR LESS THAN 10 YRS. Lives independently. No alcohol use. 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 No experience. No international travel. Has a pet dog in the home care for by her daughter Smoking Status: Former smoker Past Alcohol Use History: None Reported Past Drug Use History: None Reported - Past Family History Mother Family Medical History: Cancer Father Family Medical History: Cancer Medications and Allergies Home Medications and Allergies Comment(s): Current Medications Acetaminophen (Tylenol Tab) 650 mg PO Q6HR PRN PRN Reason: Mild Pain or Fever > 100.5 Last Admin: 03/31/17 15:27 Dose: 650 mg Hydrocodone Bitart/Acetaminophen ([place] 5-325) 1 each PO Q4HR PRN PRN Reason: Moderate Pain Aspirin (Aspirin) 81 mg PO DAILY [facility] Last Admin: 03/31/17 14:20 Dose: 81 mg Atorvastatin Calcium (Lipitor) 40 mg PO HS [facility] Last Admin: 03/30/17 20:19 Dose: 40 mg Citalopram Hydrobromide (Celexa) 60 mg PO QAM [facility] Last Admin: 03/31/17 09:57 Dose: 60 mg Enoxaparin Sodium (Lovenox) 40 mg SQ DAILY [facility] Last Admin: 03/31/17 09:58 Dose: 40 mg Gemfibrozil (Lopid) 600 mg PO AC-BID [facility] Last Admin: 03/31/17 17:31 Dose: 600 mg Hydromorphone HCl (Dilaudid) 1 mg IV Q3HR PRN PRN Reason: Severe Pain Sodium Chloride (Saline 0.9%) 1,000 mls @ 120 mls/hr IV .Q8H20M [facility] Last Admin: 03/31/17 14:20 Dose: 120 mls/hr Vancomycin HCl 1,500 mg/ (Sodium Chloride) 250 mls @ 125 mls/hr IVPB Q18H [facility] Last Admin: 03/31/17 10:01 Dose: 125 mls/hr Ibuprofen (Motrin) 400 mg PO Q6HR PRN PRN Reason: Mild Pain or Fever > 100.5 Insulin Human Lispro (Humalog) 0 unit SQ ACHS [facility] PRN Reason: Protocol Last Admin: 03/31/17 18:02 Dose: 3 unit Lisinopril (Zestril) 10 mg PO HS [facility] Metformin HCl (Glucophage) 1,000 mg PO BID-W/MEALS [facility] Last Admin: 03/31/17 17:31 Dose: 1,000 mg Metoprolol Succinate (Toprol Xl) 25 mg PO DAILY [facility] Naloxone HCl (Narcan) 0.2 mg IV Q2M PRN PRN Reason: Opioid Reversal Ondansetron HCl (Zofran) 4 mg IVP Q8HR PRN PRN Reason: Nausea And Vomiting Home Medications Medication Instructions Recorded Confirmed Type Citalopram Hydrobromide 60 mg PO QAM 02/21/16 03/30/17 History [Citalopram HBr] Lisinopril 10 mg PO QAM 02/21/16 03/30/17 History Gemfibrozil [Lopid] 600 mg PO AC-BID 10/15/16 03/30/17 History Insulin NPH Hum/Reg Insulin Hm 55 unit SQ AC-SUPPER 10/15/16 03/30/17 History [NovoLIN 70-30 100 UNIT/ML VIAL] metFORMIN HCL 1,000 mg PO BID 10/15/16 03/30/17 History Atorvastatin [Lipitor] 40 mg PO HS 03/18/17 03/30/17 History Mirabegron [Myrbetriq] 25 mg PO HS 03/18/17 03/30/17 History Insulin NPH Hum/Reg Insulin Hm 25 unit SQ AC-LUNCH #1 each 03/20/17 03/30/17 Rx [NovoLIN 70-30 100 UNIT/ML VIAL] Insulin NPH Hum/Reg Insulin Hm 66 unit SQ AC-BRKFST #1 each 03/20/17 03/30/17 Rx [NovoLIN 70-30 100 UNIT/ML VIAL] Cephalexin [Keflex] 500 mg PO QID 03/30/17 03/30/17 History Allergies Allergy/AdvReac Type Severity Reaction Status Date / Time No Known Allergies Allergy Verified 03/30/17 17:22 Physical Exam Vitals: Vital Signs Temp Pulse Resp BP BP Pulse Ox 03/31/17 15:03 68 18 03/31/17 15:00 100.4 F H 82 24 114/66 96 03/31/17 07:00 97.9 F 68 18 124/63 98 03/30/17 22:55 66 97/51 03/30/17 22:06 99.9 F H 70 18 95/59 96 Intake and Output 03/31/17 03/31/17 03/31/17 06:59 14:59 22:59 Intake Total 1260 1570 Balance 1260 1570 Intake: IV 1260 1090 Piperacillin-Tazobactam 3 50 .375 gm In Dextrose/Water 1 50ml.bag @ 12.5 mls/hr IVPB ONCE STA Rx#: [id number] Sodium Chloride 0.9% 1, 960 840 000 ml @ 120 mls/hr IV . Q8H20M [facility] Rx#:[id number] Vancomycin 1,750 mg In 250 250 Sodium Chloride 0.9% 250 ml @ 125 mls/hr IVPB ONCE ONE Rx#:[id number] Oral 480 Other: Voiding Method Toilet # Voids 1 1 Weight 91.626 kg 91.626 kg Patient Weight 04/01/17 06:59 Weight 91.626 kg Pleasant 8-year-old woman presents to hospital with complaints nonhealing ulceration to her right foot third toe HEENT: Anicteric conjunctiva are pink and moist nasal mucosa grossly intact without significant lesions, there is no thrush. Neck: The neck is supple without significant lymphadenopathy or thyromegaly. Lungs: Good bilateral air entry without significant crackles or wheezing. There is no significant bronchial sounds. There is no egophony or dullness. Heart: Regular rate and rhythm with an audible S1-S2, no S3 no S4. There is no significant murmur click or rub, PMI was nondisplaced. Abdomen: Positive bowel sounds soft and nontender without palpable masses or organomegaly. There was no guarding or rebound. Extremities: There is amputation of multiple digits on the left lower extremity. Patient has nonpalpable pedal pulses bilateral with skin temperature texture decreased bilateral. Patient neuropathic up to including the lower leg with loss of protective sensation deep tendon reflexes vibratory sensations and proprioception. Musculoskeletal exam shows hammertoes digits 1 through 5 of the right foot and multiple digits of the left foot. There is decreased range of motion of the ankle joint bilateral. Patient has a full- thickness ulcer with necrotic gangrenous changes of the right third toe. The erythema and edema of the right foot seems to be diminished over the last 48 hours. Neuro: Awake alert oriented to person place and time. There are no acute new gross focal sensory motor deficits. Skin evidence of improvement to the ecchymosis to her face especially to the right periorbital area and right arm. No fractures are noted. Results CBC & Chem 7: 03/30/17 17:30 03/31/17 07:18 Labs: Abnormal Lab Results - Last 24 Hours (Table) 03/30/17 03/31/17 03/31/17 Range/Units 17:30 07:04 07:18 Chloride 115 H (98-107) mmol/L Carbon Dioxide 21 L (22-30) mmol/L BUN 28 H (7-17) mg/dL Glucose 108 H (74-99) mg/dL POC Glucose (mg/dL) 110 H (75-99) mg/dL Hemoglobin A1c 8.7 H (4.2-6.1) % 03/31/17 03/31/17 Range/Units 11:43 16:38 Chloride (98-107) mmol/L Carbon Dioxide (22-30) mmol/L BUN (7-17) mg/dL Glucose (74-99) mg/dL POC Glucose (mg/dL) 203 H 223 H (75-99) mg/dL Hemoglobin A1c (4.2-6.1) % Microbiology - Last 24 Hours (Table) 03/30/17 17:30 Blood Culture - Preliminary Blood No Growth after 24 hours 03/30/17 17:30 Urine Culture - Preliminary Urine,Voided Laboratory Results WBC 12.3 k/uL (3.8-10.6) H 03/30/17 17:30 RBC 3.66 m/uL (3.80-5.40) L 03/30/17 17:30 Hgb 10.4 gm/dL (11.4-16.0) L 03/30/17 17:30 Hct 33.4 % (34.0-46.0) L 03/30/17 17:30 MCV 91.2 fL (80.0-100.0) 03/30/17 17:30 MCH 28.4 pg (25.0-35.0) 03/30/17 17:30 MCHC 31.1 g/dL (31.0-37.0) 03/30/17 17:30 RDW 14.3 % (11.5-15.5) 03/30/17 17:30 Plt Count 369 k/uL (150-450) 03/30/17 17:30 Neutrophils % 78 % 03/30/17 17:30 Lymphocytes % 14 % 03/30/17 17:30 Monocytes % 6 % 03/30/17 17:30 Eosinophils % 1 % 03/30/17 17:30 Basophils % 0 % 03/30/17 17:30 Neutrophils # 9.6 k/uL (1.3-7.7) H 03/30/17 17:30 Lymphocytes # 1.7 k/uL (1.0-4.8) 03/30/17 17:30 Monocytes # 0.7 k/uL (0-1.0) 03/30/17 17:30 Eosinophils # 0.1 k/uL (0-0.7) 03/30/17 17:30 Basophils # 0.0 k/uL (0-0.2) 03/30/17 17:30 PT 10.2 sec (9.0-12.0) 03/30/17 17:30 INR 1.0 (<1.2) 03/30/17 17:30 APTT 28.0 sec (22.0-30.0) 03/30/17 17:30 Sodium 145 mmol/L (137-145) 03/31/17 07:18 Potassium 4.6 mmol/L (3.5-5.1) 03/31/17 07:18 Chloride 115 mmol/L (98-107) H 03/31/17 07:18 Carbon Dioxide 21 mmol/L (22-30) L 03/31/17 07:18 Anion Gap 9 mmol/L 03/31/17 07:18 BUN 28 mg/dL (7-17) H 03/31/17 07:18 Creatinine 1.04 mg/dL (0.52-1.04) 03/31/17 07:18 Est GFR (MDRD) Af Amer >60 (>60 ml/min/1.73 sqM) 03/31/17 07:18 Est GFR (MDRD) Non-Af 52 (>60 ml/min/1.73 sqM) 03/31/17 07:18 Glucose 108 mg/dL (74-99) H 03/31/17 07:18 POC Glucose (mg/dL) 223 mg/dL (75-99) H 03/31/17 16:38 POC Glu Chief I Dispatcher ID Dora Adamson 03/31/17 16:[address] Glu mg/dL 203 mg/dL 03/30/17 17:30 Hemoglobin A1c 8.7 % (4.2-6.1) H 03/30/17 17:30 Plasma Lactic Acid Conrad 1.6 mmol/L (0.7-2.0) 03/30/17 17:30 Calcium 8.5 mg/dL (8.4-10.2) 03/31/17 07:18 Total Bilirubin 0.3 mg/dL (0.2-1.3) 03/30/17 17:30 AST 16 U/L (14-36) 03/30/17 17:30 ALT 25 U/L (9-52) 03/30/17 17:30 Alkaline Phosphatase 139 U/L (38-126) H 03/30/17 17:30 Total Creatine Kinase 32 U/L (30-135) 03/30/17 17:30 CK-MB (CK-2) 0.8 ng/mL (0.0-2.4) 03/30/17 17:30 CK-MB (CK-2) Rel Index 2.5 03/30/17 17:30 Troponin I <0.012 ng/mL (0.000-0.034) 03/30/17 17:30 Total Protein 6.9 g/dL (6.3-8.2) 03/30/17 17:30 Albumin 3.7 g/dL (3.5-5.0) 03/30/17 17:30 Urine Color Yellow 03/30/17 17:30 Urine Appearance Cloudy (Clear) H 03/30/17 17:30 Urine pH 5.5 (5.0-8.0) 03/30/17 17:30 Ur Specific [place] 1.017 (1.001-1.035) 03/30/17 17:30 Urine Protein Trace (Negative) H 03/30/17 17:30 Urine Glucose (UA) Negative (Negative) 03/30/17 17:30 Urine Ketones Negative (Negative) 03/30/17 17:30 Urine Blood Negative (Negative) 03/30/17 17:30 Urine Nitrite Negative (Negative) 03/30/17 17:30 Urine Bilirubin Negative (Negative) 03/30/17 17:30 Urine Urobilinogen <2.0 mg/dL (<2.0) 03/30/17 17:30 Ur Leukocyte Esterase Moderate (Negative) H 03/30/17 17:30 Urine RBC 2 /hpf (0-5) 03/30/17 17:30 Urine WBC 6 /hpf (0-5) H 03/30/17 17:30 Ur Squamous Epith Cells 12 /hpf (0-4) H 03/30/17 17:30 Urine Mucus Rare /hpf (None) H 03/30/17 17:30 Microbiology 03/30/17 17:30 Blood Blood Culture - Preliminary No Growth after 24 hours 03/30/17 17:30 Urine,Voided Urine Culture - Preliminary Assessment and Plan (1) Diabetic ulcer of left foot with necrosis of bone Narrative/Plan: Today after examining review of chart we discussed treatment plan with patient. At this time patient cannot undergo surgical amputation of the right third toe until thoroughly evaluated for vascular status by either the cardiac physical therapy supervisor or a vascular surgeon. Her arterial status is established then we can proceed with any surgical debridement of the acute. We will continue to follow with infectious disease and medicine into appropriate podiatric care as needed. They keep for this consultation Status: Acute (2) Gangrene of toe of left foot Status: Acute (3) Diabetic ulcer of left lower leg associated with diabetes mellitus due to underlying condition Status: Acute
[2017-04-02] MEDS ORDERED: VANCOMYCIN TROUGH DUE 1 EACH MISC MISCELLANE ONE (14:00)
[2017-04-02] MEDS: VANCOMYCIN 1,500 MG in SODIUM CHLORIDE 0.9% 250 ML IVPB SCH (16:46)
[2017-04-02] MEDS ORDERED: SODIUM CHLORIDE 0.9% 1,000 ML IV ONE (17:00)
[2017-04-02] MEDS ORDERED: MIDAZOLAM 2 MG/2 ML VIAL IVP ONE (17:54)
[2017-04-02] MEDS ORDERED: LIDOCAINE 2% INJ 20 MG/ML SQ ONE (17:55)
[2017-04-02] MEDS ORDERED: IODIXANOL 320 MG/ML 100 ML INTRAARTER ONE (18:14)
[2017-04-02] MEDS ORDERED: SODIUM CHLORIDE 0.9% 1,000 ML IV SCH (18:30)
--- NOTE | 2017-04-02 18:37 | P.CRDCN ---
History of Present Illness Consult date: 04/02/17 Chief complaint: Right foot discomfort History of present illness: This is a pleasant 71-year-old female patient with a past medical history significant for cardiomyopathy, diabetes, hypertension, and dyslipidemia , was sent directly from Dr. Alarcon office to the hospital for further evaluation and management of right foot cellulitis. The patient was experiencing an ulcer involving the right third toe and she was getting treated for that as an outpatient. She has been treated for about a week. The symptoms were not getting better. The ulcer was not getting better in spite of aggressive debridement of infected necrotic tissues. Beside that the patient was experiencing severe discomfort in the right foot. She is known to have peripheral arterial disease and she underwent in the past amputation of the toes on the left side. I was asked to see the patient and evaluate her regarding PAD and peripheral angiogram. The patient underwent an abdominal aortogram and bilateral lower extremities runoff which showed on the right side normal aortoiliac, normal fem-pop, with 3 vessels run off on the right side with a filling defect in the dorsalis pedis looks like thrombus. On the left side she has subtotally occluded left SFA/popliteal. I recommended that the patient's need to be started on IV heparin and continue monitor the hemoglobin very closely. Her hemoglobin is around 9. Beside that I am going to contact Dr. Cr to evaluate the patient for an amputation of the third toe on the right side. 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 Last Myocardial Infarction Date:: UNSURE History of Any Multi-Drug Resistant Organisms: None Reported Past Surgical History: Section, Cholecystectomy, Hernia Repair, Joint Replacement Additional Past Surgical History / Comment(s): IGNACIA cataract, LEFT SMALL toe amputation, LEFT KNEE REPLACEMENT, HX OF SKIN GRAFTS Past Anesthesia/Blood Transfusion Reactions: No Reported Reaction Past Psychological History: Depression Additional Psychological History / Comment(s): QUIT SMOKING 40 YRS AGO, SMOKED LESS THAN 1PPD FOR LESS THAN 10 YRS. Lives independently. No alcohol use. 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 No international travel. Has a pet dog in the home care for by her daughter Smoking Status: Former smoker Past Alcohol Use History: None Reported Past Drug Use History: None Reported - Past Family History Mother Family Medical History: Cancer Father Family Medical History: Cancer Medications and Allergies Home Medications Medication Instructions Recorded Confirmed Type Citalopram Hydrobromide 60 mg PO QAM 02/21/16 03/30/17 History [Citalopram HBr] Lisinopril 10 mg PO QAM 02/21/16 03/30/17 History Gemfibrozil [Lopid] 600 mg PO AC-BID 10/15/16 03/30/17 History Insulin NPH Hum/Reg Insulin Hm 55 unit SQ AC-SUPPER 10/15/16 03/30/17 History [NovoLIN 70-30 100 UNIT/ML VIAL] metFORMIN HCL 1,000 mg PO BID 10/15/16 03/30/17 History Atorvastatin [Lipitor] 40 mg PO HS 03/18/17 03/30/17 History Mirabegron [Myrbetriq] 25 mg PO HS 03/18/17 03/30/17 History Insulin NPH Hum/Reg Insulin Hm 25 unit SQ AC-LUNCH #1 each 03/20/17 03/30/17 Rx [NovoLIN 70-30 100 UNIT/ML VIAL] Insulin NPH Hum/Reg Insulin Hm 66 unit SQ AC-BRKFST #1 each 03/20/17 03/30/17 Rx [NovoLIN 70-30 100 UNIT/ML VIAL] Cephalexin [Keflex] 500 mg PO QID 03/30/17 03/30/17 History Allergies Allergy/AdvReac Type Severity Reaction Status Date / Time No Known Allergies Allergy Verified 03/30/17 17:22 Physical Exam Vitals: Vital Signs Temp Pulse Pulse Resp BP Pulse Ox 04/02/17 16:00 18 04/02/17 15:00 98.4 F 74 18 134/70 94 L 04/02/17 07:30 71 04/02/17 07:00 97.9 F 71 16 137/63 04/02/17 01:59 99.2 F 04/01/17 23:00 100.6 F H 83 17 117/52 92 L 04/01/17 20:14 98.5 F 82 16 134/60 94 L Intake and Output 04/02/17 04/02/17 04/02/17 06:59 14:59 22:59 Intake Total 250 25 Balance 250 25 Intake: IV 25 Intake, IV Titration 250 Amount Vancomycin 1,500 mg In 250 Sodium Chloride 0.9% 250 ml @ 125 mls/hr IVPB Q18H [facility] Rx#:[id number] Other: Voiding Method Toilet Toilet # Voids 1 4 # Bowel Movements 1 - Constitutional General appearance: no acute distress - Respiratory Respiratory: bilateral: CTA - Cardiovascular Rhythm: regular Heart sounds: normal: S1, S2 Results 04/02/17 07:49 04/02/17 07:49 CBC 04/02/17 Range/Units 07:49 WBC 11.5 H (3.8-10.6) k/uL RBC 3.36 L (3.80-5.40) m/uL Hgb 9.6 L (11.4-16.0) gm/dL Hct 31.3 L (34.0-46.0) % Plt Count 294 (150-450) k/uL Comprehensive Metabolic Panel 04/02/17 Range/Units 07:49 Sodium 140 (137-145) mmol/L Potassium 4.5 (3.5-5.1) mmol/L Chloride 106 (98-107) mmol/L Carbon Dioxide 22 (22-30) mmol/L BUN 16 (7-17) mg/dL Creatinine 0.76 (0.52-1.04) mg/dL Glucose 189 H (74-99) mg/dL Calcium 9.0 (8.4-10.2) mg/dL Current Medications Generic Name Dose Route Start Last Admin Trade Name Freq PRN Reason Stop Dose Admin Acetaminophen 650 mg 03/30/17 17:48 04/01/17 23:27 Tylenol Tab PO 650 mg Q6HR PRN Administration Mild Pain or Fever > 100.5 Hydrocodone Bitart/Acetaminophen 1 each 03/30/17 17:48 [place] 5-325 PO Q4HR PRN Moderate Pain Aspirin 81 mg 03/31/17 14:00 04/02/17 08:06 Aspirin PO 81 mg DAILY [facility] Administration Atorvastatin Calcium 40 mg 03/30/17 21:00 04/01/17 20:15 Lipitor PO 40 mg HS [facility] Administration Citalopram Hydrobromide 60 mg 03/31/17 09:00 04/02/17 08:07 Celexa PO 60 mg QAM [facility] Administration Furosemide 40 mg 04/02/17 09:45 04/02/17 10:11 Lasix PO 40 mg DAILY [facility] Administration Gemfibrozil 600 mg 03/31/17 07:30 04/02/17 08:06 Lopid PO 600 mg AC-BID [facility] Administration Hydromorphone HCl 1 mg 03/30/17 17:48 Dilaudid IV Q3HR PRN Severe Pain Vancomycin HCl 1,500 mg/ 250 mls @ 125 mls/hr 03/31/17 09:00 04/02/17 16:46 Sodium Chloride IVPB 125 mls/hr Q18H [facility] Administration Sodium Chloride 1,000 mls @ 100 mls/hr 04/02/17 18:30 Saline 0.9% IV 04/02/17 23:31 .Q10H [facility] Ibuprofen 400 mg 03/30/17 17:48 Motrin PO Q6HR PRN Mild Pain or Fever > 100.5 Insulin Human Lispro 0 unit 03/30/17 21:00 04/02/17 12:34 Humalog SQ 2 unit ACHS [facility] Administration Protocol Lisinopril 10 mg 04/02/17 21:00 Zestril PO HS [facility] Metoprolol Succinate 50 mg 04/02/17 09:36 Toprol Xl PO DAILY [facility] Naloxone HCl 0.2 mg 03/30/17 17:48 Narcan IV Q2M PRN Opioid Reversal Ondansetron HCl 4 mg 03/30/17 17:48 Zofran IVP Q8HR PRN Nausea And Vomiting Intake and Output 04/02/17 04/02/17 04/02/17 06:59 14:59 22:59 Intake Total 250 25 Balance 250 25 Intake: IV 25 Intake, IV Titration 250 Amount Vancomycin 1,500 mg In 250 Sodium Chloride 0.9% 250 ml @ 125 mls/hr IVPB Q18H [facility] Rx#:[id number] Other: Voiding Method Toilet Toilet # Voids 1 4 # Bowel Movements 1 04/02/17 07:49 04/02/17 07:49 Assessment and Plan Plan: This is a pleasant 71-year-old female patient with known peripheral arterial disease, severe cardiomyopathy, and diabetes, was admitted to the hospital with critical limb ischemia of the right foot. She underwent a peripheral angiogram and that revealed you occlusion of the dorsalis pedis on the right side. It seems that there is a thrombus involved. I am going to start the patient on heparin IV. The patient need to undergo a PATIENCE down the line to rule out any cardiac source of embolization. Also I am going to consult the vascular surgeon for evaluation off amputation of the third right toe. Thank you for allowing us participate in her care.
[2017-04-02] MEDS ORDERED: HEPARIN SODIUM,PORCINE 5,000 UNIT/ML 1 ML VIAL IV ONE (18:58)
[2017-04-02] MEDS ORDERED: HEPARIN SODIUM,PORCINE/D5W PMX 25,000 UNIT in DEXTROSE/WATER 1 500ML.BAG IV SCH (19:00)
[2017-04-02 19:18] LABS: Glucose,Whole Blood 213 mg/dL (75-99)
--- NOTE | 2017-04-02 19:26 | PCN ---
PROCEDURE NOTE DATE OF SERVICE: April 02, 2017 PERFORMING PHYSICIAN: Rishabh Smith M.D. timber grader. PROCEDURE PERFORMED: 1. Abdominal aortogram. 2. Bilateral lower extremity runoff. 3. Selective right superficial femoral artery angiogram. INDICATION: This is a pleasant 71-year-old female patient who was admitted to the hospital from Dr. Alarcon's office for critical limb ischemia of the right foot. APPROACH: Left common femoral artery. COMPLICATION: None. LEVEL OF SEDATION: Moderate with sedation length of 17 minutes. PROCEDURE DESCRIPTION: After obtaining informed consent, the patient was brought to the cardiac laborer filter plant. The left common femoral artery was cannulated using micropuncture technique, the micropuncture wire passed easily and placed a 5-Danish sheath. After that, I did an abdominal aortogram and bilateral lower extremity runoff using 5- Danish pigtail catheter which was initially placed at the level of the renal arteries and then it was pulled into above into above the bifurcation of the aorta. The procedure was completed without any complication. After that, I did selective left superficial femoral artery angiogram. After I did select the left SFA using a Glidewire and a rim catheter. The procedure was completed without any complication. SELECTIVE PERIPHERAL ANGIOGRAM: 1. The abdominal aorta is calcified with mild disease only. It bifurcates into right and left common iliac arteries. 2. Common iliac arteries. The right and left common iliac arteries are angiographically normal. 3. Internal iliac arteries. The right and left internal iliac arteries are angiographically normal. 4. External iliac arteries. The right and left external iliac arteries are angiographically normal. 5. Common femoral artery, right and left common femoral arteries are angiographically normal. 6. SFA: The right SFA appeared to have mild disease only and the left SFA appeared to have critical the lesion in the midportion. 7. Popliteal: The right and left popliteal appeared to have mild disease only. 8. Below the knee: There are 3 vessel runoff [id number] on the right side with the very distal anterior tibial/dorsalis pedis has what seems to be a filling defect consistent of thrombus. Below the knee on the left side was not well opacified. CONCLUSION: 1. Normal aortoiliac bilaterally. 2. Normal femoral-popliteal on the right side with critical disease involving the left SFA on the left side. 3. There are filling defect involving the right dorsalis pedis. POSTPROCEDURE MANAGEMENT: 1. IV anticoagulation. 2. Follow up with the patient. ADAM / MARILEEN: [id number] /
[2017-04-02 20:08] LABS: Basophils # (A) 0.1 k/uL (0-0.2); Basophils % (A) 1 %; CH 27.7; Eosinophils # (A) 0.2 k/uL (0-0.7); Eosinophils % (A) 2 %; HCT 31.4 % (34.0-46.0); HDW 2.55; HGB 9.7 gm/dL (11.4-16.0); Hypochromasia Marked; Luc # (Auto) 0.27; Luc % (Auto) 3; Lymphocytes # (A) 2.7 k/uL (1.0-4.8); Lymphocytes % (A) 27 %; MCH 28.9 pg (25.0-35.0); MCHC 31.1 g/dL (31.0-37.0); MCV 92.8 fL (80.0-100.0); Monocytes # (A) 0.4 k/uL (0-1.0); Monocytes % (A) 4 %; Neutrophils # (A) 6.2 k/uL (1.3-7.7); Neutrophils % (A) 63 %; RBC 3.38 m/uL (3.80-5.40); RDW 13.3 % (11.5-15.5); WBC 9.8 k/uL (3.8-10.6); WBC (Perox) 10.46
[2017-04-02 20:24] LABS: INR 1.1 (<1.2); Partial Thromboplastin Time 27.7 sec (22.0-30.0); Prothrombin Time 11.4 sec (9.0-12.0)
[2017-04-02 20:33] LABS: Glucose,Whole Blood 266 mg/dL (75-99)
[2017-04-02] MEDS: ATORVASTATIN 40 MG TAB PO SCH (21:19)
[2017-04-02] MEDS: LISINOPRIL 10 MG TAB PO SCH (21:19)
[2017-04-03 05:49] LABS: Glucose,Whole Blood 252 mg/dL (75-99)
[2017-04-03 06:25] LABS: Basophils % (A) 0 %; CH 27.6; CHCM 30.2; Eosinophils # (A) 0.3 k/uL (0-0.7); Eosinophils % (A) 3 %; HCT 30.9 % (34.0-46.0); HDW 2.56; HGB 9.8 gm/dL (11.4-16.0); Hypochromasia Moderate; Luc # (Auto) 0.26; Luc % (Auto) 3; Lymphocytes # (A) 2.6 k/uL (1.0-4.8); Lymphocytes % (A) 27 %; MCHC 31.6 g/dL (31.0-37.0); MCV 91.7 fL (80.0-100.0); Mean Platelet Volume 8.7; Monocytes # (A) 0.5 k/uL (0-1.0); Monocytes % (A) 5 %; Neutrophils # (A) 5.9 k/uL (1.3-7.7); Neutrophils % (A) 62 %; RBC 3.36 m/uL (3.80-5.40); RDW 13.3 % (11.5-15.5); WBC 9.5 k/uL (3.8-10.6); WBC (Perox) 9.79
[2017-04-03 06:41] LABS: Anion Gap 11 mmol/L; Blood Urea Nitrogen 22 mg/dL (7-17); Carbon Dioxide 24 mmol/L (22-30); Chloride 104 mmol/L (98-107); Glucose 239 mg/dL (74-99); Non-African American GFR(MDRD) >60 (>60 ml/min/1.73 sqM); Potassium 4.1 mmol/L (3.5-5.1); Sodium 139 mmol/L (137-145)
[2017-04-03] MEDS: GEMFIBROZIL 600 MG TAB PO SCH ×2 (06:41→17:30)
[2017-04-03] MEDS: INSULIN LISPRO (humaLOG) 300 UNIT/3 ML VIAL SQ SCH ×4 (06:41→21:15)
[2017-04-03] MEDS: HEPARIN SODIUM,PORCINE 5,000 UNIT/ML 1 ML VIAL IV PRN ×3 (06:55→22:40)
[2017-04-03] MEDS: METOPROLOL SUCCINATE (ER) 50 MG TAB.ER.24H PO SCH (10:21)
[2017-04-03] MEDS: CITALOPRAM HYDROBROMIDE 20 MG TAB PO SCH (10:21)
[2017-04-03] MEDS: ASPIRIN 81 MG PO SCH (10:21)
[2017-04-03] MEDS: FUROSEMIDE 40 MG TAB PO SCH (10:21)
--- NOTE | 2017-04-03 11:58 | P.PN ---
Subjective Subjective: Patient is being seen at bedside today for gangrenous changes of the right third toe with underlying infection of the right foot. It is at bedside and is resting comfortably. She she is on antibiotics as well as heparin. She voices no complaints and denies any fever chills shortness of breath nausea or vomiting. Vital signs are normal and stable. Objective - Vital Signs Vital signs: Vital Signs Temp 98.2 F 04/03/17 08:00 Pulse 67 04/03/17 08:00 Resp 18 04/03/17 08:00 BP 131/63 04/03/17 08:00 Pulse Ox 94 L 04/03/17 08:00 Intake & Output 04/02/17 04/03/17 04/03/17 18:59 06:59 18:59 Intake Total 25 948.051 200 Output Total 200 Balance 25 748.051 200 Weight 91.8 kg Intake: IV 25 760 Sodium Chloride 0.9% 1, 160 000 ml @ 100 mls/hr IV . Q10H [facility] Rx#:[id number] Sodium Chloride 0.9% 1, 600 000 ml @ 75 mls/hr IV . [id number] [facility] Rx#:[id number] Intake, IV Titration 188.051 Amount Heparin Sodium,Porcine/ 188.051 D5w Pmx 25,000 unit In Dextrose/Water 1 500ml. bag @ 10.9 UNITS/KG/HR 19 .97 mls/hr IV .Q24H [facility] Rx#:[id number] Oral 200 Output: Urine 200 Other: Voiding Method Toilet Toilet Toilet # Voids 4 1 # Bowel Movements 1 - Cardiovascular Details: Pedal pulses are diminished nonpalpable bilateral. No digital hair x 10. Subplexus venous filling time is delayed.x 10 and temperature texture tumor were appears diminished but stable bilateral - Integumentary Integumentary Comment(s): She has erythema and edema of the right foot extending from the right third digit and laterally across the third MPJ to the base of the fifth metatarsal. No increase in temperature to the right foot. - Musculoskeletal Musculoskeletal Comment(s): Patient has gangrenous changes to the right third toe which appears stable and appears to be demarcating at the level of the proximal interphalangeal joint. - Labs CBC & Chem 7: 04/03/17 05:45 04/03/17 05:45 Labs: Abnormal Lab Results - Last 24 Hours (Table) 04/02/17 04/02/17 04/02/17 Range/Units 11:41 19:05 19:50 RBC 3.38 L (3.80-5.40) m/uL Hgb 9.7 L (11.4-16.0) gm/dL Hct 31.4 L (34.0-46.0) % APTT (22.0-30.0) sec BUN (7-17) mg/dL Glucose (74-99) mg/dL POC Glucose (mg/dL) 194 H 213 H (75-99) mg/dL 04/02/17 04/03/17 04/03/17 Range/Units 20:29 05:45 05:45 RBC 3.36 L (3.80-5.40) m/uL Hgb 9.8 L (11.4-16.0) gm/dL Hct 30.9 L (34.0-46.0) % APTT (22.0-30.0) sec BUN 22 H (7-17) mg/dL Glucose 239 H (74-99) mg/dL POC Glucose (mg/dL) 266 H (75-99) mg/dL 04/03/17 04/03/17 Range/Units 05:45 05:47 RBC (3.80-5.40) m/uL Hgb (11.4-16.0) gm/dL Hct (34.0-46.0) % APTT 33.5 H (22.0-30.0) sec BUN (7-17) mg/dL Glucose (74-99) mg/dL POC Glucose (mg/dL) 252 H (75-99) mg/dL Microbiology - Last 24 Hours (Table) 03/30/17 17:30 Blood Culture - Preliminary Blood No Growth after 72 hours Assessment and Plan (1) Diabetic ulcer of right foot associated with secondary diabetes mellitus Narrative/Plan: After review of patient's chart discussed with patient our medical management plan. At this time I feel that there may be some issues with pedal flow distal to the dorsalis pedis as well as some occlusion to the digital vessels. For this reason I feel that it is best to let the digit demarcate further before surgical intervention. We will continue to support with IV management for antibiosis and discussed with patient wound care management. We will get patient into wound care for transcutaneous oxygen studies as well as possible HBO treatments as required. Once we determine the proper level of amputation will discuss this further with patient. We discussed our plan with the patient as well as infectious disease management. Discussed discussed our medical management plan with patient is agreeable to same. Will also manage the wound with a dry sterile dressing and appropriate topical occasions as needed. Status: Acute (2) Abscess of third toe, right Status: Acute (3) Diabetic neuropathy Status: Acute
[2017-04-03 12:01] LABS: Glucose,Whole Blood 330 mg/dL (75-99)
[2017-04-03] MEDS: VANCOMYCIN 1,500 MG in SODIUM CHLORIDE 0.9% 250 ML IVPB SCH (12:24)
[2017-04-03] MEDS ORDERED: D5W PMX IV SCH (15:30)
[2017-04-03] MEDS ORDERED: SODIUM CHLORIDE 0.45% IV SCH (15:30)
[2017-04-03] MEDS ORDERED: HEPARIN SODIUM PORCINE IV SCH (15:30)
--- NOTE | 2017-04-03 15:48 | P.PN ---
Subjective Patient was admitted for gangrene of the left third toe and ulcer in the toe patient has diabetic foot ulcer patient is presently on vancomycin as per infectious disease and patient will undergo toe amputation. Patient is presently euvolemic but does have history of congestive heart failure with ejection fraction of around 35% IV fluids will be discontinued and the patient was evaluated by cardiology for preoperative clearance. 04/02/2017 Respiratory status did improve and the patient is awaiting amputation procedure. 04/03/2017 Patient did undergo a 2 g which showed occlusion of the right dorsalis pedis, there is no plan for and patient procedure patient will be continued on IV antibiotics and patient will receive a PICC line and will be discharged on Wednesday. Patient denied any fever, chills, nausea, vomiting, abdominal pain, dysuria. Objective - Vital Signs Vital signs: Vital Signs Temp 98.7 F 04/03/17 12:00 Pulse 68 04/03/17 12:00 Resp 17 04/03/17 12:00 BP 133/62 04/03/17 12:00 Pulse Ox 94 L 04/03/17 12:00 Intake & Output 04/02/17 04/03/17 04/03/17 18:59 06:59 18:59 Intake Total 25 948.051 613.35 Output Total 200 Balance 25 748.051 613.35 Weight 91.8 kg Intake: IV 25 760 Sodium Chloride 0.9% 1, 160 000 ml @ 100 mls/hr IV . Q10H [facility] Rx#:[id number] Sodium Chloride 0.9% 1, 600 000 ml @ 75 mls/hr IV . [id number] [facility] Rx#:[id number] Intake, IV Titration 188.051 213.35 Amount Heparin Sodium,Porcine/ 188.051 213.35 D5w Pmx 25,000 unit In Dextrose/Water 1 500ml. bag @ 10.9 UNITS/KG/HR 19 .97 mls/hr IV .Q24H [facility] Rx#:[id number] Oral 400 Output: Urine 200 Other: Voiding Method Toilet Toilet Toilet # Voids 4 1 3 # Bowel Movements 1 1 - Exam PHYSICAL EXAMINATION: GENERAL: The patient is alert and oriented x3, not in any acute distress. Well developed, well nourished. HEENT: Pupils are round and equally reacting to light. EOMI. No scleral icterus. No conjunctival pallor. Normocephalic, atraumatic. No pharyngeal erythema. No thyromegaly. CARDIOVASCULAR: S1 and S2 present. No murmurs, rubs, or gallops. PULMONARY: Chest is clear to auscultation, no wheezing or crackles. ABDOMEN: Soft, nontender, nondistended, normoactive bowel sounds. No palpable organomegaly. MUSCULOSKELETAL: No joint swelling or deformity. EXTREMITIES: No cyanosis, clubbing, or pedal edema. Patient has ulceration of the left third toe along with some erythema on the dorsum of the left foot NEUROLOGICAL: Gross neurological examination did not reveal any focal deficits. SKIN: No rashes. - Labs CBC & Chem 7: 04/03/17 05:45 04/03/17 05:45 Labs: Abnormal Lab Results - Last 24 Hours (Table) 04/02/17 04/02/17 04/02/17 Range/Units 19:05 19:50 20:29 RBC 3.38 L (3.80-5.40) m/uL Hgb 9.7 L (11.4-16.0) gm/dL Hct 31.4 L (34.0-46.0) % APTT (22.0-30.0) sec BUN (7-17) mg/dL Glucose (74-99) mg/dL POC Glucose (mg/dL) 213 H 266 H (75-99) mg/dL 04/03/17 04/03/17 04/03/17 Range/Units 05:45 05:45 05:45 RBC 3.36 L (3.80-5.40) m/uL Hgb 9.8 L (11.4-16.0) gm/dL Hct 30.9 L (34.0-46.0) % APTT 33.5 H (22.0-30.0) sec BUN 22 H (7-17) mg/dL Glucose 239 H (74-99) mg/dL POC Glucose (mg/dL) (75-99) mg/dL 04/03/17 04/03/17 04/03/17 Range/Units 05:47 11:34 12:26 RBC (3.80-5.40) m/uL Hgb (11.4-16.0) gm/dL Hct (34.0-46.0) % APTT 37.7 H (22.0-30.0) sec BUN (7-17) mg/dL Glucose (74-99) mg/dL POC Glucose (mg/dL) 252 H 330 H (75-99) mg/dL Microbiology - Last 24 Hours (Table) 03/30/17 17:30 Blood Culture - Preliminary Blood No Growth after 72 hours Assessment and Plan Plan: #1 gangrene of the left torso with a diabetic foot ulcer: Patient the is on IV antibodies the form of IV vancomycin #2 type 2 diabetes mellitus fairly controlled blood sugars, continue with present regimen titrate insulin as needed. #3 can start failure chronic systolic dysfunction ejection fraction of 35%: Patient is euvolemic without any acute exacerbation at this point of time IV fluids will be discontinued. #4 history of meningioma follow-up as outpatient #5 coronary artery disease. #6 peripheral vascular disease: Patient has occlusion and atherosclerotic vascular disease of right dorsalis pedis
[2017-04-03] MEDS: HEPARIN SODIUM,PORCINE 25,000 UNIT in SODIUM CHLORIDE 0.45 % 500 ML IV SCH (16:10)
[2017-04-03 17:09] LABS: Glucose,Whole Blood 217 mg/dL (75-99)
[2017-04-03] MEDS: LISINOPRIL 10 MG TAB PO SCH (20:30)
[2017-04-03] MEDS: ATORVASTATIN 40 MG TAB PO SCH (20:30)
[2017-04-03 20:57] LABS: Glucose,Whole Blood 318 mg/dL (75-99)
[2017-04-04] MEDS: VANCOMYCIN 1,500 MG in SODIUM CHLORIDE 0.9% 250 ML IVPB SCH ×2 (03:25→21:24)
[2017-04-04 04:13] LABS: Basophils # (A) 0.1 k/uL (0-0.2); Basophils % (A) 1 %; CH 28.7; CHCM 31.3; Eosinophils # (A) 0.2 k/uL (0-0.7); Eosinophils % (A) 3 %; HCT 28.7 % (34.0-46.0); HDW 2.61; HGB 8.7 gm/dL (11.4-16.0); Hypochromasia Slight; Luc % (Auto) 2; Lymphocytes # (A) 2.2 k/uL (1.0-4.8); Lymphocytes % (A) 26 %; MCH 28.1 pg (25.0-35.0); MCHC 30.5 g/dL (31.0-37.0); MCV 92.2 fL (80.0-100.0); Mean Platelet Volume 8.8; Monocytes # (A) 0.5 k/uL (0-1.0); Monocytes % (A) 6 %; Neutrophils # (A) 5.3 k/uL (1.3-7.7); Neutrophils % (A) 63 %; RBC 3.11 m/uL (3.80-5.40); WBC 8.5 k/uL (3.8-10.6)
[2017-04-04 04:28] LABS: Anion Gap 13 mmol/L; Blood Urea Nitrogen 22 mg/dL (7-17); Calcium 8.5 mg/dL (8.4-10.2); Carbon Dioxide 21 mmol/L (22-30); Chloride 105 mmol/L (98-107); Glucose 275 mg/dL (74-99); Non-African American GFR(MDRD) >60 (>60 ml/min/1.73 sqM); Potassium 4.1 mmol/L (3.5-5.1); Sodium 139 mmol/L (137-145)
[2017-04-04 05:37] LABS: Glucose,Whole Blood 278 mg/dL (75-99)
[2017-04-04] MEDS: GEMFIBROZIL 600 MG TAB PO SCH ×2 (06:51→17:32)
[2017-04-04] MEDS: INSULIN LISPRO (humaLOG) 300 UNIT/3 ML VIAL SQ SCH ×4 (06:51→21:16)
[2017-04-04] MEDS: HEPARIN SODIUM,PORCINE 25,000 UNIT in SODIUM CHLORIDE 0.45 % 500 ML IV SCH (07:01)
[2017-04-04] MEDS: ASPIRIN 81 MG PO SCH (09:09)
[2017-04-04] MEDS: FUROSEMIDE 40 MG TAB PO SCH (09:10)
[2017-04-04] MEDS: METOPROLOL SUCCINATE (ER) 50 MG TAB.ER.24H PO SCH (09:10)
[2017-04-04] MEDS: CITALOPRAM HYDROBROMIDE 20 MG TAB PO SCH (09:10)
--- NOTE | 2017-04-04 11:21 | P.PN ---
Subjective Patient was admitted for gangrene of the left third toe and ulcer in the toe patient has diabetic foot ulcer patient is presently on vancomycin as per infectious disease and patient will undergo toe amputation. Patient is presently euvolemic but does have history of congestive heart failure with ejection fraction of around 35% IV fluids will be discontinued and the patient was evaluated by cardiology for preoperative clearance. 04/02/2017 Respiratory status did improve and the patient is awaiting amputation procedure. 04/03/2017 Patient did undergo a 2 g which showed occlusion of the right dorsalis pedis, there is no plan for and patient procedure patient will be continued on IV antibiotics and patient will receive a PICC line and will be discharged on Wednesday. 04/04/2017 No significant overnight events are continued antibiotics possibly of discharge tomorrow Patient denied any fever, chills, nausea, vomiting, abdominal pain, dysuria. Objective - Vital Signs Vital signs: Vital Signs Temp 98 F 04/04/17 08:00 Pulse 77 04/04/17 08:00 Resp 17 04/04/17 08:00 BP 125/67 04/04/17 08:00 Pulse Ox 96 04/04/17 08:00 Intake & Output 04/03/17 04/04/17 04/04/17 18:59 06:59 18:59 Intake Total 613.35 1068.215 413.76 Balance 613.35 1068.215 413.76 Weight 91.8 kg 92.5 kg Intake: IV 872 Heparin Sodium,Porcine 25 272 ,000 unit In Sodium Chloride 0.45 % 500 ml @ 10.9 UNITS/KG/HR 19.97 mls/hr IV .Q24H [facility] Rx#: [id number] Sodium Chloride 0.9% 1, 600 000 ml @ 75 mls/hr IV . [id number] [facility] Rx#:[id number] Intake, IV Titration 213.35 196.215 293.76 Amount Heparin Sodium,Porcine 25 196.215 293.76 ,000 unit In Sodium Chloride 0.45 % 500 ml @ 10.9 UNITS/KG/HR 19.97 mls/hr IV .Q24H [facility] Rx#: [id number] Heparin Sodium,Porcine/ 213.35 D5w Pmx 25,000 unit In Dextrose/Water 1 500ml. bag @ 10.9 UNITS/KG/HR 19 .97 mls/hr IV .Q24H [facility] Rx#:[id number] Oral 400 120 Other: Voiding Method Toilet Toilet # Voids 3 1 # Bowel Movements 1 - Exam PHYSICAL EXAMINATION: GENERAL: The patient is alert and oriented x3, not in any acute distress. Well developed, well nourished. HEENT: Pupils are round and equally reacting to light. EOMI. No scleral icterus. No conjunctival pallor. Normocephalic, atraumatic. No pharyngeal erythema. No thyromegaly. CARDIOVASCULAR: S1 and S2 present. No murmurs, rubs, or gallops. PULMONARY: Chest is clear to auscultation, no wheezing or crackles. ABDOMEN: Soft, nontender, nondistended, normoactive bowel sounds. No palpable organomegaly. MUSCULOSKELETAL: No joint swelling or deformity. EXTREMITIES: No cyanosis, clubbing, or pedal edema. Patient has ulceration of the left third toe along with some erythema on the dorsum of the left foot NEUROLOGICAL: Gross neurological examination did not reveal any focal deficits. SKIN: No rashes. - Labs CBC & Chem 7: 04/04/17 03:44 04/04/17 03:44 Labs: Abnormal Lab Results - Last 24 Hours (Table) 04/03/17 04/03/17 04/03/17 Range/Units 11:34 12:26 16:53 RBC (3.80-5.40) m/uL Hgb (11.4-16.0) gm/dL Hct (34.0-46.0) % MCHC (31.0-37.0) g/dL APTT 37.7 H (22.0-30.0) sec Carbon Dioxide (22-30) mmol/L BUN (7-17) mg/dL Glucose (74-99) mg/dL POC Glucose (mg/dL) 330 H 217 H (75-99) mg/dL 04/03/17 04/03/17 04/04/17 Range/Units 20:52 21:27 03:44 RBC (3.80-5.40) m/uL Hgb (11.4-16.0) gm/dL Hct (34.0-46.0) % MCHC (31.0-37.0) g/dL APTT 41.4 H (22.0-30.0) sec Carbon Dioxide 21 L (22-30) mmol/L BUN 22 H (7-17) mg/dL Glucose 275 H (74-99) mg/dL POC Glucose (mg/dL) 318 H (75-99) mg/dL 04/04/17 04/04/17 04/04/17 Range/Units 03:44 03:44 05:33 RBC 3.11 L (3.80-5.40) m/uL Hgb 8.7 L (11.4-16.0) gm/dL Hct 28.7 L (34.0-46.0) % MCHC 30.5 L (31.0-37.0) g/dL APTT 49.5 H 55.0 H (22.0-30.0) sec Carbon Dioxide (22-30) mmol/L BUN (7-17) mg/dL Glucose (74-99) mg/dL POC Glucose (mg/dL) (75-99) mg/dL 04/04/17 Range/Units 05:34 RBC (3.80-5.40) m/uL Hgb (11.4-16.0) gm/dL Hct (34.0-46.0) % MCHC (31.0-37.0) g/dL APTT (22.0-30.0) sec Carbon Dioxide (22-30) mmol/L BUN (7-17) mg/dL Glucose (74-99) mg/dL POC Glucose (mg/dL) 278 H (75-99) mg/dL Microbiology - Last 24 Hours (Table) 03/30/17 17:30 Blood Culture - Preliminary Blood No Growth after 96 hours Assessment and Plan Plan: #1 gangrene of the left torso with a diabetic foot ulcer: Patient the is on IV antibiotics the form of IV vancomycin #2 type 2 diabetes mellitus fairly controlled blood sugars, continue with present regimen titrate insulin as needed. #3 can start failure chronic systolic dysfunction ejection fraction of 35%: Patient is euvolemic without any acute exacerbation at this point of time IV fluids will be discontinued. #4 history of meningioma follow-up as outpatient #5 coronary artery disease. #6 peripheral vascular disease: Patient has occlusion and atherosclerotic vascular disease of right dorsalis pedis Possible discharge tomorrow after PICC line placement on IV antibiotic
[2017-04-04 12:17] LABS: Glucose,Whole Blood 360 mg/dL (75-99)
[2017-04-04] MEDS ORDERED: INSULIN NPH/REG INSULIN 70/30 300 UNIT/3 ML VIAL SQ SCH (12:45)
--- NOTE | 2017-04-04 13:52 | PN ---
PROGRESS NOTE Mrs. Arguelles is a 71-year-old female with history of peripheral vascular disease who underwent angiography by Dr. Smith. She has a known history of ischemic cardiomyopathy. She presented with ulceration and nonhealing ulcer on her diabetic foot. She is doing well this morning. She denies any symptoms of chest pain. She is scheduled to undergo PICC line placement tomorrow. She had an echocardiogram performed on the that revealed ejection fraction of 40-45% with segmental wall motion abnormality consistent with coronary artery disease. The lower extremities angiography performed by Dr. Smith showed normal aortoiliac bilaterally, normal femoral-popliteal on the right side with critical disease involving the left SFA and filling defect involving the right dorsalis pedis. MEDICATION: Her medication at this time continues to be aspirin once a day, Lipitor 40 mg daily, Lasix 40 mg daily, gemfibrozil 600 mg twice a day, IV heparin, insulin, Lisinopril 10 mg a day, metoprolol succinate 50 mg daily. PHYSICAL EXAMINATION: Blood pressure 137/60 with a heart rate in the 60s. LUNGS: No wheezes. HEART: Regular rate and rhythm. S1, S2. No S3 with systolic murmur. No diastolic murmur. ABDOMEN: Soft, nontender. EXTREMITIES: Mild edema on the right side with decreased pulses. LAB DATA: Revealed BUN creatinine 22 and 0.8, potassium 4.1, hemoglobin of 8.7. IMPRESSION: 1. Severe peripheral vascular disease. 2. Ischemic cardiomyopathy, appears to be euvolemic. 3. Hyperlipidemia. 4. Diabetes mellitus. RECOMMENDATION: From the cardiac standpoint, we will continue on the present therapy. I will discuss the finding further with Dr. Smith regarding the duration of anticoagulation. MMODL / IJN: [id number] /
[2017-04-04 17:02] LABS: Glucose,Whole Blood 245 mg/dL (75-99)
[2017-04-04] MEDS: INSULIN NPH/REG INSULIN 70/30 300 UNIT/3 ML VIAL SQ SCH (17:32)
[2017-04-04] MEDS ORDERED: VANCOMYCIN TROUGH DUE 1 EACH MISC MISCELLANE ONE (20:00)
[2017-04-04 21:13] LABS: Glucose,Whole Blood 317 mg/dL (75-99)
[2017-04-04] MEDS: ATORVASTATIN 40 MG TAB PO SCH (21:16)
[2017-04-04] MEDS: LISINOPRIL 10 MG TAB PO SCH ×2 (21:17→23:32)
[2017-04-05] MEDS: HEPARIN SODIUM,PORCINE 25,000 UNIT in SODIUM CHLORIDE 0.45 % 500 ML IV SCH (06:01)
[2017-04-05 07:24] LABS: Glucose,Whole Blood 107 mg/dL (75-99)
[2017-04-05 07:55] LABS: Basophils # (A) 0.1 k/uL (0-0.2); Basophils % (A) 1 %; CH 27.7; CHCM 30.7; Eosinophils # (A) 0.3 k/uL (0-0.7); Eosinophils % (A) 3 %; HCT 29.5 % (34.0-46.0); HDW 2.59; HGB 9.2 gm/dL (11.4-16.0); Hypochromasia Moderate; Luc # (Auto) 0.26; Luc % (Auto) 3; Lymphocytes # (A) 2.2 k/uL (1.0-4.8); Lymphocytes % (A) 26 %; MCH 28.2 pg (25.0-35.0); MCHC 31.1 g/dL (31.0-37.0); MCV 90.6 fL (80.0-100.0); Mean Platelet Volume 8.1; Monocytes # (A) 0.5 k/uL (0-1.0); Monocytes % (A) 6 %; Neutrophils # (A) 5.3 k/uL (1.3-7.7); Neutrophils % (A) 61 %; RBC 3.25 m/uL (3.80-5.40); RDW 13.4 % (11.5-15.5); WBC 8.7 k/uL (3.8-10.6); WBC (Perox) 9.26
[2017-04-05] MEDS: GEMFIBROZIL 600 MG TAB PO SCH ×2 (08:20→17:20)
[2017-04-05] MEDS: METOPROLOL SUCCINATE (ER) 50 MG TAB.ER.24H PO SCH (08:21)
[2017-04-05] MEDS: CITALOPRAM HYDROBROMIDE 20 MG TAB PO SCH (08:21)
[2017-04-05] MEDS: INSULIN NPH/REG INSULIN 70/30 300 UNIT/3 ML VIAL SQ SCH ×3 (08:21→17:21)
[2017-04-05] MEDS: INSULIN LISPRO (humaLOG) 300 UNIT/3 ML VIAL SQ SCH ×4 (08:21→21:16)
[2017-04-05] MEDS: ASPIRIN 81 MG PO SCH (08:21)
[2017-04-05] MEDS: FUROSEMIDE 40 MG TAB PO SCH (08:21)
[2017-04-05 12:15] LABS: Glucose,Whole Blood 123 mg/dL (75-99)
[2017-04-05] MEDS: ERTAPENEM 1 GM in SODIUM CHLORIDE 0.9% 50 ML IVPB SCH (12:40)
--- NOTE | 2017-04-05 14:00 | P.PN ---
Subjective We are seeing this patient today in follow-up from initial consultation. She is a 71-year-old female with past medical history significant for CAD, diabetes mellitus, hyperlipidemia, systolic heart failure and ischemic cardiomyopathy. She underwent peripheral angiogram with Dr. Smith 04/02 which revealed possible thrombus of right dorsalis pedis with 3-vessel runoff below the knee. She was placed on IV heparin. Discussion was had with Dr. Alarcon and his plan is to allow the wound to demarcate further before attempting amputation. Upon exam today she is seen sitting up in bed in no acute distress. She denies chest pain , shortness of breath, dizziness or palpitations. She is awaiting PICC line placement for home antibiotic therapy. Objective - Vital Signs Vital signs: Vital Signs Temp 97.9 F 04/05/17 07:00 Pulse 70 04/05/17 07:00 Resp 16 04/05/17 07:00 BP 96/46 04/05/17 07:00 Pulse Ox 94 L 04/05/17 07:00 Intake & Output 04/04/17 04/05/17 04/05/17 18:59 06:59 18:59 Intake Total 1580.76 700 Balance 1580.76 700 Intake: IV 877 Heparin Sodium,Porcine 25 277 ,000 unit In Sodium Chloride 0.45 % 500 ml @ 10.9 UNITS/KG/HR 19.97 mls/hr IV .Q24H [facility] Rx#: [id number] Sodium Chloride 0.9% 1, 600 000 ml @ 75 mls/hr IV . [id number] [facility] Rx#:[id number] Intake, IV Titration 293.76 500 Amount Heparin Sodium,Porcine 25 293.76 500 ,000 unit In Sodium Chloride 0.45 % 500 ml @ 10.9 UNITS/KG/HR 19.97 mls/hr IV .Q24H [facility] Rx#: [id number] Oral 410 200 Other: Voiding Method Diaper Toilet Toilet Incontinent Bedside Commode Bedside Commode Diaper Diaper Incontinent Incontinent # Voids 1 1 - Exam GENERAL: Well-appearing, well-nourished and in no acute distress. Obese. NECK: Supple without JVD or thyromegaly. LUNGS: Breath sounds clear to auscultation bilaterally. Respiration equal and unlabored. No wheezes, rales or rhonchi. HEART: Regular rate and rhythm without murmurs, rubs or gallops. S1 and S2 heard. EXTREMITIES: Normal range of motion, no edema. No clubbing or cyanosis. Peripheral pulses intact and strong. - Labs CBC & Chem 7: 04/05/17 07:20 04/04/17 03:44 Labs: Abnormal Lab Results - Last 24 Hours (Table) 04/04/17 04/04/17 04/05/17 Range/Units 16:53 21:07 07:20 RBC 3.25 L (3.80-5.40) m/uL Hgb 9.2 L (11.4-16.0) gm/dL Hct 29.5 L (34.0-46.0) % APTT (22.0-30.0) sec POC Glucose (mg/dL) 245 H 317 H (75-99) mg/dL 04/05/17 04/05/17 04/05/17 Range/Units 07:20 07:22 12:06 RBC (3.80-5.40) m/uL Hgb (11.4-16.0) gm/dL Hct (34.0-46.0) % APTT 56.4 H (22.0-30.0) sec POC Glucose (mg/dL) 107 H 123 H (75-99) mg/dL Microbiology - Last 24 Hours (Table) 03/30/17 17:30 Blood Culture - Preliminary Blood No Growth after 120 hours Assessment and Plan Plan: ASSESSMENT 1. Ischemic cardiomyopathy 2. Chronic systolic heart failure with acute exacerbation at this time 3. Left bundle branch block with wide QRS 4. Chronic right great toe infection 5. Diabetes mellitus 6. Peripheral vascular disease PLAN IV heparin has been held for PICC line placement, she should go home on Xarelto [address] Alarcon is aware of this plan and in agreement at this time. Prescription has been given to case management to check for coverage. Nurse Practitioner note has been reviewed, I agree with a documented findings and plan of care. Patient was seen and examined.
[2017-04-05] MEDS ORDERED: LIDOCAINE 2% INJ 20 MG/ML SQ ONE (14:23)
--- NOTE | 2017-04-05 14:49 | IR ---
PICC LINE PLACEMENT: HISTORY: Infection requiring long-term antibiotic therapy PROCEDURE: Ultrasound and fluoroscopic guidance of PICC line placement. COMPLICATIONS: None ANESTHESIA: 1. 1% Lidocaine locally. FINDINGS/TECHNIQUE: The procedure was explained to the patient. The risks, complications, benefits and alternatives were discussed and any questions were answered. Informed consent was obtained. The patient was placed supine on the fluoroscopic table and prepped and draped in the usual sterile [facility] ion. Utilizing a 21 gauge needle and sonographic and fluoroscopic guidance, access in the vein was achieved and there is placement of a 0.018 guidewire. The vein is patent. A 4-F sheath was placed o dora the guidewire. The guidewire and dilator were removed and a 4-F. PICC line was placed through th e sheath with the tip at the level of the SVC. The sheath was removed, the catheter was flushed and sutured into position. The patient was stable throughout the procedure and remained stable upon disc harge from the Department of Radiology. The vein puncture was patent under ultrasound. A avila scale image was obtained to document patency of the vein punctured. All elements of the maximal barrier technique were utilized. FLUOROSCOPY TIME: 0.1 minute, one image submitted IMPRESSION: Successful PICC line placement under ultrasound and fluoroscopic guidance.
--- NOTE | 2017-04-05 16:14 | PN ---
PROGRESS NOTE DATE OF SERVICE: 04/05/2017 ATTENDING NOTE: This patient was seen and examined by me. I discussed with my nurse practitioner, Ms. Dixon. Patient admitted with a wound to the right toe. Patient is getting a PICC line for the same. Otherwise breathing is stable. Patient also found to have peripheral artery disease per angiogram. PHYSICAL EXAMINATION: Temperature 97.9, pulse 70, respiration 16, blood pressure 96/46. Lungs are clear. CARDIOVASCULAR: First and second sounds normal. Wound on the toe. INVESTIGATIONS: Blood cultures are negative. ASSESSMENT: 1. Acute osteomyelitis of the distal phalanx of the right third toe along with a diabetic ulcer secondary to diabetes mellitus. 2. Diabetes mellitus, type 2, chronically on insulin, causing peripheral neuropathy. 3. Meningioma; outpatient workup in place. 4. Hyperlipidemia. 5. Coronary artery disease. 6. Chronic congestive heart failure from systolic dysfunction, ejection fraction 30%, from underlying ischemic heart disease. 7. Peripheral arterial disease involving the left SFA on the left side and filling defect involving the right dorsalis pedis. PLAN: Patient is going to get a PICC line today and is on IV and Invanz. Antibiotics have been coordinated by Dr. Rodriguez. Care was discussed with the patient. MMODL / IJN: [id number] /
[2017-04-05 17:18] LABS: Glucose,Whole Blood 112 mg/dL (75-99)
[2017-04-05] MEDS: RIVAROXABAN 15 MG TAB PO SCH (17:20)
--- NOTE | 2017-04-05 18:30 | P.PN ---
Progress Note - Text DATE OF SERVICE: 04/05/2017 PRESENTING COMPLAINT: Right third toe infection HISTORY OF PRESENT ILLNESS: 71-year-old female who developed a right third toe wound about 2 weeks ago sustained a fall and further injure the area has been following with Dr. Alarcon and the toe is now hurting inflamed with some drainage admitted with concerns for sepsis. Dr. Alarcon was going to amputate the right third toe however feels a digit should demarcate further before surgical intervention. Has had an echocardiogram revealed the 40-45%, lower extremity angiography reveals normal aortoiliac bilaterally normal femoral popliteal on the right side with critical disease of the left SFA and filling defect of the right dorsalis pedis. INTERVAL HISTORY: Patient lying in bed waiting for her PICC line placement. Appears comfortable. Continue antibiotic therapy, local wound care. Tolerating her diet ambulatory with some assistance. REVIEW OF SYSTEMS: Done for constitutional ,cardiovascular, GI, pulmonary, integument with relevant findings as above. CURRENT MEDICATIONS Reva, Lasix, ertapenem 1 g every 24 hours Lasix 40 by mouth daily Lopid 600 mg by mouth before meals twice a day Toprol-XL 50 mrd by mouth daily lisinopril 10 mg by mouth at bedtime, Xarelto 50 mg by mouth at supper PHYSICAL EXAM VITAL SIGNS: Temperature 97.9, pulse 70, respiratory rate 16, blood pressure 96/46, oxygen saturation 94% on room air. GENERAL APPEARANCE: Lying in bed, appears comfortable. EYES: Pupils equal. Conjunctiva normal. NECK: JVD not raised. Mass not palpable. RESPIRATORY: Respiratory effort normal. Lungs clear to auscultation. CARDIOVASCULAR: First and second sounds normal. No edema. ABDOMEN: Soft. Liver and spleen not palpable. No tenderness. No mass palpable. PSYCHIATRY: Alert and oriented x3. Mood and affect normal. INTEGUMENT: Right foot dressing in place no drainage noted INVESTIGATIONS: White blood cell count 8.7, hemoglobin 9.2, Accu-Cheks noted ASSESSMENT: Acute osteomyelitis of the distal phalanx of the right third toe along with diabetic ulcer secondary to diabetes mellitus. -Diabetes mellitus type 2 chronically on insulin causing peripheral neuropathy. -Meningioma, outpatient workup in place. -Hyperlipidemia. -Coronary artery disease. -Chronic just heart failure from systolic dysfunction ejection fraction 30% from underlying ischemic heart disease -Peripheral art to reveal disease involving the last SFA on the left side and filling defect involving the right dorsalis pedis PLAN: Continue antibiotic therapy with IV Invanz we'll continue receive this outpatient through the PICC line. Should continue with Xarelto 15 mg by mouth daily for anticoagulation needs. Plan of care discussed with the patient the bedside, likely discharge tomorrow. We'll continue to follow. [employer] statement: Patient was seen and examined by nurse practitioner Shana Dixon and all elements of the case discussed with attending Dr. Helm
[2017-04-05] MEDS: LISINOPRIL 10 MG TAB PO SCH (19:55)
[2017-04-05] MEDS: ATORVASTATIN 40 MG TAB PO SCH (19:55)
[2017-04-05 20:54] LABS: Glucose,Whole Blood 111 mg/dL (75-99)
--- NOTE | 2017-04-05 20:58 | P.PN ---
Subjective Principal diagnosis: Gangrene toe Pleasant 71-year-old female known to the infectious disease service because of her difficulties with peripheral vascular disease, prior diabetic foot infections with gangrene to toes resulting in prior toe amputations. Presents with ongoing difficulty to the right foot third toe. She's been having some increasing ulceration. It markedly worsen. She was in the outpatient setting. There was some debridements to some necrotic bone that was performed. The now has worsening changes with some dry gangrenous changes to the distal aspect of the toe. With concerns to worsening infection she's been brought into hospital for further intervention. This was on relates that she feels better since last time she was seen. The time she just suffered a fall and had extensive ecchymosis to her face and right arm which are now improving. Overall discomfort is improved but she is worried about the toe. She is denying significant fever or chills. Does not feel well overall. She's been seen by podiatry and vascular surgery. Objective - Vital Signs Vital signs: Vital Signs Temp 99.1 F 04/05/17 15:00 Pulse 73 04/05/17 15:00 Resp 16 04/05/17 15:00 BP 145/94 04/05/17 15:00 Pulse Ox 93 L 04/05/17 15:00 Intake & Output 04/05/17 04/05/17 04/06/17 06:59 18:59 06:59 Intake Total 700 Balance 700 Weight 92.5 kg Intake: Intake, IV Titration 500 Amount Heparin Sodium,Porcine 25 500 ,000 unit In Sodium Chloride 0.45 % 500 ml @ 10.9 UNITS/KG/HR 19.97 mls/hr IV .Q24H [facility] Rx#: [id number] Oral 200 Other: Voiding Method Toilet Toilet Toilet Bedside Commode Bedside Commode Bedside Commode Diaper Diaper Diaper Incontinent Incontinent Incontinent # Voids 1 1 - Exam Mj 71-year-old woman presents to hospital with complaints nonhealing ulceration to her right foot third toe HEENT: Anicteric conjunctiva are pink and moist nasal mucosa grossly intact without significant lesions, there is no thrush. Neck: The neck is supple without significant lymphadenopathy or thyromegaly. Lungs: Good bilateral air entry without significant crackles or wheezing. There is no significant bronchial sounds. There is no egophony or dullness. Heart: Regular rate and rhythm with an audible S1-S2, no S3 no S4. There is no significant murmur click or rub, PMI was nondisplaced. Abdomen: Positive bowel sounds soft and nontender without palpable masses or organomegaly. There was no guarding or rebound. Extremities: The upper extremities have excellent pulses they are symmetric, no significant petechiae or telangiectasia. No splinter hemorrhages were noted. Left foot shows evidence the prior toe amputations. Right foot shows evidence of the ulceration to the third toe. There is a surgical debridement that occurred. The tip is now with evidence of black necrosis some swelling without purulent drainage or foul odor. There is minimal erythema to the dorsum of the foot. The foot itself is not tender but is neuropathic. Neuro: Awake alert oriented to person place and time. There are no acute new gross focal sensory motor deficits. Skin evidence of improvement to the ecchymosis to her face especially to the right periorbital area and right arm. No fractures are noted. - Labs CBC & Chem 7: 04/05/17 07:20 04/04/17 03:44 Labs: Abnormal Lab Results - Last 24 Hours (Table) 04/04/17 04/05/17 04/05/17 Range/Units 21:07 07:20 07:20 RBC 3.25 L (3.80-5.40) m/uL Hgb 9.2 L (11.4-16.0) gm/dL Hct 29.5 L (34.0-46.0) % APTT 56.4 H (22.0-30.0) sec POC Glucose (mg/dL) 317 H (75-99) mg/dL 04/05/17 04/05/17 04/05/17 Range/Units 07:22 12:06 17:14 RBC (3.80-5.40) m/uL Hgb (11.4-16.0) gm/dL Hct (34.0-46.0) % APTT (22.0-30.0) sec POC Glucose (mg/dL) 107 H 123 H 112 H (75-99) mg/dL 04/05/17 Range/Units 20:38 RBC (3.80-5.40) m/uL Hgb (11.4-16.0) gm/dL Hct (34.0-46.0) % APTT (22.0-30.0) sec POC Glucose (mg/dL) 111 H (75-99) mg/dL Microbiology - Last 24 Hours (Table) 03/30/17 17:30 Blood Culture - Final Blood No Growth after 144 hours Laboratory Results WBC 8.7 k/uL (3.8-10.6) 04/05/17 07:20 RBC 3.25 m/uL (3.80-5.40) L 04/05/17 07:20 Hgb 9.2 gm/dL (11.4-16.0) L 04/05/17 07:20 Hct 29.5 % (34.0-46.0) L 04/05/17 07:20 MCV 90.6 fL (80.0-100.0) 04/05/17 07:20 MCH 28.2 pg (25.0-35.0) 04/05/17 07:20 MCHC 31.1 g/dL (31.0-37.0) 04/05/17 07:20 RDW 13.4 % (11.5-15.5) 04/05/17 07:20 Plt Count 280 k/uL (150-450) 04/05/17 07:20 Neutrophils % 61 % 04/05/17 07:20 Lymphocytes % 26 % 04/05/17 07:20 Monocytes % 6 % 04/05/17 07:20 Eosinophils % 3 % 04/05/17 07:20 Basophils % 1 % 04/05/17 07:20 Neutrophils # 5.3 k/uL (1.3-7.7) 04/05/17 07:20 Lymphocytes # 2.2 k/uL (1.0-4.8) 04/05/17 07:20 Monocytes # 0.5 k/uL (0-1.0) 04/05/17 07:20 Eosinophils # 0.3 k/uL (0-0.7) 04/05/17 07:20 Basophils # 0.1 k/uL (0-0.2) 04/05/17 07:20 Hypochromasia Moderate 04/05/17 07:20 PT 11.4 sec (9.0-12.0) 04/02/17 19:50 INR 1.1 (<1.2) 04/02/17 19:50 APTT 56.4 sec (22.0-30.0) H 04/05/17 07:20 Sodium 139 mmol/L (137-145) 04/04/17 03:44 Potassium 4.1 mmol/L (3.5-5.1) 04/04/17 03:44 Chloride 105 mmol/L (98-107) 04/04/17 03:44 Carbon Dioxide 21 mmol/L (22-30) L 04/04/17 03:44 Anion Gap 13 mmol/L 04/04/17 03:44 BUN 22 mg/dL (7-17) H 04/04/17 03:44 Creatinine 0.80 mg/dL (0.52-1.04) 04/04/17 03:44 Est GFR (MDRD) Af Amer >60 (>60 ml/min/1.73 sqM) 04/04/17 03:44 Est GFR (MDRD) Non-Af >60 (>60 ml/min/1.73 sqM) 04/04/17 03:44 Glucose 275 mg/dL (74-99) H 04/04/17 03:44 POC Glucose (mg/dL) 111 mg/dL (75-99) H 04/05/17 20:38 POC Glu [employer]ment[employer] Wine MARILYN Tyesha Quinones 04/05/17 20:[address] Glu mg/dL 203 mg/dL 03/30/17 17:30 Hemoglobin A1c 8.7 % (4.2-6.1) H 03/30/17 17:30 Plasma Lactic Acid Conrad 1.6 mmol/L (0.7-2.0) 03/30/17 17:30 Calcium 8.5 mg/dL (8.4-10.2) 04/04/17 03:44 Total Bilirubin 0.3 mg/dL (0.2-1.3) 03/30/17 17:30 AST 16 U/L (14-36) 03/30/17 17:30 ALT 25 U/L (9-52) 03/30/17 17:30 Alkaline Phosphatase 139 U/L (38-126) H 03/30/17 17:30 Total Creatine Kinase 32 U/L (30-135) 03/30/17 17:30 CK-MB (CK-2) 0.8 ng/mL (0.0-2.4) 03/30/17 17:30 CK-MB (CK-2) Rel Index 2.5 03/30/17 17:30 Troponin I <0.012 ng/mL (0.000-0.034) 03/30/17 17:30 Total Protein 6.9 g/dL (6.3-8.2) 03/30/17 17:30 Albumin 3.7 g/dL (3.5-5.0) 03/30/17 17:30 Triglycerides 126 mg/dL (<150) 04/01/17 07:54 Cholesterol 143 mg/dL (<200) 04/01/17 07:54 LDL Cholesterol, Calc 70 mg/dL (0-99) 04/01/17 07:54 HDL Cholesterol 48 mg/dL (40-60) 04/01/17 07:54 Urine Color Yellow 03/30/17 17:30 Urine Appearance Cloudy (Clear) H 03/30/17 17:30 Urine pH 5.5 (5.0-8.0) 03/30/17 17:30 Ur Specific [place] 1.017 (1.001-1.035) 03/30/17 17:30 Urine Protein Trace (Negative) H 03/30/17 17:30 Urine Glucose (UA) Negative (Negative) 03/30/17 17:30 Urine Ketones Negative (Negative) 03/30/17 17:30 Urine Blood Negative (Negative) 03/30/17 17:30 Urine Nitrite Negative (Negative) 03/30/17 17:30 Urine Bilirubin Negative (Negative) 03/30/17 17:30 Urine Urobilinogen <2.0 mg/dL (<2.0) 03/30/17 17:30 Ur Leukocyte Esterase Moderate (Negative) H 03/30/17 17:30 Urine RBC 2 /hpf (0-5) 03/30/17 17:30 Urine WBC 6 /hpf (0-5) H 03/30/17 17:30 Ur Squamous Epith Cells 12 /hpf (0-4) H 03/30/17 17:30 Urine Mucus Rare /hpf (None) H 03/30/17 17:30 Stool Occult Blood Negative (Negative) 04/03/17 09:00 Vancomycin Trough 15.6 ug/mL 04/04/17 19:45 Microbiology 03/30/17 17:30 Blood Blood Culture - Final No Growth after 144 hours 03/30/17 17:30 Urine,Voided Urine Culture - Final Assessment and Plan (1) 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 She did have the tip that had bony necrosis debrided. There is evidence of some dry gangrenous changes to the distal aspect of the toe with some swelling of the rest of the toe and erythema of the dorsum of the foot. Antibiotic therapy streamlined to Invanz 1 g IV piggyback daily. See plan in the outpatient setting, PICC line is inserted and placed. Likely will need to come to the office for her infusions. After she received some antibiotic therapy she then becomes a candidate for further surgical debridement of the necrotic toe that appears to be on the basis of embolic phenomenon as noted by the results of her angiography. She may require further surgical intervention to that toe including amputation. We'll ensure adequate blood sugar control, adequate protein intake and a multivitamin. Elevation of foot while she is at rest. She is recovering well from the fall in the large ecchymotic areas are improving. Status: Acute (2) Gangrene of toe of left foot Status: Acute (3) Diabetic ulcer of left lower leg associated with diabetes mellitus due to underlying condition Status: Acute
[2017-04-06 07:33] LABS: Glucose,Whole Blood 116 mg/dL (75-99)
[2017-04-06] MEDS: ERTAPENEM 1 GM in SODIUM CHLORIDE 0.9% 50 ML IVPB SCH (07:34)
[2017-04-06] MEDS: ASPIRIN 81 MG PO SCH (07:35)
[2017-04-06] MEDS: INSULIN LISPRO (humaLOG) 300 UNIT/3 ML VIAL SQ SCH ×3 (07:35→17:14)
[2017-04-06] MEDS: CITALOPRAM HYDROBROMIDE 20 MG TAB PO SCH (07:35)
[2017-04-06] MEDS: GEMFIBROZIL 600 MG TAB PO SCH ×2 (07:35→17:14)
[2017-04-06] MEDS: INSULIN NPH/REG INSULIN 70/30 300 UNIT/3 ML VIAL SQ SCH ×3 (07:35→17:14)
[2017-04-06] MEDS: FUROSEMIDE 40 MG TAB PO SCH (07:36)
[2017-04-06] MEDS: METOPROLOL SUCCINATE (ER) 50 MG TAB.ER.24H PO SCH ×2 (07:36→07:48)
--- NOTE | 2017-04-06 08:00 | IR ---
EXAMINATION TYPE: IR angio abdominal w runoff DATE OF EXAM: 04/02/2017 CLINICAL HISTORY: Peripheral vascular disease, right toe ulcer TECHNIQUE: Fluoroscopy. COMPARISON: None. FINDINGS: Fluoroscopic guidance was provided during abdominal angiogram with runoff procedure perfor med by Dr. Smith. A total of 3.7 minutes of fluoroscopic time was utilized during the procedure and 7 cine runs are acquired and saved to PACS. There is vascular access via left groin with runoff throug h the bilateral lower extremities showing areas of narrowing in the mid to distal SFA. There is metal lic hardware from left knee surgery. Please refer to procedure note for further details as I was not present nor performed procedure. IMPRESSION: As Above.
[2017-04-06 08:25] LABS: Basophils # (A) 0.1 k/uL (0-0.2); Basophils % (A) 1 %; CH 27.5; CHCM 30.1; Eosinophils # (A) 0.2 k/uL (0-0.7); Eosinophils % (A) 2 %; HCT 34.4 % (34.0-46.0); HDW 2.51; HGB 10.7 gm/dL (11.4-16.0); Hypochromasia Moderate; Luc # (Auto) 0.29; Luc % (Auto) 3; Lymphocytes # (A) 2.3 k/uL (1.0-4.8); Lymphocytes % (A) 23 %; MCH 28.5 pg (25.0-35.0); MCV 91.8 fL (80.0-100.0); Mean Platelet Volume 8.3; Monocytes # (A) 0.5 k/uL (0-1.0); Monocytes % (A) 6 %; Neutrophils # (A) 6.6 k/uL (1.3-7.7); Neutrophils % (A) 66 %; RBC 3.74 m/uL (3.80-5.40); RDW 13.5 % (11.5-15.5); WBC 9.9 k/uL (3.8-10.6); WBC (Perox) 10.29
[2017-04-06 12:22] LABS: Glucose,Whole Blood 291 mg/dL (75-99)
[2017-04-06 13:28] VITALS: BMI 40.8
[2017-04-06 15:08] VITALS: PULSE 67; RESP 20; TEMP 98.5
[2017-04-06 15:41] VITALS: BP 116/68
[2017-04-06] MEDS: RIVAROXABAN 15 MG TAB PO SCH (17:14)
[2017-04-06 17:19] LABS: Glucose,Whole Blood 220 mg/dL (75-99)
--- NOTE | 2017-04-06 18:54 | P.DS ---
Providers Date of admission: 03/30/17 17:13 Expected date of discharge: 04/06/17 Attending physician: Andrew Helm Consults: 03/30/17 17:48 Consult Physician Stat Consulting Provider: Raffy Rodriguez Consult Reason/Comments: Right 3rd Toe infection, sepsis Do you want consulting provider notified?: Yes Consult Physician Stat Consulting Provider: Kye Mcdowell Consult Reason/Comments: Right 3rd toe infection, diabetes Do you want consulting provider notified?: Yes 03/30/17 17:52 Consult Physician Stat Consulting Provider: Richy Alarcon Consult Reason/Comments: Right 3rd toe infetion Do you want consulting provider notified?: Yes Primary care physician: [facility] Course: FINAL DIAGNOSES: -Acute osteomyelitis of the distal phalanx of the right third toe along with diabetic ulcer secondary to diabetes mellitus. -Diabetes mellitus type 2 chronically on insulin causing peripheral neuropathy. -Meningioma, outpatient workup in place. -Hyperlipidemia. -Coronary artery disease. -Chronic just heart failure from systolic dysfunction ejection fraction 30% from underlying ischemic heart disease -Peripheral art to reveal disease involving the last SFA on the left side and filling defect involving the right dorsalis pedis HOSPTIAL COURSE: 71-year-old female who developed right third toe wound about 2 weeks ago she states sustained a fall and further injured the area was being followed by Dr. Alarcon, toe is hurting with inflammation and some drainage with concerns for sepsis. Patient was admitted for right third toe wound, acute osteomyelitis. Home medications reordered, consults to infectious disease, vascular surgery, wound care initiated broad-spectrum antibiotic therapy with vancomycin and Zosyn. Streamline to Invanz for discharge. Wound care feels that there may be issues with pedal flow distal to the dorsalis pedis as well as some occlusion of the right distal vessels they will wait allow the digit demarcate further before doing any surgical intervention. Supportive care with IV management for antibiotics and local wound care. PICC line placed while inpatient for outpatient antibiotic therapy. We'll explore other opportunities for wound care such as transcutaneous oxygen and a possible hyperbaric oxygen treatment. Upon discharge wound will be managed with a dry sterile dressing and appropriate topical solutions as needed. Patient's overall condition is stabilized, afebrile no white count, tolerating her diet ambulatory with some assistance, last BM 04/06/2017. Outpatient antibiotic therapy has been arranged through the wound care center, patient will require anticoagulation therapy in the form of Xarelto 15 mg by mouth daily for her peripheral vascular disease, this will be provided by the sewing supervisor's office on an outpatient basis for the length of time that she will require anticoagulation. PHYSICAL EXAM: CARDIOVASCULAR: First and second sound noted no edema. RESPIRATORY: Respiratory effort normal, lung sounds diminished bilaterally INTEGUMENT: Right third toe noted to have diabetic ulcer swollen tender to palpation no erythema. PSYCHIATRY: Alert and oriented 3 mood and affect normal Patient was seen and examined by nurse practitioner Shana Dixon in all elements of the case discussed with attending Dr. Helm DISPOSITION: Discharged home with outpatient antibiotic therapy to be provided by the wound care center. Plan - Discharge Summary New Discharge Prescriptions: New Ertapenem [INVanz] 1 gm IVPB Q24H #21 bag Aspirin 81 mg PO DAILY Metoprolol Succinate (ER) [Toprol XL] 50 mg PO DAILY #30 tab Rivaroxaban [Xarelto] 15 mg PO W/SUPPER #30 tab Continue Lisinopril 10 mg PO QAM Citalopram Hydrobromide [Citalopram HBr] 60 mg PO QAM Gemfibrozil [Lopid] 600 mg PO AC-BID metFORMIN HCL 1,000 mg PO BID Insulin NPH Hum/Reg Insulin Hm [NovoLIN 70-30 100 UNIT/ML VIAL] 55 unit SQ AC -SUPPER Mirabegron [Myrbetriq] 25 mg PO HS Atorvastatin [Lipitor] 40 mg PO HS Insulin NPH Hum/Reg Insulin Hm [NovoLIN 70-30 100 UNIT/ML VIAL] 66 unit SQ AC -BRKFST #1 each Insulin NPH Hum/Reg Insulin Hm [NovoLIN 70-30 100 UNIT/ML VIAL] 25 unit SQ AC -LUNCH #1 each Discontinued Cephalexin [Keflex] 500 mg PO QID Discharge Medication List Citalopram Hydrobromide [Citalopram HBr] 60 mg PO QAM 02/21/16 [History] Lisinopril 10 mg PO QAM 02/21/16 [History] Gemfibrozil [Lopid] 600 mg PO AC-BID 10/15/16 [History] Insulin NPH Hum/Reg Insulin Hm [NovoLIN 70-30 100 UNIT/ML VIAL] 55 unit SQ AC- SUPPER 10/15/16 [History] metFORMIN HCL 1,000 mg PO BID 10/15/16 [History] Atorvastatin [Lipitor] 40 mg PO HS 03/18/17 [History] Mirabegron [Myrbetriq] 25 mg PO HS 03/18/17 [History] Insulin NPH Hum/Reg Insulin Hm [NovoLIN 70-30 100 UNIT/ML VIAL] 25 unit SQ AC- LUNCH #1 each 03/20/17 [Rx] Insulin NPH Hum/Reg Insulin Hm [NovoLIN 70-30 100 UNIT/ML VIAL] 66 unit SQ AC- BRKFST #1 each 03/20/17 [Rx] Ertapenem [INVanz] 1 gm IVPB Q24H #21 bag 04/05/17 [Rx] Aspirin 81 mg PO DAILY 04/06/17 [Rx] Metoprolol Succinate (ER) [Toprol XL] 50 mg PO DAILY #30 tab 04/06/17 [Rx] Rivaroxaban [Xarelto] 15 mg PO W/SUPPER #30 tab 04/06/17 [Rx] Follow up Appointment(s)/Referral(s): Shon Zhang MD [Primary Care Provider] - 04/08/17 4:00 pm Raffy Rodriguez MD [STAFF PHYSICIAN] - 04/07/17 9:15 am (Go to office for daily Invanz 1 gram infusion. ) [facility], [NON-STAFF] - Edgardo Laws MD [STAFF PHYSICIAN] - 04/22/17 1:00 pm Ambulatory/Diagnostic Orders: Basic Metabolic Panel [LAB.AMB] Location: Determined By Patient Complete Blood Count w/diff [LAB.AMB] Location: Determined By Patient Patient Instructions/Handouts: Osteomyelitis (DC) Activity/Diet/Wound Care/Special Instructions: Cardiac, diabetic diet. Discharge Disposition: HOME WITH HOME HEALTH SERVICES
--- NOTE | 2017-04-07 07:34 | DS ---
DISCHARGE SUMMARY DATE OF SERVICE: 04/06/2017. ATTENDING NOTE: This patient was seen and examined by me. I discussed with my nurse practitioner, Ms. Dixon. Patient doing well. Got a PICC line. Home antibiotics and Dr. Rodriguez' office has been arranged by him. Patient will be getting IV Invanz for the next 21 days and also Xarelto per Cardiology. Care was discussed with the patient. Questions were answered. Discharge as arranged. MMODL / IJN: [id number] /
--- NOTE | 2017-05-03 05:54 | DS ---
DISCHARGE SUMMARY ADDENDUM TO DISCHARGE SUMMARY DATE OF SERVICE: 04/06/2017 ON EXAMINATION: Lungs are clear to auscultation. CARDIOVASCULAR: First and second sounds normal. No edema. INTEGUMENT: As before. MMODL / IJN: [id number] /
== END 2017-04-06 15:30 | disposition home health service (06) | DRG 299 ==
LOC: EC 16:15 → 5MS5E 17:13 → 6SEL 04-02 18:46 → 4MS4W 04-04 15:46
PROVIDERS: ADMIT Hospitalist; ATTEND Hospitalist
PROC: B41G1ZZ Fluoroscopy of Left Lower Extremity Arteries using Low Osmolar Contrast (ICD-10-PCS; 2017-04-02)
PROC: B4101ZZ Fluoroscopy of Abdominal Aorta using Low Osmolar Contrast (ICD-10-PCS; 2017-04-02 16:55)
PROC: 02HV33Z Insertion of Infusion Device into Superior Vena Cava, Percutaneous Approach (ICD-10-PCS; principal; 2017-04-05 14:00)
PROC: B518ZZA Fluoroscopy of Superior Vena Cava, Guidance (ICD-10-PCS; 2017-04-05 14:00)
DX: E11.52 Type 2 diabetes mellitus with diabetic peripheral angiopathy with gangrene (principal); I50.23 Acute on chronic systolic (congestive) heart failure; E11.42 Type 2 diabetes mellitus with diabetic polyneuropathy; E11.621 Type 2 diabetes mellitus with foot ulcer; M86.171 Other acute osteomyelitis, right ankle and foot; S00.83XA Contusion of other part of head, initial encounter; D64.9 Anemia, unspecified; L02.611 Cutaneous abscess of right foot; E11.69 Type 2 diabetes mellitus with other specified complication; E11.65 Type 2 diabetes mellitus with hyperglycemia; I11.0 Hypertensive heart disease with heart failure; L97.519 Non-pressure chronic ulcer of other part of right foot with unspecified severity; D32.9 Benign neoplasm of meninges, unspecified; E78.5 Hyperlipidemia, unspecified; I25.10 Atherosclerotic heart disease of native coronary artery without angina pectoris; Z96.652 Presence of left artificial knee joint; F32.9 Major depressive disorder, single episode, unspecified; L03.031 Cellulitis of right toe; E11.628 Type 2 diabetes mellitus with other skin complications; B95.61 Methicillin susceptible Staphylococcus aureus infection as the cause of diseases classified elsewhere; B95.4 Other streptococcus as the cause of diseases classified elsewhere; I44.7 Left bundle-branch block, unspecified; I25.5 Ischemic cardiomyopathy; S40.029A Contusion of unspecified upper arm, initial encounter; W19.XXXA Unspecified fall, initial encounter; I82.532 Chronic embolism and thrombosis of left popliteal vein; Z79.4 Long term (current) use of insulin; Z79.899 Other long term (current) drug therapy; Z79.2 Long term (current) use of antibiotics; Z98.41 Cataract extraction status, right eye; Z98.42 Cataract extraction status, left eye; Z90.49 Acquired absence of other specified parts of digestive tract; Z89.422 Acquired absence of other left toe(s); Z87.891 Personal history of nicotine dependence; I25.2 Old myocardial infarction; Z80.9 Family history of malignant neoplasm, unspecified; Z87.19 Personal history of other diseases of the digestive system
CPT/HCPCS: 36247; 36415; 36569; 71020; 75625; 75716; 76937; 77001; 80048; 80053; 80061; 80202; 81001; 82272; 82550; 82553; 83036; 83605; 84484; 85025; 85027; 85610; 85730; 87040; 87086; 93005; 93306; 96360; 96365; 99285

== ENCOUNTER → 2017-04-08 | Outpatient (CLI) | payer MEDICARE ==
[2017-04-08 09:00] LABS: Calcium 9.5 mg/dL (8.4-10.2); Potassium 4.6 mmol/L (3.5-5.1)
[2017-04-08 09:04] LABS: Basophils # (A) 0.1 k/uL (0-0.2); Basophils % (A) 1 %; CH 27.6; CHCM 29.8; Eosinophils # (A) 0.2 k/uL (0-0.7); Eosinophils % (A) 2 %; HDW 2.46; HGB 10.7 gm/dL (11.4-16.0); Hypochromasia Marked; Luc # (Auto) 0.26; Luc % (Auto) 3; Lymphocytes # (A) 2.7 k/uL (1.0-4.8); Lymphocytes % (A) 27 %; MCH 28.3 pg (25.0-35.0); MCHC 30.5 g/dL (31.0-37.0); MCV 92.9 fL (80.0-100.0); Mean Platelet Volume 8.1; Monocytes # (A) 0.4 k/uL (0-1.0); Monocytes % (A) 5 %; Neutrophils # (A) 6.1 k/uL (1.3-7.7); Neutrophils % (A) 62 %; RBC 3.77 m/uL (3.80-5.40); RDW 13.6 % (11.5-15.5); WBC 9.8 k/uL (3.8-10.6); WBC (Perox) 10.32
== END | disposition home or self-care (01) ==
LOC: LABWHC1 08:15
PROVIDERS: ATTEND Nurse Practitioner Acute Care
DX: E87.8 Other disorders of electrolyte and fluid balance, not elsewhere classified (principal)
CPT/HCPCS: 36415; 80048; 85025

== ENCOUNTER → 2017-05-14 | Outpatient (CLI) | payer MEDICARE ==
[2017-05-14 09:51] LABS: Cholesterol 218 mg/dL (<200); HDL Cholesterol 62 mg/dL (40-60)
== END | disposition home or self-care (01) ==
LOC: LABWHC1 09:11
PROVIDERS: ATTEND Internal Medicine Endocrinology, Diabetes & Metabolism
DX: E11.65 Type 2 diabetes mellitus with hyperglycemia (principal)
CPT/HCPCS: 36415; 80061; 83036

== ENCOUNTER → 2017-06-25 | Outpatient (CLI) | payer MEDICARE ==
--- NOTE | 2017-06-25 22:54 | XR ---
EXAMINATION TYPE: XR foot complete RT DATE OF EXAM: 06/25/2017 COMPARISON: 05/07/2017 HISTORY: Nonhealing wound third digit TECHNIQUE: 3 views right foot FINDINGS: There is amputation of the proximal phalanx third digit. The residual proximal phalanx osse ous structures have a fracture extending to the articular surface. No definite cortical erosion to alcantara ggest osteomyelitis is identified. Given the recent amputation, this may be difficult to visualize. Note is made of plantar and Achilles tendon calcaneal heel spurs. IMPRESSION: 1. Amputation of the third digit. No definite cortical erosion is identified. However, the third dig it is recently been amputated and sclerosis along the fracture margin may not be visualized this time . Osteomyelitis remains within the differential. If additional evaluation is required, consider white blood cell scan.
== END | disposition home or self-care (01) ==
LOC: RADXRMAIN 10:57
PROVIDERS: ATTEND Podiatrist
DX: M86.8X0 Other osteomyelitis, multiple sites (principal); Z89.021 Acquired absence of right finger(s)

== ENCOUNTER → 2017-07-13 | Outpatient (CLI) | payer MEDICARE ==
--- NOTE | 2017-07-14 13:55 | NM ---
EXAMINATION TYPE: NM WBC limited DATE OF EXAM: 07/14/2017 COMPARISON: NONE HISTORY: Osteomyelitis right third digit TECHNIQUE: Following administration of 20 mCi Tc99m Ceretec. Images obtained 4 hour(s) and 24 hour( s) post injection. FINDINGS: There is intense uptake noted to involve the right third digit compatible with osteomyelitis. No mirtha tional areas of abnormal uptake seen. The foot is unremarkable. IMPRESSION: Findings compatible with osteomyelitis of the right third digit.
== END | disposition home or self-care (01) ==
LOC: RADNMMAIN 06:49
PROVIDERS: ATTEND Podiatrist
DX: M86.8X8 Other osteomyelitis, other site (principal)
CPT/HCPCS: 78805; A9569

== ENCOUNTER → 2017-08-10 | Outpatient (CLI) | payer MEDICARE ==
[2017-08-10 08:08] LABS: Basophils # (A) 0.1 k/uL (0-0.2); Basophils % (A) 1 %; Eosinophils # (A) 0.1 k/uL (0-0.7); Eosinophils % (A) 2 %; HCT 34.3 % (34.0-46.0); HGB 10.5 gm/dL (11.4-16.0); Hypochromasia Moderate; Lymphocytes # (A) 2.1 k/uL (1.0-4.8); Lymphocytes % (A) 28 %; MCH 26.9 pg (25.0-35.0); MCHC 30.5 g/dL (31.0-37.0); MCV 88.1 fL (80.0-100.0); Mean Platelet Volume 8.6; Monocytes # (A) 0.4 k/uL (0-1.0); Monocytes % (A) 5 %; Neutrophils # (A) 4.6 k/uL (1.3-7.7); Neutrophils % (A) 62 %; Platelet Count 212 k/uL (150-450); RBC 3.89 m/uL (3.80-5.40); WBC 7.5 k/uL (3.8-10.6)
[2017-08-10 08:22] LABS: ALT 25 U/L (9-52); AST 22 U/L (14-36); Albumin 3.6 g/dL (3.5-5.0); Alkaline Phosphatase 111 U/L (38-126); Anion Gap 10 mmol/L; Blood Urea Nitrogen 33 mg/dL (7-17); Calcium 9.2 mg/dL (8.4-10.2); Carbon Dioxide 26 mmol/L (22-30); Chloride 108 mmol/L (98-107); Glucose 121 mg/dL (74-99); Potassium 5.2 mmol/L (3.5-5.1); Sodium 144 mmol/L (137-145); Total Bilirubin 0.3 mg/dL (0.2-1.3); Total Protein 6.5 g/dL (6.3-8.2)
[2017-08-10 17:01] LABS: Hemoglobin A1C 7.9 % (4.0-6.0)
== END | disposition home or self-care (01) ==
LOC: LABWHC1 07:24
PROVIDERS: ATTEND Podiatrist
DX: E13.621 Other specified diabetes mellitus with foot ulcer (principal)
CPT/HCPCS: 36415; 80053; 83036; 84134; 85025

== ENCOUNTER → 2017-09-13 | Outpatient (CLI) | payer MEDICARE ==
[2017-09-13 13:45] LABS: Basophils # (A) 0.1 k/uL (0-0.2); Basophils % (A) 1 %; Eosinophils # (A) 0.2 k/uL (0-0.7); Eosinophils % (A) 3 %; HCT 34.5 % (34.0-46.0); HGB 10.7 gm/dL (11.4-16.0); Hypochromasia Moderate; Lymphocytes # (A) 2.1 k/uL (1.0-4.8); Lymphocytes % (A) 33 %; MCH 27.1 pg (25.0-35.0); MCHC 30.9 g/dL (31.0-37.0); MCV 87.7 fL (80.0-100.0); Mean Platelet Volume 9.4; Monocytes # (A) 0.4 k/uL (0-1.0); Monocytes % (A) 6 %; Neutrophils # (A) 3.6 k/uL (1.3-7.7); Neutrophils % (A) 55 %; Platelet Count 243 k/uL (150-450); RBC 3.94 m/uL (3.80-5.40); RDW 14.5 % (11.5-15.5); WBC 6.5 k/uL (3.8-10.6)
[2017-09-13 14:04] LABS: Albumin 3.9 g/dL (3.5-5.0); Calcium 10.1 mg/dL (8.4-10.2); Potassium 5.9 mmol/L (3.5-5.1); Total Bilirubin 0.3 mg/dL (0.2-1.3)
[2017-09-13 14:38] LABS: Creatinine,Urine Random 35.5 mg/dL
[2017-09-13 15:16] LABS: C Reactive Protein 10.1 mg/L (<10.0)
[2017-09-13 15:47] LABS: Erythrocyte Sedimentation Rate 54 mm/hr (0-20)
== END | disposition home or self-care (01) ==
LOC: LABWHC1 12:38
PROVIDERS: ATTEND Internal Medicine Infectious Disease
DX: E13.621 Other specified diabetes mellitus with foot ulcer (principal); L97.519 Non-pressure chronic ulcer of other part of right foot with unspecified severity
CPT/HCPCS: 36415; 80053; 82570; 84156; 85025; 85652; 86140

== ENCOUNTER 2017-09-30 13:00 | Emergency (ER) | payer MEDICARE ==
--- NOTE | 2017-09-30 14:29 | XR ---
EXAMINATION TYPE: XR hand complete RT DATE OF EXAM: 09/30/2017 CLINICAL HISTORY: Fall injury with swelling and bruising and pain. TECHNIQUE: Frontal, lateral and oblique images of the right hand are obtained. COMPARISON: Prior right hand x-ray February 21, 2016.. FINDINGS: Osseous structures are demineralized. There is acute minimally displaced transverse fractur e through proximal metadiaphysis of fifth proximal phalanx. There is new acute oblique minimally disp laced through the mid to distal diaphysis of fifth proximal phalanx. There is healed fracture deformi ty proximal metaphysis level. There is new comminuted minimally displaced fracture through proximal m etaphysis third proximal phalanx without definitive intra-articular extension, there is linear extens ion through the mid diaphysis however. Joint spaces are preserved. Mild to moderate focal soft tissue swelling third and fourth digits is no rylee. IMPRESSION: There are acute minimally displaced fractures in the third through fifth proximal phalan xes as detailed above. (Initial encounter closed type post traumatic fracture)
[2017-09-30 15:33] VITALS: TEMP 97.5
--- NOTE | 2017-09-30 15:48 | ED ---
Fall HPI - General Chief Complaint: Fall Stated Complaint: rt hand lac Time Seen by Provider: 09/30/17 13:50 Source: patient Mode of arrival: wheelchair - History of Present Illness Initial Comments: This 72-year-old white female presents with a complaint of a fall. She states that she tripped over her computer record as well as her dog this morning and fell onto her right hand. She states that her fingers bent backwards. She has some mild pain to that hand. She suffered a laceration to the base of the right fourth digit. She denies hitting her head or having any neck or back pain. She denies any other injuries whatsoever. She is on blood thinners. No other complaints or modifying factors. - Related Data Home Medications Medication Instructions Recorded Confirmed Citalopram Hydrobromide 60 mg PO QAM 02/21/16 09/30/17 [Citalopram HBr] Gemfibrozil [Lopid] 600 mg PO BID 10/15/16 09/30/17 metFORMIN HCL 1,000 mg PO BID 10/15/16 09/30/17 Atorvastatin [Lipitor] 40 mg PO HS 03/18/17 09/30/17 Insulin NPH Hum/Reg Insulin Hm 25 unit SQ AC-LUNCH 05/06/17 09/30/17 [NovoLIN 70-30 100 UNIT/ML VIAL] Insulin NPH Hum/Reg Insulin Hm 50 unit SQ AC-BRKFST 05/06/17 09/30/17 [NovoLIN 70-30 100 UNIT/ML VIAL] Insulin NPH Hum/Reg Insulin Hm 50 unit SQ AC-SUPPER 05/06/17 09/30/17 [NovoLIN 70-30 100 UNIT/ML VIAL] Lisinopril 40 mg PO DAILY 05/06/17 09/30/17 Atenolol 25 mg PO DAILY 09/30/17 09/30/17 Previous Rx's Medication Instructions Recorded Apixaban [Eliquis] 5 mg PO BID #60 tab 04/22/17 Sulfamethox-Tmp 800-160Mg [Bactrim 1 tab PO Q12HR #14 tab 09/30/17 DS 800-160 mg] Allergies Allergy/AdvReac Type Severity Reaction Status Date / Time antibiotics(name unknown) Allergy Hallucinati Uncoded 09/30/17 13:32 ons Review of Systems ROS Statement: Those systems with pertinent positive or pertinent negative responses have been documented in the HPI. ROS Other: All systems not noted in ROS Statement are negative. 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 rt foot wound on toe Last Myocardial Infarction Date:: UNSURE History of Any Multi-Drug Resistant Organisms: None Reported Past Surgical History: Section, Cholecystectomy, Hernia Repair, Joint Replacement Additional Past Surgical History / Comment(s): IGNACIA cataract, LEFT SMALL toe amputation, LEFT KNEE REPLACEMENT, HX OF SKIN GRAFTS Past Anesthesia/Blood Transfusion Reactions: No Reported Reaction Past Psychological History: Depression Smoking Status: Former smoker Past Alcohol Use History: None Reported Past Drug Use History: None Reported - Past Family History Mother Family Medical History: Cancer Father Family Medical History: Cancer General Exam - General Exam Comments Initial Comments: GENERAL: The patient is well nourished and well hydrated. VITAL SIGNS: Heart rate, blood pressure, respiratory rate reviewed as recorded in nurse's notes. EYES: Pupils are round and reactive. Extraocular movements are intact. No conjunctival / lid redness or swelling. ENT: No external evidence of injury, swelling, or ecchymosis. Airway is patent. Throat is clear. NECK: Nontender. No swelling or evidence of injury. No subcutaneous emphysema. Trachea is midline. No thyroid mass. HEART: Regular rate and rhythm. Good peripheral pulses. LUNGS/CHEST: Breath sounds clear and equal bilaterally. No rales, rhonchi, or wheezes. No ecchymosis, subcutaneous emphysema, or tenderness. ABDOMEN: Abdomen soft without tenderness. No palpable masses or organomegaly. No peritoneal signs. No abdominal wall swelling or ecchymosis. EXTREMITIES: There is tenderness noted to the right hand more so over the right third through fifth digits. There is some mild swelling and mild ecchymosis identified. Range of motion is somewhat limited. Normal muscle tone and function. No thoracolumbar tenderness. NEUROLOGIC: Sensation is grossly intact. Cranial nerve exam reveals face is symmetrical, tongue is midline, speech is clear. SKIN: No abrasions or ecchymosis is noted. There is a 2 cm laceration noted to the palmar aspect base of the right fourth digit. This is superficial in nature but does require closure. PSYCHIATRIC: Alert and oriented. Appropriate behavior and judgment. Limitations: no limitations Course Vital Signs 09/30/17 09/30/17 09/30/17 13:29 14:30 15:31 Temperature 97.5 F L 97.8 F 97.5 F L Pulse Rate 71 95 55 L Respiratory 18 16 14 Rate Blood Pressure 92/52 105/53 108/53 O2 Sat by Pulse 94 L 98 Oximetry Medical Decision Making - Medical Decision Making The patient was seen and examined. Neck was taken of the right hand and this does show fractures of the third fourth and fifth proximal phalanxes. There is some mild displacement and angulation noted on all 3. The patient does have a laceration noted at the base of the fourth digit but this is superficial and noncommunicating and quite proximal to the fracture of that phalanx. It is not felt as though she has an open fracture. She will still be covered with antibiotics. The wound was thoroughly cleansed and anesthetized with approximately 2 mL of lidocaine plain. Excellent anesthesia is obtained. 7 simple interrupted 5-0 nylon sutures were placed. No complications are noted. Excellent closure is noted. No deep structures are identified. No foreign bodies are noted. The wound was bandaged. She is then placed in a 5 cm Ortho- Glass custom molded ulnar gutter splint by myself. Excellent post-splint neurovascular status is noted. [facility] has [facility] and is agreeable to following up with them closely for definitive management of her fractures. She is any pain medications. All questions were answered and she lives in no distress. Disposition Clinical Impression: Closed fractures of multiple sites of phalanx of finger of right hand, Fall, Hand laceration Disposition: HOME SELF-CARE Condition: Good Instructions: Fall Prevention for Older Adults (ED), Finger Fracture (ED), Finger Laceration (ED), Splint Care (ED) Prescriptions: Sulfamethox-Tmp 800-160Mg [Bactrim DS 800-160 mg] 1 tab PO Q12HR #14 tab Referrals: Shon Zhang MD [Primary Care Provider] - 1-2 days Champ Meneses DO [Doctor of Osteopathic Medicine] - 1-2 days Time of Disposition: 15:47
[2017-09-30 15:57] VITALS: BP 113/58; PULSE 67; RESP 16
== END 2017-09-30 16:00 | disposition home or self-care (01) ==
LOC: EC 13:00
DX: S62.614A Displaced fracture of proximal phalanx of right ring finger, initial encounter for closed fracture (principal); S62.616A Displaced fracture of proximal phalanx of right little finger, initial encounter for closed fracture; S61.214A Laceration without foreign body of right ring finger without damage to nail, initial encounter; I25.10 Atherosclerotic heart disease of native coronary artery without angina pectoris; E78.5 Hyperlipidemia, unspecified; I25.2 Old myocardial infarction; E11.40 Type 2 diabetes mellitus with diabetic neuropathy, unspecified; F32.9 Major depressive disorder, single episode, unspecified; Z87.891 Personal history of nicotine dependence; Z79.4 Long term (current) use of insulin; Z79.899 Other long term (current) drug therapy; Z88.1 Allergy status to other antibiotic agents; W01.0XXA Fall on same level from slipping, tripping and stumbling without subsequent striking against object, initial encounter; Y92.009 Unspecified place in unspecified non-institutional (private) residence as the place of occurrence of the external cause
CPT/HCPCS: 12001; 99283

== ENCOUNTER → 2018-02-03 | Outpatient (CLI) | payer MEDICARE ==
[2018-02-03 09:55] LABS: Albumin 3.8 g/dL (3.5-5.0); Calcium 9.4 mg/dL (8.4-10.2); Potassium 4.3 mmol/L (3.5-5.1); Total Bilirubin 0.4 mg/dL (0.2-1.3); Total Protein 6.5 g/dL (6.3-8.2)
[2018-02-03 17:29] LABS: Hemoglobin A1C 7.8 % (4.0-6.0)
== END | disposition home or self-care (01) ==
LOC: LABWHC1 09:20
PROVIDERS: ATTEND Internal Medicine Endocrinology, Diabetes & Metabolism
DX: E11.65 Type 2 diabetes mellitus with hyperglycemia (principal)
CPT/HCPCS: 36415; 80053; 80061; 82043; 82570; 83036

== ENCOUNTER 2018-02-18 17:32 | Inpatient (IN) | payer MEDICARE ==
--- NOTE | 2018-02-18 20:57 | ED ---
Extremity Problem HPI - General Source: patient, RN notes reviewed Mode of arrival: ambulatory Limitations: no limitations <Shari Puckett - Last Filed: 02/18/18 22:08> <Daniel Marinelli - Last Filed: 02/18/18 22:50> - General Chief complaint: Extremity Problem,Nontraumatic Stated complaint: Leg Swelling-sent by dr to be adm Time Seen by Provider: 02/18/18 20:37 - History of Present Illness Initial comments: This is a 72-year-old female with history of diabetes who presents to the emergency department with chief complaint of left leg swelling. Patient states that she is seen by Dr. Alarcon, refrigerated cargo clerk who manages a chronic wound to patient 's left great toe. Patient states that since Wednesday she has noticed redness surrounding the great toe. She states that this area is tender and has noticed the redness has spread up to her calf. Denies any injuries or trauma. Does state that she has not helped with that she does have a history of blood clots. Patient states that prior to arrival, she saw Dr. Alarcon for her great toe and he recommended that she come to the emergency department for IV antibiotics. Patient denies any fevers or chills, chest pain shortness of breath, abdominal pain, nausea or vomiting. (Shari Puckett) - Related Data Home Medications Medication Instructions Recorded Confirmed Citalopram Hydrobromide 60 mg PO QAM 02/21/16 02/18/18 [Citalopram HBr] Gemfibrozil [Lopid] 600 mg PO BID 10/15/16 02/18/18 metFORMIN HCL 1,000 mg PO BID 10/15/16 02/18/18 Atorvastatin [Lipitor] 40 mg PO HS 03/18/17 02/18/18 Insulin NPH Hum/Reg Insulin Hm 25 unit SQ AC-LUNCH 05/06/17 02/18/18 [NovoLIN 70-30 100 UNIT/ML VIAL] Insulin NPH Hum/Reg Insulin Hm 55 unit SQ AC-SUPPER 05/06/17 02/18/18 [NovoLIN 70-30 100 UNIT/ML VIAL] Insulin NPH Hum/Reg Insulin Hm 66 unit SQ AC-BRKFST 05/06/17 02/18/18 [NovoLIN 70-30 100 UNIT/ML VIAL] Lisinopril 40 mg PO DAILY 05/06/17 02/18/18 Atenolol 25 mg PO DAILY 09/30/17 02/18/18 Apixaban [Eliquis] 5 mg PO DAILY 02/18/18 02/18/18 Allergies Allergy/AdvReac Type Severity Reaction Status Date / Time antibiotics(name unknown) Allergy Hallucinati Uncoded 02/18/18 19:08 ons Review of Systems ROS Other: All systems not noted in ROS Statement are negative. <Shari Puckett - Last Filed: 02/18/18 22:08> ROS Other: All systems not noted in ROS Statement are negative. <Daniel Marinelli - Last Filed: 02/18/18 22:50> ROS Statement: Those systems with pertinent positive or pertinent negative responses have been documented in the HPI. 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 rt foot wound on toe Last Myocardial Infarction Date:: UNSURE History of Any Multi-Drug Resistant Organisms: None Reported Past Surgical History: Section, Cholecystectomy, Hernia Repair, Joint Replacement Additional Past Surgical History / Comment(s): IGNACIA cataract, LEFT SMALL toe amputation, LEFT KNEE REPLACEMENT, HX OF SKIN GRAFTS Past Anesthesia/Blood Transfusion Reactions: No Reported Reaction Past Psychological History: Depression Smoking Status: Former smoker Past Alcohol Use History: None Reported Past Drug Use History: None Reported - Past Family History Mother Family Medical History: Cancer Father Family Medical History: Cancer <Shari Puckett - Last Filed: 02/18/18 22:08> General Exam Limitations: no limitations <Shari Puckett - Last Filed: 02/18/18 22:08> <Daniel Marinelli - Last Filed: 02/18/18 22:50> - General Exam Comments Initial Comments: General: Awake and alert, well-developed; in no apparent distress. HEENT: Head atraumatic, normocephalic. Pupils are equal, round and reactive to light. Extraocular movements intact. Oropharynx moist without erythema or exudate. Neck: Supple. Normal ROM. Cardiovascular: Regular rate and rhythm. No murmurs, rubs or gallops. Chest symmetrical. Pedal pulses are 2+ equal and palpable bilaterally. Respiratory: Lungs clear to auscultation bilaterally. No wheezes, rales or rhonchi. Normal respiratory effort with no use of accessory muscles. Musculoskeletal: Normal range of motion of bilateral upper and lower extremities. Skin: Skin grafts noted to bilateral lower extremities. Multiple toe amputations on bilateral feet. There is a dressing on the left great toe. Left foot to mid calf is tender, erythematous, warm and mildly swollen. Neurological: Alert and oriented x3. CN II-XII grossly intact. Speech is fluent and answers are appropriate. No focal neuro deficits. Psychiatric: Normal mood and affect. No overt signs of depression or anxiety noted. (Shari Puckett) Vital Signs 02/18/18 02/18/18 19:04 22:40 Temperature 98.5 F 98.1 F Pulse Rate 92 74 Respiratory 20 16 Rate Blood Pressure 118/66 124/62 O2 Sat by Pulse 98 96 Oximetry Medical Decision Making - Lab Data Result diagrams: 02/18/18 21:20 02/18/18 21:20 - Radiology Data Radiology results: report reviewed <Shari Puckett - Last Filed: 02/18/18 22:08> - Lab Data Result diagrams: 02/18/18 21:20 02/18/18 21:20 <Daniel Marinelli - Last Filed: 02/18/18 22:50> - Medical Decision Making This is a 72-year-old female who presents to the emergency department with left leg swelling. Patient does have a chronic wound to her left great toe that is being managed by Dr. Alarcon. He saw her prior to arrival and recommended that she come to the emergency department for admission for IV antibiotics for a left hallux infection with ascending cellulitis. Patient started on vancomycin and Zosyn to cover pseudomonas. Patient does report a history of blood clots and she is currently on Eliquis. On physical examination, there is erythema, swelling and tenderness to the left lower foot ascending up to the calf. An ultrasound venous Doppler duplex was obtained to rule out blood clot and this revealed no evidence for an acute DVT. CBC revealed a slight elevated white count at 10.7. CMP showed hyperkalemia at 5.8. Treated with D50 and insulin. Also given calcium chloride. Lactic acid is within normal range. Blood cultures are pending. Patient's vital signs are stable and she is in no acute distress. She is in agreement for admission. Case discussed with attending physician, Dr. Marinelli. Patient will be admitted to Dr. Crain with consult Dr. Rodriguez. (Shari Puckett) I saw this patient in conjunction with the physician education assistant. I performed independent history and physical exam. Agree with case management. (Daniel Marinelli) - Lab Data Lab Results 02/18/18 02/18/18 02/18/18 Range/Units 21:20 21:20 21:20 WBC 10.7 H (3.8-10.6) k/uL RBC 3.96 (3.80-5.40) m/uL Hgb 10.7 L (11.4-16.0) gm/dL Hct 33.3 L (34.0-46.0) % MCV 84.2 (80.0-100.0) fL MCH 27.0 (25.0-35.0) pg MCHC 32.0 (31.0-37.0) g/dL RDW 13.7 (11.5-15.5) % Plt Count 273 (150-450) k/uL Neutrophils % 60 % Lymphocytes % 30 % Monocytes % 6 % Eosinophils % 2 % Basophils % 1 % Neutrophils # 6.4 (1.3-7.7) k/uL Lymphocytes # 3.2 (1.0-4.8) k/uL Monocytes # 0.6 (0-1.0) k/uL Eosinophils # 0.2 (0-0.7) k/uL Basophils # 0.1 (0-0.2) k/uL Hypochromasia Slight PT (9.0-12.0) sec INR (<1.2) APTT (22.0-30.0) sec Sodium 141 (137-145) mmol/L Potassium 5.8 H (3.5-5.1) mmol/L Chloride 108 H (98-107) mmol/L Carbon Dioxide 23 (22-30) mmol/L Anion Gap 10 mmol/L BUN 32 H (7-17) mg/dL Creatinine 0.80 (0.52-1.04) mg/dL Est GFR (CKD-EPI)AfAm 86 (>60 ml/min/1.73 sqM) Est GFR (CKD-EPI)NonAf 75 (>60 ml/min/1.73 sqM) Glucose 96 (74-99) mg/dL Plasma Lactic Acid Conrad 1.3 (0.7-2.0) mmol/L Calcium 9.3 (8.4-10.2) mg/dL Total Bilirubin 0.5 (0.2-1.3) mg/dL AST 25 (14-36) U/L ALT 19 (9-52) U/L Alkaline Phosphatase 105 (38-126) U/L Total Protein 7.2 (6.3-8.2) g/dL Albumin 4.0 (3.5-5.0) g/dL 02/18/18 Range/Units 21:20 WBC (3.8-10.6) k/uL RBC (3.80-5.40) m/uL Hgb (11.4-16.0) gm/dL Hct (34.0-46.0) % MCV (80.0-100.0) fL MCH (25.0-35.0) pg MCHC (31.0-37.0) g/dL RDW (11.5-15.5) % Plt Count (150-450) k/uL Neutrophils % % Lymphocytes % % Monocytes % % Eosinophils % % Basophils % % Neutrophils # (1.3-7.7) k/uL Lymphocytes # (1.0-4.8) k/uL Monocytes # (0-1.0) k/uL Eosinophils # (0-0.7) k/uL Basophils # (0-0.2) k/uL Hypochromasia PT 9.9 (9.0-12.0) sec INR 1.0 (<1.2) APTT 22.9 (22.0-30.0) sec Sodium (137-145) mmol/L Potassium (3.5-5.1) mmol/L Chloride (98-107) mmol/L Carbon Dioxide (22-30) mmol/L Anion Gap mmol/L BUN (7-17) mg/dL Creatinine (0.52-1.04) mg/dL Est GFR (CKD-EPI)AfAm (>60 ml/min/1.73 sqM) Est GFR (CKD-EPI)NonAf (>60 ml/min/1.73 sqM) Glucose (74-99) mg/dL Plasma Lactic Acid Conrad (0.7-2.0) mmol/L Calcium (8.4-10.2) mg/dL Total Bilirubin (0.2-1.3) mg/dL AST (14-36) U/L ALT (9-52) U/L Alkaline Phosphatase (38-126) U/L Total Protein (6.3-8.2) g/dL Albumin (3.5-5.0) g/dL - Radiology Data Ultrasound venous Doppler duplex left lower extremity impression: No evidence of deep venous thrombosis in the left leg. (Shari Puckett) Disposition Is patient prescribed a controlled substance at d/c from ED?: No <Shari Puckett - Last Filed: 02/18/18 22:08> <Daniel Marinelli - Last Filed: 02/18/18 22:50> Clinical Impression: Left leg cellulitis, Diabetic foot infection Disposition: ADMITTED IP TO THIS HOSP Condition: Good
[2018-02-18] MEDS ORDERED: PIPERACILLIN-TAZOBACTAM 3.375 GM in DEXTROSE/WATER 1 50ML.BAG IVPB STA (21:04)
[2018-02-18] MEDS ORDERED: VANCOMYCIN IV PER PHARMACY 1 EACH MISC MISCELLANE PRN (21:04)
[2018-02-18] MEDS ORDERED: VANCOMYCIN 1,500 MG in SODIUM CHLORIDE 0.9% 250 ML IVPB STA (21:08)
--- NOTE | 2018-02-18 21:34 | US ---
EXAMINATION TYPE: US venous doppler duplex LE LT DATE OF EXAM: 02/18/2018 8:51 PM COMPARISON: NONE CLINICAL HISTORY: Pain left leg. Difficult exam due to patient body habitus SIDE PERFORMED: Left TECHNIQUE: The lower extremity deep venous system is examined utilizing real time linear array sonog mona with graded compression, doppler sonography and color-flow sonography. VESSELS IMAGED: External Iliac Vein (EIV) Common Femoral Vein Deep Femoral Vein Greater Saphenous Vein * Femoral Vein Popliteal Vein Small Saphenous Vein * Proximal Calf Veins (* superficial vessels) Left Leg: Negative for DVT IMPRESSION: No evidence of deep venous thrombosis in the left leg.
[2018-02-18 21:35] LABS: Basophils # (A) 0.1 k/uL (0-0.2); Basophils % (A) 1 %; Eosinophils # (A) 0.2 k/uL (0-0.7); Eosinophils % (A) 2 %; HCT 33.3 % (34.0-46.0); HGB 10.7 gm/dL (11.4-16.0); Hypochromasia Slight; Lymphocytes # (A) 3.2 k/uL (1.0-4.8); Lymphocytes % (A) 30 %; MCV 84.2 fL (80.0-100.0); Mean Platelet Volume 8.4; Monocytes # (A) 0.6 k/uL (0-1.0); Monocytes % (A) 6 %; Neutrophils # (A) 6.4 k/uL (1.3-7.7); Neutrophils % (A) 60 %; Platelet Count 273 k/uL (150-450); RBC 3.96 m/uL (3.80-5.40); RDW 13.7 % (11.5-15.5); WBC 10.7 k/uL (3.8-10.6)
[2018-02-18 21:45] LABS: Partial Thromboplastin Time 22.9 sec (22.0-30.0); Prothrombin Time 9.9 sec (9.0-12.0)
[2018-02-18 21:49] LABS: Calcium 9.3 mg/dL (8.4-10.2); Total Bilirubin 0.5 mg/dL (0.2-1.3); Total Protein 7.2 g/dL (6.3-8.2)
[2018-02-18] MEDS ORDERED: ONDANSETRON 4 MG/2 ML VIAL IVP PRN (21:50)
[2018-02-18] MEDS ORDERED: MORPHINE SULFATE 4 MG/ML SYRINGE IV PRN (21:50)
[2018-02-18] MEDS ORDERED: ACETAMINOPHEN TAB 325 MG TAB PO PRN (21:50)
[2018-02-18] MEDS ORDERED: NALOXONE 0.4 MG/ML 1 ML VIAL IV PRN (21:50)
[2018-02-18 22:04] LABS: Potassium 5.8 mmol/L (3.5-5.1)
[2018-02-18] MEDS ORDERED: INSULIN REGULAR 100 UNIT/ML VIAL IV ONE (22:07)
[2018-02-18] MEDS ORDERED: DEXTROSE 50%-WATER 50 ML SYRINGE IVP ONE (22:07)
[2018-02-19 00:05] LABS: Glucose,Whole Blood 113 mg/dL (75-99)
[2018-02-19] MEDS ORDERED: SODIUM POLYSTYRENE SULFONATE 15 GM/60 ML BOTTLE PO STA (00:27)
[2018-02-19] MEDS: CALCIUM CHLORIDE 1,000 MG in SODIUM CHLORIDE 0.9% 100 ML IV ONE ×2 (00:45→00:49)
[2018-02-19] MEDS: ATORVASTATIN 40 MG TAB PO SCH ×2 (01:04→21:44)
[2018-02-19] MEDS: GEMFIBROZIL 600 MG TAB PO SCH ×3 (01:04→21:44)
[2018-02-19] MEDS: metFORMIN 500 MG TAB PO SCH ×3 (01:04→18:21)
[2018-02-19] MEDS: OXYBUTYNIN CHLORIDE 5 MG TAB PO SCH ×2 (01:05→21:44)
[2018-02-19] MEDS: SODIUM CHLORIDE 0.9% 1,000 ML IV SCH ×2 (02:20→13:06)
[2018-02-19 07:03] LABS: Glucose,Whole Blood 216 mg/dL (75-99)
[2018-02-19] MEDS: INSULIN ASPART 100 UNIT/ML 1 ML 10 ML VIAL SQ SCH ×4 (07:57→21:47)
[2018-02-19] MEDS: VANCOMYCIN 1,500 MG in SODIUM CHLORIDE 0.9% 250 ML IVPB SCH ×2 (08:22→23:52)
[2018-02-19] MEDS: INSULIN NPH/REG INSULIN 70/30 300 UNIT/3 ML VIAL SQ SCH (08:22)
[2018-02-19 08:44] LABS: Calcium 9.3 mg/dL (8.4-10.2); Potassium 5.1 mmol/L (3.5-5.1)
[2018-02-19 12:31] LABS: Glucose,Whole Blood 227 mg/dL (75-99)
--- NOTE | 2018-02-19 16:01 | XR ---
EXAMINATION TYPE: XR foot complete LT DATE OF EXAM: 02/19/2018 CLINICAL HISTORY: Nonhealing wound left first toe. TECHNIQUE: Frontal, lateral, and oblique images of the left foot are obtained. COMPARISON: MRI left foot November 03, 2014 FINDINGS: There is is amputation defect mid shaft level fifth metacarpal, amputation defect fourth P IP joint, and at proximal metaphysis third proximal phalanx. Amputation new from prior MRI. Marked fl exion in second toe is seen making evaluation at this level suboptimal. There is marked flexion with possible subluxation at first interphalangeal joint. There is moderate soft tissue swelling mid to fo refoot level with more prominent focal soft tissue swelling over the first and second toes. Mild subc utaneous edema hindfoot level is present. There is moderate superior calcaneal spur. There is tiny in ferior calcaneal spur. No definitive cortical destruction or suspicious periosteal reaction in the fi rst toe is identified IMPRESSION: There is no convincing radiographic evidence for acute osteomyelitis in the first toe. I f clinical suspicion persists further investigation with 3 phase bone scan or MRI may be warranted.
[2018-02-19] MEDS: PIPERACILLIN-TAZOBACTAM 3.375 GM in DEXTROSE/WATER 1 50ML.BAG IVPB SCH (16:46)
[2018-02-19] MEDS: COLLAGENASE 250 UNIT/GM OINTMENT 30 GM TUBE TOPICAL SCH (16:47)
[2018-02-19 17:19] LABS: Glucose,Whole Blood 151 mg/dL (75-99)
[2018-02-19 18:39] LABS: Hemoglobin A1C 7.6 % (4.0-6.0)
[2018-02-19 20:41] LABS: Glucose,Whole Blood 154 mg/dL (75-99)
[2018-02-20] MEDS: PIPERACILLIN-TAZOBACTAM 3.375 GM in DEXTROSE/WATER 1 50ML.BAG IVPB SCH ×4 (01:02→23:47)
[2018-02-20] MEDS: SODIUM CHLORIDE 0.9% 1,000 ML IV SCH ×2 (04:25→06:22)
--- NOTE | 2018-02-20 05:32 | CONS ---
CONSULTATION DATE OF SERVICE: 02/19/2018. REASON FOR CONSULTATION: Left big toe wound with secondary cellulitis of the left leg. HISTORY OF PRESENT ILLNESS: The patient is a 72-year-old female, who did develop a blister on the tip of her big toe the patient said about 3 weeks ago when she was taking a shower the skin fell from the tip of the big toe. The patient did not recall if there was any blister or any trauma. Subsequently the patient has been under the care of Dr. Alarcon and has been seeing him on weekly basis in his office. The patient was seen in the office yesterday and the patient apparently has been complaining of more pain to her left leg area. Pain described to more of a sharp in nature with intensity about 6 to 7/10, and no radiation. She was noticed to have more redness to the left leg. The patient did have debridement of her big toe wound. The patient felt warm. Subsequently the patient was advised to be admitted to the hospital. The patient was evaluated by the ER physician. He did have a lower extremity Doppler that was negative for DVT. The patient was given a dose of Zosyn and vancomycin. Infectious Disease was consulted for further recommendation regarding antibiotic therapy. REVIEW OF SYSTEMS: CONSTITUTIONAL: Positive for weakness and some chills. EYES: No complaint. ENT: No complaint. RESPIRATORY: No complaint. CARDIOVASCULAR: No complaint. GENITOURINARY: No complaint. GASTROINTESTINAL: No complaint. MUSCULOSKELETAL: As per HPI. INTEGUMENTARY: As per HPI. PSYCHOLOGICAL: No complaint. ENDOCRINE: No complaint. NEUROLOGIC: No complaint. PAST MEDICAL HISTORY: Coronary artery disease, diabetes mellitus, hyperlipidemia, [place]. Previous history of diabetic foot infection and cellulitis. PAST SURGICAL HISTORY: , cholecystectomy, hernia repair and bilateral cataract surgery, left 5th toe amputation, left knee replacement and skin graft. SOCIAL HISTORY: Remote history of smoking. No drinking or drug use. FAMILY HISTORY: Positive for cancer, unknown type. ALLERGIES: To an ANTIBIOTIC, UNKNOWN. MEDICATION: Currently include the patient is on Tylenol, Eliquis, Tenormin, Lipitor, Celexa, Lopid, NovoLog, Humulin, Glucophage, morphine sulfate, Narcan, Zofran, Ditropan. EXAMINATION: Blood pressure is 128/57 with a pulse of 81, temperature 98.9. She is 95% on room air. General description is an elderly female lying in bed in no distress. No tachypnea or accessory muscles of respiration use. HEENT: Shows slight pallor. No scleral icterus. Oral mucosa is dry. No pharyngeal erythema or thrush. NECK: Trachea central. No thyromegaly. LUNGS: Unlabored breathing. Clear to auscultation anteriorly. No wheeze or crackle. HEART: S1, S2. Regular rate and rhythm. ABDOMEN: Soft, no tenderness. No guarding, no rigidity. EXTREMITIES: No edema feet. Examination of the left leg, she did have some . She did have some swelling with minimal redness in her big toe. Minimally swollen and red with soft tissue at the base and no foul smelling drainage. NEUROLOGICAL: Patient is awake, alert, oriented x3. Mood and affect normal. LABS: Hemoglobin is 10.7, white count 10.7, BUN of 26, creatinine 0.86. Electrolytes have been normal. No culture has been done. Lower extremity Doppler was negative for DVT. DIAGNOSTIC IMPRESSION AND PLAN: Patient with left diabetic foot infection with wound to the left big toe with secondary cellulitis which could be from a gram-positive skin sampson; however, in view of underlying diabetes mellitus and previous history of infection, underlying gram- negative infection not entirely excluded with nonhealing wound for almost 3 weeks, concern for underlying osteomyelitis will also need to be considered. PLAN: 1. Wound culture was obtained both aerobic and anaerobic to guide further antibiotic therapy. 2. Obtain plain x-rays of the left toe to see if there is any bony erosion suspicious for osteomyelitis. 3. Vancomycin pharmacy to dose, target of 15, watching the kidney function closely. 4. We will add Zosyn 3.375 g q.8 hours. 5. Local wound care with Santyl followed by moist dressing. 6. We will follow up on clinical condition and culture to further adjust medication if needed. Thank you for this consultation. Will follow this patient along with you. MMODL / IJN: [id number] /
[2018-02-20 06:58] LABS: Glucose,Whole Blood 115 mg/dL (75-99)
[2018-02-20] MEDS: INSULIN ASPART 100 UNIT/ML 1 ML 10 ML VIAL SQ SCH ×4 (07:21→21:51)
[2018-02-20] MEDS: INSULIN NPH/REG INSULIN 70/30 300 UNIT/3 ML VIAL SQ SCH (08:00)
[2018-02-20] MEDS: metFORMIN 500 MG TAB PO SCH ×2 (08:05→17:58)
[2018-02-20] MEDS: CITALOPRAM HYDROBROMIDE 20 MG TAB PO SCH (08:05)
[2018-02-20] MEDS: ATENOLOL 25 MG TAB PO SCH (08:06)
[2018-02-20] MEDS: GEMFIBROZIL 600 MG TAB PO SCH ×2 (08:06→21:51)
[2018-02-20] MEDS: COLLAGENASE 250 UNIT/GM OINTMENT 30 GM TUBE TOPICAL SCH (08:07)
[2018-02-20 08:20] LABS: Basophils # (A) 0.1 k/uL (0-0.2); Basophils % (A) 1 %; Eosinophils # (A) 0.3 k/uL (0-0.7); Eosinophils % (A) 4 %; HCT 29.6 % (34.0-46.0); HGB 9.4 gm/dL (11.4-16.0); Hypochromasia Slight; Lymphocytes # (A) 1.8 k/uL (1.0-4.8); Lymphocytes % (A) 26 %; MCH 26.8 pg (25.0-35.0); MCHC 31.6 g/dL (31.0-37.0); MCV 84.9 fL (80.0-100.0); Monocytes # (A) 0.5 k/uL (0-1.0); Monocytes % (A) 7 %; Neutrophils # (A) 4.2 k/uL (1.3-7.7); Neutrophils % (A) 60 %; Platelet Count 238 k/uL (150-450); RBC 3.49 m/uL (3.80-5.40); RDW 13.3 % (11.5-15.5); WBC 6.9 k/uL (3.8-10.6)
[2018-02-20 08:38] LABS: Calcium 8.6 mg/dL (8.4-10.2); Potassium 4.5 mmol/L (3.5-5.1)
[2018-02-20] MEDS: APIXABAN 5 MG TAB PO SCH (10:20)
[2018-02-20 11:52] LABS: Glucose,Whole Blood 129 mg/dL (75-99)
[2018-02-20] MEDS: VANCOMYCIN 1,500 MG in SODIUM CHLORIDE 0.9% 250 ML IVPB SCH (15:13)
[2018-02-20 17:10] LABS: Glucose,Whole Blood 151 mg/dL (75-99)
--- NOTE | 2018-02-20 18:28 | P.HPIM ---
History of Present Illness H&P Date: 02/19/18 Chief Complaint: left foot pain and redness Patient is a 72-year-old female with a known history of diabetes type 2, hyperlipidemia, diabetic peripheral neuropathy and coronary artery disease came to ER with complaints of left leg swelling and pain. Patient states that she is seen by Dr. Alarcon, planting machine crewman who manages a chronic wound to patient's left great toe. Patient says that she had a blister on the left great toe about 3 weeks ago and skin peeled of and since then wound is not feeling. Patient is being followed by Dr. Alarcon since then. Patient states that since Wednesday she has noticed redness surrounding the great toe. She states that this area is tender and has noticed the redness has spread up to her calf. Denies any injuries or trauma. Does state that she has not helped with that she does have a history of blood clots. Patient states that prior to arrival, she saw Dr. Alarcon for her great toe and he recommended that she come to the emergency department for IV antibiotics. Patient denies any fevers or chills, chest pain shortness of breath, abdominal pain, nausea or vomiting. No complaints of chest pain or shortness of breath. X-ray of the left foot showed there is no convincing radiographic evidence of acute osteoarthritis in the first toe. Review of Systems Constitutional: Patient denies any fever or chills . No generalized weakness or weight loss. Abdomen: Patient denied nausea vomiting and diarrhea and abdominal pain. Cardiovascular: Patient denies any chest pain or short of breath no palpitations. Respiratory: patient denied any cough is from production. No shortness of breath Neurologic: Patient denied any numbness or tingling headache. Musculoskeletal: Left foot pain and leg swelling. Skin: Negative Psychiatric: Negative Endocrine: No heat or cold intolerance. No recent weight gain. Genitourinary: No dysuria or hematuria. All other 14 point ROS negative except the above Past Medical History Past Medical History: Coronary Artery Disease (CAD), Diabetes Mellitus, Hyperlipidemia, Myocardial Infarction (SD) Additional Past Medical History / Comment(s): ,DIABETIC NEUROPATHY, HX OF CELLULITIS LEFT LEG , amputation left 3rd toe and pinky toe. rt foot 3rd toe amputation and great toe wound Last Myocardial Infarction Date:: UNSURE History of Any Multi-Drug Resistant Organisms: None Reported Past Surgical History: Section, Cholecystectomy, Hernia Repair, Joint Replacement Additional Past Surgical History / Comment(s): IGNACIA cataract, LEFT SMALL toe amputation, LEFT KNEE REPLACEMENT, HX OF SKIN GRAFTS Past Anesthesia/Blood Transfusion Reactions: No Reported Reaction Past Psychological History: Depression Additional Psychological History / Comment(s): QUIT SMOKING 40 YRS AGO, SMOKED LESS THAN 1PPD FOR LESS THAN 10 YRS. Lives independently. No alcohol use. 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 No experience. No international travel. Has a pet dog in the home care for by her daughter Smoking Status: Former smoker Past Alcohol Use History: None Reported Additional Past Alcohol Use History / Comment(s): QUIT SMOKING 40 YRS AGO, SMOKED LESS THAN 1PPD FOR LESS THAN 10 YRS Past Drug Use History: None Reported - Past Family History Mother Family Medical History: Cancer Father Family Medical History: Cancer Medications and Allergies Home Medications Medication Instructions Recorded Confirmed Type Citalopram Hydrobromide 60 mg PO QAM 02/21/16 02/18/18 History [Citalopram HBr] Gemfibrozil [Lopid] 600 mg PO BID 10/15/16 02/18/18 History metFORMIN HCL 1,000 mg PO BID 10/15/16 02/18/18 History Atorvastatin [Lipitor] 40 mg PO HS 03/18/17 02/18/18 History Insulin NPH Hum/Reg Insulin Hm 25 unit SQ AC-LUNCH 05/06/17 02/18/18 History [NovoLIN 70-30 100 UNIT/ML VIAL] Insulin NPH Hum/Reg Insulin Hm 55 unit SQ AC-SUPPER 05/06/17 02/18/18 History [NovoLIN 70-30 100 UNIT/ML VIAL] Insulin NPH Hum/Reg Insulin Hm 66 unit SQ AC-BRKFST 05/06/17 02/18/18 History [NovoLIN 70-30 100 UNIT/ML VIAL] Lisinopril 40 mg PO DAILY 05/06/17 02/18/18 History Atenolol 25 mg PO DAILY 09/30/17 02/18/18 History Apixaban [Eliquis] 5 mg PO DAILY 02/18/18 02/18/18 History Oxybutynin Chloride [Ditropan] 5 mg PO HS 02/19/18 02/19/18 History Allergies Allergy/AdvReac Type Severity Reaction Status Date / Time antibiotics(name unknown) Allergy Hallucinati Uncoded 02/18/18 19:08 ons Physical Exam Vitals: Vital Signs Temp Pulse Pulse Resp BP BP Pulse Ox 02/19/18 05:57 98.8 F 91 18 111/54 93 L 02/19/18 00:36 96.3 F L 76 18 114/57 98 02/18/18 22:40 98.1 F 74 16 124/62 96 02/18/18 19:04 98.5 F 92 20 118/66 98 Intake and Output 02/18/18 02/19/18 02/19/18 22:59 06:59 14:59 Other: Voiding Method Toilet # Voids 1 Weight 94.347 kg PHYSICAL EXAMINATION: Patient is lying in the bed comfortably, no acute distress, awake alert and oriented.. HEENT: Normocephalic. Neck is supple. Pupils reactive. Nostrils clear. Oral cavity is moist. Ears reveal no drainage. Neck reveals no JVD, carotid bruits, or thyromegaly. CHEST EXAMINATION: Trachea is central. Symmetrical expansion. Lung bains clear to auscultation and percussion. CARDIAC: Normal S1, S2 with no gallops. No murmurs ABDOMEN: Soft. Bowel sounds normal. No organomegaly. No abdominal bruits. Extremities: reveal no edema. No clubbing or cyanosis. patient does have scars from previous surgeries on left lower extremity. Left foot plantar ulcer under the great toe with purulent base. Neurologically awake, alert, oriented x3 with well-coordinated movements. No focal deficits noted Skin: No rash or skin lesions. Psychiatric: Coperative. Nonsuicidal Musculoskeletal: No joint swelling or deformity. Normal range of motion. Results CBC & Chem 7: 02/20/18 07:55 02/20/18 07:25 Labs: Abnormal Lab Results - Last 24 Hours (Table) 02/18/18 02/18/18 02/19/18 Range/Units 21:20 21:20 00:03 WBC 10.7 H (3.8-10.6) k/uL Hgb 10.7 L (11.4-16.0) gm/dL Hct 33.3 L (34.0-46.0) % Potassium 5.8 H (3.5-5.1) mmol/L Chloride 108 H (98-107) mmol/L BUN 32 H (7-17) mg/dL Glucose (74-99) mg/dL POC Glucose (mg/dL) 113 H (75-99) mg/dL 02/19/18 02/19/18 Range/Units 07:00 08:09 WBC (3.8-10.6) k/uL Hgb (11.4-16.0) gm/dL Hct (34.0-46.0) % Potassium (3.5-5.1) mmol/L Chloride 109 H (98-107) mmol/L BUN 26 H (7-17) mg/dL Glucose 185 H (74-99) mg/dL POC Glucose (mg/dL) 216 H (75-99) mg/dL Thrombosis Risk Factor Assmnt - DVT/VTE Prophylaxis DVT/VTE Prophylaxis: Pharmacologic Prophylaxis ordered - Choose All That Apply Any of the Below Risk Factors Present?: Yes Each Factor Represents 1 point: Obesity (BMI >25) Other Risk Factors: Yes Each Risk Factor Represents 2 Points: Age 61-74 years Other congenital or acquired thrombophilia - If yes, enter type in comment: No Thrombosis Risk Factor Assessment Total Risk Factor Score: 3 Thrombosis Risk Factor Assessment Level: Moderate Risk Assessment and Plan Assessment: Left foot diabetic ulcers under the great toe and cellulitis of the left lower extremity. Diabetes type 2 Diabetic peripheral neuropathy History of DVT currently on anticoagulation at home Hyperlipidemia History of [place] Amputation of left third toe and fifth toe. History of smoking Depression Morbid obesity with BMI 36.8 DVT prophylaxis Plan: Patient will be continued on vancomycin and Zosyn. Follow up wound cultures and ID is following. Continue with insulin dosing and pain management. Further recommendations based on the clinical course. Time with Patient: Greater than 30
--- NOTE | 2018-02-20 18:29 | P.PN ---
Subjective Progress Note Date: 02/20/18 Principal diagnosis: Left foot diabetic ulcer Patient is a 72-year-old female with a known history of diabetes type 2, hyperlipidemia, diabetic peripheral neuropathy and coronary artery disease came to ER with complaints of left leg swelling and pain. Patient states that she is seen by Dr. Alarcon, general partner who manages a chronic wound to patient's left great toe. Patient says that she had a blister on the left great toe about 3 weeks ago and skin peeled of and since then wound is not feeling. Patient is being followed by Dr. Alarcon since then. Patient states that since Wednesday she has noticed redness surrounding the great toe. She states that this area is tender and has noticed the redness has spread up to her calf. Denies any injuries or trauma. Does state that she has not helped with that she does have a history of blood clots. Patient states that prior to arrival, she saw Dr. Alarcon for her great toe and he recommended that she come to the emergency department for IV antibiotics. Patient denies any fevers or chills, chest pain shortness of breath, abdominal pain, nausea or vomiting. No complaints of chest pain or shortness of breath. X-ray of the left foot showed there is no convincing radiographic evidence of acute osteoarthritis in the first toe. Objective - Vital Signs Vital signs: Vital Signs Temp 97.7 F 02/20/18 15:00 Pulse 68 02/20/18 15:00 Resp 18 02/20/18 15:00 BP 118/58 02/20/18 15:00 Pulse Ox 96 02/20/18 15:00 Intake & Output 02/19/18 02/20/18 02/20/18 18:59 06:59 18:59 Other: Voiding Method Toilet Toilet Toilet # Voids 2 2 3 # Bowel Movements 1 1 - Exam PHYSICAL EXAMINATION: Patient is lying in the bed comfortably, no acute distress, awake alert and oriented.. HEENT: Normocephalic. Neck is supple. Pupils reactive. Nostrils clear. Oral cavity is moist. Ears reveal no drainage. Neck reveals no JVD, carotid bruits, or thyromegaly. CHEST EXAMINATION: Trachea is central. Symmetrical expansion. Lung bains clear to auscultation and percussion. CARDIAC: Normal S1, S2 with no gallops. No murmurs ABDOMEN: Soft. Bowel sounds normal. No organomegaly. No abdominal bruits. Extremities: reveal no edema. No clubbing or cyanosis. patient does have scars from previous surgeries on left lower extremity. Left foot plantar ulcer under the great toe with purulent base. Neurologically awake, alert, oriented x3 with well-coordinated movements. No focal deficits noted Skin: No rash or skin lesions. Psychiatric: Coperative. Nonsuicidal Musculoskeletal: No joint swelling or deformity. Normal range of motion. - Labs CBC & Chem 7: 02/20/18 07:55 02/20/18 07:25 Labs: Abnormal Lab Results - Last 24 Hours (Table) 02/19/18 02/19/18 02/20/18 Range/Units 08:09 20:39 06:56 RBC (3.80-5.40) m/uL Hgb (11.4-16.0) gm/dL Hct (34.0-46.0) % Chloride (98-107) mmol/L BUN (7-17) mg/dL Glucose (74-99) mg/dL POC Glucose (mg/dL) 154 H 115 H (75-99) mg/dL Hemoglobin A1c 7.6 H (4.0-6.0) % 02/20/18 02/20/18 02/20/18 Range/Units 07:25 07:55 11:50 RBC 3.49 L (3.80-5.40) m/uL Hgb 9.4 L (11.4-16.0) gm/dL Hct 29.6 L (34.0-46.0) % Chloride 108 H (98-107) mmol/L BUN 18 H (7-17) mg/dL Glucose 112 H (74-99) mg/dL POC Glucose (mg/dL) 129 H (75-99) mg/dL Hemoglobin A1c (4.0-6.0) % 02/20/18 Range/Units 17:07 RBC (3.80-5.40) m/uL Hgb (11.4-16.0) gm/dL Hct (34.0-46.0) % Chloride (98-107) mmol/L BUN (7-17) mg/dL Glucose (74-99) mg/dL POC Glucose (mg/dL) 151 H (75-99) mg/dL Hemoglobin A1c (4.0-6.0) % Microbiology - Last 24 Hours (Table) 02/19/18 15:30 Gram Stain - Preliminary Toe - Left First Wound Culture - Preliminary 02/18/18 21:20 Blood Culture - Preliminary Blood No Growth after 24 hours 02/19/18 15:30 Anaerobic Culture - Preliminary Toe - Left First Assessment and Plan Assessment: Left foot diabetic ulcers under the great toe and cellulitis of the left lower extremity. Diabetes type 2 Diabetic peripheral neuropathy History of DVT currently on anticoagulation at home Hyperlipidemia History of [place] Amputation of left third toe and fifth toe. History of smoking Depression Morbid obesity with BMI 36.8 DVT prophylaxis Plan: Patient will be continued on vancomycin and Zosyn. Follow up wound cultures and ID is following. Continue with insulin dosing and pain management. Further recommendations based on the clinical course. Time with Patient: Greater than 30
[2018-02-20 20:41] LABS: Glucose,Whole Blood 189 mg/dL (75-99)
[2018-02-20] MEDS: ATORVASTATIN 40 MG TAB PO SCH (21:51)
[2018-02-20] MEDS: OXYBUTYNIN CHLORIDE 5 MG TAB PO SCH (21:51)
--- NOTE | 2018-02-21 05:08 | PN ---
PROGRESS NOTE DATE OF SERVICE: 02/20/2018. REASON FOR FOLLOWUP: Left big toe wound with secondary cellulitis of the leg. INTERVAL HISTORY: The patient is afebrile. She is breathing comfortably. Denies having any chest pain, shortness of breath or cough. No abdominal pain. No diarrhea. No urinary symptoms. Denies pain to the left big toe. The left leg swelling and redness has improved. PHYSICAL EXAMINATION: On examination, blood pressure is 118/58 with a pulse of 68, temperature 97.7. She is 96% on room air. General description is an elderly female lying in bed in no distress. RESPIRATORY SYSTEM: Unlabored breathing, clear to auscultation anteriorly. HEART: S1, S2. Regular rate and rhythm. ABDOMEN: Soft, no tenderness. Left leg swelling and redness has improved. Big toe is currently dressed up, no obvious drainage on the dressing. LABS: Hemoglobin 9.4, white count 6.9, BUN of 18, creatinine 0.85. Wound culture currently showing Enterococcus species. X-rays did not show any bony changes. DIAGNOSTIC IMPRESSION AND PLAN: Patient admitted to the hospital with left leg cellulitis in a patient who did have a nonhealing wound to the left big toe area. X-rays did not show any bony changes. We will obtain a three-phase bone scan to make sure there is no evidence of any osteomyelitis. We will keep the patient on Zosyn and the vancomycin while waiting for the culture to finalize. Continue with supportive care. MMODL / IJN: [id number] /
[2018-02-21] MEDS: SODIUM CHLORIDE 0.9% 1,000 ML IV SCH ×2 (06:07→14:03)
[2018-02-21] MEDS ORDERED: VANCOMYCIN TROUGH DUE 1 EACH MISC MISCELLANE ONE (07:00)
[2018-02-21 07:09] LABS: Glucose,Whole Blood 136 mg/dL (75-99)
[2018-02-21] MEDS: VANCOMYCIN 1,500 MG in SODIUM CHLORIDE 0.9% 250 ML IVPB SCH ×2 (08:10→23:45)
[2018-02-21] MEDS: INSULIN ASPART 100 UNIT/ML 1 ML 10 ML VIAL SQ SCH ×5 (08:12→21:11)
[2018-02-21] MEDS: INSULIN NPH/REG INSULIN 70/30 300 UNIT/3 ML VIAL SQ SCH ×2 (08:12→08:37)
[2018-02-21] MEDS: metFORMIN 500 MG TAB PO SCH ×2 (08:14→16:59)
[2018-02-21] MEDS: CITALOPRAM HYDROBROMIDE 20 MG TAB PO SCH (08:15)
[2018-02-21] MEDS: APIXABAN 5 MG TAB PO SCH (08:15)
[2018-02-21] MEDS: COLLAGENASE 250 UNIT/GM OINTMENT 30 GM TUBE TOPICAL SCH (08:15)
[2018-02-21] MEDS: ATENOLOL 25 MG TAB PO SCH (08:15)
[2018-02-21 09:01] LABS: Potassium 4.7 mmol/L (3.5-5.1)
[2018-02-21] MEDS: PIPERACILLIN-TAZOBACTAM 3.375 GM in DEXTROSE/WATER 1 50ML.BAG IVPB SCH ×2 (10:27→16:58)
[2018-02-21] MEDS: GEMFIBROZIL 600 MG TAB PO SCH (10:28)
[2018-02-21 11:57] LABS: Glucose,Whole Blood 163 mg/dL (75-99)
--- NOTE | 2018-02-21 14:24 | NM ---
EXAMINATION TYPE: NM bone 3 phase DATE OF EXAM: 02/21/2018 COMPARISON: Prior 3 phase bone scan March 19, 2017. Prior left foot x-ray February 19, 2018. HISTORY: Nonhealing wound left first toe. Triple phase bone scintigraphy was performed following the injection of 25.8 mCi Tc 99m MDP. Immedia te images and 5.75 hours post injection images acquired. FINDINGS: Dynamic arterial phase images show asymmetric blood flow to left ankle and foot most prominent near f irst toe versus opposite right side. Soft tissue phase images show similar findings. Delayed phased i mages show areas of increased uptake throughout the left ankle and foot most prominent involving the first distal phalanx at area of clinical concern. There is focus of radiotracer uptake involving the anterior talus in the right foot presumed product of degenerative change. IMPRESSION: Asymmetric three-phase radiotracer uptake involving distal first toe is suggestive of acu te osteomyelitis at this level given patient history.
--- NOTE | 2018-02-21 16:08 | P.PN ---
Subjective Progress Note Date: 02/21/18 Progress note being dictated for Dr. Cano. Interval history:Patient is a 72-year-old female with a known history of diabetes type 2, hyperlipidemia, diabetic peripheral neuropathy and coronary artery disease came to ER with complaints of left leg swelling and pain. Patient states that she is seen by Dr. Alarcon, certified nursing assistant who manages a chronic wound to patient's left great toe. Patient says that she had a blister on the left great toe about 3 weeks ago and skin peeled of and since then wound is not feeling. Patient is being followed by Dr. Alarcon since then. Patient states that since Wednesday she has noticed redness surrounding the great toe. She states that this area is tender and has noticed the redness has spread up to her calf. Denies any injuries or trauma. Does state that she has not helped with that she does have a history of blood clots. Patient states that prior to arrival, she saw Dr. Alarcon for her great toe and he recommended that she come to the emergency department for IV antibiotics. Patient denies any fevers or chills, chest pain shortness of breath, abdominal pain, nausea or vomiting. No complaints of chest pain or shortness of breath. X-ray of the left foot showed there is no convincing radiographic evidence of acute osteoarthritis in the first toe. 02/21/2018 maintained on IV antibiotics of vancomycin and Zosyn as per infectious disease. Wound culture reporting enterococcus group D. Bone scan suggestive of osteomyelitis involving distal left first toe. Denies leg or foot pain, in a patient with neuropathy. States her neuropathy discomfort controlled. Blood sugars controlled. Objective - Vital Signs Vital signs: Vital Signs Temp 97.0 F L 02/21/18 05:45 Pulse 72 02/21/18 05:45 Resp 16 02/21/18 05:45 BP 128/64 02/21/18 05:45 Pulse Ox 97 02/21/18 05:45 Intake & Output 02/20/18 02/21/18 02/21/18 18:59 06:59 18:59 Other: Voiding Method Toilet Toilet Incontinent # Voids 3 4 2 # Bowel Movements 1 1 - Exam PHYSICAL EXAMINATION: Patient is lying in the bed comfortably, no acute distress, awake alert and oriented.. HEENT: Normocephalic. Neck is supple. Pupils reactive. Nostrils clear. Oral cavity is moist. Ears reveal no drainage. Neck reveals no JVD, carotid bruits, or thyromegaly. CHEST EXAMINATION: Trachea is central. Symmetrical expansion. Lung bains clear to auscultation and percussion. CARDIAC: Normal S1, S2 with no gallops. No murmurs ABDOMEN: Soft. Bowel sounds normal. No organomegaly. No abdominal bruits. Extremities: reveal no edema. No clubbing or cyanosis. patient does have scars from previous surgeries on left lower extremity. Left foot plantar ulcer under the great toe with purulent base. Neurologically awake, alert, oriented x3 with well-coordinated movements. No focal deficits noted Skin: No rash or skin lesions. Psychiatric: Coperative. Nonsuicidal Musculoskeletal: No joint swelling or deformity. Normal range of motion. Microbiology 02/18/18 21:20 Blood Blood Culture - Preliminary No Growth after 48 hours 02/19/18 15:30 Toe - Left First Gram Stain - Preliminary 02/19/18 15:30 Toe - Left First Wound Culture - Preliminary Group D Enterococcus 02/19/18 15:30 Toe - Left First Anaerobic Culture - Preliminary - Labs CBC & Chem 7: 02/20/18 07:55 02/21/18 07:17 Labs: Abnormal Lab Results - Last 24 Hours (Table) 02/20/18 02/20/18 02/21/18 Range/Units 17:07 20:39 07:06 Chloride (98-107) mmol/L BUN (7-17) mg/dL Glucose (74-99) mg/dL POC Glucose (mg/dL) 151 H 189 H 136 H (75-99) mg/dL 02/21/18 02/21/18 Range/Units 07:17 11:38 Chloride 108 H (98-107) mmol/L BUN 19 H (7-17) mg/dL Glucose 129 H (74-99) mg/dL POC Glucose (mg/dL) 163 H (75-99) mg/dL Microbiology - Last 24 Hours (Table) 02/18/18 21:20 Blood Culture - Preliminary Blood No Growth after 48 hours 02/19/18 15:30 Gram Stain - Preliminary Toe - Left First Wound Culture - Preliminary Group D Enterococcus Assessment and Plan Assessment: Left foot diabetic ulcers under the great toe and cellulitis of the left lower extremity, wound cultures growing enterococcus group D. Bone scan suggestive of osteomyelitis Diabetes type 2 Diabetic peripheral neuropathy History of DVT currently on anticoagulation at home Hyperlipidemia History of [place] Amputation of left third toe and fifth toe. History of smoking Depression Morbid obesity with BMI 36.8 DVT prophylaxis Plan: Continue on current medication regime ,monitoring and symptomatic treatment. Bone scan suggestive of osteomyelitis. Maintain IV antibiotics, possibly picc line placement -defer to ID. Close monitoring of blood sugars. The impression and plan of care has been dictated as directed. : I performed a history and examination of this patient, discussed the same with the dictator. I agree with the dictator's note ,documented as a scribe. Any additional findings or plans will be noted.
[2018-02-21 17:11] LABS: Glucose,Whole Blood 125 mg/dL (75-99)
[2018-02-21 20:30] LABS: Glucose,Whole Blood 174 mg/dL (75-99)
--- NOTE | 2018-02-21 20:32 | P.PN ---
Subjective Progress Note Date: 02/21/18 Principal diagnosis: diabetic foot infection 72-year-old woman well-known to the infectious diseases in her service severe peripheral vascular disease, diabetic foot infections with prior amputations to toes 3 through 5 on the left foot. Earlier this year she has been followed in Center for foot ulceration and eventually healed. Follow-up last year she underlying osteomyelitis. The outpatient setting for this. She did have significant central nervous system side effects from Invanz with confusion and hallucinations. She eventually completed the course of therapy with Rocephin and has done well until the patient had the sudden onset of ulceration to the left great toe. The patient cannot recall any specific injury to the area but she does have dense neuropathy. She has deformities of the foot was could easily allow injury with the unknown due to her neuropathy. She denies any new symptoms such as fever chills rigors or sweats. Objective - Vital Signs Vital signs: Vital Signs Temp 97.7 F 02/21/18 15:00 Pulse 68 02/21/18 15:00 Resp 16 02/21/18 15:00 BP 114/68 02/21/18 15:00 Pulse Ox 95 02/21/18 15:00 Intake & Output 02/21/18 02/21/18 02/22/18 06:59 18:59 06:59 Other: Voiding Method Toilet Incontinent # Voids 4 2 # Bowel Movements 1 - Exam pleasant 72-year-old woman in no tamanna distress at this time HEENT: Anicteric conjunctiva are pink and moist nasal mucosa grossly intact without significant lesions, there is no thrush.Full denture Neck: The neck is supple without significant lymphadenopathy or thyromegaly. Lungs: symmetrical air entry with expiratory wheezes no tamanna bronchial sounds no dullness or egophony Heart: Regular rate and rhythm with an audible S1-S2, no S3 soft S4 There is no significant murmur click or rub, PMI was nondisplaced. Abdomen: Positive bowel sounds soft and nontender without palpable masses or organomegaly. There was no guarding or rebound. Extremities: The upper extremities have excellent pulses they are symmetric, no significant petechiae or telangiectasia. No splinter hemorrhages were noted. lower extremities are evaluated. There is some chronic erythema. He right foot is without acute new symptoms or difficulties. Left foot shows evidence of the ulceration to the distal aspect of the great toe is noted measuring 2.2 x 2.2 x 0.2 cm. There is surrounding erythema and mild ascending erythema onto the foot.apparently this is improved in the last day. Neuro: Awake alert oriented to person place and time. There are no acute new gross focal sensory motor deficits. - Labs CBC & Chem 7: 02/20/18 07:55 02/21/18 07:17 Labs: Abnormal Lab Results - Last 24 Hours (Table) 02/20/18 02/21/18 02/21/18 Range/Units 20:39 07:06 07:17 Chloride 108 H (98-107) mmol/L BUN 19 H (7-17) mg/dL Glucose 129 H (74-99) mg/dL POC Glucose (mg/dL) 189 H 136 H (75-99) mg/dL 02/21/18 02/21/18 Range/Units 11:38 16:58 Chloride (98-107) mmol/L BUN (7-17) mg/dL Glucose (74-99) mg/dL POC Glucose (mg/dL) 163 H 125 H (75-99) mg/dL Microbiology - Last 24 Hours (Table) 02/19/18 15:30 Gram Stain - Final Toe - Left First Wound Culture - Final Enterococcus faecalis 02/18/18 21:20 Blood Culture - Preliminary Blood No Growth after 48 hours Laboratory Results WBC 6.9 k/uL (3.8-10.6) 02/20/18 07:55 RBC 3.49 m/uL (3.80-5.40) L 02/20/18 07:55 Hgb 9.4 gm/dL (11.4-16.0) L 02/20/18 07:55 Hct 29.6 % (34.0-46.0) L 02/20/18 07:55 MCV 84.9 fL (80.0-100.0) 02/20/18 07:55 MCH 26.8 pg (25.0-35.0) 02/20/18 07:55 MCHC 31.6 g/dL (31.0-37.0) 02/20/18 07:55 RDW 13.3 % (11.5-15.5) 02/20/18 07:55 Plt Count 238 k/uL (150-450) 02/20/18 07:55 Neutrophils % 60 % 02/20/18 07:55 Lymphocytes % 26 % 02/20/18 07:55 Monocytes % 7 % 02/20/18 07:55 Eosinophils % 4 % 02/20/18 07:55 Basophils % 1 % 02/20/18 07:55 Neutrophils # 4.2 k/uL (1.3-7.7) 02/20/18 07:55 Lymphocytes # 1.8 k/uL (1.0-4.8) 02/20/18 07:55 Monocytes # 0.5 k/uL (0-1.0) 02/20/18 07:55 Eosinophils # 0.3 k/uL (0-0.7) 02/20/18 07:55 Basophils # 0.1 k/uL (0-0.2) 02/20/18 07:55 Hypochromasia Slight 02/20/18 07:55 PT 9.9 sec (9.0-12.0) 02/18/18 21:20 INR 1.0 (<1.2) 02/18/18 21:20 APTT 22.9 sec (22.0-30.0) 02/18/18 21:20 Sodium 141 mmol/L (137-145) 02/21/18 07:17 Potassium 4.7 mmol/L (3.5-5.1) 02/21/18 07:17 Chloride 108 mmol/L (98-107) H 02/21/18 07:17 Carbon Dioxide 24 mmol/L (22-30) 02/21/18 07:17 Anion Gap 9 mmol/L 02/21/18 07:17 BUN 19 mg/dL (7-17) H 02/21/18 07:17 Creatinine 0.86 mg/dL (0.52-1.04) 02/21/18 07:17 Est GFR (CKD-EPI)AfAm 79 (>60 ml/min/1.73 sqM) 02/21/18 07:17 Est GFR (CKD-EPI)NonAf 69 (>60 ml/min/1.73 sqM) 02/21/18 07:17 Glucose 129 mg/dL (74-99) H 02/21/18 07:17 POC Glucose (mg/dL) 125 mg/dL (75-99) H 02/21/18 16:58 POC Glu [employer] ID Daksha Blake 02/21/18 16:[address] Glu mg/dL 171 02/19/18 08:09 Hemoglobin A1c 7.6 % (4.0-6.0) H 02/19/18 08:09 Plasma Lactic Acid Conrad 1.3 mmol/L (0.7-2.0) 02/18/18 21:20 Calcium 9.0 mg/dL (8.4-10.2) 02/21/18 07:17 Total Bilirubin 0.5 mg/dL (0.2-1.3) 02/18/18 21:20 AST 25 U/L (14-36) 02/18/18 21:20 ALT 19 U/L (9-52) 02/18/18 21:20 Alkaline Phosphatase 105 U/L (38-126) 02/18/18 21:20 Total Protein 7.2 g/dL (6.3-8.2) 02/18/18 21:20 Albumin 4.0 g/dL (3.5-5.0) 02/18/18 21:20 Vancomycin Trough 19.1 ug/mL 02/21/18 07:17 Microbiology 02/19/18 15:30 Toe - Left First Gram Stain - Final 02/19/18 15:30 Toe - Left First Wound Culture - Final Enterococcus faecalis 02/18/18 21:20 Blood Blood Culture - Preliminary No Growth after 48 hours 02/19/18 15:30 Toe - Left First Anaerobic Culture - Preliminary Assessment and Plan (1) Diabetic foot infection Current Visit: Yes Status: Acute Code(s): E11.628 - TYPE 2 DIABETES MELLITUS WITH OTHER SKIN COMPLICATIONS; L08.9 - LOCAL INFECTION OF THE SKIN AND SUBCUTANEOUS TISSUE, UNSP SNOMED Code(s): 030662474 (2) Acute osteomyelitis of left foot Narrative/Plan: 72-year-old female with multiple medical troubles with a history of diabetes has now developed a new ulceration to the distal aspect of the left great toe.imaging studies have confirmed osteomyelitis to the site. At this point in time we'll continue continue with local wound care with Santyl daily Elevate the foot at rest Maximize diabetic care Will plan arrangements for follow-up in the wound healing center after discharge With the osteomyelitis outpatient intravenous antibiotic therapy will be required, with a history of MRSA and now enterococcus will likely be on daptomycin therapy in the outpatient setting. hemoglobin A1c has improved from 9.2 one year ago to 7.6 certainly not ideal Leukocytosis at admission is already improving she has had chronic anemia, iron studies will be requested Current Visit: Yes Status: Acute Code(s): M86.172 - OTHER ACUTE OSTEOMYELITIS, LEFT ANKLE AND FOOT SNOMED Code(s): 7240037320624590 (3) Infection due to enterococcus Current Visit: Yes Status: Acute Code(s): A49.1 - STREPTOCOCCAL INFECTION, UNSPECIFIED SITE SNOMED Code(s): 845480245
[2018-02-21] MEDS: ATORVASTATIN 40 MG TAB PO SCH (21:11)
[2018-02-21] MEDS: OXYBUTYNIN CHLORIDE 5 MG TAB PO SCH (21:11)
[2018-02-22] MEDS: PIPERACILLIN-TAZOBACTAM 3.375 GM in DEXTROSE/WATER 1 50ML.BAG IVPB SCH ×3 (01:48→16:14)
[2018-02-22] MEDS: SODIUM CHLORIDE 0.9% 1,000 ML IV SCH ×2 (05:52→22:04)
[2018-02-22 07:23] LABS: Glucose,Whole Blood 142 mg/dL (75-99)
[2018-02-22] MEDS: INSULIN ASPART 100 UNIT/ML 1 ML 10 ML VIAL SQ SCH ×4 (07:58→22:04)
[2018-02-22] MEDS: INSULIN NPH/REG INSULIN 70/30 300 UNIT/3 ML VIAL SQ SCH (07:58)
[2018-02-22] MEDS: metFORMIN 500 MG TAB PO SCH ×2 (07:58→17:39)
[2018-02-22] MEDS: APIXABAN 5 MG TAB PO SCH (07:59)
[2018-02-22] MEDS: ATENOLOL 25 MG TAB PO SCH (07:59)
[2018-02-22] MEDS: FENOFIBRATE 160 MG TAB PO SCH (07:59)
[2018-02-22] MEDS: CITALOPRAM HYDROBROMIDE 20 MG TAB PO SCH (07:59)
[2018-02-22 08:47] LABS: Reticulocyte % 1.8 % (0.5-2.0)
[2018-02-22 09:19] LABS: Calcium 9.1 mg/dL (8.4-10.2); Potassium 4.5 mmol/L (3.5-5.1)
[2018-02-22] MEDS: COLLAGENASE 250 UNIT/GM OINTMENT 30 GM TUBE TOPICAL SCH (10:55)
[2018-02-22 12:51] LABS: Glucose,Whole Blood 99 mg/dL (75-99)
[2018-02-22 13:14] LABS: INR 1.1 (<1.2); Prothrombin Time 10.8 sec (9.0-12.0)
[2018-02-22] MEDS: DAPTOmycin 500 MG in SODIUM CHLORIDE 0.9% 50 ML IVPB SCH (14:13)
[2018-02-22 16:24] LABS: Iron Saturation 10.05 (12.00-45.00)
[2018-02-22 17:02] LABS: Glucose,Whole Blood 130 mg/dL (75-99)
--- NOTE | 2018-02-22 18:01 | P.PN ---
Subjective Progress Note Date: 02/22/18 Progress note being dictated for Dr. Cano. Interval history:Patient is a 72-year-old female with a known history of diabetes type 2, hyperlipidemia, diabetic peripheral neuropathy and coronary artery disease came to ER with complaints of left leg swelling and pain. Patient states that she is seen by Dr. 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 Patient says that she had a blister on the left great toe about 3 weeks ago and skin peeled of and since then wound is not feeling. Patient is being followed by Dr. Alarcon since then. Patient states that since Wednesday she has noticed redness surrounding the great toe. She states that this area is tender and has noticed the redness has spread up to her calf. Denies any injuries or trauma. Does state that she has not helped with that she does have a history of blood clots. Patient states that prior to arrival, she saw Dr. Alarcon for her great toe and he recommended that she come to the emergency department for IV antibiotics. Patient denies any fevers or chills, chest pain shortness of breath, abdominal pain, nausea or vomiting. No complaints of chest pain or shortness of breath. X-ray of the left foot showed there is no convincing radiographic evidence of acute osteoarthritis in the first toe. 02/21/2018 maintained on IV antibiotics of vancomycin and Zosyn as per infectious disease. Wound culture reporting enterococcus group D. Bone scan suggestive of osteomyelitis involving distal left first toe. Denies leg or foot pain, in a patient with neuropathy. States her neuropathy discomfort controlled. Blood sugars controlled. 02/22/2018 continues on IV antibiotics of daptomycin and Zosyn as per infectious disease. Eliquis remains on hold, PICC line placement pending. T- max 100.1. Denies pain. Denies chest pain, palpitations or shortness of breath. Objective - Vital Signs Vital signs: Vital Signs Temp 98.1 F 02/22/18 15:00 Pulse 70 02/22/18 15:00 Resp 16 02/22/18 15:00 BP 116/60 02/22/18 15:00 Pulse Ox 95 02/22/18 15:00 Intake & Output 02/21/18 02/22/18 02/22/18 18:59 06:59 18:59 Intake Total 800 1000 Balance 800 1000 Intake: Oral 800 1000 Other: Voiding Method Toilet Toilet Incontinent Incontinent # Voids 2 2 2 # Bowel Movements 1 3 0 - Exam PHYSICAL EXAMINATION: Patient is sitting up in bed comfortably, no acute distress, awake alert and oriented.. HEENT: Normocephalic. Neck is supple. Pupils reactive. Nostrils clear. Oral cavity is moist. Neck reveals no JVD, carotid bruits, or thyromegaly. CHEST EXAMINATION: Trachea is central. Symmetrical expansion. Lung bains clear to auscultation and percussion. CARDIAC: Normal S1, S2 with no gallops. No murmurs ABDOMEN: Soft. Bowel sounds normal. No organomegaly. No abdominal bruits. Extremities: reveal no edema. No clubbing or cyanosis. patient does have scars from previous surgeries on left lower extremity. Left foot plantar ulcer under the great toe with purulent base. Neurologically awake, alert, oriented x3 with well-coordinated movements. No focal deficits noted Skin: No rash or skin lesions. Psychiatric: Coperative. Nonsuicidal Musculoskeletal: No joint swelling or deformity. Normal range of motion. Microbiology 02/18/18 21:20 Blood Blood Culture - Preliminary No Growth after 72 hours 02/19/18 15:30 Toe - Left First Gram Stain - Final 02/19/18 15:30 Toe - Left First Wound Culture - Final Enterococcus faecalis 02/19/18 15:30 Toe - Left First Anaerobic Culture - Preliminary - Labs CBC & Chem 7: 02/20/18 07:55 02/22/18 07:57 Labs: Abnormal Lab Results - Last 24 Hours (Table) 02/21/18 02/22/18 02/22/18 Range/Units 20:20 07:18 07:57 ESR (0-20) mm/hr Glucose 144 H (74-99) mg/dL POC Glucose (mg/dL) 174 H 142 H (75-99) mg/dL C-Reactive Protein (<10.0) mg/L 02/22/18 02/22/18 02/22/18 Range/Units 07:57 07:57 17:01 ESR 94 H (0-20) mm/hr Glucose (74-99) mg/dL POC Glucose (mg/dL) 130 H (75-99) mg/dL C-Reactive Protein 25.3 H (<10.0) mg/L Microbiology - Last 24 Hours (Table) 02/18/18 21:20 Blood Culture - Preliminary Blood No Growth after 72 hours 02/19/18 15:30 Gram Stain - Final Toe - Left First Wound Culture - Final Enterococcus faecalis Assessment and Plan Assessment: Left foot diabetic ulcers under the great toe and cellulitis of the left lower extremity, wound cultures growing enterococcus group D. Bone scan suggestive of osteomyelitis Diabetes type 2 Diabetic peripheral neuropathy History of DVT currently on anticoagulation at home Hyperlipidemia History of CA Amputation of left third toe and fifth toe. History of smoking Depression Morbid obesity with BMI 36.8 DVT prophylaxis Plan: Continue on current medication regime ,monitoring and symptomatic treatment. Continue holding Eliquis, PICC line placement pending. Maintain IV antibiotics. Close monitoring of blood sugars. Discharge planning in progress, pending PICC line placement. The impression and plan of care has been dictated as directed. : I performed a history and examination of this patient, discussed the same with the dictator. I agree with the dictator's note ,documented as a scribe. Any additional findings or plans will be noted.
[2018-02-22 20:54] LABS: Glucose,Whole Blood 173 mg/dL (75-99)
[2018-02-22] MEDS: ATORVASTATIN 40 MG TAB PO SCH (22:05)
[2018-02-22] MEDS: OXYBUTYNIN CHLORIDE 5 MG TAB PO SCH (22:05)
[2018-02-23] MEDS: PIPERACILLIN-TAZOBACTAM 3.375 GM in DEXTROSE/WATER 1 50ML.BAG IVPB SCH ×2 (00:08→07:52)
--- NOTE | 2018-02-23 01:12 | P.PN ---
Subjective Progress Note Date: 02/22/18 Principal diagnosis: diabetic foot infection 72-year-old woman well-known to the infectious diseases in her service severe peripheral vascular disease, diabetic foot infections with prior amputations to toes 3 through 5 on the left foot. Earlier this year she has been followed in Center for foot ulceration and eventually healed. Follow-up last year she underlying osteomyelitis. The outpatient setting for this. She did have significant central nervous system side effects from Invanz with confusion and hallucinations. She eventually completed the course of therapy with Rocephin and has done well until the patient had the sudden onset of ulceration to the left great toe. The patient cannot recall any specific injury to the area but she does have dense neuropathy. She has deformities of the foot was could easily allow injury with the unknown due to her neuropathy. She denies any new symptoms such as fever chills rigors or sweats. 02/22/2018 constipation to be showing further improvement. She is evidence of the osteomyelitis of the foot and will be receiving outpatient intravenous antibiotic therapy. She chooses to come to the office for she's been in the past. Cultures are being finalized and IV access is being placed. Objective - Vital Signs Vital signs: Vital Signs Temp 99.0 F 02/22/18 23:00 Pulse 74 02/22/18 23:00 Resp 18 02/22/18 23:00 BP 119/52 02/22/18 23:00 Pulse Ox 95 02/22/18 23:00 Intake & Output 02/22/18 02/22/18 02/23/18 06:59 18:59 06:59 Intake Total 800 1000 400 Balance 800 1000 400 Intake: Oral 800 1000 400 Other: Voiding Method Toilet Incontinent # Voids 2 2 2 # Bowel Movements 3 0 - Exam pleasant 72-year-old woman in no tamanna distress at this time HEENT: Anicteric conjunctiva are pink and moist nasal mucosa grossly intact without significant lesions, there is no thrush.Full denture Neck: The neck is supple without significant lymphadenopathy or thyromegaly. Lungs: symmetrical air entry with expiratory wheezes no tamanna bronchial sounds no dullness or egophony Heart: Regular rate and rhythm with an audible S1-S2, no S3 soft S4 There is no significant murmur click or rub, PMI was nondisplaced. Abdomen: Positive bowel sounds soft and nontender without palpable masses or organomegaly. There was no guarding or rebound. Extremities: The upper extremities have excellent pulses they are symmetric, no significant petechiae or telangiectasia. No splinter hemorrhages were noted. lower extremities are evaluated. There is some chronic erythema. He right foot is without acute new symptoms or difficulties. Left foot shows evidence of the ulceration to the distal aspect of the great toe is noted measuring 2.2 x 2.2 x 0.2 cm. There is surrounding erythema and mild ascending erythema onto the foot.apparently this is improved in the last day. Neuro: Awake alert oriented to person place and time. There are no acute new gross focal sensory motor deficits. - Labs CBC & Chem 7: 02/20/18 07:55 02/22/18 07:57 Labs: Abnormal Lab Results - Last 24 Hours (Table) 02/22/18 02/22/18 02/22/18 Range/Units 07:18 07:57 07:57 ESR 94 H (0-20) mm/hr Glucose 144 H (74-99) mg/dL POC Glucose (mg/dL) 142 H (75-99) mg/dL C-Reactive Protein (<10.0) mg/L 02/22/18 02/22/18 02/22/18 Range/Units 07:57 17:01 20:39 ESR (0-20) mm/hr Glucose (74-99) mg/dL POC Glucose (mg/dL) 130 H 173 H (75-99) mg/dL C-Reactive Protein 25.3 H (<10.0) mg/L Microbiology - Last 24 Hours (Table) 02/18/18 21:20 Blood Culture - Preliminary Blood No Growth after 96 hours 02/19/18 15:30 Anaerobic Culture - Preliminary Toe - Left First Laboratory Results WBC 6.9 k/uL (3.8-10.6) 02/20/18 07:55 RBC 3.49 m/uL (3.80-5.40) L 02/20/18 07:55 Hgb 9.4 gm/dL (11.4-16.0) L 02/20/18 07:55 Hct 29.6 % (34.0-46.0) L 02/20/18 07:55 MCV 84.9 fL (80.0-100.0) 02/20/18 07:55 MCH 26.8 pg (25.0-35.0) 02/20/18 07:55 MCHC 31.6 g/dL (31.0-37.0) 02/20/18 07:55 RDW 13.3 % (11.5-15.5) 02/20/18 07:55 Plt Count 238 k/uL (150-450) 02/20/18 07:55 Neutrophils % 60 % 02/20/18 07:55 Lymphocytes % 26 % 02/20/18 07:55 Monocytes % 7 % 02/20/18 07:55 Eosinophils % 4 % 02/20/18 07:55 Basophils % 1 % 02/20/18 07:55 Neutrophils # 4.2 k/uL (1.3-7.7) 02/20/18 07:55 Lymphocytes # 1.8 k/uL (1.0-4.8) 02/20/18 07:55 Monocytes # 0.5 k/uL (0-1.0) 02/20/18 07:55 Eosinophils # 0.3 k/uL (0-0.7) 02/20/18 07:55 Basophils # 0.1 k/uL (0-0.2) 02/20/18 07:55 Hypochromasia Slight 02/20/18 07:55 ESR 94 mm/hr (0-20) H 02/22/18 07:57 Retic Count 1.8 % (0.5-2.0) 02/22/18 07:57 PT 10.8 sec (9.0-12.0) 02/22/18 13:00 INR 1.1 (<1.2) 02/22/18 13:00 APTT 22.9 sec (22.0-30.0) 02/18/18 21:20 Sodium 142 mmol/L (137-145) 02/22/18 07:57 Potassium 4.5 mmol/L (3.5-5.1) 02/22/18 07:57 Chloride 107 mmol/L (98-107) 02/22/18 07:57 Carbon Dioxide 25 mmol/L (22-30) 02/22/18 07:57 Anion Gap 10 mmol/L 02/22/18 07:57 BUN 17 mg/dL (7-17) 02/22/18 07:57 Creatinine 0.88 mg/dL (0.52-1.04) 02/22/18 07:57 Est GFR (CKD-EPI)AfAm 77 (>60 ml/min/1.73 sqM) 02/22/18 07:57 Est GFR (CKD-EPI)NonAf 67 (>60 ml/min/1.73 sqM) 02/22/18 07:57 Glucose 144 mg/dL (74-99) H 02/22/18 07:57 POC Glucose (mg/dL) 173 mg/dL (75-99) H 02/22/18 20:39 POC Glu [employer] Operator ID Dora Waters 02/22/18 20:[address] Glu mg/dL 171 02/19/18 08:09 Hemoglobin A1c 7.6 % (4.0-6.0) H 02/19/18 08:09 Plasma Lactic Acid Conrad 1.3 mmol/L (0.7-2.0) 02/18/18 21:20 Calcium 9.1 mg/dL (8.4-10.2) 02/22/18 07:57 Total Bilirubin 0.5 mg/dL (0.2-1.3) 02/18/18 21:20 AST 25 U/L (14-36) 02/18/18 21:20 ALT 19 U/L (9-52) 02/18/18 21:20 Alkaline Phosphatase 105 U/L (38-126) 02/18/18 21:20 C-Reactive Protein 25.3 mg/L (<10.0) H 02/22/18 07:57 Total Protein 7.2 g/dL (6.3-8.2) 02/18/18 21:20 Albumin 4.0 g/dL (3.5-5.0) 02/18/18 21:20 Vancomycin Trough 19.1 ug/mL 02/21/18 07:17 Microbiology 02/18/18 21:20 Blood Blood Culture - Preliminary No Growth after 96 hours 02/19/18 15:30 Toe - Left First Anaerobic Culture - Preliminary 02/19/18 15:30 Toe - Left First Gram Stain - Final 02/19/18 15:30 Toe - Left First Wound Culture - Final Enterococcus faecalis Assessment and Plan (1) Diabetic foot infection Current Visit: Yes Status: Acute Code(s): E11.628 - TYPE 2 DIABETES MELLITUS WITH OTHER SKIN COMPLICATIONS; L08.9 - LOCAL INFECTION OF THE SKIN AND SUBCUTANEOUS TISSUE, UNSP SNOMED Code(s): 621257672 (2) Acute osteomyelitis of left foot Narrative/Plan: 72-year-old female with multiple medical troubles with a history of diabetes has now developed a new ulceration to the distal aspect of the left great toe.imaging studies have confirmed osteomyelitis to the site. At this point in time we'll continue continue with local wound care with Santyl daily Elevate the foot at rest Maximize diabetic care Will plan arrangements for follow-up in the wound healing center after discharge With the osteomyelitis outpatient intravenous antibiotic therapy will be required, with a history of MRSA and now enterococcus will likely be on daptomycin therapy in the outpatient setting. hemoglobin A1c has improved from 9.2 one year ago to 7.6 certainly not ideal Leukocytosis at admission is already improving she has had chronic anemia, iron studies will be requested February 22 2018 patient is having some improvement of her status. Cultures showing evidence of enterococcus. Daptomycin therapy will be utilized for the outpatient setting. Local wound care with Santyl. Follow in the wound healing Center Current Visit: Yes Status: Acute Code(s): M86.172 - OTHER ACUTE OSTEOMYELITIS, LEFT ANKLE AND FOOT SNOMED Code(s): 2072447204239684 (3) Infection due to enterococcus Current Visit: Yes Status: Acute Code(s): A49.1 - STREPTOCOCCAL INFECTION, UNSPECIFIED SITE SNOMED Code(s): 437431707
[2018-02-23 07:07] LABS: Glucose,Whole Blood 175 mg/dL (75-99)
[2018-02-23] MEDS: INSULIN ASPART 100 UNIT/ML 1 ML 10 ML VIAL SQ SCH ×2 (07:51→13:42)
[2018-02-23] MEDS: metFORMIN 500 MG TAB PO SCH (07:52)
[2018-02-23] MEDS: ATENOLOL 25 MG TAB PO SCH (07:52)
[2018-02-23] MEDS: INSULIN NPH/REG INSULIN 70/30 300 UNIT/3 ML VIAL SQ SCH (07:52)
[2018-02-23] MEDS: CITALOPRAM HYDROBROMIDE 20 MG TAB PO SCH (07:53)
[2018-02-23] MEDS: SODIUM CHLORIDE 0.9% 1,000 ML IV SCH (07:53)
[2018-02-23] MEDS: COLLAGENASE 250 UNIT/GM OINTMENT 30 GM TUBE TOPICAL SCH (07:53)
[2018-02-23] MEDS: FENOFIBRATE 160 MG TAB PO SCH (07:53)
[2018-02-23 08:41] LABS: Calcium 8.7 mg/dL (8.4-10.2)
[2018-02-23 08:46] LABS: Potassium 4.6 mmol/L (3.5-5.1)
[2018-02-23 10:52] LABS: INR 1.2 (<1.2); Prothrombin Time 11.3 sec (9.0-12.0)
[2018-02-23] MEDS: DAPTOmycin 500 MG in SODIUM CHLORIDE 0.9% 50 ML IVPB SCH (13:42)
[2018-02-23] MEDS ORDERED: LIDOCAINE 1% INJ 10MG/ML (20 ML MDV) ONE (14:56)
[2018-02-23] MEDS ORDERED: LIDOCAINE 1% INJ 10MG/ML (10 ML MDV) SQ ONE (15:09)
[2018-02-23 15:36] VITALS: BP 124/75; PULSE 70; RESP 16; TEMP 98.2
--- NOTE | 2018-02-23 15:42 | IR ---
PICC LINE PLACEMENT: HISTORY: Infection requiring long-term antibiotic therapy PROCEDURE: Ultrasound and fluoroscopic guidance of PICC line placement. COMPLICATIONS: None ANESTHESIA: 1. 1% Lidocaine locally. FINDINGS/TECHNIQUE: The procedure was explained to the patient. The risks, complications, benefits and alternatives were discussed and any questions were answered. Informed consent was obtained. The patient was placed supine on the fluoroscopic table and prepped and draped in the usual sterile [facility] ion. Utilizing a 21 gauge needle and sonographic and fluoroscopic guidance, access in the vein was achieved and there is placement of a 0.018 guidewire. The vein is patent. A 4-F sheath was placed o dora the guidewire. The guidewire and dilator were removed and a 4-F. PICC line was placed through th e sheath with the tip at the level of the SVC. The sheath was removed, the catheter was flushed and sutured into position. The patient was stable throughout the procedure and remained stable upon disc harge from the Department of Radiology. The vein puncture was patent under ultrasound. A avila scale image was obtained to document patency of the vein punctured. All elements of the maximal barrier technique were utilized. FLUOROSCOPY TIME: 1.3 minutes, one image submitted IMPRESSION: Successful PICC line placement under ultrasound and fluoroscopic guidance.
[2018-02-23 16:46] LABS: Glucose,Whole Blood 156 mg/dL (75-99)
--- NOTE | 2018-02-23 17:13 | P.DS ---
Providers Date of admission: 02/20/18 08:20 Expected date of discharge: 02/23/18 Attending physician: Raúl rCain Consults: 02/19/18 15:34 Consult Physician Routine Consulting Provider: Oren Acharya Consult Reason/Comments: left great toe infection Do you want consulting provider notified?: Already Contacted ID Dr. Rodriguez Primary care physician: [facility] Course: Final Diagnoses: Left foot diabetic ulcers under the great toe and cellulitis of the left lower extremity, wound cultures growing enterococcus faecalis. 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 History of smoking Depression Morbid obesity with BMI 36.8 DVT prophylaxis Hospital course:Patient is a 72-year-old female with a known history of diabetes type 2, hyperlipidemia, diabetic peripheral neuropathy and coronary artery disease came to ER with complaints of left leg swelling and pain. Patient states that she is seen by Dr. Alarcon, predictive maintenance specialist who manages a chronic wound to patient's left great toe. Patient says that she had a blister on the left great toe about 3 weeks ago and skin peeled of and since then wound is not feeling. Patient is being followed by Dr. Alarcon since then. Patient states that since Wednesday she has noticed redness surrounding the great toe. She states that this area is tender and has noticed the redness has spread up to her calf. Denies any injuries or trauma. Does state that she has not helped with that she does have a history of blood clots. Patient states that prior to arrival, she saw Dr. Alarcon for her great toe and he recommended that she come to the emergency department for IV antibiotics. Patient denies any fevers or chills, chest pain shortness of breath, abdominal pain, nausea or vomiting. No complaints of chest pain or shortness of breath. X-ray of the left foot showed there is no convincing radiographic evidence of acute osteoarthritis in the first toe. 02/21/2018 maintained on IV antibiotics of vancomycin and Zosyn as per infectious disease. Wound culture reporting enterococcus group D. Bone scan suggestive of osteomyelitis involving distal left first toe. Denies leg or foot pain, in a patient with neuropathy. States her neuropathy discomfort controlled. Blood sugars controlled. 02/22/2018 continues on IV antibiotics of daptomycin and Zosyn as per infectious disease. Eliquis remains on hold, PICC line placement pending. T- max 100.1. Denies pain. Denies chest pain, palpitations or shortness of breath. 02/23/2018 maintained on IV antibiotics .PICC line placed. Afebrile. Significant clinical improvement. Cleared by infectious disease for discharge. Patient is being discharged home in a stable condition with guarded prognosis. Patient to follow-up and Dr. Rodriguez office for IV therapy daily. Exam GENERAL: no acute distress, awake alert and oriented. CHEST EXAMINATION: Lung bains clear to auscultation and percussion. CARDIAC: Normal S1, S2 with no gallops. No murmurs ABDOMEN: Soft. Bowel sounds normal. No organomegaly. EXT: Left foot dressing clean dry and intact Neurologically No focal deficits noted The impression and plan of care has been dictated as directed. : I performed a history and examination of this patient, discussed the same with the dictator. I agree with the dictator's note ,documented as a scribe. Any additional findings or plans will be noted. Time taken: 35 minutes Patient Condition at Discharge: Stable Plan - Discharge Summary Discharge Rx Participant: No New Discharge Prescriptions: New DAPTOmycin [Daptomycin] 500 mg IV DAILY #42 vial Continue Citalopram Hydrobromide [Citalopram HBr] 60 mg PO QAM Gemfibrozil [Lopid] 600 mg PO BID metFORMIN HCL 1,000 mg PO BID Atorvastatin [Lipitor] 40 mg PO HS Insulin NPH Hum/Reg Insulin Hm [NovoLIN 70-30 100 UNIT/ML VIAL] 66 unit SQ AC -BRKFST Lisinopril 40 mg PO DAILY Atenolol 25 mg PO DAILY Apixaban [Eliquis] 5 mg PO DAILY Oxybutynin Chloride [Ditropan] 5 mg PO HS Discharge Medication List Citalopram Hydrobromide [Citalopram HBr] 60 mg PO QAM 02/21/16 [History] Gemfibrozil [Lopid] 600 mg PO BID 10/15/16 [History] metFORMIN HCL 1,000 mg PO BID 10/15/16 [History] Atorvastatin [Lipitor] 40 mg PO HS 03/18/17 [History] Insulin NPH Hum/Reg Insulin Hm [NovoLIN 70-30 100 UNIT/ML VIAL] 66 unit SQ AC- BRKFST 05/06/17 [History] Lisinopril 40 mg PO DAILY 05/06/17 [History] Atenolol 25 mg PO DAILY 09/30/17 [History] Apixaban [Eliquis] 5 mg PO DAILY 02/18/18 [History] Oxybutynin Chloride [Ditropan] 5 mg PO HS 02/19/18 [History] DAPTOmycin [Daptomycin] 500 mg IV DAILY #42 vial 02/22/18 [Rx] Follow up Appointment(s)/Referral(s): Shon Zhang MD [Primary Care Provider] - 03/08/18 1:20 pm Raffy Rodriguez MD [STAFF PHYSICIAN] - (going to Dr. Rodriguez office for IV Infusions. ) [facility], [NON-STAFF] - Ambulatory/Diagnostic Orders: Complete Blood Count w/diff [LAB.AMB] Time Frame: 3 Days, Location: None Selected Patient Instructions/Handouts: Type 2 Diabetes in Adults (DC) Activity/Diet/Wound Care/Special Instructions: For IV antibiotic infusion, please come to Dr. Rodriguez office any time tomorrow in between the hours of 2:00PM and 4:00PM for your infusions. Thank you Diet: Consistent carb Activity: Limited until follow up Discharge Disposition: HOME WITH HOME HEALTH SERVICES
== END 2018-02-23 16:06 | disposition home health service (06) | DRG 638 ==
LOC: EC 17:32 → 4MS4W 21:47 → OBSVTOIN 02-20 08:20
PROVIDERS: ADMIT Hospitalist; ATTEND Hospitalist
PROC: 02HV33Z Insertion of Infusion Device into Superior Vena Cava, Percutaneous Approach (ICD-10-PCS; principal; 2018-02-21)
DX: E11.621 Type 2 diabetes mellitus with foot ulcer (principal); L03.116 Cellulitis of left lower limb; M86.172 Other acute osteomyelitis, left ankle and foot; B95.2 Enterococcus as the cause of diseases classified elsewhere; E11.42 Type 2 diabetes mellitus with diabetic polyneuropathy; E11.51 Type 2 diabetes mellitus with diabetic peripheral angiopathy without gangrene; E11.628 Type 2 diabetes mellitus with other skin complications; E66.01 Morbid (severe) obesity due to excess calories; E78.5 Hyperlipidemia, unspecified; E87.5 Hyperkalemia; F32.9 Major depressive disorder, single episode, unspecified; I25.10 Atherosclerotic heart disease of native coronary artery without angina pectoris; I25.2 Old myocardial infarction; K59.00 Constipation, unspecified; Z68.36 Body mass index [BMI] 36.0-36.9, adult; E11.69 Type 2 diabetes mellitus with other specified complication; Z79.4 Long term (current) use of insulin; Z79.01 Long term (current) use of anticoagulants; Z79.2 Long term (current) use of antibiotics; Z79.899 Other long term (current) drug therapy; Z86.14 Personal history of Methicillin resistant Staphylococcus aureus infection; Z86.718 Personal history of other venous thrombosis and embolism; Z87.891 Personal history of nicotine dependence; Z89.411 Acquired absence of right great toe; Z89.422 Acquired absence of other left toe(s); Z89.421 Acquired absence of other right toe(s); Z96.652 Presence of left artificial knee joint; Z98.42 Cataract extraction status, left eye; Z98.41 Cataract extraction status, right eye; L97.529 Non-pressure chronic ulcer of other part of left foot with unspecified severity
CPT/HCPCS: 36415; 36569; 76937; 77001; 78315; 80048; 80053; 80202; 82728; 83036; 83540; 83550; 83605; 85025; 85045; 85610; 85652; 85730; 86140; 87040; 87070; 87075; 87077; 87186; 87205; 96365; 99284

== ENCOUNTER → 2018-03-24 | Outpatient (CLI) | payer MEDICARE ==
[2018-03-24 13:34] LABS: Basophils % (A) 1 %; Eosinophils # (A) 0.2 k/uL (0-0.7); Eosinophils % (A) 2 %; HCT 33.7 % (34.0-46.0); HGB 10.4 gm/dL (11.4-16.0); Hypochromasia Moderate; Lymphocytes # (A) 2.1 k/uL (1.0-4.8); Lymphocytes % (A) 28 %; MCH 26.4 pg (25.0-35.0); MCHC 30.9 g/dL (31.0-37.0); MCV 85.4 fL (80.0-100.0); Mean Platelet Volume 8.5; Monocytes # (A) 0.4 k/uL (0-1.0); Monocytes % (A) 6 %; Neutrophils # (A) 4.4 k/uL (1.3-7.7); Neutrophils % (A) 61 %; Platelet Count 209 k/uL (150-450); RBC 3.95 m/uL (3.80-5.40); RDW 14.4 % (11.5-15.5); WBC 7.2 k/uL (3.8-10.6)
[2018-03-24 13:43] LABS: INR 1.1 (<1.2); Partial Thromboplastin Time 26.5 sec (22.0-30.0); Prothrombin Time 10.3 sec (9.0-12.0)
[2018-03-24 13:57] LABS: Albumin 3.7 g/dL (3.5-5.0); Calcium 9.5 mg/dL (8.4-10.2); Total Bilirubin 0.4 mg/dL (0.2-1.3); Total Protein 6.7 g/dL (6.3-8.2)
[2018-03-24 14:35] LABS: Appearance,Urine Clear (Clear); Bacteria,Urine Rare /hpf; Bilirubin,Urine Negative (Negative); Blood,Urine Negative (Negative); Color,Urine Yellow; Glucose,Urine (UA) Negative (Negative); Ketones,Urine Negative (Negative); Leukocyte Esterase,Urine Moderate (Negative); Mucus,Urine Rare /hpf; Nitrite,Urine Positive (Negative); Protein,Urine Negative (Negative); RBC,Urine 1 /hpf (0-5); Specific Gravity,Urine 1.012 (1.001-1.035); Squamous Epithelial Cell,Urine 3 /hpf (0-4); Urobilinogen,Urine <2.0 mg/dL (<2.0); WBC,Urine 6 /hpf (0-5)
== END | disposition home or self-care (01) ==
LOC: LABPAT 12:30
PROVIDERS: ATTEND Family Medicine
DX: Z01.818 Encounter for other preprocedural examination (principal); Z01.812 Encounter for preprocedural laboratory examination
CPT/HCPCS: 36415; 80053; 81001; 85025; 85610; 85730; 87077; 87086; 87186; 93005

== ENCOUNTER 2018-04-01 13:25 | Emergency (ER) | payer MEDICARE ==
[2018-04-01 13:34] LABS: Glucose,Whole Blood 104 mg/dL (75-99)
[2018-04-01 13:36] VITALS: TEMP 97.1
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
[2018-04-01 14:03] LABS: Basophils % (A) 1 %; Eosinophils # (A) 0.1 k/uL (0-0.7); Eosinophils % (A) 1 %; HGB 10.3 gm/dL (11.4-16.0); Hypochromasia Slight; Lymphocytes # (A) 1.4 k/uL (1.0-4.8); Lymphocytes % (A) 22 %; MCH 26.6 pg (25.0-35.0); MCHC 31.2 g/dL (31.0-37.0); Mean Platelet Volume 8.3; Monocytes # (A) 0.4 k/uL (0-1.0); Monocytes % (A) 6 %; Neutrophils # (A) 4.2 k/uL (1.3-7.7); Neutrophils % (A) 68 %; Platelet Count 224 k/uL (150-450); RBC 3.88 m/uL (3.80-5.40); RDW 14.5 % (11.5-15.5); WBC 6.2 k/uL (3.8-10.6)
[2018-04-01 14:23] LABS: Albumin 3.5 g/dL (3.5-5.0); Calcium 9.1 mg/dL (8.4-10.2); Potassium 3.9 mmol/L (3.5-5.1); Total Bilirubin 0.3 mg/dL (0.2-1.3); Total Protein 6.5 g/dL (6.3-8.2)
[2018-04-01 14:48] VITALS: BP 128/59; PULSE 63; RESP 18
[2018-04-01 14:50] LABS: Glucose,Whole Blood 100 mg/dL (75-99)
[2018-04-01 15:37] LABS: Glucose,Whole Blood 153 mg/dL (75-99)
== END 2018-04-01 15:52 | disposition home or self-care (01) ==
LOC: EC 13:25
DX: E11.649 Type 2 diabetes mellitus with hypoglycemia without coma (principal); I25.10 Atherosclerotic heart disease of native coronary artery without angina pectoris; E78.5 Hyperlipidemia, unspecified; I25.2 Old myocardial infarction; E11.40 Type 2 diabetes mellitus with diabetic neuropathy, unspecified; F32.9 Major depressive disorder, single episode, unspecified; Z86.14 Personal history of Methicillin resistant Staphylococcus aureus infection; Z87.891 Personal history of nicotine dependence; Z79.4 Long term (current) use of insulin; Z79.01 Long term (current) use of anticoagulants; Z79.899 Other long term (current) drug therapy; Z88.1 Allergy status to other antibiotic agents; Z96.652 Presence of left artificial knee joint
CPT/HCPCS: 36415; 80053; 85025; 99285

== ENCOUNTER 2018-04-08 05:36 | Day surgery (SDC) | payer MEDICARE ==
[2018-03-30 17:58] VITALS: BMI 37.5
[~2018-04-08 05:36] MED LIST changes: -HYDROmorphone 1 MG/ML 1 ML SYRINGE IVP PRN; -LACTATED RINGERS 1,000 ML IV SCH; -LIDOCAINE 1% 20 ML VIAL (10MG/ML) FOR IV START INTRADERMA PRN; -ONDANSETRON 4 MG/2 ML VIAL IVP ONE; -ceFAZolin 2 GM in SODIUM CHLORIDE 0.9% 100 ML IVPB ONE; +ceFAZolin IN SWFI 2 GM/20 ML SYRINGE IVP ONE
[2018-04-08] MEDS ORDERED: HYDROmorphone 0.5 MG/0.5 ML SYRINGE IVP PRN (06:03)
[2018-04-08] MEDS ORDERED: DEXAMETHASONE SOD PHOSPHATE 10 MG/ML 1 ML VIAL IV ONE (06:03)
[2018-04-08] MEDS ORDERED: LACTATED RINGERS 1,000 ML IV SCH (06:03)
[2018-04-08] MEDS ORDERED: ONDANSETRON 4 MG/2 ML VIAL IVP ONE (06:03)
[2018-04-08] MEDS ORDERED: MIDAZOLAM 2 MG/2 ML VIAL IV PRN (06:03)
[2018-04-08] MEDS ORDERED: SCOPOLAMINE 1.5MG/72HR PATCH TRANSDERM ONE (06:03)
[2018-04-08 06:27] VITALS: TEMP 97.5
[2018-04-08 06:51] LABS: Glucose,Whole Blood 88 mg/dL (75-99)
[2018-04-08] MEDS ORDERED: DAPTOmycin 500 MG in SODIUM CHLORIDE 0.9% 50 ML IVPB ONE (06:57)
[2018-04-08] MEDS ORDERED: fentaNYL (PF) 50 MCG/ML 2 ML AMP ONE (07:00)
[2018-04-08] MEDS ORDERED: PROPOFOL 10 MG/ML 20 ML VIAL IV ONE (07:00)
[2018-04-08] MEDS ORDERED: ePHEDrine SULFATE/0.9% NACL/PF 50 MG/5 ML SYRINGE IV ONE (07:00)
[2018-04-08] MEDS ORDERED: MIDAZOLAM 2 MG/2 ML VIAL ONE (07:00)
[2018-04-08] MEDS ORDERED: LIDOCAINE 2% (PF) 20 MG/ML 10 ML AMP INTRAARTIC ONE (07:19)
[2018-04-08] MEDS ORDERED: ROPIVACAINE 5 MG/ML 30 ML VIAL MISCELLANE ONE ×2 (07:35→07:39)
[2018-04-08] MEDS ORDERED: BACITRACIN 500 UNIT/GM OINT 28.4 GM TUBE TOPICAL ONE (07:53)
[2018-04-08 08:11] LABS: Glucose,Whole Blood 111 mg/dL (75-99)
--- NOTE | 2018-04-08 08:23 | P.OP ---
Date of Procedure: 04/08/18 Preoperative Diagnosis: Osteomyelitis left hallux Postoperative Diagnosis: Osteomyelitis left hallux Procedure(s) Performed: Distal Syme's amputation left hallux Anesthesia: local Surgeon: Richy Alarcon Estimated Blood Loss (ml): 10 Pathology: none sent Condition: stable Disposition: same day Indications for Procedure: Osteomyelitis left hallux Operative Findings: Consistent with clinical findings Description of Procedure: Patient presented to the OR 2 hours prior to foot surgery. Patient was stable. Patient's past medical history was reviewed and no counter indication to procedure was found. To the OR and placed in the OR table in supine position. The left foot was then prepped and draped in usual aseptic manner. The left hallux was then anesthetized using 3 mL of 2% Xylocaine plain. A digital tourniquet was applied. A fishmouth incision was made approximately 3 cm in length incorporating the distal plantar ulcer of the left hallux. Using a 15 blade the incision was carried down through superficial and deep fascia down to osseous tissue. The soft tissue was removed en bloc removing all necrotic tissue within the ulcerative area. Soft tissue was then elevated around the distal aspect of the distal phalanx on its dorsal medial lateral and plantar surfaces. Using a sagittal saw approximately one half of the distal phalanx was removed and retained for pathological evaluation. The surgical area was inspected and adequate surgical reduction deformity was noted. The wound was copiously lavaged with sterile saline solution. Superficial and deep fascial planes were reapproximated with 3-0 Vicryl simper up to sutures. Skin edges were repaired with 4-0 nylon simple interrupted sutures. The digital tourniquet was removed and adequate vascular return was noted to the left digit. The wound was then dressed in a mildly compressive manner using Triple Antibiotic Telfa 4 x 4's and Kerlix. An Hunter wrap was secured lightly over the wound to protect the outer dressing. The patient was brought to recovery room from the OR having tolerated procedure and anesthesia well. Patient was monitored until stable and discharged with postop shoe weightbearing. Patient was given postoperative instructions. She is to return to clinic as instructed.
[2018-04-08 09:35] VITALS: PULSE 68
[2018-04-08 10:05] VITALS: BP 113/59; RESP 15
== END 2018-04-08 10:30 | disposition home or self-care (01) ==
LOC: OR 05:36
PROVIDERS: ATTEND Podiatrist
DX: E11.69 Type 2 diabetes mellitus with other specified complication (principal); M86.172 Other acute osteomyelitis, left ankle and foot; E11.621 Type 2 diabetes mellitus with foot ulcer; L97.522 Non-pressure chronic ulcer of other part of left foot with fat layer exposed; E11.40 Type 2 diabetes mellitus with diabetic neuropathy, unspecified; D64.9 Anemia, unspecified; I11.0 Hypertensive heart disease with heart failure; I50.22 Chronic systolic (congestive) heart failure; I25.5 Ischemic cardiomyopathy; Z87.891 Personal history of nicotine dependence; E78.2 Mixed hyperlipidemia; N39.41 Urge incontinence; Z79.2 Long term (current) use of antibiotics; Z79.01 Long term (current) use of anticoagulants; Z79.4 Long term (current) use of insulin; Z79.899 Other long term (current) drug therapy; E66.01 Morbid (severe) obesity due to excess calories; Z68.37 Body mass index [BMI] 37.0-37.9, adult
CPT/HCPCS: 88305; 88311; 87070; 87205; 87075; 87077; 87186; 28124; J2250; J2001; J3010; J0878; J2795; J2704; J0690

== ENCOUNTER → 2018-04-20 | Outpatient (CLI) | payer MEDICARE ==
--- NOTE | 2018-04-20 09:26 | CT ---
EXAMINATION TYPE: CT brain wo con DATE OF EXAM: 04/20/2018 COMPARISON: 04/19/2017 HISTORY: 72-year-old female follow-up to 04/19/17 CT LT frontal meningioma. TECHNIQUE: Examination was done in axial plane without intravenous contrast. Coronal and sagittal r econstructions performed. CT DLP: 1123 mGycm Automated exposure control for dose reduction was used. FINDINGS: A predominantly calcified extra-axial lesion along the left frontal convexity measures 1.5 cm, unchan ged from 04/19/2017. Abutment of adjacent frontal lobe gyri without significant mass effect or midlin e shift. No extra-axial fluid collection. No hydrocephalus. No effacement of basal subarachnoid ciste rns. Morris-white matter differentiation is maintained. No evidence for acute intracranial hemorrhage o r acute ischemic change. Rightward nasal septal deviation. Similar small amount of trapped fluid in the inferior right mastoid air cells. Visualized orbits and globes are clear. Benign bilateral basal ganglionic calcifications. Mild patchy white matter hypodensities suggest eng ges of chronic small vessel ischemic disease. IMPRESSION: 1. Stable 1.5 cm calcified meningioma along the left frontal convexity. 2. No acute intracranial abnormality seen. 3. Small amount of trapped fluid in the inferior right mastoid air cells. Correlate for any mastoid p ain to exclude mastoiditis.
== END | disposition home or self-care (01) ==
LOC: RADCTMAIN 08:48
PROVIDERS: ATTEND Psychiatry & Neurology Neurology
DX: D32.9 Benign neoplasm of meninges, unspecified (principal)
CPT/HCPCS: 70450

== ENCOUNTER → 2018-08-18 | Outpatient (CLI) | payer MEDICARE | END | disposition home or self-care (01) | LOC: RADUSWWP 09:49 | PROVIDERS: ATTEND Family Medicine | DX: E11.52 Type 2 diabetes mellitus with diabetic peripheral angiopathy with gangrene (principal) | CPT/HCPCS: 93923 ==

== ENCOUNTER → 2018-10-17 | Outpatient (CLI) | payer MEDICARE ==
--- NOTE | 2018-10-18 11:40 | MM ---
Reason for exam: screening (asymptomatic). Last mammogram was performed 1 year and 10 months ago. History: Patient is postmenopausal. Physical Findings: A clinical breast exam by your physician is recommended on an annual basis and results should be correlated with mammographic findings. MG 3D Screening Mammo W/Cad Bilateral CC and MLO view(s) were taken. Prior study comparison: December 14, 2016, bilateral MG 3d screening mammo w/cad. August 05, 2015, bilateral MG screening mammo w CAD. There are scattered fibroglandular densities. Benign appearing bilateral calcifications. No suspicious abnormality. No significant changes when compared with prior studies. ASSESSMENT: Benign, BI-RAD 2 RECOMMENDATION: Routine screening mammogram of both breasts in 1 year.
== END ==
LOC: RADMAMWWP 09:11
PROVIDERS: ATTEND Family Medicine
DX: Z12.31 Encounter for screening mammogram for malignant neoplasm of breast (principal)
CPT/HCPCS: 77063; 77067

== ENCOUNTER 2018-11-17 06:49 | Day surgery (SDC) | payer MEDICARE ==
[2018-11-16 11:22] VITALS: BMI 37.5
[~2018-11-17 06:49] MED LIST changes: +LACTATED RINGERS 1,000 ML IV SCH; +LIDOCAINE 1% 20 ML VIAL (10MG/ML) FOR IV START INTRADERMA PRN; -ceFAZolin IN SWFI 2 GM/20 ML SYRINGE IVP ONE
[2018-11-17 07:19] VITALS: TEMP 97.6
[2018-11-17 07:22] LABS: Glucose,Whole Blood 194 mg/dL (75-99)
[2018-11-17] MEDS ORDERED: PROPOFOL 10 MG/ML 20 ML VIAL IV ONE (08:03)
--- NOTE | 2018-11-17 08:40 | P.PCN ---
Date of Procedure: 11/17/18 Procedure(s) Performed: Procedure: Total colonoscopy. Preoperative diagnosis: Screening for neoplasia, patient has history of polyps. Postoperative diagnosis: Sigmoid diverticulosis with no evidence of acute diverticulitis, strictures, polyps or cancer. Preparation: HalfLytely prep. Sedation: Was provided by anesthesia. Brief clinical history: The patient is 73-year-old female who is scheduled for this evaluation for screening for neoplasia because of history of polyps. Her last exam was in 2012. The patient has no abdominal complaints, bleeding or anemia. Procedure: With the patient on her left lateral decubitus position and after informed consent and adequate sedation, the perianal area was inspected and it did not show any fissures or fistulas. There were no masses felt on digital rectal examination. The Olympus CFH 190L video colonoscope was then inserted in the rectum in the usual fashion and advanced to the cecum. Few diverticular orifices were noted scattered in the sigmoid with no evidence of acute diverticulitis or strictures. The mucosa appeared healthy. No polyps or tumors were seen. I retroflexed the endoscope in the rectum before the endoscope was withdrawn. The patient tolerated the procedure well. Plan: The patient was reassured. Discussed dietary measures. She will follow- up with you as planned and I recommended repeat exam in 5 years.
[2018-11-17 08:41] VITALS: BP 117/71; PULSE 60; RESP 16
[2018-11-17 08:46] LABS: Glucose,Whole Blood 195 mg/dL (75-99)
== END 2018-11-17 09:37 | disposition home or self-care (01) ==
LOC: ORWHC2ENDO 06:49
DX: Z12.11 Encounter for screening for malignant neoplasm of colon (principal); Z86.010 Personal history of colon polyps; K57.30 Diverticulosis of large intestine without perforation or abscess without bleeding; I25.10 Atherosclerotic heart disease of native coronary artery without angina pectoris; I10 Essential (primary) hypertension; E78.5 Hyperlipidemia, unspecified; I25.2 Old myocardial infarction; E11.40 Type 2 diabetes mellitus with diabetic neuropathy, unspecified; F32.9 Major depressive disorder, single episode, unspecified; Z79.4 Long term (current) use of insulin; Z79.899 Other long term (current) drug therapy
CPT/HCPCS: J2704; G0105

== ENCOUNTER 2018-12-30 12:13 | Inpatient (IN) | payer MEDICARE ==
[2018-12-30] MEDS ORDERED: VANCOMYCIN IV PER PHARMACY 1 EACH MISC MISCELLANE PRN (13:19)
[2018-12-30] MEDS ORDERED: PIPERACILLIN-TAZOBACTAM 3.375 GM in SODIUM CHLORIDE 0.9% 100 ML IVPB STA (13:19)
[2018-12-30] MEDS ORDERED: SODIUM CHLORIDE 0.9% 1,000 ML IV ONE (13:20)
[2018-12-30] MEDS ORDERED: VANCOMYCIN 1,500 MG in SODIUM CHLORIDE 0.9% 250 ML IVPB STA (13:24)
[2018-12-30] MEDS ORDERED: NALOXONE 0.4 MG/ML 1 ML VIAL IV PRN (14:19)
[2018-12-30] MEDS ORDERED: IBUPROFEN 400 MG TAB PO PRN (14:19)
[2018-12-30] MEDS ORDERED: ACETAMINOPHEN TAB 325 MG TAB PO PRN (14:19)
[2018-12-30] MEDS ORDERED: MORPHINE SULFATE 4 MG/ML SYRINGE IV PRN (14:19)
[2018-12-30] MEDS ORDERED: LORazepam 2 MG/ML INJ IV PRN (14:19)
[2018-12-30] MEDS ORDERED: KETOROLAC 30 MG/ML 1 ML VIAL IVP PRN ×2 (14:19→14:37)
[2018-12-30] MEDS ORDERED: ONDANSETRON 4 MG/2 ML VIAL IVP PRN (14:19)
--- NOTE | 2018-12-30 14:19 | ED ---
General Adult HPI - General Chief complaint: Recheck/Abnormal Lab/Rx Stated complaint: Great toe issues Time Seen by Provider: 12/30/18 12:41 Source: patient, RN notes reviewed, old records reviewed Mode of arrival: wheelchair Limitations: physical limitation - History of Present Illness Initial comments: Patient is a 73-year-old female presents today for evaluation for right great toe infection. Patient reports she's had a chronic diabetic wound. Patient states that she went to wound care clinic today Dr. Alarcon. He removed a great portion of the distal portion of the toe. Patient was sent in for failure of outpatient treatment concern for approximately my light is. Patient reports she's had no fevers or chills. She has had previous toe amputations. Patient states that she is currently on oral tetracycline. She reports that her wound culture did grow positive MRSA. - Related Data Home Medications Medication Instructions Recorded Confirmed Citalopram Hydrobromide 60 mg PO QAM 02/21/16 11/17/18 [Citalopram HBr] Gemfibrozil [Lopid] 600 mg PO BID 10/15/16 11/17/18 metFORMIN HCL 1,000 mg PO BID 10/15/16 11/17/18 Atorvastatin [Lipitor] 40 mg PO HS 03/18/17 11/17/18 Insulin NPH Hum/Reg Insulin Hm 50 unit SQ AC-BRKFST 05/06/17 11/17/18 [NovoLIN 70-30 100 UNIT/ML VIAL] Atenolol 25 mg PO DAILY 09/30/17 11/17/18 Apixaban [Eliquis] 5 mg PO DAILY 02/18/18 11/17/18 Oxybutynin Chloride [Ditropan] 5 mg PO HS 02/19/18 11/17/18 Insulin NPH Hum/Reg Insulin Hm 25 unit SQ AC-LUNCH 03/30/18 11/17/18 [Novolin 70-30 100 Unit/ml Vial] Insulin NPH Hum/Reg Insulin Hm 50 unit SQ AC-SUPPER 03/30/18 11/17/18 [Novolin 70-30 100 Unit/ml Vial] Cholecalciferol [Vitamin D3 (25 1,000 unit PO DAILY 11/16/18 11/17/18 Mcg = 1000 Iu)] Lisinopril [Prinivil] 10 mg PO DAILY 11/16/18 11/17/18 Allergies Allergy/AdvReac Type Severity Reaction Status Date / Time ertapenem [From Invanz] Allergy Hallucinati Verified 12/30/18 12:40 ons Review of Systems ROS Statement: Those systems with pertinent positive or pertinent negative responses have been documented in the HPI. ROS Other: All systems not noted in ROS Statement are negative. Past Medical History Past Medical History: Coronary Artery Disease (CAD), Diabetes Mellitus, Hyperlipidemia, Hypertension, Myocardial Infarction ([place]) Additional Past Medical History / Comment(s): DIABETIC NEUROPATHY, HX OF CELLULITIS LEFT LEG , rt great toe wound Last Myocardial Infarction Date:: UNSURE History of Any Multi-Drug Resistant Organisms: MRSA Date of last positivie culture/infection: 12/23/18 MDRO Source:: TOE Past Surgical History: Section, Cholecystectomy, Hernia Repair, Joint Replacement Additional Past Surgical History / Comment(s): IGNACIA cataract, LEFT SMALL toe amputation, LEFT KNEE REPLACEMENT, HX OF SKIN GRAFTS. amputation left 3rd toe and pinky toe. rt foot 3rd toe amputation , COLONOSCOPY Past Anesthesia/Blood Transfusion Reactions: No Reported Reaction Past Psychological History: Depression Smoking Status: Former smoker Past Alcohol Use History: None Reported Past Drug Use History: None Reported - Past Family History Mother Family Medical History: Cancer Father Family Medical History: Cancer General Exam - General Exam Comments Initial Comments: This is a 73-year-old female. Alert and oriented 3. No significant distress. Limitations: physical limitation General appearance: alert, in no apparent distress Head exam: Present: atraumatic, normocephalic, normal inspection Eye exam: Present: normal appearance, PERRL, EOMI. Absent: scleral icterus, conjunctival injection, periorbital swelling ENT exam: Present: normal exam, mucous membranes moist Neck exam: Present: normal inspection. Absent: tenderness, meningismus, lymphadenopathy Respiratory exam: Present: normal lung sounds bilaterally. Absent: respiratory distress, wheezes, rales, rhonchi, stridor Cardiovascular Exam: Present: regular rate, normal rhythm, normal heart sounds. Absent: systolic murmur, diastolic murmur, rubs, gallop, clicks GI/Abdominal exam: Present: soft, normal bowel sounds. Absent: distended, tenderness, guarding, rebound, rigid Extremities exam: Present: normal inspection, full ROM, normal capillary refill, other (Right great toe has evidence of erythema. I removed the dressing and was put on a bleeding noted from the recent tissue removal from the r total toe. Dorsalis pedis pulse palpable.). Absent: tenderness, pedal edema, joint swelling, calf tenderness Back exam: Present: normal inspection Neurological exam: Present: alert, oriented X3, CN II-XII intact Psychiatric exam: Present: normal affect, normal mood Course Vital Signs 12/30/18 12/30/18 12:37 12:51 Temperature 97.1 F L Pulse Rate 64 62 Respiratory 18 16 Rate Blood Pressure 122/56 O2 Sat by Pulse 99 100 Oximetry Medical Decision Making - Medical Decision Making Patient is a 3-year-old female sent in for admission for ostial meds of the right great toe. Saw Dr. Alarcon today and had outpatient clinic. Had good distal portion of the toe removed and debrided. Patient was currently an oral tetracycline. At this time Patient will be admitted for further palpation, ostial to the right great toe. Consults to Dr. Mccarthy and Dr. Rodriguez. Patient's case discussed with Dr. Hernandez who discussed with Dr. Helm. She was started on take a medicine and Zosyn. Disposition Clinical Impression: Osteomyelitis, Diabetic neuropathy, Diabetic ulcer of right foot associated with secondary diabetes mellitus Disposition: ADMITTED IP TO THIS HOSP Is patient prescribed a controlled substance at d/c from ED?: No Referrals: Shon Zhang MD [Primary Care Provider] - 1-2 days Time of Disposition: 14:19
[2018-12-30 14:49] LABS: Basophils # (A) 0.1 k/uL (0-0.2); Basophils % (A) 1 %; Eosinophils # (A) 0.2 k/uL (0-0.7); Eosinophils % (A) 2 %; HCT 32.2 % (34.0-46.0); HGB 9.8 gm/dL (11.4-16.0); Hypochromasia Slight; Lymphocytes # (A) 2.5 k/uL (1.0-4.8); Lymphocytes % (A) 35 %; MCH 25.9 pg (25.0-35.0); MCHC 30.5 g/dL (31.0-37.0); MCV 85.1 fL (80.0-100.0); Mean Platelet Volume 8.6; Monocytes # (A) 0.4 k/uL (0-1.0); Monocytes % (A) 6 %; Neutrophils # (A) 3.9 k/uL (1.3-7.7); Neutrophils % (A) 54 %; Platelet Count 307 k/uL (150-450); RBC 3.79 m/uL (3.80-5.40); RDW 14.6 % (11.5-15.5); WBC 7.2 k/uL (3.8-10.6)
[2018-12-30 15:05] LABS: Albumin 3.8 g/dL (3.5-5.0); Potassium 5.2 mmol/L (3.5-5.1); Total Bilirubin 0.4 mg/dL (0.2-1.3); Total Protein 7.1 g/dL (6.3-8.2)
--- NOTE | 2018-12-30 15:36 | XR ---
EXAMINATION TYPE: XR foot complete RT DATE OF EXAM: 12/30/2018 COMPARISON: 10/01/2017 HISTORY: 73-year-old female pain, great toe ulcer TECHNIQUE: 3 views FINDINGS: There is a large ulcer and soft tissue loss involving the distal aspect of the great toe. Underlying bony destruction of nearly the entire first distal phalanx. The base remains. Chronic deformity and t runcation of the second and third toes. IMPRESSION: Large soft tissue ulcer of the great toe and underlying osteomyelitis of the first distal phalanx wit h extensive osseous destruction and only the base of the phalanx remaining.
[2018-12-30 18:00] LABS: Glucose,Whole Blood 61 mg/dL (75-99)
[2018-12-30 18:21] VITALS: BMI 36.3
[2018-12-30 18:26] LABS: Glucose,Whole Blood 73 mg/dL (75-99)
[2018-12-30] MEDS: SODIUM CHLORIDE 0.9% 1,000 ML IV SCH (18:36)
[2018-12-30] MEDS ORDERED: VANCOMYCIN 1,500 MG in SODIUM CHLORIDE 0.9% 250 ML IVPB ONE (19:00)
[2018-12-30 20:39] LABS: Glucose,Whole Blood 189 mg/dL (75-99)
[2018-12-30] MEDS ORDERED: INSULIN ASPART (NovoLOG) 100 UNIT/ML VIAL SQ SCH (21:00)
[2018-12-30] MEDS: ATORVASTATIN 40 MG TAB PO SCH (21:15)
[2018-12-30] MEDS: OXYBUTYNIN CHLORIDE 5 MG TAB PO SCH (21:15)
[2018-12-30] MEDS: INSULIN ASPART (NovoLOG) 100 UNIT/ML VIAL SQ SCH (21:20)
[2018-12-31] MEDS: SODIUM CHLORIDE 0.9% 1,000 ML IV SCH ×3 (00:29→21:14)
[2018-12-31 07:15] LABS: Glucose,Whole Blood 178 mg/dL (75-99)
[2018-12-31] MEDS ORDERED: INSULN ASP PRT/INSULIN ASPART 100 UNIT/ML 10 ML VIAL SQ SCH ×3 (07:30→17:30)
--- NOTE | 2018-12-31 07:54 | P.GSCN ---
History of Present Illness History of present illness: 73-year-old white female, patient went to the wound clinic and she had a right foot big toe infection the wound is open patient has been on IV antibiotic for MRSA the right big toe has a open wound bone is exposed plan is to partial right big toe amputation Past history patient had a right foot third toe patient and in the past Medical history history of diabetes coronary artery disease Neck examination neck is supple no bruit appreciated Chest clear first and second sound normal Abdomen soft nontender vascular examination femorals are 1+ posterior tibial just would not palpable right foot big toe has a open wound involving the distal phalanx with bone exposed Plan is right big toe amputation risk and complication bleeding infection thrombosis has been discussed Past Medical History Past Medical History: Coronary Artery Disease (CAD), Diabetes Mellitus, Hyperlipidemia, Hypertension, Myocardial Infarction ([place]) Additional Past Medical History / Comment(s): DIABETIC NEUROPATHY, HX OF CELLULITIS LEFT LEG , rt great toe wound Last Myocardial Infarction Date:: UNSURE History of Any Multi-Drug Resistant Organisms: MRSA Year Discovered:: 12/23/18 MDRO Source:: TOE Past Surgical History: Adenoidectomy, Appendectomy, Section, Cholecystectomy, Hernia Repair, Joint Replacement, Tonsillectomy Additional Past Surgical History / Comment(s): IGNACIA cataract, LEFT SMALL toe amputation, LEFT KNEE REPLACEMENT, HX OF SKIN GRAFTS. amputation left 3rd toe and pinky toe. rt foot 3rd toe amputation , COLONOSCOPY Past Anesthesia/Blood Transfusion Reactions: No Reported Reaction Past Psychological History: Depression Additional Psychological History / Comment(s): QUIT SMOKING 40 YRS AGO, SMOKED LESS THAN 1PPD FOR LESS THAN 10 YRS. Lives independently. No alcohol use. 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 No experience. No international travel. Has a pet dog in the home care for by her daughter Smoking Status: Former smoker Past Alcohol Use History: None Reported Additional Past Alcohol Use History / Comment(s): QUIT SMOKING 40 YRS AGO, SMOKED LESS THAN 1PPD FOR LESS THAN 10 YRS Past Drug Use History: None Reported - Past Family History Mother Family Medical History: Cancer Father Family Medical History: Cancer Medications and Allergies Home Medications Medication Instructions Recorded Confirmed Type Citalopram Hydrobromide 60 mg PO QAM 02/21/16 12/30/18 History [Citalopram HBr] Gemfibrozil [Lopid] 600 mg PO BID 10/15/16 12/30/18 History metFORMIN HCL 1,000 mg PO BID 10/15/16 12/30/18 History Atorvastatin [Lipitor] 40 mg PO HS 03/18/17 12/30/18 History Insulin NPH Hum/Reg Insulin Hm 50 unit SQ AC-BRKFST 05/06/17 12/30/18 History [NovoLIN 70-30 100 UNIT/ML VIAL] Atenolol 25 mg PO DAILY 09/30/17 12/30/18 History Apixaban [Eliquis] 5 mg PO DAILY 02/18/18 12/30/18 History Oxybutynin Chloride [Ditropan] 5 mg PO HS 02/19/18 12/30/18 History Insulin NPH Hum/Reg Insulin Hm 25 unit SQ AC-LUNCH 03/30/18 12/30/18 History [Novolin 70-30 100 Unit/ml Vial] Insulin NPH Hum/Reg Insulin Hm 50 unit SQ AC-SUPPER 03/30/18 12/30/18 History [Novolin 70-30 100 Unit/ml Vial] Lisinopril [Prinivil] 10 mg PO DAILY 11/16/18 12/30/18 History Tetracycline HCl 500 mg PO QID 12/30/18 12/30/18 History Allergies Allergy/AdvReac Type Severity Reaction Status Date / Time ertapenem [From [facility]] AdvReac Hallucinati Verified 12/30/18 14:59 ons Surgical - Exam Vital Signs Temp Pulse Resp BP Pulse Ox 97.1 F L 64 18 122/56 99 12/30/18 12:37 12/30/18 12:37 12/30/18 12:37 12/30/18 12:37 12/30/18 12:37 Results - Labs 12/30/18 14:25 12/30/18 14:25 Abnormal Lab Results - Last 24 Hours (Table) 12/30/18 12/30/18 12/30/18 Range/Units 14:25 14:25 17:29 RBC 3.79 L (3.80-5.40) m/uL Hgb 9.8 L (11.4-16.0) gm/dL Hct 32.2 L (34.0-46.0) % MCHC 30.5 L (31.0-37.0) g/dL Potassium 5.2 H (3.5-5.1) mmol/L Chloride 111 H (98-107) mmol/L Carbon Dioxide 21 L (22-30) mmol/L BUN 40 H (7-17) mg/dL Glucose 67 L (74-99) mg/dL POC Glucose (mg/dL) 61 L (75-99) mg/dL 12/30/18 12/30/18 12/31/18 Range/Units 18:01 20:24 07:12 RBC (3.80-5.40) m/uL Hgb (11.4-16.0) gm/dL Hct (34.0-46.0) % MCHC (31.0-37.0) g/dL Potassium (3.5-5.1) mmol/L Chloride (98-107) mmol/L Carbon Dioxide (22-30) mmol/L BUN (7-17) mg/dL Glucose (74-99) mg/dL POC Glucose (mg/dL) 73 L 189 H 178 H (75-99) mg/dL Diabetes panel 12/30/18 Range/Units 14:25 Sodium 142 (137-145) mmol/L Potassium 5.2 H (3.5-5.1) mmol/L Chloride 111 H (98-107) mmol/L Carbon Dioxide 21 L (22-30) mmol/L BUN 40 H (7-17) mg/dL Creatinine 0.98 (0.52-1.04) mg/dL Glucose 67 L (74-99) mg/dL Calcium 10.0 (8.4-10.2) mg/dL AST 15 (14-36) U/L ALT 10 (9-52) U/L Alkaline Phosphatase 120 (38-126) U/L Total Protein 7.1 (6.3-8.2) g/dL Albumin 3.8 (3.5-5.0) g/dL Calcium panel 12/30/18 Range/Units 14:25 Calcium 10.0 (8.4-10.2) mg/dL Albumin 3.8 (3.5-5.0) g/dL Pituitary panel 12/30/18 Range/Units 14:25 Sodium 142 (137-145) mmol/L Potassium 5.2 H (3.5-5.1) mmol/L Chloride 111 H (98-107) mmol/L Carbon Dioxide 21 L (22-30) mmol/L BUN 40 H (7-17) mg/dL Creatinine 0.98 (0.52-1.04) mg/dL Glucose 67 L (74-99) mg/dL Calcium 10.0 (8.4-10.2) mg/dL Adrenal panel 12/30/18 Range/Units 14:25 Sodium 142 (137-145) mmol/L Potassium 5.2 H (3.5-5.1) mmol/L Chloride 111 H (98-107) mmol/L Carbon Dioxide 21 L (22-30) mmol/L BUN 40 H (7-17) mg/dL Creatinine 0.98 (0.52-1.04) mg/dL Glucose 67 L (74-99) mg/dL Calcium 10.0 (8.4-10.2) mg/dL Total Bilirubin 0.4 (0.2-1.3) mg/dL AST 15 (14-36) U/L ALT 10 (9-52) U/L Alkaline Phosphatase 120 (38-126) U/L Total Protein 7.1 (6.3-8.2) g/dL Albumin 3.8 (3.5-5.0) g/dL
[2018-12-31] MEDS: VANCOMYCIN 1,500 MG in SODIUM CHLORIDE 0.9% 250 ML IVPB SCH (08:08)
[2018-12-31] MEDS: INSULIN ASPART (NovoLOG) 100 UNIT/ML VIAL SQ SCH ×4 (08:09→21:23)
[2018-12-31] MEDS: ATENOLOL 25 MG TAB PO SCH (08:09)
[2018-12-31] MEDS: metFORMIN 500 MG TAB PO SCH ×2 (11:03→18:34)
[2018-12-31 11:47] LABS: Glucose,Whole Blood 135 mg/dL (75-99)
[2018-12-31] MEDS ORDERED: IV FLUID CONTINUATION 700 ML IV ONE (13:00)
[2018-12-31] MEDS ORDERED: LIDOCAINE 1%-EPI 1:100,000 20 ML VIAL SQ ONE (13:04)
[2018-12-31 14:08] LABS: Glucose,Whole Blood 133 mg/dL (75-99)
[2018-12-31] MEDS: CITALOPRAM HYDROBROMIDE 20 MG TAB PO SCH (14:56)
[2018-12-31] MEDS: APIXABAN 5 MG TAB PO SCH (14:56)
[2018-12-31] MEDS: FENOFIBRATE 160 MG TAB PO SCH (14:57)
[2018-12-31] MEDS: LISINOPRIL 10 MG TAB PO SCH (14:57)
--- NOTE | 2018-12-31 15:17 | OP ---
OPERATIVE REPORT PREOP DIAGNOSIS: Open wound right foot with osteo right foot big toe. OPERATION: Right foot amputation at the metatarsophalangeal joint. HISTORY: This patient has history of osteo and open wound to the right foot. The patient has been coming to the Wound Clinic and the patient had recently wound debridement with open wound noted of the right foot. DESCRIPTION OF PROCEDURE: The patient was brought to the operating room. Right foot was prepped and drapes applied in the usual sterile manner. This patient had some wound debridement done recently with open wound. Incision was made on the dorsal aspect of the foot at the metatarsophalangeal joint and deepened through skin, fat, fascia, and this extension. The incision was extended to the plantar aspect of the foot, deepened through skin fat and fascia. After that, the tendons were divided on the dorsum and dorsal aspect of the foot and also on the plantar aspect of the foot. The digital vessels were isolated and tied with 4-0 Prolene. After that, we reached metatarsal pharyngeal joint and using periosteum elevator, periosteum elevated and using bone cutter we divided the proximal phalanx at the metatarsophalangeal joint. Specimen was removed. There was some bleeding points which were electrocoagulated. The wound was copiously irrigated with hydrogen peroxide and saline. Hemostasis was well controlled and the wound closed in 2 layers using 3-0 Vicryl and skin was closed with 4-0 Vicryl with mattress interrupted suture. Dressing applied. Patient tolerated the procedure well. MMODL / IJN: [id number] /
--- NOTE | 2018-12-31 16:26 | P.HPIM ---
History of Present Illness H&P Date: 12/31/18 Chief Complaint: Right big toe for History of presenting complaint: This is a 73-year-old patient of Dr. Zhang. Chronic stable medical conditions include paroxysmal atrial fibrillation, diabetes with painful neuropathy, stable meningioma, hyperlipidemia, coronary artery disease with a prior UT, congestive heart failure EF 30%, peripheral arterial disease. Patient has a right big toe wound that has been infected. [facility] by Dr. Alarcon. Patient did hit her toe on case the bedpost and did open up. Patient did go back to see Dr. Alarcon. Yesterday he was cleansing the toe. And he daily got down to the bone. Decided to admit the patient to the medical floor. Because of neuropathy patient does not have much pain. No fever no chills. That is the toes to stroke. Patient seen with Dr. Mccarhty from vascular surgery. Plan is for amputation later this afternoon partial. Review of systems: GEN.: Tired EYES: None HEENT: Some decreased hearing NECK: None RESPIRATORY: None CARDIOVASCULAR: None GASTROINTESTINAL: None GENITOURINARY: None MUSCULOSKELETAL: Pain in some joints LYMPHATICS: None HEMATOLOGICAL: None PSYCHIATRY: None NEUROLOGICAL: Peripheral neuropathy Past medical history: Paroxysmal atrial fibrillation, diabetes with diabetic peripheral neuropathy, stable meningioma, hyperlipidemia, coronary artery disease with prior UT, congestive heart failure with EF 30%, peripheral artery disease Social history: Does not smoke or drink alcohol. 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 Lives by herself Family history: Cancer type unknown Physical examination: VITAL SIGNS: 97.1, 64, 18, 122/56, N & room air GENERAL: BMI 36.3 sitting up in a chair,. EYES: Pupils equal. Conjunctiva normal. HEENT: External appearance of nose and ears normal, oral cavity grossly normal. NECK: JVD not raised; masses not palpable. HEART: First and second heart sounds are normal; no edema. LUNGS: Respiratory rate normal; clear to auscultation. ABDOMEN: Soft, nontender, liver spleen not palpable, no masses palpable. PSYCH: Alert and oriented x3; mood and affect normal. NEUROLOGICAL: Cranial nerves grossly intact; no facial asymmetry, power normal, decreased sensation distally MUSCULOSKELETAL: Patient's current dressing over the right foot with over the big toe. Patient called also it is a skin graft in the distal lower extremity. 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 Was made nothing by mouth for a possible distal amputation. Patient does of insulin was scaled back. Care was discussed with the patient question were answered. Consultation was made to Dr. Rodriguez for infectious disease and Dr. Mccarthy from vascular surgery. Other home medications resumed.. Past Medical History Past Medical History: Coronary Artery Disease (CAD), Diabetes Mellitus, Hyperlipidemia, Hypertension, Myocardial Infarction ([place]) Additional Past Medical History / Comment(s): DIABETIC NEUROPATHY, HX OF CELLULITIS LEFT LEG , rt great toe wound Last Myocardial Infarction Date:: UNSURE History of Any Multi-Drug Resistant Organisms: MRSA Date of last positivie culture/infection: 12/23/18 MDRO Source:: TOE Past Surgical History: Adenoidectomy, Appendectomy, Section, Cholecystectomy, Hernia Repair, Joint Replacement, Tonsillectomy Additional Past Surgical History / Comment(s): IGNACIA cataract, LEFT SMALL toe amputation, LEFT KNEE REPLACEMENT, HX OF SKIN GRAFTS. amputation left 3rd toe and pinky toe. rt foot 3rd toe amputation , COLONOSCOPY Past Anesthesia/Blood Transfusion Reactions: No Reported Reaction Past Psychological History: Depression Additional Psychological History / Comment(s): QUIT SMOKING 40 YRS AGO, SMOKED LESS THAN 1PPD FOR LESS THAN 10 YRS. Lives independently. No alcohol use. 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 No experience. No international travel. Has a pet dog in the home care for by her daughter Smoking Status: Former smoker Past Alcohol Use History: None Reported Additional Past Alcohol Use History / Comment(s): QUIT SMOKING 40 YRS AGO, SMOKED LESS THAN 1PPD FOR LESS THAN 10 YRS Past Drug Use History: None Reported - Past Family History Mother Family Medical History: Cancer Father Family Medical History: Cancer Medications and Allergies Home Medications Medication Instructions Recorded Confirmed Type Citalopram Hydrobromide 60 mg PO QAM 02/21/16 12/30/18 History [Citalopram HBr] Gemfibrozil [Lopid] 600 mg PO BID 10/15/16 12/30/18 History metFORMIN HCL 1,000 mg PO BID 10/15/16 12/30/18 History Atorvastatin [Lipitor] 40 mg PO HS 03/18/17 12/30/18 History Insulin NPH Hum/Reg Insulin Hm 50 unit SQ AC-BRKFST 05/06/17 12/30/18 History [NovoLIN 70-30 100 UNIT/ML VIAL] Atenolol 25 mg PO DAILY 09/30/17 12/30/18 History Apixaban [Eliquis] 5 mg PO DAILY 02/18/18 12/30/18 History Oxybutynin Chloride [Ditropan] 5 mg PO HS 02/19/18 12/30/18 History Insulin NPH Hum/Reg Insulin Hm 25 unit SQ AC-LUNCH 03/30/18 12/30/18 History [Novolin 70-30 100 Unit/ml Vial] Insulin NPH Hum/Reg Insulin Hm 50 unit SQ AC-SUPPER 03/30/18 12/30/18 History [Novolin 70-30 100 Unit/ml Vial] Lisinopril [Prinivil] 10 mg PO DAILY 11/16/18 12/30/18 History Tetracycline HCl 500 mg PO QID 12/30/18 12/30/18 History Allergies Allergy/AdvReac Type Severity Reaction Status Date / Time ertapenem [From Invanz] AdvReac Hallucinati Verified 12/30/18 14:59 ons Physical Exam Vitals: Vital Signs Temp Pulse Pulse Resp BP BP Pulse Ox 12/31/18 05:00 98.3 F 71 18 101/61 97 12/30/18 23:04 18 12/30/18 21:00 97.7 F 69 18 125/78 99 12/30/18 17:10 97.6 F 68 16 103/66 98 12/30/18 15:00 71 16 107/65 99 12/30/18 14:30 98.7 F 61 16 99 12/30/18 12:51 62 16 100 12/30/18 12:37 97.1 F L 64 18 122/56 99 Intake and Output 12/30/18 12/31/18 12/31/18 22:59 06:59 14:59 Intake Total 1790 200 Balance 1790 200 Intake: Amount of Fluid Infused ( 1000 ml) Oral 790 200 Other: # Voids 1 1 # Bowel Movements 1 0 Results CBC & Chem 7: 12/30/18 14:25 12/31/18 08:24 Labs: Abnormal Lab Results - Last 24 Hours (Table) 12/30/18 12/30/18 12/30/18 Range/Units 14:25 14:25 17:29 RBC 3.79 L (3.80-5.40) m/uL Hgb 9.8 L (11.4-16.0) gm/dL Hct 32.2 L (34.0-46.0) % MCHC 30.5 L (31.0-37.0) g/dL Potassium 5.2 H (3.5-5.1) mmol/L Chloride 111 H (98-107) mmol/L Carbon Dioxide 21 L (22-30) mmol/L BUN 40 H (7-17) mg/dL Glucose 67 L (74-99) mg/dL POC Glucose (mg/dL) 61 L (75-99) mg/dL 12/30/18 12/30/18 12/31/18 Range/Units 18:01 20:24 07:12 RBC (3.80-5.40) m/uL Hgb (11.4-16.0) gm/dL Hct (34.0-46.0) % MCHC (31.0-37.0) g/dL Potassium (3.5-5.1) mmol/L Chloride (98-107) mmol/L Carbon Dioxide (22-30) mmol/L BUN (7-17) mg/dL Glucose (74-99) mg/dL POC Glucose (mg/dL) 73 L 189 H 178 H (75-99) mg/dL Thrombosis Risk Factor Assmnt - Choose All That Apply Any of the Below Risk Factors Present?: No Other Risk Factors: Yes
[2018-12-31 17:10] LABS: Glucose,Whole Blood 182 mg/dL (75-99)
[2018-12-31] MEDS: INSULN ASP PRT/INSULIN ASPART 100 UNIT/ML 10 ML VIAL SQ SCH (18:33)
[2018-12-31 20:22] LABS: Glucose,Whole Blood 188 mg/dL (75-99)
[2018-12-31] MEDS: ATORVASTATIN 40 MG TAB PO SCH (21:13)
[2018-12-31] MEDS: OXYBUTYNIN CHLORIDE 5 MG TAB PO SCH (21:13)
--- NOTE | 2019-01-01 00:09 | P.CONS ---
History of Present Illness - Reason for Consult Consult date: 12/31/18 - Chief Complaint Ulcer of the right great toe - History of Present Illness 73-year-old female who has multiple medical troubles that includes diabetes mellitus type 2 poorly controlled who has been having a nonhealing ulceration to the right great toe was recently evaluated was found evidence of exposed bone and Mary is brought in the hospital. At this point in time she's been taking the operating room and a great toe amputation has occurred by vascular surgery. With her dense neuropathy she is without pain and denies other acute difficulties at this time. Before auscultation she's not believe that she had evidence of significant fever chills or rigors. With the ulceration was worsening he became follow and problematic. Review of Systems Patient feels poorly at all times HEENT:Denies headache or acute visual change. Denies sinus or mouth dis comforts. Denies neck stiffness or pain. Denies significant oral cavity pain. Denies difficulty on swallowing. Lungs: Denies significant shortness of breath, cough, sputum production, or hemoptysis. Cardiovascular: Poor exercise tolerance but denies chest pain no syncope Gastrointestinal:Denies nausea, vomiting, diarrhea, constipation, hematemesis, melena, hematochezia. No no significant change of bowel habit noticed. Musculoskeletal: denies significant myalgias or arthralgias. No new joint swelling. Denies new back pain. Skin: Progressive ulcer right great toe Neuro: Denies headache or visual change. Denies any new onset weakness or difficulty with ambulation. Denies falls or seizures. Psychiatric:Denies anxiety or depression. Endocrine: Chronic fatigue weight has been stable Past Medical History Past Medical History: Coronary Artery Disease (CAD), Diabetes Mellitus, Hyperlipidemia, Hypertension, Myocardial Infarction ([place]) Additional Past Medical History / Comment(s): DIABETIC NEUROPATHY, HX OF CELLU LITIS LEFT LEG , rt great toe wound Last Myocardial Infarction Date:: UNSURE History of Any Multi-Drug Resistant Organisms: MRSA Year Discovered:: 12/23/18 MDRO Source:: TOE Past Surgical History: Adenoidectomy, Appendectomy, Section, Cholecystectomy, Hernia Repair, Joint Replacement, Tonsillectomy Additional Past Surgical History / Comment(s): IGNACIA cataract, LEFT SMALL toe amputation, LEFT KNEE REPLACEMENT, HX OF SKIN GRAFTS. amputation left 3rd toe and pinky toe. rt foot 3rd toe amputation , COLONOSCOPY Past Anesthesia/Blood Transfusion Reactions: No Reported Reaction Past Psychological History: Depression Additional Psychological History / Comment(s): QUIT SMOKING 40 YRS AGO, SMOKED LESS THAN 1PPD FOR LESS THAN 10 YRS. Lives independently. No alcohol use. 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 No experience. No international travel. Has a pet dog in the home care for by her daughter Smoking Status: Former smoker Past Alcohol Use History: None Reported Additional Past Alcohol Use History / Comment(s): QUIT SMOKING 40 YRS AGO, SMOKED LESS THAN 1PPD FOR LESS THAN 10 YRS Past Drug Use History: None Reported - Past Family History Mother Family Medical History: Cancer Father Family Medical History: Cancer Medications and Allergies Home Medications and Allergies Comment(s): Current Medications Acetaminophen (Tylenol Tab) 650 mg PO Q6HR PRN PRN Reason: Mild Pain or Fever > 100.5 Apixaban (Eliquis) 5 mg PO DAILY [facility] Last Admin: 12/31/18 14:56 Dose: 5 mg Documented by: Atenolol (Tenormin) 25 mg PO DAILY [facility] Last Admin: 12/31/18 08:09 Dose: 25 mg Documented by: Atorvastatin Calcium (Lipitor) 40 mg PO HS [facility] Last Admin: 12/31/18 21:13 Dose: 40 mg Documented by: Citalopram Hydrobromide (Celexa) 60 mg PO QAM [facility] Last Admin: 12/31/18 14:56 Dose: 60 mg Documented by: Fenofibrate (Lofibra) 160 mg PO DAILY [facility] Last Admin: 12/31/18 14:57 Dose: 160 mg Documented by: Sodium Chloride (Saline 0.9%) 1,000 mls @ 100 mls/hr IV .Q10H [facility] Last Admin: 12/31/18 21:14 Dose: 100 mls/hr Documented by: Vancomycin HCl 1,500 mg/ (Sodium Chloride) 250 mls @ 125 mls/hr IVPB Q16H [facility] Last Admin: 12/31/18 08:08 Dose: 125 mls/hr Documented by: Ceftriaxone Sodium 2 gm/ (Sodium Chloride) 50 mls @ 100 mls/hr IVPB Q24HR [facility] Last Admin: 12/31/18 13:00 Dose: 50 mls Documented by: Ibuprofen (Motrin) 400 mg PO Q6HR PRN PRN Reason: Mild Pain or Fever > 100.5 Insulin Aspart (Novolog) 0 unit SQ ACHS [facility]; Protocol Last Admin: 12/31/18 21:23 Dose: 2 unit Documented by: Insulin Aspart (Novolog Mix 70-30 Vial) 15 unit SQ AC-LUNCH ALBA Insulin Aspart (Novolog Mix 70-30 Vial) 30 unit SQ AC-BRKFST [facility] Insulin Aspart (Novolog Mix 70-30 Vial) 30 unit SQ AC-SUPPER [facility] Last Admin: 12/31/18 18:33 Dose: 30 unit Documented by: Ketorolac Tromethamine (Toradol) 15 mg IVP Q6HR PRN PRN Reason: Moderate Pain Stop: 01/04/19 14:20 Lisinopril (Zestril) 10 mg PO DAILY [facility] Last Admin: 12/31/18 14:57 Dose: 10 mg Documented by: Lorazepam (Ativan) 0.5 mg IV Q6HR PRN PRN Reason: Anxiety Metformin HCl (Glucophage) 1,000 mg PO AC-BID [facility] Last Admin: 12/31/18 18:34 Dose: 1,000 mg Documented by: Miscellaneous Information (Vancomycin Trough Due) 1 each MISCELLANE ONCE ONE Stop: 01/01/19 16:01 Morphine Sulfate (Morphine Sulfate (Inj)) 4 mg IV Q4HR PRN PRN Reason: Severe Pain Naloxone HCl (Narcan) 0.2 mg IV Q2M PRN PRN Reason: Opioid Reversal Ondansetron HCl (Zofran) 4 mg IVP Q8HR PRN PRN Reason: Nausea And Vomiting Oxybutynin Chloride (Ditropan) 5 mg PO HS [facility] Last Admin: 12/31/18 21:13 Dose: 5 mg Documented by: Home Medications Medication Instructions Recorded Confirmed Type Citalopram Hydrobromide 60 mg PO QAM 02/21/16 12/30/18 History [Citalopram HBr] Gemfibrozil [Lopid] 600 mg PO BID 10/15/16 12/30/18 History metFORMIN HCL 1,000 mg PO BID 10/15/16 12/30/18 History Atorvastatin [Lipitor] 40 mg PO HS 03/18/17 12/30/18 History Insulin NPH Hum/Reg Insulin Hm 50 unit SQ AC-BRKFST 05/06/17 12/30/18 History [NovoLIN 70-30 100 UNIT/ML VIAL] Atenolol 25 mg PO DAILY 09/30/17 12/30/18 History Apixaban [Eliquis] 5 mg PO DAILY 02/18/18 12/30/18 History Oxybutynin Chloride [Ditropan] 5 mg PO HS 02/19/18 12/30/18 History Insulin NPH Hum/Reg Insulin Hm 25 unit SQ AC-LUNCH 03/30/18 12/30/18 History [Novolin 70-30 100 Unit/ml Vial] Insulin NPH Hum/Reg Insulin Hm 50 unit SQ AC-SUPPER 03/30/18 12/30/18 History [Novolin 70-30 100 Unit/ml Vial] Lisinopril [Prinivil] 10 mg PO DAILY 11/16/18 12/30/18 History Tetracycline HCl 500 mg PO QID 12/30/18 12/30/18 History Allergies Allergy/AdvReac Type Severity Reaction Status Date / Time ertapenem [From Invanz] AdvReac Hallucinati Verified 12/30/18 14:59 ons Physical Exam Vitals: Vital Signs Temp Pulse Pulse Resp BP BP Pulse Ox 12/31/18 14:20 98.2 F 66 16 107/68 99 12/31/18 14:00 67 16 124/58 97 12/31/18 13:44 97 F L 67 20 127/60 96 12/31/18 05:00 98.3 F 71 18 101/61 97 Intake and Output 12/31/18 12/31/18 01/01/19 14:59 22:59 06:59 Intake Total 740 540 Output Total 10 Balance 730 540 Intake: IV 200 Oral 540 540 Output: Estimated Blood Loss 10 Other: # Voids 3 0 # Bowel Movements 0 73-year-old woman no distress. HEENT: Anicteric conjunctiva are pink and moist nasal mucosa grossly intact without significant lesions, there is no thrush. Neck: The neck is supple without significant lymphadenopathy or thyromegaly. Lungs: Good bilateral air entry without significant crackles or wheezing. There is no significant bronchial sounds. There is no egophony or dullness. Heart: Irregular with an audible S1 and S2 soft S4 no murmur click or rub. Abdomen: Obese Positive bowel sounds soft and nontender without palpable masses or organomegaly. There was no guarding or rebound. Extremities: The upper extremities have excellent pulses they are symmetric, no significant petechiae or telangiectasia. No splinter hemorrhages were noted. The left foot has evidence of prior toe amputation. No open ulcerations are seen on the left foot. Right foot shows evidence the surgical dressing is in place from the recent great toe amputation dressing is not removed given that she is just postoperative. Neuro: Awake alert oriented to person place and time. There are no acute new gross focal sensory motor deficits. Results CBC & Chem 7: 12/30/18 14:25 12/31/18 08:24 Labs: Abnormal Lab Results - Last 24 Hours (Table) 12/31/18 12/31/18 12/31/18 Range/Units 07:12 11:41 13:54 POC Glucose (mg/dL) 178 H 135 H 133 H (75-99) mg/dL 12/31/18 12/31/18 Range/Units 16:48 20:18 POC Glucose (mg/dL) 182 H 188 H (75-99) mg/dL Microbiology - Last 24 Hours (Table) 12/31/18 07:45 Gram Stain - Preliminary Toe - Right First Wound Culture - Preliminary 12/31/18 07:45 Anaerobic Culture - Preliminary Toe - Right First 12/30/18 14:25 Blood Culture - Preliminary Blood No Growth after 24 hours Laboratory Results WBC 7.2 k/uL (3.8-10.6) 12/30/18 14:25 RBC 3.79 m/uL (3.80-5.40) L 12/30/18 14:25 Hgb 9.8 gm/dL (11.4-16.0) L 12/30/18 14:25 Hct 32.2 % (34.0-46.0) L 12/30/18 14:25 MCV 85.1 fL (80.0-100.0) 12/30/18 14:25 MCH 25.9 pg (25.0-35.0) 12/30/18 14:25 MCHC 30.5 g/dL (31.0-37.0) L 12/30/18 14:25 RDW 14.6 % (11.5-15.5) 12/30/18 14:25 Plt Count 307 k/uL (150-450) 12/30/18 14:25 Neutrophils % 54 % 12/30/18 14:25 Lymphocytes % 35 % 12/30/18 14:25 Monocytes % 6 % 12/30/18 14:25 Eosinophils % 2 % 12/30/18 14:25 Basophils % 1 % 12/30/18 14:25 Neutrophils # 3.9 k/uL (1.3-7.7) 12/30/18 14:25 Lymphocytes # 2.5 k/uL (1.0-4.8) 12/30/18 14:25 Monocytes # 0.4 k/uL (0-1.0) 12/30/18 14:25 Eosinophils # 0.2 k/uL (0-0.7) 12/30/18 14:25 Basophils # 0.1 k/uL (0-0.2) 12/30/18 14:25 Hypochromasia Slight 12/30/18 14:25 Sodium 142 mmol/L (137-145) 12/30/18 14:25 Potassium 5.2 mmol/L (3.5-5.1) H 12/30/18 14:25 Chloride 111 mmol/L (98-107) H 12/30/18 14:25 Carbon Dioxide 21 mmol/L (22-30) L 12/30/18 14:25 Anion Gap 10 mmol/L 12/30/18 14:25 BUN 40 mg/dL (7-17) H 12/30/18 14:25 Creatinine 0.85 mg/dL (0.52-1.04) 12/31/18 08:24 Est GFR (CKD-EPI)AfAm 80 (>60 ml/min/1.73 sqM) 12/31/18 08:24 Est GFR (CKD-EPI)NonAf 69 (>60 ml/min/1.73 sqM) 12/31/18 08:24 Glucose 67 mg/dL (74-99) L 12/30/18 14:25 POC Glucose (mg/dL) 188 mg/dL (75-99) H 12/31/18 20:18 POC Glu Clinic Coordinator ID Dora Waters 12/31/18 20:18 Plasma Lactic Acid Conrad 0.8 mmol/L (0.7-2.0) 12/30/18 14:25 Calcium 10.0 mg/dL (8.4-10.2) 12/30/18 14:25 Total Bilirubin 0.4 mg/dL (0.2-1.3) 12/30/18 14:25 AST 15 U/L (14-36) 12/30/18 14:25 ALT 10 U/L (9-52) 12/30/18 14:25 Alkaline Phosphatase 120 U/L (38-126) 12/30/18 14:25 Total Protein 7.1 g/dL (6.3-8.2) 12/30/18 14:25 Albumin 3.8 g/dL (3.5-5.0) 12/30/18 14:25 Microbiology 12/31/18 07:45 Toe - Right First Gram Stain - Preliminary 12/31/18 07:45 Toe - Right First Wound Culture - Preliminary 12/31/18 07:45 Toe - Right First Anaerobic Culture - Preliminary 12/30/18 14:25 Blood Blood Culture - Preliminary No Growth after 24 hours Comments: X-ray reveals of the distraction of the distal phalanx of the right great toe Assessment and Plan (1) Diabetic neuropathy Current Visit: Yes Status: Acute Code(s): E11.40 - TYPE 2 DIABETES MELLITUS WITH DIABETIC NEUROPATHY, UNSP SNOMED Code(s): 825231942 (2) Diabetic ulcer of right foot associated with secondary diabetes mellitus Narrative/Plan: 73-year-old woman presents to Hospital for further evaluation of the right great toe with is evidence of the extensive ulceration and exposed bone. She was seen by the vascular surgeon because of the changes she's been taking the operating room regimen amputation of the great toe to resolve a significant infectious process. Patient has some increased swelling to the right lung compared to the left duplexes requested in the morning to determine if there is any evidence of any underlying deep venous thrombosis. She's continued follow-up with vascular surgery. Antibiotic therapy for now is vancomycin as well as Rocephin based on prior cultures. Since the site of osteomyelitis has been removed should not re quire outpatient intravenous antibiotic therapy. Over may require some ongoing antibiotic for this secondary soft tissue infection was found. Should follow in the wound healing Center and will need footgear to offload the great toe amputation site. Current Visit: Yes Status: Acute Code(s): E08.621 - DIABETES MELLITUS DUE TO UNDERLYING CONDITION W FOOT ULCER; L97.519 - NON-PRS CHRONIC ULCER OTH PRT RIGHT FOOT W UNSP SEVERITY SNOMED Code(s): 846569805 (3) Hyperglycemia Current Visit: No Status: Acute Code(s): R73.9 - HYPERGLYCEMIA, UNSPECIFIED SNOMED Code(s): 82893589
[2019-01-01] MEDS: VANCOMYCIN 1,500 MG in SODIUM CHLORIDE 0.9% 250 ML IVPB SCH ×2 (01:07→17:08)
[2019-01-01] MEDS: SODIUM CHLORIDE 0.9% 1,000 ML IV SCH ×2 (05:19→16:29)
[2019-01-01 07:13] LABS: Glucose,Whole Blood 122 mg/dL (75-99)
[2019-01-01] MEDS: INSULIN ASPART (NovoLOG) 100 UNIT/ML VIAL SQ SCH ×4 (08:49→22:15)
--- NOTE | 2019-01-01 08:56 | US ---
EXAMINATION TYPE: US venous doppler duplex LE RT DATE OF EXAM: 01/01/2019 8:53 AM COMPARISON: NONE CLINICAL HISTORY: DVT right leg. diabetic ulcer on right foot, no h/o dvt SIDE PERFORMED: right TECHNIQUE: The lower extremity deep venous system is examined utilizing real time linear array sonog mona with graded compression, doppler sonography and color-flow sonography. VESSELS IMAGED: External Iliac Vein (EIV) Common Femoral Vein Deep Femoral Vein Greater Saphenous Vein * Femoral Vein Popliteal Vein Small Saphenous Vein * Proximal Calf Veins (* superficial vessels) Right Leg: Appears negative for DVT No popliteal fossa lesion is seen. IMPRESSION: THIS EXAMINATION IS NEGATIVE FOR DVT WITHIN THE RIGHT LEG.
[2019-01-01] MEDS: LISINOPRIL 10 MG TAB PO SCH (09:18)
[2019-01-01] MEDS: FENOFIBRATE 160 MG TAB PO SCH (09:18)
[2019-01-01] MEDS: metFORMIN 500 MG TAB PO SCH ×2 (09:18→17:38)
[2019-01-01] MEDS: CITALOPRAM HYDROBROMIDE 20 MG TAB PO SCH (09:18)
[2019-01-01] MEDS: ATENOLOL 25 MG TAB PO SCH (09:18)
[2019-01-01] MEDS: APIXABAN 5 MG TAB PO SCH (09:18)
[2019-01-01] MEDS: INSULN ASP PRT/INSULIN ASPART 100 UNIT/ML 10 ML VIAL SQ SCH ×3 (09:18→17:38)
[2019-01-01 12:04] LABS: Glucose,Whole Blood 158 mg/dL (75-99)
[2019-01-01] MEDS ORDERED: VANCOMYCIN TROUGH DUE 1 EACH MISC MISCELLANE ONE (16:00)
[2019-01-01 16:57] LABS: Glucose,Whole Blood 149 mg/dL (75-99)
[2019-01-01 21:30] LABS: Glucose,Whole Blood 130 mg/dL (75-99)
[2019-01-01] MEDS: OXYBUTYNIN CHLORIDE 5 MG TAB PO SCH (22:18)
[2019-01-01] MEDS: ATORVASTATIN 40 MG TAB PO SCH (22:18)
--- NOTE | 2019-01-02 00:08 | P.PN ---
Progress Note - Text Progress Note Date: 01/01/19 Chief Complaint: Right big toe infection Interval history: This is a 73-year-old patient of Dr. Zhang. Chronic stable medical conditions include paroxysmal atrial fibrillation, diabetes with painful neuropathy, stable meningioma, hyperlipidemia, coronary artery disease with a prior ID, congestive heart failure EF 30%, peripheral arterial disease. Patient has a right big toe wound that has been infected. [facility] by Dr. Alarcon. Patient did hit her toe on case the bedpost and did open up. Patient did go back to see Dr. Alarcon. Yesterday he was cleansing the toe. And he daily got down to the bone. Decided to admit the patient to the medical floor. Because of neuropathy patient does not have much pain. No fever no chills. That is the toes to stroke. Patient seen with Dr. Mccarthy from vascular surgery. Plan is for amputation later this afternoon partial. Today-patient yesterday underwent right foot amputation at the metatarsophalangeal joint. Dressing in place. Pain control. Her nausea vomiting. Review of systems: Was done for constitutional, cardiovascular, GI, pulmonary. Musculoskeletal relevant finding as above Current medications are reviewed and include: IV ceftriaxone, IV vancomycin Physical examination: VITAL SIGNS: 97.4, 70, 18, 128/79, 98% room air GENERAL: Sitting up on the bed, awake,. EYES: Pupils equal. Conjunctiva normal. HEENT: External appearance of nose and ears normal, oral cavity grossly normal. NECK: JVD not raised; masses not palpable. HEART: First and second heart sounds are normal; no edema. LUNGS: Respiratory rate normal; clear to auscultation. ABDOMEN: Soft, nontender, liver spleen not palpable, no masses palpable. PSYCH: Alert and oriented x3; mood and affect normal. NEUROLOGICAL: Cranial nerves grossly intact; no facial asymmetry, power normal, decreased sensation distally MUSCULOSKELETAL: Patient's current dressing over the right foot with over the big toe. Skin graft previously in the distal extremity lower Investigations: Reviewed in the clinical context Accu-Cheks are noted Assessment: -Right foot, big toe distal phalanx acute osteomyelitis, associated wound secondary to diabetes wound, followed by amputation -Paroxysmal atrial fibrillation Diabetes mellitus type II chronically insulin with diabetic peripheral neuropathy -Benign brain meningioma stable -Hyperlipidemia -Coronary artery disease with a prior history of ID -Chronic congestive heart failure from EF 30% systolic dysfunction from underlying coronary artery disease -Peripheral arterial disease Plan: Continue on IV vancomycin and IV ceftriaxone. Wound care per ID and antibiotics per Dr. Rodriguez. Other medications to continue. Care was discussed with the patient...
[2019-01-02] MEDS: SODIUM CHLORIDE 0.9% 1,000 ML IV SCH ×3 (02:44→20:24)
[2019-01-02 07:18] LABS: Glucose,Whole Blood 86 mg/dL (75-99)
[2019-01-02] MEDS: INSULIN ASPART (NovoLOG) 100 UNIT/ML VIAL SQ SCH ×4 (07:57→20:23)
[2019-01-02] MEDS: INSULN ASP PRT/INSULIN ASPART 100 UNIT/ML 10 ML VIAL SQ SCH ×3 (08:00→17:49)
[2019-01-02] MEDS: CITALOPRAM HYDROBROMIDE 20 MG TAB PO SCH (08:01)
[2019-01-02] MEDS: metFORMIN 500 MG TAB PO SCH ×2 (08:01→17:49)
[2019-01-02] MEDS: FENOFIBRATE 160 MG TAB PO SCH (08:01)
[2019-01-02] MEDS: APIXABAN 5 MG TAB PO SCH (08:01)
[2019-01-02] MEDS: LISINOPRIL 10 MG TAB PO SCH (08:01)
[2019-01-02] MEDS: ATENOLOL 25 MG TAB PO SCH (08:01)
[2019-01-02] MEDS: VANCOMYCIN 1,500 MG in SODIUM CHLORIDE 0.9% 250 ML IVPB SCH (09:46)
[2019-01-02 11:12] LABS: Basophils % (A) 0 %; Eosinophils # (A) 0.2 k/uL (0-0.7); Eosinophils % (A) 3 %; HCT 28.5 % (34.0-46.0); HGB 8.8 gm/dL (11.4-16.0); Hypochromasia Marked; Lymphocytes # (A) 1.4 k/uL (1.0-4.8); Lymphocytes % (A) 24 %; MCH 26.3 pg (25.0-35.0); MCHC 30.8 g/dL (31.0-37.0); MCV 85.5 fL (80.0-100.0); Mean Platelet Volume 8.7; Monocytes # (A) 0.5 k/uL (0-1.0); Monocytes % (A) 8 %; Neutrophils # (A) 3.6 k/uL (1.3-7.7); Neutrophils % (A) 62 %; Platelet Count 195 k/uL (150-450); RBC 3.33 m/uL (3.80-5.40); RDW 14.5 % (11.5-15.5); WBC 5.8 k/uL (3.8-10.6)
[2019-01-02 11:21] LABS: Calcium 8.7 mg/dL (8.4-10.2); Potassium 4.7 mmol/L (3.5-5.1)
[2019-01-02 12:00] LABS: Glucose,Whole Blood 78 mg/dL (75-99)
[2019-01-02 17:19] LABS: Glucose,Whole Blood 202 mg/dL (75-99)
[2019-01-02 20:19] LABS: Glucose,Whole Blood 125 mg/dL (75-99)
[2019-01-02] MEDS: OXYBUTYNIN CHLORIDE 5 MG TAB PO SCH (20:23)
[2019-01-02] MEDS: ATORVASTATIN 40 MG TAB PO SCH (20:24)
--- NOTE | 2019-01-02 21:12 | PN ---
PROGRESS NOTE DATE OF SERVICE: 01/02/2019 This 73-year-old woman who was admitted after diabetic ulcer, had amputation for osteomyelitis. Patient being closely monitored at this time. PT/OT evaluating the patient also. PAST MEDICAL HISTORY: Reviewed. REVIEW OF SYSTEMS: CARDIOVASCULAR: No angina or palpitations. RESPIRATION: As mentioned earlier. GI: As mentioned earlier. : As mentioned earlier. CENTRAL NERVOUS SYSTEM: No numbness/weakness. CURRENT MEDICATIONS: Reviewed and include: 1. Tylenol 650 q.6 p.r.n. 2. Eliquis 5 mg. 3. Tenormin 25 mg b.i.d. 4. Lipitor 40 mg q.h.s. 5. Rocephin 2 g daily. 6. Celexa 60 mg q.h.s. 7. Lofibra 160 mg daily. 8. Motrin. 9. NovoLog scale 70/30 30/30, and 15 units. 10.Toradol 15 units. 11.Zestril. 12.Glucophage. 13.Narcan. 14.Zofran. 15.Ditropan. PHYSICAL EXAM: Patient is alert and oriented x3. Pulse 77. Blood pressure 120/73, respirations 16, temperature 98.7, pulse ox 94% on room air. HEENT: Conjunctivae normal. NECK: No jugular venous distention. CARDIOVASCULAR SYSTEM: S1, S2 muffled. RESPIRATORY SYSTEM: Breath sounds diminished at the bases. Scattered rhonchi. No crackles. ABDOMEN: Soft, nontender. No mass palpable. LEGS are no edema. NERVOUS SYSTEM: No focal deficits. Examination of the foot status post surgery. LAB STUDIES: WBC 5.8, hemoglobin is 8.8. Glucose noted. ASSESSMENT: 1. Right foot osteomyelitis, status post amputation. 2. Paroxysmal atrial fibrillation. 3. Diabetes mellitus type 2 with hypoglycemia. 4. Peripheral neuropathy. 5. Benign prostatic hypertrophy. 6. Hyperlipidemia. 7. History of coronary artery disease with myocardial infarction. 8. History of congestive heart failure with chronic systolic dysfunction ejection fraction 30%. RECOMMENDATIONS AND DISCUSSION: Continue current management. Continue symptomatic treatment. We will monitor blood sugars closely. We will continue the wound care along with Dr. Mcdowell who also would like to keep the patient at least for one more day. Otherwise cut down the dose of insulin. DVT prophylaxis. Guarded prognosis because of multiple complex medical issues. Arrange home support at home. Further recommendations to follow. MMODL / IJN: [id number] /
[2019-01-03] MEDS: VANCOMYCIN 1,500 MG in SODIUM CHLORIDE 0.9% 250 ML IVPB SCH ×2 (02:21→16:55)
[2019-01-03 07:10] LABS: Glucose,Whole Blood 143 mg/dL (75-99)
--- NOTE | 2019-01-03 08:48 | DS ---
DISCHARGE SUMMARY DATE OF SERVICE: 01/02/2019. FINAL DIAGNOSES: 1. Enterobacter cloacae. 2. Right foot toe distal phalanx osteomyelitis, status post amputation. 3. Paroxysmal atrial fibrillation. 4. Diabetes mellitus type 2, insulin dependent. 5. Benign brain hemangioma, stable. 6. Hyperlipidemia. 7. Coronary artery disease history of myocardial infarction. 8. History of congestive heart failure, ejection fraction 30%. 9. Chronic systolic dysfunction. 10.Peripheral vascular disease. DISCHARGE: The patient will be discharged in stable condition with guarded prognosis. Total time taken: 35 minutes. HISTORY OF PRESENT ILLNESS: This 73-year-old woman with a past medical history of multiple medical problems who was admitted with right big toe infection as well as osteomyelitis. Patient underwent amputation by Dr. Mcdowell. The patient treated symptomatically. Patient also seen by Dr. Rodriguez, infectious Disease. Patient improved significantly. Cultures show Enterobacter cloacae. On exam, vitals are stable. Cardiovascular: S1, S2. Abdomen soft. Otherwise legs status post amputation. DISCHARGE ADVICE AND MEDICATIONS: 1. Discharge diet is cardiac diet. 2. Activity limited until followup. 3. Follow up with Dr. Zhang in 2-3 days. 4. Follow up with Dr. Mcdowell and Infectious Disease, Dr. Rodriguez as advised. MEDICATIONS ARE: 1. Atenolol 25 mg p.o. daily. 2. Celexa 60 mg q.a.m. 3. Ditropan 5 mg q.h.s. 4. Eliquis 5 mg p.o. daily. 5. Lipitor 40 mg q.h.s. 6. Lopid 600 mg p.o. b.i.d. 7. Metformin 1000 mg p.o. b.i.d. 8. Insulin NPH 25 units a.c. lunch. 9. Prinivil 10 mg p.o. daily. 10.Doxycycline 100 mg p.o. b.i.d. for 7 days per Infectious Disease. 11.NovoLog mix 70/30 30 units at breakfast and 30 units at supper reduced dose. 12.Tylenol p.r.n. The insulin doses were adjusted because of hypoglycemic episodes during the hospitalization. I would also recommend a Accu-Cheks a.c. and at bedtime and continue to monitor. Otherwise, I would also recommend continue rest of medication. Wound care per vascular surgery. Guarded prognosis because of multiple complex medical issues. Further recommendations to follow. MMODL / IJN: [id number] /
[2019-01-03] MEDS: INSULIN ASPART (NovoLOG) 100 UNIT/ML VIAL SQ SCH ×4 (09:05→20:11)
[2019-01-03] MEDS: APIXABAN 5 MG TAB PO SCH (09:06)
[2019-01-03] MEDS: INSULN ASP PRT/INSULIN ASPART 100 UNIT/ML 10 ML VIAL SQ SCH ×3 (09:06→17:19)
[2019-01-03] MEDS: LISINOPRIL 10 MG TAB PO SCH (09:06)
[2019-01-03] MEDS: FENOFIBRATE 160 MG TAB PO SCH (09:06)
[2019-01-03] MEDS: metFORMIN 500 MG TAB PO SCH ×2 (09:06→16:56)
[2019-01-03] MEDS: ATENOLOL 25 MG TAB PO SCH (09:06)
[2019-01-03] MEDS: CITALOPRAM HYDROBROMIDE 20 MG TAB PO SCH (09:06)
[2019-01-03] MEDS: SODIUM CHLORIDE 0.9% 1,000 ML IV SCH ×2 (09:06→16:45)
[2019-01-03 10:52] LABS: Calcium 8.8 mg/dL (8.4-10.2); Potassium 4.6 mmol/L (3.5-5.1)
[2019-01-03 12:42] LABS: Glucose,Whole Blood 122 mg/dL (75-99)
[2019-01-03 16:45] LABS: Glucose,Whole Blood 132 mg/dL (75-99)
--- NOTE | 2019-01-03 18:12 | PN ---
PROGRESS NOTE This patient had right foot big toe amputation for infection and osteomyelitis of the right foot big toe. Patient had a toe amputation done at the metatarsophalangeal joint. The patient's dressing has been changed. Today we noticed that there is still some redness noted at the stump site. PLAN: We will continue 48 hours for the IV antibiotic. The dressing has changed. Advised non- weight-bearing. MMODL / IJN: [id number] /
[2019-01-03 20:07] LABS: Glucose,Whole Blood 141 mg/dL (75-99)
[2019-01-03] MEDS: OXYBUTYNIN CHLORIDE 5 MG TAB PO SCH (20:11)
[2019-01-03] MEDS: ATORVASTATIN 40 MG TAB PO SCH (20:11)
--- NOTE | 2019-01-03 20:54 | PN ---
PROGRESS NOTE DATE OF SERVICE: 01/03/2019 This 73-year-old woman who was admitted with multiple medical problems, including diabetic ulcer, had amputation for osteomyelitis. Dr. Mcdowell is following the patient closely with daily dressing. Dr. Mcdowell wants the patient to be on IV antibiotics, also. Past medical history reviewed. REVIEW OF SYSTEMS: CARDIOVASCULAR SYSTEM: No angina, palpitations. RESPIRATORY SYSTEM: As mentioned earlier. GI: As mentioned earlier. : No dysuria or retention. NERVOUS SYSTEM: No numbness, weakness. PHYSICAL EXAMINATION: Patient is alert and oriented x3. Pulse 78, blood pressure 130/60, respiration 16, temperature 97.6, pulse ox 96% on room air. HEENT: Conjunctivae normal. NECK: No jugular venous distention. CARDIOVASCULAR SYSTEM: S1, S2 muffled. RESPIRATORY SYSTEM: Breath sounds diminished at the bases. A few scattered rhonchi and crackles. ABDOMEN: Soft, non-tender. LEGS: Status post surgery. NERVOUS SYSTEM: No focal deficit. LABS: Sodium 141, potassium 4.6. ASSESSMENT: 1. Right foot osteomyelitis with Enterobacter cloacae, status post amputation of the big toe. 2. Paroxysmal atrial fibrillation. 3. Diabetes mellitus, type 2, with hyperglycemia. 4. Peripheral neuropathy. 5. Hyperlipidemia. 6. History of coronary artery disease, myocardial infarction. 7. History of congestive heart failure with chronic systolic dysfunction, ejection fraction 30%. 8. Depression. RECOMMENDATIONS AND DISCUSSION: In this 73-year-old woman who presented with multiple medical problems, we will monitor the patient closely, continue the current management, continue with symptomatic treatment. Will continue with insulins. Continue with IV antibiotics. We will continue with IV antibiotics. Continue the rest of the medications. Local dressing. Closely follow with Dr. Mcdowell. Further recommendations to follow. MMODL / IJN: [id number] /
[2019-01-04] MEDS: SODIUM CHLORIDE 0.9% 1,000 ML IV SCH ×3 (05:45→21:29)
[2019-01-04 07:17] LABS: Glucose,Whole Blood 113 mg/dL (75-99)
[2019-01-04] MEDS: INSULIN ASPART (NovoLOG) 100 UNIT/ML VIAL SQ SCH ×4 (07:20→21:28)
[2019-01-04] MEDS: metFORMIN 500 MG TAB PO SCH ×2 (07:57→17:13)
[2019-01-04] MEDS: INSULN ASP PRT/INSULIN ASPART 100 UNIT/ML 10 ML VIAL SQ SCH ×3 (07:57→17:28)
[2019-01-04] MEDS: ATENOLOL 25 MG TAB PO SCH (07:58)
[2019-01-04] MEDS: CITALOPRAM HYDROBROMIDE 20 MG TAB PO SCH (07:58)
[2019-01-04] MEDS: APIXABAN 5 MG TAB PO SCH (07:58)
[2019-01-04] MEDS: FENOFIBRATE 160 MG TAB PO SCH (07:58)
[2019-01-04] MEDS: LISINOPRIL 10 MG TAB PO SCH (07:58)
[2019-01-04] MEDS ORDERED: VANCOMYCIN TROUGH DUE 1 EACH MISC MISCELLANE ONE (08:00)
[2019-01-04] MEDS: VANCOMYCIN 1,500 MG in SODIUM CHLORIDE 0.9% 250 ML IVPB SCH (09:11)
[2019-01-04 09:35] LABS: Potassium 4.6 mmol/L (3.5-5.1)
[2019-01-04 12:47] LABS: Glucose,Whole Blood 146 mg/dL (75-99)
--- NOTE | 2019-01-04 16:41 | P.PN ---
Subjective Progress Note Date: 01/04/19 Principal diagnosis: This is a 73-year-old woman who was admitted to the hospital with multiple medical problems including a diabetic ulcer and had for osteomyelitis of the right foot. Dr. Mcdowell is following the patient closely. Patient denies any chest pain, shortness of breath, or fevers at this time. Patient is still receiving IV antibiotics and will continue to until after the holiday. Objective - Vital Signs Vital signs: Vital Signs Temp 99.1 F 01/04/19 14:14 Pulse 76 01/04/19 14:14 Resp 18 01/04/19 14:14 BP 114/64 01/04/19 14:14 Pulse Ox 95 01/04/19 14:14 Intake & Output 01/03/19 01/04/19 01/04/19 18:59 06:59 18:59 Other: Voiding Method Bedside Commode Bedside Commode Bedside Commode # Voids 3 3 3 # Bowel Movements 2 - Exam On exam patient is alert and oriented 3 and pleasant with no issues at this time. HEENT: Head is atraumatic, normocephalic. Pupils equal, round. Sclerae is anicteric. NECK: Supple. No JVD. No lymphadenopathy. No thyromegaly. LUNGS: Clear to auscultation. No wheezes or rhonchi. HEART: Regular rate and rhythm. No murmur. ABDOMEN: Soft. non-tender. Bowel sounds are present. No masses. EXTREMITIES: No pedal edema. Dressing of the right foot is dry and intact. No swelling or edema noted NEUROLOGICAL: Patient is awake, alert and oriented x3. Cranial nerves 2 through 12 are grossly intact. Patient is up with a steady gait to the bedside commode with minimal ambulation. - Constitutional General appearance: Present: cooperative, no acute distress - Labs CBC & Chem 7: 01/02/19 10:42 01/04/19 07:48 Labs: Abnormal Lab Results - Last 24 Hours (Table) 01/03/19 01/03/19 01/04/19 Range/Units 16:44 20:06 07:14 BUN (7-17) mg/dL POC Glucose (mg/dL) 132 H 141 H 113 H (75-99) mg/dL 01/04/19 01/04/19 Range/Units 07:48 12:06 BUN 28 H (7-17) mg/dL POC Glucose (mg/dL) 146 H (75-99) mg/dL Microbiology - Last 24 Hours (Table) 12/31/18 07:45 Anaerobic Culture - Final Toe - Right First 12/30/18 14:25 Blood Culture - Preliminary Blood No Growth after 96 hours Assessment and Plan Assessment: 1. Right foot osteomyelitis with Enterobacter cloacae, status post amputation of the right big toe. 2. Paroxysmal atrial fibrillation 3. Diabetes mellitus, type II, with hyperglycemia 4. Peripheral neuropathy 5. Hyperlipidemia 6. History of coronary artery disease, myocardial infarction 7. History of congestive heart failure with chronic systolic dysfunction, ejection fraction 30% 8. Depression Recommendations and discussion: In this 73-year-old woman we'll continue to monitor closely due to the multiple medical problems. Patient is to continue on IV antibiotics until Wednesday as Dr. Mcdowell has recommended. Patient is to continue with the current medication management, symptomatic management, and glucose control. Dr. Mcdowell will continue to follow the patient as well with dressing changes. Further recommendations to follow. Possible discharge in the next 48 hours.
[2019-01-04 17:17] LABS: Glucose,Whole Blood 184 mg/dL (75-99)
[2019-01-04 21:03] LABS: Glucose,Whole Blood 107 mg/dL (75-99)
[2019-01-04] MEDS: OXYBUTYNIN CHLORIDE 5 MG TAB PO SCH (21:28)
[2019-01-04] MEDS: ATORVASTATIN 40 MG TAB PO SCH (21:28)
[2019-01-04 22:12] VITALS: RESP 20
[2019-01-05 05:51] VITALS: BP 108/56; PULSE 71; TEMP 98.5
[2019-01-05] MEDS: INSULN ASP PRT/INSULIN ASPART 100 UNIT/ML 10 ML VIAL SQ SCH ×2 (07:46→12:25)
[2019-01-05 07:55] LABS: Glucose,Whole Blood 143 mg/dL (75-99)
[2019-01-05 08:21] LABS: Calcium 8.8 mg/dL (8.4-10.2); Potassium 4.1 mmol/L (3.5-5.1)
[2019-01-05] MEDS: INSULIN ASPART (NovoLOG) 100 UNIT/ML VIAL SQ SCH ×2 (08:42→12:17)
[2019-01-05] MEDS: FENOFIBRATE 160 MG TAB PO SCH (08:52)
[2019-01-05] MEDS: ATENOLOL 25 MG TAB PO SCH (08:52)
[2019-01-05] MEDS: LISINOPRIL 10 MG TAB PO SCH (08:52)
[2019-01-05] MEDS: CITALOPRAM HYDROBROMIDE 20 MG TAB PO SCH (08:52)
[2019-01-05] MEDS: metFORMIN 500 MG TAB PO SCH (08:52)
[2019-01-05] MEDS: APIXABAN 5 MG TAB PO SCH (08:52)
[2019-01-05] MEDS ORDERED: VANCOMYCIN 1,500 MG in SODIUM CHLORIDE 0.9% 250 ML IVPB SCH (09:00)
[2019-01-05] MEDS: SODIUM CHLORIDE 0.9% 1,000 ML IV SCH (09:47)
--- NOTE | 2019-01-05 11:52 | PN ---
PROGRESS NOTE Susan Arguelles is a 73-year-old white female. Patient had a right foot big toe amputation for osteomyelitis and chronic infection. The patient has been treated with IV antibiotic and local wound care. Today we have changed the dressing. No discharge noted. There is very slight redness noted at the stump site. Patient wants to go home today. Advised on p.o. antibiotic, nonweightbearing. Change dressing on daily basis. I will follow in my office on Wednesday. ADAM / MARILEEN: [id number] /
[2019-01-05 11:56] LABS: Glucose,Whole Blood 80 mg/dL (75-99)
--- NOTE | 2019-01-05 22:07 | DS ---
DISCHARGE SUMMARY HISTORY OF PRESENT ILLNESS: This 73-year-old woman was admitted with right foot infection and had osteomyelitis and Enterobacter cloacae grown from the culture. Patient had amputation. Patient also given antibiotics. The patient improved significantly. The patient will be discharged in stable condition with guarded prognosis. The patient will be discharged home today. Total time taken 35 minutes. Please refer to my previous dictations for list of diagnosis and list of home medications. On exam, vital signs are stable. Cardio system: S1, S2. Abdomen soft. Nervous System: No focal deficits. Recommended close follow up with Dr. Zhang and wound care and as well as Dr. Mcdowell, infectious disease. MMODL / IJN: [id number] /
== END 2019-01-05 13:27 | disposition home health service (06) | DRG 617 ==
LOC: EC 12:13 → 3SCARD 13:22 → 4MS4W 15:25
PROVIDERS: ADMIT Hospitalist; ATTEND Hospitalist
PROC: 0Y6P0Z0 Detachment at Right 1st Toe, Complete, Open Approach (ICD-10-PCS; principal; 2018-12-31 09:30)
DX: E11.69 Type 2 diabetes mellitus with other specified complication (principal); M86.171 Other acute osteomyelitis, right ankle and foot; L97.516 Non-pressure chronic ulcer of other part of right foot with bone involvement without evidence of necrosis; I50.22 Chronic systolic (congestive) heart failure; E11.42 Type 2 diabetes mellitus with diabetic polyneuropathy; E11.51 Type 2 diabetes mellitus with diabetic peripheral angiopathy without gangrene; E11.65 Type 2 diabetes mellitus with hyperglycemia; I11.0 Hypertensive heart disease with heart failure; I48.0 Paroxysmal atrial fibrillation; B96.89 Other specified bacterial agents as the cause of diseases classified elsewhere; E11.621 Type 2 diabetes mellitus with foot ulcer; E11.649 Type 2 diabetes mellitus with hypoglycemia without coma; D18.02 Hemangioma of intracranial structures; D32.0 Benign neoplasm of cerebral meninges; E78.5 Hyperlipidemia, unspecified; F32.9 Major depressive disorder, single episode, unspecified; I25.10 Atherosclerotic heart disease of native coronary artery without angina pectoris; I25.2 Old myocardial infarction; L08.9 Local infection of the skin and subcutaneous tissue, unspecified; Z79.01 Long term (current) use of anticoagulants; Z79.4 Long term (current) use of insulin; Z79.899 Other long term (current) drug therapy; Z88.1 Allergy status to other antibiotic agents; Z86.14 Personal history of Methicillin resistant Staphylococcus aureus infection; Z87.891 Personal history of nicotine dependence; Z89.422 Acquired absence of other left toe(s); Z89.421 Acquired absence of other right toe(s); Z96.652 Presence of left artificial knee joint; Z90.49 Acquired absence of other specified parts of digestive tract; Z98.42 Cataract extraction status, left eye; Z98.41 Cataract extraction status, right eye; Z96.1 Presence of intraocular lens; Z80.9 Family history of malignant neoplasm, unspecified
CPT/HCPCS: 36415; 80048; 80053; 80202; 82565; 83605; 85025; 87040; 87070; 87075; 87077; 87186; 87205; 96365; 96366; 99284

== ENCOUNTER 2019-02-07 12:40 | Inpatient (IN) | payer MEDICARE ==
[2019-02-07] MEDS ORDERED: SODIUM CHLORIDE 0.9% 1,000 ML IV STA (13:35)
--- NOTE | 2019-02-07 13:40 | ED ---
General Adult HPI - General Chief complaint: Recheck/Abnormal Lab/Rx Stated complaint: RT 2ND TOE CELLULITIS Time Seen by Provider: 02/07/19 13:02 Source: patient Mode of arrival: ambulatory Limitations: no limitations - History of Present Illness Initial comments: Patient is a 73-year-old diabetic female presenting to the emergency department after she was referred to by her doctors for gangrene. Patient reports bilateral lower extremity neuropathy. Patient also reports diabetic ulcers. Patient reports recently she had partial dictation of the right hallux that is unable to fully heal. Patient reports her second toe has become infected with y ellow discharge. Patient reports mild redness. Patient denies any tenderness due to the neuropathy. Patient reports recent increase in foul order. Patient denies fevers night sweats or chills. - Related Data Home Medications Medication Instructions Recorded Confirmed Citalopram Hydrobromide 60 mg PO QAM 02/21/16 02/07/19 [Citalopram HBr] Gemfibrozil [Lopid] 600 mg PO BID 10/15/16 02/07/19 metFORMIN HCL 1,000 mg PO BID 10/15/16 02/07/19 Atorvastatin [Lipitor] 40 mg PO HS 03/18/17 02/07/19 Atenolol 25 mg PO DAILY 09/30/17 02/07/19 Apixaban [Eliquis] 5 mg PO DAILY 02/18/18 02/07/19 Oxybutynin Chloride [Ditropan] 5 mg PO HS 02/19/18 02/07/19 Insulin NPH Hum/Reg Insulin Hm 50 unit SQ AC-BRKFST 03/30/18 02/07/19 [NovoLIN 70-30 100 UNIT/ML VIAL] Lisinopril [Prinivil] 10 mg PO DAILY 11/16/18 02/07/19 Insulin NPH Hum/Reg Insulin Hm 25 unit SQ AC-LUNCH 02/07/19 02/07/19 [NovoLIN 70-30 100 UNIT/ML VIAL] Insulin NPH Hum/Reg Insulin Hm 50 unit SQ AC-SUPPER 02/07/19 02/07/19 [NovoLIN 70-30 100 UNIT/ML VIAL] Previous Rx's Medication Instructions Recorded Acetaminophen Tab [Tylenol] 650 mg PO Q6HR PRN tab 01/02/19 Allergies Allergy/AdvReac Type Severity Reaction Status Date / Time ertapenem [From Invanz] ChikisReairam Fairinati Verified 02/07/19 13:32 ons Review of Systems ROS Statement: Those systems with pertinent positive or pertinent negative responses have been documented in the HPI. ROS Other: All systems not noted in ROS Statement are negative. Past Medical History Past Medical History: Coronary Artery Disease (CAD), Diabetes Mellitus, Hyperlipidemia, Hypertension, Myocardial Infarction (MO) Additional Past Medical History / Comment(s): DIABETIC NEUROPATHY, HX OF CELLULITIS LEFT LEG , rt great toe wound Last Myocardial Infarction Date:: UNSURE History of Any Multi-Drug Resistant Organisms: MRSA Date of last positivie culture/infection: 12/23/18 MDRO Source:: TOE Past Surgical History: Adenoidectomy, Appendectomy, Section, Cholecystectomy, Hernia Repair, Joint Replacement, Tonsillectomy Additional Past Surgical History / Comment(s): right great toe amputation Past Anesthesia/Blood Transfusion Reactions: No Reported Reaction Past Psychological History: Depression Smoking Status: Former smoker Past Alcohol Use History: None Reported Past Drug Use History: None Reported - Past Family History Mother Family Medical History: Cancer Father Family Medical History: Cancer General Exam Limitations: no limitations General appearance: alert, in no apparent distress Head exam: Present: atraumatic, normocephalic, normal inspection Eye exam: Present: normal appearance, PERRL, EOMI Pupils: Present: normal accommodation ENT exam: Present: normal exam, mucous membranes moist, normal external ear exam Neck exam: Present: normal inspection, full ROM Respiratory exam: Present: normal lung sounds bilaterally Cardiovascular Exam: Present: regular rate, normal rhythm, normal heart sounds GI/Abdominal exam: Present: soft, normal bowel sounds Extremities exam: Present: normal capillary refill (Left foot), joint swelling, other (+2 dorsalis pedis on the left foot). Absent: normal inspection (Bilateral lower extremity edema. Venous stasis noted in the right lower leg. Amputation of the right hallux and third toe. Healing wound on the right hallux with yellow discharge. Laceration on the second digit midline through the toe with yellow discharge. No gangrene noted), full ROM, tenderness (Due to neuropathy no tenderness) Back exam: Present: normal inspection, full ROM Neurological exam: Present: alert, oriented X3 Psychiatric exam: Present: normal affect, normal mood Skin exam: Present: warm, intact, normal color Course Vital Signs 02/07/19 02/07/19 13:05 14:55 Temperature 99.3 F Pulse Rate 81 78 Respiratory 18 18 Rate Blood Pressure 118/57 118/60 O2 Sat by Pulse 94 L 98 Oximetry Medical Decision Making - Medical Decision Making Patient is an 83-year-old diabetic female presenting to emergency Department with a chief complaint of a diabetic ulcer. CBC showing mild leukocytosis. X- ray report indicates that recurrent osteomyelitis cannot be ruled out. Patient will be admitted for further medical management. Patient will be given Vanco And fluids. Case discussed with Dr. Hernandez. The admitting physician is Dr. Helm. - Lab Data Result diagrams: 02/07/19 14:00 02/07/19 14:00 Lab Results 02/07/19 02/07/19 02/07/19 Range/Units 14:00 14:00 14:00 WBC 11.8 H (3.8-10.6) k/uL RBC 3.60 L (3.80-5.40) m/uL Hgb 9.6 L (11.4-16.0) gm/dL Hct 29.7 L (34.0-46.0) % MCV 82.6 (80.0-100.0) fL MCH 26.8 (25.0-35.0) pg MCHC 32.4 (31.0-37.0) g/dL RDW 15.2 (11.5-15.5) % Plt Count 267 (150-450) k/uL Hypochromasia Slight Sodium 138 (137-145) mmol/L Potassium 4.8 (3.5-5.1) mmol/L Chloride 105 (98-107) mmol/L Carbon Dioxide 21 L (22-30) mmol/L Anion Gap 12 mmol/L BUN 35 H (7-17) mg/dL Creatinine 1.01 (0.52-1.04) mg/dL Est GFR (CKD-EPI)AfAm 64 (>60 ml/min/1.73 sqM) Est GFR (CKD-EPI)NonAf 56 (>60 ml/min/1.73 sqM) Glucose 319 H (74-99) mg/dL Plasma Lactic Acid Conrad 1.6 (0.7-2.0) mmol/L Calcium 9.7 (8.4-10.2) mg/dL Total Bilirubin 0.3 (0.2-1.3) mg/dL AST 11 L (14-36) U/L ALT 6 L (9-52) U/L Alkaline Phosphatase 140 H (38-126) U/L Total Protein 6.8 (6.3-8.2) g/dL Albumin 3.8 (3.5-5.0) g/dL Disposition Clinical Impression: Diabetic ulcer of right foot Disposition: ADMITTED IP TO THIS HOSP Condition: Stable Instructions (If sedation given, give patient instructions): Acute Wounds (DC) Additional Instructions: Patient will be admitted for further management. Is patient prescribed a controlled substance at d/c from ED?: No Referrals: Shon Zhang MD [Primary Care Provider] - 1-2 days Time of Disposition: 15:35
[2019-02-07 14:20] LABS: HCT 29.7 % (34.0-46.0); HGB 9.6 gm/dL (11.4-16.0); Hypochromasia Slight; MCH 26.8 pg (25.0-35.0); MCHC 32.4 g/dL (31.0-37.0); MCV 82.6 fL (80.0-100.0); Platelet Count 267 k/uL (150-450); RDW 15.2 % (11.5-15.5); WBC 11.8 k/uL (3.8-10.6)
[2019-02-07 14:31] LABS: Albumin 3.8 g/dL (3.5-5.0); Calcium 9.7 mg/dL (8.4-10.2); Potassium 4.8 mmol/L (3.5-5.1); Total Bilirubin 0.3 mg/dL (0.2-1.3); Total Protein 6.8 g/dL (6.3-8.2)
--- NOTE | 2019-02-07 14:41 | XR ---
EXAMINATION TYPE: XR foot complete RT DATE OF EXAM: 02/07/2019 CLINICAL HISTORY: Right foot pain TECHNIQUE: Frontal, lateral, and oblique images of the right foot are obtained. COMPARISON: 12/30/2018 FINDINGS: There is been surgical removal of the previously seen large ulceration of the first great t oe. Erosion and cortical irregularity of the mid diaphysis of the remainder the proximal phalanx of t he first great toe near the postsurgical or related to osteomyelitis. Similar-appearing defects are s een of the second distal phalanx and third phalanges as well as of the second and third metatarsal he ads in comparison to exam of 12/30/2018. Punctate osseous fragment in the soft tissues of the first gr eat toe at the medial margin is also likely a remnant from surgical change. No subcutaneous emphysema is seen. Small vessel atherosclerosis. Small Achilles and plantar enthesophytes. Osseous cystic eng ge of the talar dome may be degenerative. IMPRESSION: Postsurgical change of the first digit in chronic deformities of the second and third dig its. Given interval postsurgical change of the first digit with partial amputation recurrent osteomye litis is difficult to exclude. Three-phase bone scan could be performed if there is further concern.
[2019-02-07] MEDS ORDERED: VANCOMYCIN 1,750 MG in SODIUM CHLORIDE 0.9% 500 ML 500 ML IVPB STA (15:35)
[2019-02-07] MEDS ORDERED: NALOXONE 0.4 MG/ML 1 ML VIAL IV PRN (15:36)
[2019-02-07] MEDS ORDERED: VANCOMYCIN IV PER PHARMACY 1 EACH MISC MISCELLANE PRN (15:40)
[2019-02-07 16:37] LABS: Glucose,Whole Blood 258 mg/dL (75-99)
[2019-02-07 17:15] LABS: Glucose,Whole Blood 241 mg/dL (75-99)
[2019-02-07] MEDS: SODIUM CHLORIDE 0.9% 1,000 ML IV SCH (17:37)
[2019-02-07] MEDS ORDERED: ACETAMINOPHEN TAB 325 MG TAB PO PRN (17:58)
[2019-02-07] MEDS: INSULN ASP PRT/INSULIN ASPART 100 UNIT/ML 10 ML VIAL SQ SCH (18:12)
[2019-02-07] MEDS: ATORVASTATIN 40 MG TAB PO SCH (20:51)
[2019-02-07] MEDS: FENOFIBRATE 160 MG TAB PO SCH (20:51)
[2019-02-07] MEDS: OXYBUTYNIN CHLORIDE 5 MG TAB PO SCH (20:51)
[2019-02-07] MEDS: metFORMIN 500 MG TAB PO SCH (20:51)
[2019-02-07 21:33] LABS: Glucose,Whole Blood 202 mg/dL (75-99)
[2019-02-07] MEDS: INSULIN ASPART (NovoLOG) 100 UNIT/ML VIAL SQ SCH (21:35)
[2019-02-08 05:57] LABS: Appearance,Urine Cloudy (Clear); Bacteria,Urine Rare /hpf; Bilirubin,Urine Negative (Negative); Blood,Urine Negative (Negative); Budding Yeast,Urine Occasional /hpf; Color,Urine Yellow; Glucose,Urine (UA) 3+ (Negative); Hyaline Casts,Urine 38 /lpf (0-2); Ketones,Urine Negative (Negative); Leukocyte Esterase,Urine Large (Negative); Mucus,Urine Occasional /hpf; Nitrite,Urine Negative (Negative); Protein,Urine Trace (Negative); RBC,Urine 12 /hpf (0-5); Specific Gravity,Urine 1.021 (1.001-1.035); Squamous Epithelial Cell,Urine 13 /hpf (0-4); Urobilinogen,Urine <2.0 mg/dL (<2.0); WBC,Urine 21 /hpf (0-5)
[2019-02-08 07:03] LABS: Glucose,Whole Blood 87 mg/dL (75-99)
[2019-02-08] MEDS: INSULIN ASPART (NovoLOG) 100 UNIT/ML VIAL SQ SCH ×4 (07:18→21:03)
[2019-02-08] MEDS: metFORMIN 500 MG TAB PO SCH ×2 (07:23→20:58)
[2019-02-08] MEDS: VANCOMYCIN 1,500 MG in SODIUM CHLORIDE 0.9% 250 ML IVPB SCH (07:23)
[2019-02-08] MEDS: ATENOLOL 25 MG TAB PO SCH (07:23)
[2019-02-08] MEDS: CITALOPRAM HYDROBROMIDE 20 MG TAB PO SCH (07:23)
[2019-02-08] MEDS: LISINOPRIL 10 MG TAB PO SCH (07:23)
[2019-02-08] MEDS: INSULN ASP PRT/INSULIN ASPART 100 UNIT/ML 10 ML VIAL SQ SCH ×3 (07:28→17:34)
[2019-02-08] MEDS ORDERED: APIXABAN 5 MG TAB PO SCH (09:00)
[2019-02-08 11:32] LABS: Glucose,Whole Blood 163 mg/dL (75-99)
[2019-02-08 11:36] VITALS: BMI 36.3
[2019-02-08] MEDS: SODIUM CHLORIDE 0.9% 1,000 ML IV SCH (11:44)
[2019-02-08 16:57] LABS: Glucose,Whole Blood 195 mg/dL (75-99)
[2019-02-08 20:27] LABS: Glucose,Whole Blood 194 mg/dL (75-99)
[2019-02-08] MEDS: AZTREONAM 2 GM in SODIUM CHLORIDE 0.9% 100 ML IVPB SCH (20:57)
[2019-02-08] MEDS: OXYBUTYNIN CHLORIDE 5 MG TAB PO SCH (20:57)
[2019-02-08] MEDS: FENOFIBRATE 160 MG TAB PO SCH (20:57)
[2019-02-08] MEDS: ATORVASTATIN 40 MG TAB PO SCH (20:57)
--- NOTE | 2019-02-08 21:21 | P.HPIM ---
History of Present Illness H&P Date: 02/08/19 Chief Complaint: Right foot second toe wound History of presenting complaint: This is a 73-year-old patient of Dr. Zhang. Chronic stable medical conditions include paroxysmal atrial fibrillation, diabetes with painful peripheral neuropathy, stable meningioma, hyperlipidemia, coronary artery disease with a prior MO, congestive heart failure EF 30%, peripheral artery disease. Patient was here end of December at that time patient was seen by Dr. Mccarthy from vascular surgery. On December 31 he carried out a right big toe amputation at the metatarsophalangeal joint. Patient now presents with infection of the right foot second toe. It has become infected. And is draining. Because of neuropathy patient has menopausal symptoms. There has been increase in foul odor Denies any fever and chills. Dr. Rodriguez from infectious disease and Dr. Mccarthy from vascular surgery was consulted. Review of systems: GEN.: Tired EYES: None HEENT: Some decreased hearing NECK: None RESPIRATORY: None CARDIOVASCULAR: None GASTROINTESTINAL: None GENITOURINARY: None MUSCULOSKELETAL: Pain in some joints LYMPHATICS: None HEMATOLOGICAL: None PSYCHIATRY: None NEUROLOGICAL: Peripheral neuropathy DERMATOLOGICAL: As above Past medical history: Paroxysmal atrial fibrillation, diabetes with diabetic peripheral neuropathy, stable meningioma, hyperlipidemia, coronary artery disease with prior MO, congestive heart failure with EF 30%, peripheral artery disease Social history: Does not smoke or drink alcohol. 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 Lives by herself Family history: Cancer type unknown Physical examination: VITAL SIGNS: 99.3, 81, 18, 118/57, 94% room air GENERAL: BMI 36.3, lying in bed,. EYES: Pupils equal. Conjunctiva normal. HEENT: External appearance of nose and ears normal, oral cavity grossly normal. NECK: JVD not raised; masses not palpable. HEART: First and second heart sounds are normal; no edema. LUNGS: Respiratory rate normal; clear to auscultation. ABDOMEN: Soft, nontender, liver spleen not palpable, no masses palpable. PSYCH: Alert and oriented x3; mood and affect normal. NEUROLOGICAL: Cranial nerves grossly intact; no facial asymmetry, power normal, decreased sensation distally MUSCULOSKELETAL: Patient's current dressing over the right foot LYMPHATICS: No lymph nodes palpable in the axilla and neck Investigations: Reviewed in the clinical context White count 11.8, hemoglobin 9.6, creatinine 1.01 blood glucose 319 Foot x-ray shows postsurgical changes of the first digit, with some deformities in the second distal and third distal phalanges. Assessment: -Right foot, distal second and third toe infection cannot rule out underlying osteomyelitis, with pus drainage from the second toe -Recent right foot big toe amputation -Paroxysmal atrial fibrillation -Diabetes mellitus type II chronically insulin with diabetic peripheral neuropathy -Benign brain meningioma stable -Hyperlipidemia -Coronary artery disease with a prior history of MO -Chronic congestive heart failure from EF 30% systolic dysfunction from underlying coronary artery disease -Peripheral arterial disease -Obesity BMI 36.3 -Normocytic anemia, cause unknown Plan: Dr. Rodriguez from infectious disease and Dr. Mccarthy from vascular surgery were consulted. Home medications resumed. Accu-Cheks are being followed. Patient is put on IV aztreonam and IV vancomycin. Given patient's radiological findings of bone destruction, patient may require further amputation. While at the decision rest between the vascular surgery and ID. Care was discussed with the patient. We'll check ESR. We'll also check iron studies, B12,. And guaiac stool. Past Medical History Past Medical History: Coronary Artery Disease (CAD), Diabetes Mellitus, Hyperlipidemia, Hypertension, Myocardial Infarction (MO) Additional Past Medical History / Comment(s): DIABETIC NEUROPATHY, HX OF CELLULITIS LEFT LEG , rt great toe wound Last Myocardial Infarction Date:: UNSURE History of Any Multi-Drug Resistant Organisms: MRSA Date of last positivie culture/infection: 12/23/18 MDRO Source:: TOE Past Surgical History: Adenoidectomy, Appendectomy, Section, Cholecystectomy, Hernia Repair, Joint Replacement, Tonsillectomy Additional Past Surgical History / Comment(s): right great toe partial amputation, left knee replacement, 6 toes amputated total Past Anesthesia/Blood Transfusion Reactions: No Reported Reaction Past Psychological History: Depression Additional Psychological History / Comment(s): QUIT SMOKING 40 YRS AGO, SMOKED LESS THAN 1PPD FOR LESS THAN 10 YRS. Lives independently. No alcohol use. 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 No experience. No international travel. Has a pet dog in the home care for by her daughter Smoking Status: Former smoker Past Alcohol Use History: None Reported Additional Past Alcohol Use History / Comment(s): QUIT SMOKING 40 YRS AGO, SMOKED LESS THAN 1PPD FOR LESS THAN 10 YRS Past Drug Use History: None Reported - Past Family History Mother Family Medical History: Cancer Father Family Medical History: Cancer Medications and Allergies Home Medications Medication Instructions Recorded Confirmed Type Citalopram Hydrobromide 60 mg PO QAM 02/21/16 02/07/19 History [Citalopram HBr] Gemfibrozil [Lopid] 600 mg PO BID 10/15/16 02/07/19 History metFORMIN HCL 1,000 mg PO BID 10/15/16 02/07/19 History Atorvastatin [Lipitor] 40 mg PO HS 03/18/17 02/07/19 History Atenolol 25 mg PO DAILY 09/30/17 02/07/19 History Apixaban [Eliquis] 5 mg PO DAILY 02/18/18 02/07/19 History Oxybutynin Chloride [Ditropan] 5 mg PO HS 02/19/18 02/07/19 History Insulin NPH Hum/Reg Insulin Hm 50 unit SQ AC-BRKFST 03/30/18 02/07/19 History [NovoLIN 70-30 100 UNIT/ML VIAL] Lisinopril [Prinivil] 10 mg PO DAILY 11/16/18 02/07/19 History Acetaminophen Tab [Tylenol] 650 mg PO Q6HR PRN tab 01/02/19 02/07/19 Rx Insulin NPH Hum/Reg Insulin Hm 25 unit SQ AC-LUNCH 02/07/19 02/07/19 History [NovoLIN 70-30 100 UNIT/ML VIAL] Insulin NPH Hum/Reg Insulin Hm 50 unit SQ AC-SUPPER 02/07/19 02/07/19 History [NovoLIN 70-30 100 UNIT/ML VIAL] Allergies Allergy/AdvReac Type Severity Reaction Status Date / Time ertapenem [From [facility]] AdvReac Hallucinati Verified 02/07/19 13:32 ons Physical Exam Vitals: Vital Signs Temp Pulse Pulse Resp BP BP Pulse Ox 02/08/19 05:15 98.2 F 75 20 90/59 96 02/07/19 22:00 98.2 F 71 20 94/59 97 02/07/19 16:25 98.6 F 77 18 116/59 97 02/07/19 14:55 78 18 118/60 98 02/07/19 13:05 99.3 F 81 18 118/57 94 L Intake and Output 02/07/19 02/08/1919 22:59 06:59 14:59 Intake Total 480 100 250 Balance 480 100 250 Intake: Oral 480 100 250 Other: Voiding Method Toilet Toilet Incontinent Incontinent # Voids 2 1 Results CBC & Chem 7: 02/07/19 14:00 02/07/19 14:00 Labs: Abnormal Lab Results - Last 24 Hours (Table) 02/07/19 02/07/19 02/07/19 Range/Units 14:00 14:00 16:35 WBC 11.8 H (3.8-10.6) k/uL RBC 3.60 L (3.80-5.40) m/uL Hgb 9.6 L (11.4-16.0) gm/dL Hct 29.7 L (34.0-46.0) % Carbon Dioxide 21 L (22-30) mmol/L BUN 35 H (7-17) mg/dL Glucose 319 H (74-99) mg/dL POC Glucose (mg/dL) 258 H (75-99) mg/dL AST 11 L (14-36) U/L ALT 6 L (9-52) U/L Alkaline Phosphatase 140 H (38-126) U/L Urine Appearance (Clear) Urine Protein (Negative) Urine Glucose (UA) (Negative) Ur Leukocyte Esterase (Negative) Urine RBC (0-5) /hpf Urine WBC (0-5) /hpf Ur Squamous Epith Cells (0-4) /hpf Urine Bacteria (None) /hpf Hyaline Casts (0-2) /lpf Urine Mucus (None) /hpf Urine Yeast (Budding) (None) /hpf 02/07/19 02/07/19 02/08/19 Range/Units 16:51 21:30 05:25 WBC (3.8-10.6) k/uL RBC (3.80-5.40) m/uL Hgb (11.4-16.0) gm/dL Hct (34.0-46.0) % Carbon Dioxide (22-30) mmol/L BUN (7-17) mg/dL Glucose (74-99) mg/dL POC Glucose (mg/dL) 241 H 202 H (75-99) mg/dL AST (14-36) U/L ALT (9-52) U/L Alkaline Phosphatase (38-126) U/L Urine Appearance Cloudy H (Clear) Urine Protein Trace H (Negative) Urine Glucose (UA) 3+ H (Negative) Ur Leukocyte Esterase Large H (Negative) Urine RBC 12 H (0-5) /hpf Urine WBC 21 H (0-5) /hpf Ur Squamous Epith Cells 13 H (0-4) /hpf Urine Bacteria Rare H (None) /hpf Hyaline Casts 38 H (0-2) /lpf Urine Mucus Occasional H (None) /hpf Urine Yeast (Budding) Occasional H (None) /hpf Microbiology - Last 24 Hours (Table) 02/07/19 14:10 Gram Stain - Preliminary Toe - Right Second Wound Culture - Preliminary Thrombosis Risk Factor Assmnt - Choose All That Apply Each Factor Represents 1 point: Obesity (BMI >25), Swollen legs (current) Each Risk Factor Represents 2 Points: Age 61-74 years Thrombosis Risk Factor Assessment Total Risk Factor Score: 4 Thrombosis Risk Factor Assessment Level: Moderate Risk
--- NOTE | 2019-02-08 22:44 | P.CONS ---
History of Present Illness - Reason for Consult Consult date: 02/08/19 - History of Present Illness 73-year-old female who has multiple medical troubles that includes diabetes mellitus type 2 poorly controlled who has been having a nonhealing ulceration to the right great toe was recently evaluated was found evidence of exposed bone and consequently was brought in the hospital. She was taken to the operating room and a great toe amputation has occurred by vascular surgery. She has been having some outpatient follow-up and was evaluated. There is evidence of the wet gangrenous changes to the second toe as well as some residual difficulties to the great toe amputation. She was brought in the hospital with plans for further debridement and amputation. Consultation requested for antibiotic therapy. The patient is without acute pain and is denying fevers or chills at this time. Review of Systems Patient feels poorly at all times HEENT:Denies headache or acute visual change. Denies sinus or mouth discomforts. Denies neck stiffness or pain. Denies significant oral cavity pain. Denies difficulty on swallowing. Lungs: Denies significant shortness of breath, cough, sputum production, or hemoptysis. Cardiovascular: Poor exercise tolerance but denies chest pain no syncope Gastrointestinal:Denies nausea, vomiting, diarrhea, constipation, hematemesis, melena, hematochezia. No no significant change of bowel habit noticed. Musculoskeletal: denies significant myalgias or arthralgias. No new joint swelling. Denies new back pain. Skin: Progressive ulcer right great toe Neuro: Denies headache or visual change. Denies any new onset weakness or difficulty with ambulation. Denies falls or seizures. Psychiatric:Denies anxiety or depression. Endocrine: Chronic fatigue weight has been stable Past Medical History Past Medical History: Coronary Artery Disease (CAD), Diabetes Mellitus, Hyp erlipidemia, Hypertension, Myocardial Infarction (IN) Additional Past Medical History / Comment(s): DIABETIC NEUROPATHY, HX OF CELLULITIS LEFT LEG , rt great toe wound Last Myocardial Infarction Date:: UNSURE History of Any Multi-Drug Resistant Organisms: MRSA Year Discovered:: 12/23/18 MDRO Source:: TOE Past Surgical History: Adenoidectomy, Appendectomy, Section, Cholecystectomy, Hernia Repair, Joint Replacement, Tonsillectomy Additional Past Surgical History / Comment(s): right great toe partial amputation, left knee replacement, 6 toes amputated total Past Anesthesia/Blood Transfusion Reactions: No Reported Reaction Past Psychological History: Depression Additional Psychological History / Comment(s): QUIT SMOKING 40 YRS AGO, SMOKED LESS THAN 1PPD FOR LESS THAN 10 YRS. Lives independently. No alcohol use. 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 No experience. No international travel. Has a pet dog in the home care for by her daughter Smoking Status: Former smoker Past Alcohol Use History: None Reported Additional Past Alcohol Use History / Comment(s): QUIT SMOKING 40 YRS AGO, SMOKED LESS THAN 1PPD FOR LESS THAN 10 YRS Past Drug Use History: None Reported - Past Family History Mother Family Medical History: Cancer Father Family Medical History: Cancer Medications and Allergies Home Medications and Allergies Comment(s): Current Medications Acetaminophen (Tylenol Tab) 650 mg PO Q6HR PRN PRN Reason: Mild Pain or Fever > 100.5 Atenolol (Tenormin) 25 mg PO DAILY [facility] Last Admin: 02/08/19 07:23 Dose: 25 mg Documented by: Atorvastatin Calcium (Lipitor) 40 mg PO [facility] Last Admin: 02/08/19 20:57 Dose: 40 mg Documented by: Citalopram Hydrobromide (Celexa) 60 mg PO QAM [facility] Last Admin: 02/08/19 07:23 Dose: 60 mg Documented by: Fenofibrate (Lofibra) 160 mg PO [facility] Last Admin: 02/08/19 20:57 Dose: 160 mg Documented by: Sodium Chloride (Saline 0.9%) 1,000 mls @ 20 mls/hr IV .Q24H [facility] Last Admin: 02/08/19 11:44 Dose: Not Given Documented by: Vancomycin HCl 1,500 mg/ (Sodium Chloride) 250 mls @ 125 mls/hr IVPB Q16H [facility] Last Admin: 02/08/19 07:23 Dose: 125 mls/hr Documented by: Aztreonam 2 gm/ Sodium (Chloride) 100 mls @ 100 mls/hr IVPB Q8HR [facility]; Protocol Last Admin: 02/08/19 20:57 Dose: 100 mls/hr Documented by: Insulin Aspart (Novolog Mix 70-30 Vial) 25 unit SQ AC-LUNCH [facility] Last Admin: 02/08/19 12:57 Dose: 25 unit Documented by: Insulin Aspart (Novolog Mix 70-30 Vial) 50 unit SQ AC-BRKFST [facility] Last Admin: 02/08/19 07:28 Dose: 30 unit Documented by: Insulin Aspart (Novolog Mix 70-30 Vial) 50 unit SQ -[facility] Last Admin: 02/08/19 17:34 Dose: 50 unit Documented by: Insulin Aspart (Novolog) 0 unit SQ [facility]; Protocol Last Admin: 02/08/19 21:03 Dose: 2 unit Documented by: Lisinopril (Zestril) 10 mg PO DAILY [facility] Last Admin: 02/08/19 07:23 Dose: 10 mg Documented by: Metformin HCl (Glucophage) 1,000 mg PO BID [facility] Last Admin: 02/08/19 20:58 Dose: 1,000 mg Documented by: Naloxone HCl (Narcan) 0.2 mg IV Q2M PRN PRN Reason: Opioid Reversal Oxybutynin Chloride (Ditropan) 5 mg PO [facility] Last Admin: 02/08/19 20:57 Dose: 5 mg Documented by: Home Medications Medication Instructions Recorded Confirmed Type Citalopram Hydrobromide 60 mg PO [facility] 02/21/16 02/07/19 History [Citalopram HBr] Gemfibrozil [Lopid] 600 mg PO BID 10/15/16 02/07/19 History metFORMIN HCL 1,000 mg PO BID 10/15/16 02/07/19 History Atorvastatin [Lipitor] 40 mg PO 03/18/17 02/07/19 History Atenolol 25 mg PO DAILY 09/30/17 02/07/19 History Apixaban [Eliquis] 5 mg PO DAILY 02/18/18 02/07/19 History Oxybutynin Chloride [Ditropan] 5 mg PO 02/19/18 02/07/19 History Insulin NPH Hum/Reg Insulin Hm 50 unit SQ -BRKFST 03/30/18 02/07/19 History [NovoLIN 70-30 100 UNIT/ML VIAL] Lisinopril [Prinivil] 10 mg PO DAILY 11/16/18 02/07/19 History Acetaminophen Tab [Tylenol] 650 mg PO Q6HR PRN tab 01/02/19 02/07/19 Rx Insulin NPH Hum/Reg Insulin Hm 25 unit SQ -LUNCH 02/07/19 02/07/19 History [NovoLIN 70-30 100 UNIT/ML VIAL] Insulin NPH Hum/Reg Insulin Hm 50 unit SQ AC-SUPPER 02/07/19 02/07/19 History [NovoLIN 70-30 100 UNIT/ML VIAL] Allergies Allergy/AdvReac Type Severity Reaction Status Date / Time ertapenem [From Invanz] AdvReac Hallucinati Verified 02/07/19 13:32 ons Physical Exam Vitals: Vital Signs Temp Pulse Resp BP Pulse Ox 02/08/19 20:30 99.2 F 80 18 111/54 96 02/08/19 13:03 99.1 F 74 16 101/65 95 02/08/19 05:15 98.2 F 75 20 90/59 96 Intake and Output 02/08/19 02/08/19 02/08/19 06:59 14:59 22:59 Intake Total 100 250 540 Balance 100 250 540 Intake: Oral 100 250 540 Other: Voiding Method Toilet Incontinent # Voids 1 1 1 # Bowel Movements 1 1 Weight 92.986 kg 73-year-old woman no distress. HEENT: Anicteric conjunctiva are pink and moist nasal mucosa grossly intact without significant lesions, there is no thrush. Neck: The neck is supple without significant lymphadenopathy or thyromegaly. Lungs: Good bilateral air entry without significant crackles or wheezing. There is no significant bronchial sounds. There is no egophony or dullness. Heart: Irregular with an audible S1 and S2 soft S4 no murmur click or rub. Abdomen: Obese Positive bowel sounds soft and nontender without palpable masses or organomegaly. There was no guarding or rebound. Extremities: The upper extremities have excellent pulses they are symmetric, no significant petechiae or telangiectasia. No splinter hemorrhages were noted. The left foot has evidence of prior toe amputation. No open ulcerations are seen on the left foot. The right foot shows evidence of the recent amputation to the great toe with evidence of open ulcerations and drainage. The second toe shows evidence of the wet gangrenous change distally with the swelling went tissue erythema deformity and erythema to the dorsum of the foot that is ascending. She has no significant pain. There is some warmth of the area. Neuro: Awake alert oriented to person place and time. There are no acute new gross focal sensory motor deficits. Results CBC & Chem 7: 02/07/19 14:00 02/07/19 14:00 Labs: Abnormal Lab Results - Last 24 Hours (Table) 02/08/19 02/08/19 02/08/19 Range/Units 05:25 11:29 16:30 POC Glucose (mg/dL) 163 H 195 H (75-99) mg/dL Urine Appearance Cloudy H (Clear) Urine Protein Trace H (Negative) Urine Glucose (UA) 3+ H (Negative) Ur Leukocyte Esterase Large H (Negative) Urine RBC 12 H (0-5) /hpf Urine WBC 21 H (0-5) /hpf Ur Squamous Epith Cells 13 H (0-4) /hpf Urine Bacteria Rare H (None) /hpf Hyaline Casts 38 H (0-2) /lpf Urine Mucus Occasional H (None) /hpf Urine Yeast (Budding) Occasional H (None) /hpf 02/08/19 Range/Units 20:26 POC Glucose (mg/dL) 194 H (75-99) mg/dL Urine Appearance (Clear) Urine Protein (Negative) Urine Glucose (UA) (Negative) Ur Leukocyte Esterase (Negative) Urine RBC (0-5) /hpf Urine WBC (0-5) /hpf Ur Squamous Epith Cells (0-4) /hpf Urine Bacteria (None) /hpf Hyaline Casts (0-2) /lpf Urine Mucus (None) /hpf Urine Yeast (Budding) (None) /hpf Microbiology - Last 24 Hours (Table) 02/07/19 14:00 Blood Culture - Preliminary Blood No Growth after 24 hours 02/07/19 14:10 Gram Stain - Preliminary Toe - Right Second Wound Culture - Preliminary Laboratory Results WBC 11.8 k/uL (3.8-10.6) H 02/07/19 14:00 RBC 3.60 m/uL (3.80-5.40) L 02/07/19 14:00 Hgb 9.6 gm/dL (11.4-16.0) L 02/07/19 14:00 Hct 29.7 % (34.0-46.0) L 02/07/19 14:00 MCV 82.6 fL (80.0-100.0) 02/07/19 14:00 MCH 26.8 pg (25.0-35.0) 02/07/19 14:00 MCHC 32.4 g/dL (31.0-37.0) 02/07/19 14:00 RDW 15.2 % (11.5-15.5) 02/07/19 14:00 Plt Count 267 k/uL (150-450) 02/07/19 14:00 Hypochromasia Slight 02/07/19 14:00 Sodium 138 mmol/L (137-145) 02/07/19 14:00 Potassium 4.8 mmol/L (3.5-5.1) 02/07/19 14:00 Chloride 105 mmol/L (98-107) 02/07/19 14:00 Carbon Dioxide 21 mmol/L (22-30) L 02/07/19 14:00 Anion Gap 12 mmol/L 02/07/19 14:00 BUN 35 mg/dL (7-17) H 02/07/19 14:00 Creatinine 1.01 mg/dL (0.52-1.04) 02/07/19 14:00 Est GFR (CKD-EPI)AfAm 64 (>60 ml/min/1.73 sqM) 02/07/19 14:00 Est GFR (CKD-EPI)NonAf 56 (>60 ml/min/1.73 sqM) 02/07/19 14:00 Glucose 319 mg/dL (74-99) H 02/07/19 14:00 POC Glucose (mg/dL) 194 mg/dL (75-99) H 02/08/19 20:26 POC Glu Mica Splitter Christine Mondragon 02/08/19 20:26 Plasma Lactic Acid Conrad 1.6 mmol/L (0.7-2.0) 02/07/19 14:00 Calcium 9.7 mg/dL (8.4-10.2) 02/07/19 14:00 Total Bilirubin 0.3 mg/dL (0.2-1.3) 02/07/19 14:00 AST 11 U/L (14-36) L 02/07/19 14:00 ALT 6 U/L (9-52) L 02/07/19 14:00 Alkaline Phosphatase 140 U/L (38-126) H 02/07/19 14:00 Total Protein 6.8 g/dL (6.3-8.2) 02/07/19 14:00 Albumin 3.8 g/dL (3.5-5.0) 02/07/19 14:00 Urine Color Yellow 02/08/19 05:25 Urine Appearance Cloudy (Clear) H 02/08/19 05:25 Urine pH 5.0 (5.0-8.0) 02/08/19 05:25 Ur Specific Ostrander 1.021 (1.001-1.035) 02/08/19 05:25 Urine Protein Trace (Negative) H 02/08/19 05:25 Urine Glucose (UA) 3+ (Negative) H 02/08/19 05:25 Urine Ketones Negative (Negative) 02/08/19 05:25 Urine Blood Negative (Negative) 02/08/19 05:25 Urine Nitrite Negative (Negative) 02/08/19 05:25 Urine Bilirubin Negative (Negative) 02/08/19 05:25 Urine Urobilinogen <2.0 mg/dL (<2.0) 02/08/19 05:25 Ur Leukocyte Esterase Large (Negative) H 02/08/19 05:25 Urine RBC 12 /hpf (0-5) H 02/08/19 05:25 Urine WBC 21 /hpf (0-5) H 02/08/19 05:25 Ur Squamous Epith Cells 13 /hpf (0-4) H 02/08/19 05:25 Urine Bacteria Rare /hpf (None) H 02/08/19 05:25 Hyaline Casts 38 /lpf (0-2) H 02/08/19 05:25 Urine Mucus Occasional /hpf (None) H 02/08/19 05:25 Urine Yeast (Budding) Occasional /hpf (None) H 02/08/19 05:25 Microbiology 02/07/19 14:00 Blood Blood Culture - Preliminary No Growth after 24 hours 02/07/19 14:10 Toe - Right Second Gram Stain - Preliminary 02/07/19 14:10 Toe - Right Second Wound Culture - Preliminary Assessment and Plan (1) Diabetic ulcer of right foot Narrative/Plan: 73-year-old female that has a long-standing history of diabetes mellitus type 2 peripheral vascular disease with had several toe amputations is now presenting back to hospital with worsening of the amputation site to her right foot. The right amputation is not healing well and there is no evidence of wet gangrenous changes to the second toe. Is related that the early a.m. on Wednesday she was taken to the operating room for revision of the great toe amputation and amputation of that second toe. Antibiotic therapy at this time is of vancomycin and with her ertapenem ALLERGY Azactam with her prior isolated Enterobacter. She give us coverage for the isolate a recent pathogens and recent cultures are pending. This may further help direct antibiotic therapy. Current Visit: Yes Status: Acute Code(s): E11.621 - TYPE 2 DIABETES MELLITUS WITH FOOT ULCER; L97.519 - NON-PRS CHRONIC ULCER OTH PRT RIGHT FOOT W UNSP SE VERITY SNOMED Code(s): 306654527 (2) Osteomyelitis Current Visit: No Status: Acute Code(s): M86.9 - OSTEOMYELITIS, UNSPECIFIED SNOMED Code(s): 20785501
--- NOTE | 2019-02-08 23:44 | CONS ---
DATE OF CONSULTATION: 02/08/2019 Susan Arguelles, this is a 73-year-old female, well known to me. The patient had a right posterior big toe amputation done in the past. The patient developed wound dehiscence and also patient came with the wet gangrene of the right foot second toe with marked cellulitis on the dorsal aspect of the foot and plantar aspect of the foot. The patient is on IV antibiotic and medical history: The patient has history of coronary disease. Patient is on Eliquis applied. Patient also had multiple skin grafts done in the right lower extremity. The patient also had a toe amputation done, left foot in the past. PHYSICAL EXAMINATION: Patient was seen in her room. NECK: Supple. Trachea central. CHEST: Clear. Femorals are 1+. Posterior tibial Hospital by the Doppler. Right foot has a second toe has a wet gangrene with the stump. There is redness and some discharge noted. Patient has marked swelling of the dorsal aspect of the foot. PLAN: Continue with IV antibiotic. We stopped the Eliquis an arrange for right big toe and second toe amputation. Since the patient has her marked swelling and redness and infection most likely, he will keep the wound open and the IV antibiotic and whack therapy follow with you. We will arrange for procedure. Risks and complications have been discussed. MMODL / IJN: [id number] / DUSTIN
[2019-02-09] MEDS: VANCOMYCIN 1,500 MG in SODIUM CHLORIDE 0.9% 250 ML IVPB SCH ×2 (00:09→18:51)
[2019-02-09 07:27] LABS: Glucose,Whole Blood 121 mg/dL (75-99)
[2019-02-09] MEDS: INSULIN ASPART (NovoLOG) 100 UNIT/ML VIAL SQ SCH ×4 (08:04→20:53)
[2019-02-09] MEDS: CITALOPRAM HYDROBROMIDE 20 MG TAB PO SCH (08:07)
[2019-02-09] MEDS: ATENOLOL 25 MG TAB PO SCH (08:07)
[2019-02-09] MEDS: LISINOPRIL 10 MG TAB PO SCH (08:07)
[2019-02-09] MEDS: metFORMIN 500 MG TAB PO SCH ×2 (08:07→20:53)
[2019-02-09] MEDS: AZTREONAM 2 GM in SODIUM CHLORIDE 0.9% 100 ML IVPB SCH ×3 (08:08→23:45)
[2019-02-09] MEDS: INSULN ASP PRT/INSULIN ASPART 100 UNIT/ML 10 ML VIAL SQ SCH ×3 (08:08→17:49)
--- NOTE | 2019-02-09 09:18 | PN ---
PROGRESS NOTE This patient is a 73-year-old diabetic female. Patient came with wet gangrene right foot second toe and patient had a big toe nail removed and distal phalanx was removed for infection of the nail bed. She came with second toe wet gangrene. The patient has a toe amputation done by Dr. Mendoza and Dr. Alarcon in the past of the left foot and also the right foot toe. On examination, patient has some fungal infection in the groin on the left side. Femorals are diminished bilaterally. Patient has some Doppler signal of the posterior tibial and dorsal pedis at the right foot, most likely she has some inflow occlusive disease. We will do the CT of the abdomen with runoff prior to amputation. Healing is going to be a problem. The patient also had a skin graft in both lower extremities in the past. We will review the CT finding. MMODL / IJN: [id number] /
[2019-02-09 09:41] LABS: Albumin 3.4 g/dL (3.5-5.0); Potassium 5.2 mmol/L (3.5-5.1); Total Bilirubin 0.4 mg/dL (0.2-1.3); Total Protein 6.4 g/dL (6.3-8.2)
[2019-02-09 12:03] LABS: Glucose,Whole Blood 121 mg/dL (75-99)
--- NOTE | 2019-02-09 13:19 | CT ---
EXAMINATION TYPE: CT angio abd aorta w/Runoff DATE OF EXAM: 02/09/2019 HISTORY: verify lower extremity circulation CT DLP: 1358mGycm Automated Exposure Control for Dose Reduction was Utilized. CONTRAST: CT scan of the abdomen and pelvis is performed with IV Contrast, patient injected with 125 mL of Isov ue 370. COMPARISON: None FINDINGS: LUNG BASES: Subsegmental consolidation at the lung bases.. Heart is enlarged there is coronary artery calcification. ABDOMEN AND PELVIS: Small hiatal hernia noted. Delayed renal images are not submitted. This limits their assessment. Panc reas, spleen and liver demonstrate no definite abnormality. Small hiatal hernia noted. Bowel gas mariana madeleine nonspecific. Small amount of air in the bladder seen. There is a 3 cm left adnexal mass likely re lated to a cyst which is somewhat atypical given the patient's demographics. AORTA: There is mild atherosclerotic changes of the aorta which is of normal caliber. No significant stenosi s. Mild to moderate atherosclerotic changes of the side branches noted. Single renal arteries are not ed bilaterally. Plaque at the origin of the right renal artery. PELVIS: There is atherosclerotic plaque involving the common, internal, and external iliac arteries to modera te degree bilaterally. Approximate 60-70 % stenosis involving the proximal right common iliac artery. RUNOFF: There is atherosclerotic plaque involving the common femoral and deep femoral arteries bilaterally. N o significant stenosis identified. Within the left lower extremity there is multifocal atherosclerotic change throughout the left superf icial femoral artery with a focal significant stenosis at the level the mid thigh best noted on axial image 227. Multifocal additional disease is seen throughout the remainder of the left SFA. There is eccentric approximate 60-70% stenosis involving the distal superficial femoral artery. There is near complete occlusion at the level the popliteal artery junction with the SFA. Short segmental occlusion is not excluded. The popliteal region is nondiagnostic due to artifact from the patient's knee repla cement. This includes portions of the trifurcation vessels which are therefore not visualized. Grossl y the tibioperoneal trunk, peroneal, posterior tibial and anterior tibial arteries are patent to the level of the ankle. Right lower extremity demonstrates a multifocal disease of the right SFA. Most marked near the level of the abductor canal and distally with suspicion of a high-grade stenosis measuring greater than 80% . Severe stenosis is confirmed. The popliteal artery appears to be patent. Tibioperoneal trunk and pr oximal trifurcation vessels are patent and three-vessel runoff is seen to the level of the ankle. IMPRESSION: 1. There is diffuse atherosclerotic changes with a 60-70% right proximal common iliac artery stenosis . 2. There is bilateral multifocal SFA disease with significant stenosis distally as described above. 3. There is air within the bladder correlate for recent Clements catheter insertion otherwise consider i nfection. 4. there is a 3 cm left adnexal mass likely related to an ovarian cyst. This is somewhat atypical giv en the patient's demographics. Recommend pelvic ultrasound.
[2019-02-09 17:07] LABS: Glucose,Whole Blood 225 mg/dL (75-99)
[2019-02-09 17:18] LABS: Folate, Serum 12.1 ng/mL; Iron Saturation 3.99 (12.00-45.00)
[2019-02-09] MEDS: SODIUM CHLORIDE 0.9% 1,000 ML IV SCH (17:39)
[2019-02-09 20:36] LABS: Glucose,Whole Blood 132 mg/dL (75-99)
[2019-02-09] MEDS: ATORVASTATIN 40 MG TAB PO SCH (20:53)
[2019-02-09] MEDS: OXYBUTYNIN CHLORIDE 5 MG TAB PO SCH (20:53)
[2019-02-09] MEDS: FENOFIBRATE 160 MG TAB PO SCH (20:53)
--- NOTE | 2019-02-09 21:50 | P.PN ---
Progress Note - Text Progress Note Date: 02/09/19 Chief Complaint: Right foot second toe wound Interval history: This is a 73-year-old patient of Dr. Zhang. Chronic stable medical conditions include paroxysmal atrial fibrillation, diabetes with painful peripheral neuropathy, stable meningioma, hyperlipidemia, coronary artery disease with a prior OH, congestive heart failure EF 30%, peripheral artery disease. Patient was here end of December at that time patient was seen by Dr. Mccarthy from vascular surgery. On December 31 he carried out a right big toe amputation at the metatarsophalangeal joint. Patient now presents with infection of the right foot second toe. It has become infected. And is draining. Because of neuropathy patient has menopausal symptoms. There has been increase in foul odor Denies any fever and chills. Dr. Rodriguez from infectious disease and Dr. Mccarthy from vascular surgery was consulted. Today-patient getting antibiotics. No new issues. Spoke to Dr. Mccarthy. His planning amputation same. Review of systems: Was done for constitutional, cardiovascular, GI, pulmonary. relevant finding as above Active Medications Acetaminophen (Tylenol Tab) 650 mg PO Q6HR PRN PRN Reason: Mild Pain or Fever > 100.5 Atenolol (Tenormin) 25 mg PO DAILY [facility] Last Admin: 02/09/19 08:07 Dose: 25 mg Documented by: Atorvastatin Calcium (Lipitor) 40 mg PO [facility] Last Admin: 02/09/19 20:53 Dose: 40 mg Documented by: Citalopram Hydrobromide (Celexa) 60 mg PO [facility] Last Admin: 02/09/19 08:07 Dose: 60 mg Documented by: Fenofibrate (Lofibra) 160 mg PO [facility] Last Admin: 02/09/19 20:53 Dose: 160 mg Documented by: Sodium Chloride (Saline 0.9%) 1,000 mls @ 20 mls/hr IV .Q24H [facility] Last Admin: 02/09/19 17:39 Dose: Not Given Documented by: Vancomycin HCl 1,500 mg/ (Sodium Chloride) 250 mls @ 125 mls/hr IVPB Q16H [facility] Last Admin: 02/09/19 18:51 Dose: 125 mls/hr Documented by: Aztreonam 2 gm/ Sodium (Chloride) 100 mls @ 100 mls/hr IVPB Q8HR [facility]; Protocol Last Admin: 02/09/19 17:40 Dose: 100 mls/hr Documented by: Insulin Aspart (Novolog Mix 70-30 Vial) 25 unit SQ AC-LUNCH [facility] Last Admin: 02/09/19 13:26 Dose: 25 unit Documented by: Insulin Aspart (Novolog Mix 70-30 Vial) 50 unit SQ AC-BRKFST [facility] Last Admin: 02/09/19 08:08 Dose: 25 unit Documented by: Insulin Aspart (Novolog Mix 70-30 Vial) 50 unit SQ AC-SUPPER [facility] Last Admin: 02/09/19 17:49 Dose: 50 unit Documented by: Insulin Aspart (Novolog) 0 unit SQ ACHS [facility]; Protocol Last Admin: 02/09/19 20:53 Dose: Not Given Documented by: Lisinopril (Zestril) 10 mg PO DAILY [facility] Last Admin: 02/09/19 08:07 Dose: 10 mg Documented by: Metformin HCl (Glucophage) 1,000 mg PO BID [facility] Last Admin: 02/09/19 20:53 Dose: 1,000 mg Documented by: Miscellaneous Information (Vancomycin Trough Due) 0 each MISCELLANE DIRECTED ONE Stop: 02/10/19 07:01 Naloxone HCl (Narcan) 0.2 mg IV Q2M PRN PRN Reason: Opioid Reversal Oxybutynin Chloride (Ditropan) 5 mg PO HS [facility] Last Admin: 02/09/19 20:53 Dose: 5 mg Documented by: Physical examination: VITAL SIGNS: 97.1, 74, 16, 105/65, 95% on room air GENERAL: Laying in bed, comfortable,. EYES: Pupils equal. Conjunctiva normal. HEENT: External appearance of nose and ears normal, oral cavity grossly normal. NECK: JVD not raised; masses not palpable. HEART: First and second heart sounds are normal; no edema. LUNGS: Respiratory rate normal; clear to auscultation. ABDOMEN: Soft, nontender, liver spleen not palpable, no masses palpable. PSYCH: Alert and oriented x3; mood and affect normal. NEUROLOGICAL: Cranial nerves grossly intact; no facial asymmetry, power normal, decreased sensation distally MUSCULOSKELETAL: Patient's current dressing over the right foot Investigations: Reviewed in the clinical context Potassium 5.2, creatinine 0.9 to IM 13 TIBC 326 and saturation low at 3.99 B12 446 folate 12 Admission labs White count 11.8, hemoglobin 9.6, creatinine 1.01 blood glucose 319 Foot x-ray shows postsurgical changes of the first digit, with some deformities in the second distal and third distal phalanges. Assessment: -Right foot, distal second and third toe infection cannot rule out underlying osteomyelitis, with pus drainage from the second toe, slow to respond -Recent right foot big toe amputation -Paroxysmal atrial fibrillation -Diabetes mellitus type II chronically insulin with diabetic peripheral neuropathy -Benign brain meningioma stable -Hyperlipidemia -Coronary artery disease with a prior history of OH -Chronic congestive heart failure from EF 30% systolic dysfunction from underlying coronary artery disease -Peripheral arterial disease -Obesity BMI 36.3 -Normocytic anemia,, iron deficient Plan: Continue current medication treatment plan. Spoke to Dr. Mccarthy from vascular. Planning amputation. Antibiotics to continue per Dr. Rodriguez. Care was discussed with the patient..
[2019-02-10] MEDS ORDERED: VANCOMYCIN TROUGH DUE 1 EACH MISC MISCELLANE ONE (07:00)
[2019-02-10 07:17] LABS: Glucose,Whole Blood 117 mg/dL (75-99)
[2019-02-10] MEDS: INSULIN ASPART (NovoLOG) 100 UNIT/ML VIAL SQ SCH ×4 (07:41→20:53)
[2019-02-10] MEDS: INSULN ASP PRT/INSULIN ASPART 100 UNIT/ML 10 ML VIAL SQ SCH ×3 (07:42→17:57)
[2019-02-10] MEDS: metFORMIN 500 MG TAB PO SCH ×2 (08:23→20:53)
[2019-02-10] MEDS: CITALOPRAM HYDROBROMIDE 20 MG TAB PO SCH (08:23)
[2019-02-10] MEDS: LISINOPRIL 10 MG TAB PO SCH (08:23)
[2019-02-10] MEDS: ATENOLOL 25 MG TAB PO SCH (08:23)
[2019-02-10] MEDS: AZTREONAM 2 GM in SODIUM CHLORIDE 0.9% 100 ML IVPB SCH ×3 (08:23→23:14)
[2019-02-10] MEDS: VANCOMYCIN 1,500 MG in SODIUM CHLORIDE 0.9% 250 ML IVPB SCH (10:05)
[2019-02-10] MEDS ORDERED: IV FLUID CONTINUATION 500 ML IV ONE (11:40)
[2019-02-10] MEDS ORDERED: LIDOCAINE 1% 20 ML VIAL (10MG/ML) FOR IV START INTRADERMA ONE (12:00)
[2019-02-10] MEDS ORDERED: LACTATED RINGERS 1,000 ML IV ONE (12:00)
[2019-02-10 12:11] LABS: Glucose,Whole Blood 107 mg/dL (75-99)
[2019-02-10] MEDS ORDERED: KETAMINE 10 MG/ML 20 ML VIAL ONE (13:14)
[2019-02-10] MEDS ORDERED: MIDAZOLAM 2 MG/2 ML VIAL ONE (13:14)
[2019-02-10] MEDS ORDERED: fentaNYL (PF) 50 MCG/ML 2 ML AMP ONE (13:14)
[2019-02-10] MEDS ORDERED: PROPOFOL 10 MG/ML 20 ML VIAL IV ONE (13:14)
[2019-02-10] MEDS ORDERED: LIDOCAINE 1% INJ 10MG/ML (20 ML MDV) SQ ONE ×2 (13:38)
--- NOTE | 2019-02-10 14:52 | OP ---
OPERATIVE REPORT PREOPERATIVE DIAGNOSIS: Wet gangrene of the right foot big toe and second toe. OPERATION: Amputation of the right foot, big toe and the second toe. This patient has history of diabetes, peripheral vascular disease. The patient came with wet gangrene of the big toe and the second toe. The patient was brought to the operating room and the right foot was prepped and draped in a sterile manner. Incision was made on the dorsal aspect of the foot at the junction of the metatarsophalangeal joint, deepened through skin, fat and fascia and tendons were divided. Then incision was made on the plantar aspect of the foot, deep into skin, fat and fascia and there was some bleeding points which were suture ligated. We reached the head of the metatarsal bone of the big toe and second toe, using bone cutter we divided the head of the metatarsal and second toe and specimen was removed. We sent the deep culture for culture and sensitivity. After that, hemostasis was controlled and the wound was copiously irrigated with peroxide and saline and incision was closed in 2 layers using 0 Vicryl and the skin was approximated with 0 nylon with mattress interrupted suture. Dressing applied. Patient tolerated the procedure well. MMODL / IJN: [id number] /
[2019-02-10 14:53] LABS: Glucose,Whole Blood 98 mg/dL (75-99)
[2019-02-10] MEDS: SODIUM CHLORIDE 0.9% 1,000 ML IV SCH (15:46)
[2019-02-10 17:15] LABS: Glucose,Whole Blood 128 mg/dL (75-99)
--- NOTE | 2019-02-10 20:18 | P.PN ---
Progress Note - Text Progress Note Date: 02/10/19 Chief Complaint: Right foot second toe wound Interval history: This is a 73-year-old patient of Dr. Zhang. Chronic stable medical conditions include paroxysmal atrial fibrillation, diabetes with painful peripheral neuropathy, stable meningioma, hyperlipidemia, coronary artery disease with a prior AL, congestive heart failure EF 30%, peripheral artery disease. Patient was here end of December at that time patient was seen by Dr. Mccarthy from vascular surgery. On December 31 he carried out a right big toe amputation at the metatarsophalangeal joint. Patient now presents with infection of the right foot second toe. It has become infected. And is draining. Because of neuropathy patient has menopausal symptoms. There has been increase in foul odor Denies any fever and chills. Dr. Rodriguez from infectious disease and Dr. Mccarthy from vascular surgery was consulted. Today-saw the patient this morning before going on for surgery. No new issues. No fever no chills. Review of systems: Was done for constitutional, cardiovascular, GI, pulmonary. relevant finding as above Active Medications Acetaminophen (Tylenol Tab) 650 mg PO Q6HR PRN PRN Reason: Mild Pain or Fever > 100.5 Atenolol (Tenormin) 25 mg PO DAILY [facility] Last Admin: 02/10/19 08:23 Dose: 25 mg Documented by: Atorvastatin Calcium (Lipitor) 40 mg PO [facility] Last Admin: 02/09/19 20:53 Dose: 40 mg Documented by: Citalopram Hydrobromide (Celexa) 60 mg PO [facility] Last Admin: 02/10/19 08:23 Dose: 60 mg Documented by: Fenofibrate (Lofibra) 160 mg PO [facility] Last Admin: 02/09/19 20:53 Dose: 160 mg Documented by: Sodium Chloride (Saline 0.9%) 1,000 mls @ 20 mls/hr IV .Q24H [facility] Last Admin: 02/10/19 15:46 Dose: 20 mls/hr Documented by: Vancomycin HCl 1,500 mg/ (Sodium Chloride) 250 mls @ 125 mls/hr IVPB Q16H [facility] Last Admin: 02/10/19 10:05 Dose: 125 mls/hr Documented by: Aztreonam 2 gm/ Sodium (Chloride) 100 mls @ 100 mls/hr IVPB Q8HR [facility]; Protocol Last Admin: 02/10/19 15:46 Dose: 100 mls/hr Documented by: Insulin Aspart (Novolog Mix 70-30 Vial) 25 unit SQ AC-LUNCH [facility] Last Admin: 02/10/19 13:04 Dose: Not Given Documented by: Insulin Aspart (Novolog Mix 70-30 Vial) 50 unit SQ AC-BRKFST [facility] Last Admin: 02/10/19 07:42 Dose: Not Given Documented by: Insulin Aspart (Novolog Mix 70-30 Vial) 50 unit SQ AC-SUPPER [facility] Last Admin: 02/10/19 17:57 Dose: 50 unit Documented by: Insulin Aspart (Novolog) 0 unit SQ ACHS [facility]; Protocol Last Admin: 02/10/19 17:51 Dose: Not Given Documented by: Lisinopril (Zestril) 10 mg PO DAILY [facility] Last Admin: 02/10/19 08:23 Dose: 10 mg Documented by: Metformin HCl (Glucophage) 1,000 mg PO BID [facility] Last Admin: 02/10/19 08:23 Dose: 1,000 mg Documented by: Naloxone HCl (Narcan) 0.2 mg IV Q2M PRN PRN Reason: Opioid Reversal Oxybutynin Chloride (Ditropan) 5 mg PO HS [facility] Last Admin: 02/09/19 20:53 Dose: 5 mg Documented by: Physical examination: VITAL SIGNS: 97.8, 98, 16, 104/63, 95% room air GENERAL: Laying in bed, comfortable,. EYES: Pupils equal. Conjunctiva normal. HEENT: External appearance of nose and ears normal, oral cavity grossly normal. NECK: JVD not raised; masses not palpable. HEART: First and second heart sounds are normal; no edema. LUNGS: Respiratory rate normal; clear to auscultation. ABDOMEN: Soft, nontender, liver spleen not palpable, no masses palpable. PSYCH: Alert and oriented x3; mood and affect normal. NEUROLOGICAL: Cranial nerves grossly intact; no facial asymmetry, power normal, decreased sensation distally MUSCULOSKELETAL: Patient's current dressing over the right foot Investigations: Reviewed in the clinical context Creatinine 0.89 Previous labs White count 11.8, hemoglobin 9.6, creatinine 1.01 blood glucose 319 Foot x-ray shows postsurgical changes of the first digit, with some deformities in the second distal and third distal phalanges. Iron 13 TIBC 326 and saturation low at 3.99 B12 446 folate 12 Assessment: -Right foot, distal first and second toe infection cannot rule out underlying osteomyelitis, with pus drainage from the second toe, slow to respond -Recent right foot big toe amputation -Paroxysmal atrial fibrillation -Diabetes mellitus type II chronically insulin with diabetic peripheral neuropathy -Benign brain meningioma stable -Hyperlipidemia -Coronary artery disease with a prior history of AL -Chronic congestive heart failure from EF 30% systolic dysfunction from underlying coronary artery disease -Peripheral arterial disease -Obesity BMI 36.3 -Normocytic anemia,, iron deficient Plan: Sulfa the patient early this morning. Later in the afternoon first toe and second toes have been amputated Medication treatment plan to continue. Antibiotics per Dr. Rodriguez.
[2019-02-10 20:47] LABS: Glucose,Whole Blood 324 mg/dL (75-99)
[2019-02-10] MEDS: ATORVASTATIN 40 MG TAB PO SCH (20:53)
[2019-02-10] MEDS: OXYBUTYNIN CHLORIDE 5 MG TAB PO SCH (20:53)
[2019-02-10] MEDS: FENOFIBRATE 160 MG TAB PO SCH (20:53)
--- NOTE | 2019-02-10 23:11 | P.PN ---
Subjective Progress Note Date: 02/10/19 73-year-old female who has multiple medical troubles that includes diabetes mellitus type 2 poorly controlled who has been having a nonhealing ulceration to the right great toe was recently evaluated was found evidence of exposed bone and consequently was brought in the hospital. She was taken to the operating room and a great toe amputation has occurred by vascular surgery. She has been having some outpatient follow-up and was evaluated. There is evidence of the wet gangrenous changes to the second toe as well as some residual difficulties to the great toe amputation. She was brought in the hospital with plans for further debridement and amputation. Consultation requested for antibiotic therapy. The patient is without acute pain and is denying fevers or chills at this time. 02/10/2019 the patient has now been taking Care of his head to toe amputations. She is quite comfortable status post the procedure is not voicing any acute complaints. No other acute difficulties have been related. Objective - Vital Signs Vital signs: Vital Signs Temp 97.2 F L 02/10/19 15:40 Pulse 64 02/10/19 16:40 Resp 16 02/10/19 15:40 BP 105/56 02/10/19 16:40 Pulse Ox 96 02/10/19 15:40 Intake & Output 02/10/19 02/10/19 02/11/19 06:59 18:59 06:59 Intake Total 500 700 Output Total 20 Balance 500 680 Intake: IV 700 Oral 500 Output: Estimated Blood Loss 20 Other: # Voids 1 - Exam 73-year-old woman no distress. HEENT: Anicteric conjunctiva are pink and moist nasal mucosa grossly intact without significant lesions, there is no thrush. Neck: The neck is supple without significant lymphadenopathy or thyromegaly. Lungs: Good bilateral air entry without significant crackles or wheezing. There is no significant bronchial sounds. There is no egophony or dullness. Heart: Irregular with an audible S1 and S2 soft S4 no murmur click or rub. Abdomen: Obese Positive bowel sounds soft and nontender without palpable masses or organomegaly. There was no guarding or rebound. Extremities: The upper extremities have excellent pulses they are symmetric, no significant petechiae or telangiectasia. No splinter hemorrhages were noted. The left foot has evidence of prior toe amputation. No open ulcerations are seen on the left foot. The right foot shows evidence of the surgery today with a toe amputations dressing is dry Neuro: Awake alert oriented to person place and time. There are no acute new gross focal sensory motor deficits. - Labs CBC & Chem 7: 02/07/19 14:00 02/10/19 07:48 Labs: Abnormal Lab Results - Last 24 Hours (Table) 02/10/19 02/10/19 02/10/19 Range/Units 07:15 07:48 12:09 Chloride 111 H (98-107) mmol/L BUN 46 H (7-17) mg/dL Glucose 107 H (74-99) mg/dL POC Glucose (mg/dL) 117 H 107 H (75-99) mg/dL 02/10/19 02/10/19 Range/Units 17:13 20:39 Chloride (98-107) mmol/L BUN (7-17) mg/dL Glucose (74-99) mg/dL POC Glucose (mg/dL) 128 H 324 H (75-99) mg/dL Microbiology - Last 24 Hours (Table) 02/10/19 14:27 Anaerobic Culture - Preliminary Toe - Right Second 02/10/19 14:27 Tissue Culture - Preliminary Toe - Right Second 02/07/19 14:00 Blood Culture - Preliminary Blood No Growth after 72 hours Laboratory Results WBC 11.8 k/uL (3.8-10.6) H 02/07/19 14:00 RBC 3.60 m/uL (3.80-5.40) L 02/07/19 14:00 Hgb 9.6 gm/dL (11.4-16.0) L 02/07/19 14:00 Hct 29.7 % (34.0-46.0) L 02/07/19 14:00 MCV 82.6 fL (80.0-100.0) 02/07/19 14:00 MCH 26.8 pg (25.0-35.0) 02/07/19 14:00 MCHC 32.4 g/dL (31.0-37.0) 02/07/19 14:00 RDW 15.2 % (11.5-15.5) 02/07/19 14:00 Plt Count 267 k/uL (150-450) 02/07/19 14:00 Hypochromasia Slight 02/07/19 14:00 Sodium 142 mmol/L (137-145) 02/10/19 07:48 Potassium 5.0 mmol/L (3.5-5.1) 02/10/19 07:48 Chloride 111 mmol/L (98-107) H 02/10/19 07:48 Carbon Dioxide 23 mmol/L (22-30) 02/10/19 07:48 Anion Gap 8 mmol/L 02/10/19 07:48 BUN 46 mg/dL (7-17) H 02/10/19 07:48 Creatinine 0.89 mg/dL (0.52-1.04) 02/10/19 07:48 Est GFR (CKD-EPI)AfAm 75 (>60 ml/min/1.73 sqM) 02/10/19 07:48 Est GFR (CKD-EPI)NonAf 65 (>60 ml/min/1.73 sqM) 02/10/19 07:48 Glucose 107 mg/dL (74-99) H 02/10/19 07:48 POC Glucose (mg/dL) 324 mg/dL (75-99) H 02/10/19 20:39 POC Glu [employer] Tyesha Quinones 02/10/19 20:39 Plasma Lactic Acid Conrad 1.6 mmol/L (0.7-2.0) 02/07/19 14:00 Calcium 9.0 mg/dL (8.4-10.2) 02/10/19 07:48 Iron 13 ug/dL (50-170) L 02/09/19 08:28 TIBC 326 ug/dL (228-460) 02/09/19 08:28 Iron Saturation 3.99 (12.00-45.00) L 02/09/19 08:28 Ferritin 101.9 ng/mL (10.0-291.0) 02/09/19 08:28 Total Bilirubin 0.4 mg/dL (0.2-1.3) 02/09/19 08:28 AST 14 U/L (14-36) 02/09/19 08:28 ALT 14 U/L (9-52) 02/09/19 08:28 Alkaline Phosphatase 93 U/L (38-126) 02/09/19 08:28 Total Protein 6.4 g/dL (6.3-8.2) 02/09/19 08:28 Albumin 3.4 g/dL (3.5-5.0) L 02/09/19 08:28 Vitamin B12 446.0 pg/mL (200.0-944.0) 02/09/19 08:28 Folate 12.1 ng/mL 02/09/19 08:28 Urine Color Yellow 02/08/19 05:25 Urine Appearance Cloudy (Clear) H 02/08/19 05:25 Urine pH 5.0 (5.0-8.0) 02/08/19 05:25 Ur Specific [place] 1.021 (1.001-1.035) 02/08/19 05:25 Urine Protein Trace (Negative) H 02/08/19 05:25 Urine Glucose (UA) 3+ (Negative) H 02/08/19 05:25 Urine Ketones Negative (Negative) 02/08/19 05:25 Urine Blood Negative (Negative) 02/08/19 05:25 Urine Nitrite Negative (Negative) 02/08/19 05:25 Urine Bilirubin Negative (Negative) 02/08/19 05:25 Urine Urobilinogen <2.0 mg/dL (<2.0) 02/08/19 05:25 Ur Leukocyte Esterase Large (Negative) H 02/08/19 05:25 Urine RBC 12 /hpf (0-5) H 02/08/19 05:25 Urine WBC 21 /hpf (0-5) H 02/08/19 05:25 Ur Squamous Epith Cells 13 /hpf (0-4) H 02/08/19 05:25 Urine Bacteria Rare /hpf (None) H 02/08/19 05:25 Hyaline Casts 38 /lpf (0-2) H 02/08/19 05:25 Urine Mucus Occasional /hpf (None) H 02/08/19 05:25 Urine Yeast (Budding) Occasional /hpf (None) H 02/08/19 05:25 Vancomycin Trough 21.3 ug/mL 02/10/19 07:48 Microbiology 02/10/19 14:27 Toe - Right Second Anaerobic Culture - Preliminary 02/10/19 14:27 Toe - Right Second Tissue Culture - Preliminary 02/07/19 14:00 Blood Blood Culture - Preliminary No Growth after 72 hours 02/07/19 14:10 Toe - Right Second Gram Stain - Preliminary 08/06/19 14:10 Toe - Right Second Wound Culture - Preliminary Gram Neg Bacilli Assessment and Plan (1) Diabetic ulcer of right foot Narrative/Plan: 73-year-old female that has a long-standing history of diabetes mellitus type 2 peripheral vascular disease with had several toe amputations is now presenting back to hospital with worsening of the amputation site to her right foot. The right amputation is not healing well and there is no evidence of wet gangrenous changes to the second toe. Is related that the early a.m. on Wednesday she was taken to the operating room for revision of the great toe amputation and amputation of that second toe. Antibiotic therapy at this time is of vancomycin and with her ertapenem ALLERGY Azactam with her prior isolated Enterobacter. She give us coverage for the isolate a recent pathogens and recent cultures are pending. This may further help direct antibiotic therapy. 02/10/2019 toe amputation as occurred. Gram-negative bacilli are being is olated. We'll continue current antibiotic therapy until there is the final culture results. Wound care as per the surgeon at this time she is comfortable. Current Visit: Yes Status: Acute Code(s): E11.621 - TYPE 2 DIABETES MELLITUS WITH FOOT ULCER; L97.519 - NON-PRS CHRONIC ULCER OTH PRT RIGHT FOOT W UNSP SEVERITY SNOMED Code(s): 624659053 (2) Osteomyelitis Current Visit: No Status: Acute Code(s): M86.9 - OSTEOMYELITIS, UNSPECIFIED SNOMED Code(s): 06944659
[2019-02-11] MEDS: VANCOMYCIN 1,500 MG in SODIUM CHLORIDE 0.9% 250 ML IVPB SCH ×2 (00:18→16:10)
[2019-02-11 07:18] LABS: Glucose,Whole Blood 110 mg/dL (75-99)
[2019-02-11] MEDS: INSULIN ASPART (NovoLOG) 100 UNIT/ML VIAL SQ SCH ×4 (08:01→21:57)
[2019-02-11] MEDS: INSULN ASP PRT/INSULIN ASPART 100 UNIT/ML 10 ML VIAL SQ SCH ×3 (08:16→17:37)
[2019-02-11] MEDS: metFORMIN 500 MG TAB PO SCH ×2 (08:16→21:04)
[2019-02-11] MEDS: LISINOPRIL 10 MG TAB PO SCH (08:16)
[2019-02-11] MEDS: CITALOPRAM HYDROBROMIDE 20 MG TAB PO SCH (08:16)
[2019-02-11] MEDS: ATENOLOL 25 MG TAB PO SCH (08:16)
[2019-02-11] MEDS: AZTREONAM 2 GM in SODIUM CHLORIDE 0.9% 100 ML IVPB SCH (08:17)
[2019-02-11 11:32] LABS: Glucose,Whole Blood 157 mg/dL (75-99)
[2019-02-11] MEDS: LEVOFLOXACIN 500 MG TAB PO SCH (16:10)
[2019-02-11] MEDS: SODIUM CHLORIDE 0.9% 1,000 ML IV SCH (16:10)
[2019-02-11 16:59] LABS: Glucose,Whole Blood 147 mg/dL (75-99)
[2019-02-11] MEDS: OXYBUTYNIN CHLORIDE 5 MG TAB PO SCH (21:04)
[2019-02-11] MEDS: ATORVASTATIN 40 MG TAB PO SCH (21:04)
[2019-02-11] MEDS: FENOFIBRATE 160 MG TAB PO SCH (21:04)
--- NOTE | 2019-02-11 21:18 | P.PN ---
Progress Note - Text Progress Note Date: 02/11/19 Chief Complaint: Right foot second toe wound Interval history: This is a 73-year-old patient of Dr. Zhang. Chronic stable medical conditions include paroxysmal atrial fibrillation, diabetes with painful peripheral neuropathy, stable meningioma, hyperlipidemia, coronary artery disease with a prior ND, congestive heart failure EF 30%, peripheral artery disease. Patient was here end of December at that time patient was seen by Dr. Mccarthy from vascular surgery. On December 31 he carried out a right big toe amputation at the metatarsophalangeal joint. Patient now presents with infection of the right foot second toe. It has become infected. And is draining. Because of neuropathy patient has menopausal symptoms. There has been increase in foul odor Denies any fever and chills. Dr. Rodriguez from infectious disease and Dr. Mccarthy from vascular surgery was consulted. On February 10 patient had the right foot first and second toe amputated by Dr. Mccarthy Today-sitting at the edge of the bed. Pains controlled. No nausea vomiting. No new issues. On antibiotics. Review of systems: Was done for constitutional, cardiovascular, GI, pulmonary. relevant finding as above Active Medications Acetaminophen (Tylenol Tab) 650 mg PO Q6HR PRN PRN Reason: Mild Pain or Fever > 100.5 Last Admin: 02/11/19 02:04 Dose: 650 mg Documented by: Atenolol (Tenormin) 25 mg PO DAILY [facility] Last Admin: 02/11/19 08:16 Dose: 25 mg Documented by: Atorvastatin Calcium (Lipitor) 40 mg PO [facility] Last Admin: 02/11/19 21:04 Dose: 40 mg Documented by: Citalopram Hydrobromide (Celexa) 60 mg PO QAM [facility] Last Admin: 02/11/19 08:16 Dose: 60 mg Documented by: Fenofibrate (Lofibra) 160 mg PO [facility] Last Admin: 02/11/19 21:04 Dose: 160 mg Documented by: Sodium Chloride (Saline 0.9%) 1,000 mls @ 20 mls/hr IV .Q24H [facility] Last Admin: 02/11/19 16:10 Dose: 20 mls/hr Documented by: Vancomycin HCl 1,500 mg/ (Sodium Chloride) 250 mls @ 125 mls/hr IVPB Q16H [facility] Last Admin: 02/11/19 16:10 Dose: 125 mls/hr Documented by: Insulin Aspart (Novolog Mix 70-30 Vial) 25 unit SQ AC-LUNCH [facility] Last Admin: 02/11/19 13:15 Dose: 25 unit Documented by: Insulin Aspart (Novolog Mix 70-30 Vial) 50 unit SQ AC-BRKFST [facility] Last Admin: 02/11/19 08:16 Dose: 50 unit Documented by: Insulin Aspart (Novolog Mix 70-30 Vial) 50 unit SQ AC-SUPPER [facility] Last Admin: 02/11/19 17:37 Dose: 50 unit Documented by: Insulin Aspart (Novolog) 0 unit SQ ACHS [facility]; Protocol Last Admin: 02/11/19 17:37 Dose: 1 unit Documented by: Levofloxacin (Levaquin) 500 mg PO Q24H [facility] Last Admin: 02/11/19 16:10 Dose: 500 mg Documented by: Lisinopril (Zestril) 10 mg PO DAILY [facility] Last Admin: 02/11/19 08:16 Dose: 10 mg Documented by: Metformin HCl (Glucophage) 1,000 mg PO BID [facility] Last Admin: 02/11/19 21:04 Dose: 1,000 mg Documented by: Miscellaneous Information (Vancomycin Trough Due) 0 each MISCELLANE DIRECTED ONE Stop: 02/12/19 07:01 Naloxone HCl (Narcan) 0.2 mg IV Q2M PRN PRN Reason: Opioid Reversal Oxybutynin Chloride (Ditropan) 5 mg PO HS [facility] Last Admin: 02/11/19 21:04 Dose: 5 mg Documented by: Physical examination: VITAL SIGNS: 98.5, 68, 20, 1 21 x 72, 96% room air GENERAL: Sitting at the edge of bed, comfortable,. EYES: Pupils equal. Conjunctiva normal. HEENT: External appearance of nose and ears normal, oral cavity grossly normal. NECK: JVD not raised; masses not palpable. HEART: First and second heart sounds are normal; no edema. LUNGS: Respiratory rate normal; clear to auscultation. ABDOMEN: Soft, nontender, liver spleen not palpable, no masses palpable. PSYCH: Alert and oriented x3; mood and affect normal. MUSCULOSKELETAL: Patient's current dressing over the right foot Investigations: Reviewed in the clinical context Accu-Cheks 110, 157, 147 Previous labs White count 11.8, hemoglobin 9.6, creatinine 1.01 blood glucose 319 Foot x-ray shows postsurgical changes of the first digit, with some deformities in the second distal and third distal phalanges. Iron 13 TIBC 326 and saturation low at 3.99 B12 446 folate 12 Assessment: -Right foot, distal first and second toe infection, status post amputation of the same on February 10 -Recent right foot big toe distal amputation -Paroxysmal atrial fibrillation -Diabetes mellitus type II chronically insulin with diabetic peripheral neuropathy -Benign brain meningioma stable -Hyperlipidemia -Coronary artery disease with a prior history of ND -Chronic congestive heart failure from EF 30% systolic dysfunction from underlying coronary artery disease -Peripheral arterial disease -Obesity BMI 36.3 -Normocytic anemia,, iron deficient Plan: Continue current medication treatment plan. Discussed with Dr. Mccarthy over the phone. Patient will be here for at least couple of days. Antibiotics per Dr. Rodriguez.
[2019-02-11 22:06] LABS: Glucose,Whole Blood 168 mg/dL (75-99)
--- NOTE | 2019-02-11 23:20 | P.PN ---
Subjective Progress Note Date: 02/11/19 73-year-old female who has multiple medical troubles that includes diabetes mellitus type 2 poorly controlled who has been having a nonhealing ulceration to the right great toe was recently evaluated was found evidence of exposed bone and consequently was brought in the hospital. She was taken to the operating room and a great toe amputation has occurred by vascular surgery. She has been having some outpatient follow-up and was evaluated. There is evidence of the wet gangrenous changes to the second toe as well as some residual difficulties to the great toe amputation. She was brought in the hospital with plans for further debridement and amputation. Consultation requested for antibiotic therapy. The patient is without acute pain and is denying fevers or chills at this time. 02/10/2019 the patient has now been taking Care of his head to toe amputations. She is quite comfortable status post the procedure is not voicing any acute complaints. No other acute difficulties have been related. 02/11/2019 no changes status is doing relatively well status post procedure Objective - Vital Signs Vital signs: Vital Signs Temp 97.7 F 02/11/19 14:27 Pulse 73 02/11/19 14:27 Resp 16 02/11/19 14:27 BP 111/54 02/11/19 14:27 Pulse Ox 96 02/11/19 14:27 Intake & Output 02/11/19 02/11/19 02/12/19 06:59 18:59 06:59 Intake Total 300 Output Total 1 Balance 299 Intake: Oral 300 Output: Urine/Stool Mix 1 Other: Voiding Method Bedside Commode # Voids 2 3 - Exam 73-year-old woman no distress. HEENT: Anicteric conjunctiva are pink and moist nasal mucosa grossly intact without significant lesions, there is no thrush. Neck: The neck is supple without significant lymphadenopathy or thyromegaly. Lungs: Good bilateral air entry without significant crackles or wheezing. There is no significant bronchial sounds. There is no egophony or dullness. Heart: Irregular with an audible S1 and S2 soft S4 no murmur click or rub. Abdomen: Obese Positive bowel sounds soft and nontender without palpable masses or organomegaly. There was no guarding or rebound. Extremities: The upper extremities have excellent pulses they are symmetric, no significant petechiae or telangiectasia. No splinter hemorrhages were noted. The left foot has evidence of prior toe amputation. No open ulcerations are seen on the left foot. The right foot shows evidence of the surgery today with a toe amputations dressing is dry Neuro: Awake alert oriented to person place and time. There are no acute new gross focal sensory motor deficits. - Labs CBC & Chem 7: 02/07/19 14:00 02/10/19 07:48 Labs: Abnormal Lab Results - Last 24 Hours (Table) 02/11/19 02/11/19 02/11/19 Range/Units 07:06 11:30 16:57 POC Glucose (mg/dL) 110 H 157 H 147 H (75-99) mg/dL 02/11/19 Range/Units 21:54 POC Glucose (mg/dL) 168 H (75-99) mg/dL Microbiology - Last 24 Hours (Table) 02/07/19 14:00 Blood Culture - Preliminary Blood No Growth after 96 hours 02/10/19 14:27 Gram Stain - Preliminary Toe - Right Second Tissue Culture - Preliminary 02/07/19 14:10 Gram Stain - Final Toe - Right Second Wound Culture - Final Alcaligen. faecalis Laboratory Results WBC 11.8 k/uL (3.8-10.6) H 02/07/19 14:00 RBC 3.60 m/uL (3.80-5.40) L 02/07/19 14:00 Hgb 9.6 gm/dL (11.4-16.0) L 02/07/19 14:00 Hct 29.7 % (34.0-46.0) L 02/07/19 14:00 MCV 82.6 fL (80.0-100.0) 02/07/19 14:00 MCH 26.8 pg (25.0-35.0) 02/07/19 14:00 MCHC 32.4 g/dL (31.0-37.0) 02/07/19 14:00 RDW 15.2 % (11.5-15.5) 02/07/19 14:00 Plt Count 267 k/uL (150-450) 02/07/19 14:00 Hypochromasia Slight 02/07/19 14:00 Sodium 142 mmol/L (137-145) 02/10/19 07:48 Potassium 5.0 mmol/L (3.5-5.1) 02/10/19 07:48 Chloride 111 mmol/L (98-107) H 02/10/19 07:48 Carbon Dioxide 23 mmol/L (22-30) 02/10/19 07:48 Anion Gap 8 mmol/L 02/10/19 07:48 BUN 46 mg/dL (7-17) H 02/10/19 07:48 Creatinine 0.89 mg/dL (0.52-1.04) 02/10/19 07:48 Est GFR (CKD-EPI)AfAm 75 (>60 ml/min/1.73 sqM) 02/10/19 07:48 Est GFR (CKD-EPI)NonAf 65 (>60 ml/min/1.73 sqM) 02/10/19 07:48 Glucose 107 mg/dL (74-99) H 02/10/19 07:48 POC Glucose (mg/dL) 168 mg/dL (75-99) H 02/11/19 21:54 POC Glu Injection Operator Anna Crain 02/11/19 21:54 Plasma Lactic Acid Conrad 1.6 mmol/L (0.7-2.0) 02/07/19 14:00 Calcium 9.0 mg/dL (8.4-10.2) 02/10/19 07:48 Iron 13 ug/dL (50-170) L 02/09/19 08:28 TIBC 326 ug/dL (228-460) 02/09/19 08:28 Iron Saturation 3.99 (12.00-45.00) L 02/09/19 08:28 Ferritin 101.9 ng/mL (10.0-291.0) 02/09/19 08:28 Total Bilirubin 0.4 mg/dL (0.2-1.3) 02/09/19 08:28 AST 14 U/L (14-36) 02/09/19 08:28 ALT 14 U/L (9-52) 02/09/19 08:28 Alkaline Phosphatase 93 U/L (38-126) 02/09/19 08:28 Total Protein 6.4 g/dL (6.3-8.2) 02/09/19 08:28 Albumin 3.4 g/dL (3.5-5.0) L 02/09/19 08:28 Vitamin B12 446.0 pg/mL (200.0-944.0) 02/09/19 08:28 Folate 12.1 ng/mL 02/09/19 08:28 Urine Color Yellow 02/08/19 05:25 Urine Appearance Cloudy (Clear) H 02/08/19 05:25 Urine pH 5.0 (5.0-8.0) 02/08/19 05:25 Ur Specific [place] 1.021 (1.001-1.035) 02/08/19 05:25 Urine Protein Trace (Negative) H 02/08/19 05:25 Urine Glucose (UA) 3+ (Negative) H 02/08/19 05:25 Urine Ketones Negative (Negative) 02/08/19 05:25 Urine Blood Negative (Negative) 02/08/19 05:25 Urine Nitrite Negative (Negative) 02/08/19 05:25 Urine Bilirubin Negative (Negative) 02/08/19 05:25 Urine Urobilinogen <2.0 mg/dL (<2.0) 02/08/19 05:25 Ur Leukocyte Esterase Large (Negative) H 02/08/19 05:25 Urine RBC 12 /hpf (0-5) H 02/08/19 05:25 Urine WBC 21 /hpf (0-5) H 02/08/19 05:25 Ur Squamous Epith Cells 13 /hpf (0-4) H 02/08/19 05:25 Urine Bacteria Rare /hpf (None) H 02/08/19 05:25 Hyaline Casts 38 /lpf (0-2) H 02/08/19 05:25 Urine Mucus Occasional /hpf (None) H 02/08/19 05:25 Urine Yeast (Budding) Occasional /hpf (None) H 02/08/19 05:25 Vancomycin Trough 21.3 ug/mL 02/10/19 07:48 Microbiology 02/07/19 14:00 Blood Blood Culture - Preliminary No Growth after 96 hours 02/10/19 14:27 Toe - Right Second Gram Stain - Preliminary 02/10/19 14:27 Toe - Right Second Tissue Culture - Preliminary 02/07/19 14:10 Toe - Right Second Gram Stain - Final 02/07/19 14:10 Toe - Right Second Wound Culture - Final Alcaligen. faecalis 02/10/19 14:27 Toe - Right Second Anaerobic Culture - Preliminary Assessment and Plan (1) Diabetic ulcer of right foot Narrative/Plan: 73-year-old female that has a long-standing history of diabetes mellitus type 2 peripheral vascular disease with had several toe amputations is now presenting back to hospital with worsening of the amputation site to her right foot. The right amputation is not healing well and there is no evidence of wet gangrenous changes to the second toe. Is related that the early a.m. on Wednesday she was taken to the operating room for revision of the great toe amputation and amputation of that second toe. Antibiotic therapy at this time is of vancomycin and with her ertapenem ALLERGY Azactam with her prior isolated Enterobacter. She give us coverage for the isolate a recent pathogens and recent cultures are pending. This may further help direct antibiotic therapy. 02/10/2019 toe amputation as occurred. Gram-negative bacilli are being i solated. We'll continue current antibiotic therapy until there is the final culture results. Wound care as per the surgeon at this time she is comfortable. February in 2018 culture results are now available and alcaligines is now been isolated from the foot. It is resistant to multiple antibiotics and with her ertapenem ALLERGY she is transitioned to Levaquin 500 mg a day. This can be utilized in the outpatient setting also. Current Visit: Yes Status: Acute Code(s): E11.621 - TYPE 2 DIABETES MELLITUS WITH FOOT ULCER; L97.519 - NON-PRS CHRONIC ULCER OTH PRT RIGHT FOOT W UNSP SEVERITY SNOMED Code(s): 236975512 (2) Osteomyelitis Current Visit: No Status: Acute Code(s): M86.9 - OSTEOMYELITIS, UNSPECIFIED SNOMED Code(s): 53476079
[2019-02-12] MEDS ORDERED: VANCOMYCIN TROUGH DUE 1 EACH MISC MISCELLANE ONE (07:00)
[2019-02-12 07:15] LABS: Glucose,Whole Blood 114 mg/dL (75-99)
[2019-02-12] MEDS: INSULIN ASPART (NovoLOG) 100 UNIT/ML VIAL SQ SCH ×4 (07:18→20:34)
[2019-02-12] MEDS: VANCOMYCIN 1,500 MG in SODIUM CHLORIDE 0.9% 250 ML IVPB SCH (07:29)
[2019-02-12] MEDS: LISINOPRIL 10 MG TAB PO SCH (07:29)
[2019-02-12] MEDS: ATENOLOL 25 MG TAB PO SCH (07:29)
[2019-02-12] MEDS: metFORMIN 500 MG TAB PO SCH ×2 (07:29→20:34)
[2019-02-12] MEDS: CITALOPRAM HYDROBROMIDE 20 MG TAB PO SCH (07:29)
[2019-02-12] MEDS: INSULN ASP PRT/INSULIN ASPART 100 UNIT/ML 10 ML VIAL SQ SCH ×3 (07:38→17:52)
[2019-02-12 07:49] LABS: African American GFR (CKD) >90 (>60 ml/min/1.73 sqM); Anion Gap 8 mmol/L; Blood Urea Nitrogen 35 mg/dL (7-17); Carbon Dioxide 24 mmol/L (22-30); Chloride 108 mmol/L (98-107); Glucose 111 mg/dL (74-99); Potassium 4.8 mmol/L (3.5-5.1); Sodium 140 mmol/L (137-145)
[2019-02-12 08:02] LABS: Basophils % (A) 0 %; Eosinophils # (A) 0.1 k/uL (0-0.7); Eosinophils % (A) 1 %; HCT 29.4 % (34.0-46.0); Hypochromasia Moderate; Lymphocytes # (A) 1.5 k/uL (1.0-4.8); Lymphocytes % (A) 17 %; MCH 26.2 pg (25.0-35.0); MCHC 30.5 g/dL (31.0-37.0); MCV 85.8 fL (80.0-100.0); Mean Platelet Volume 8.8; Monocytes # (A) 0.4 k/uL (0-1.0); Monocytes % (A) 5 %; Neutrophils # (A) 6.6 k/uL (1.3-7.7); Neutrophils % (A) 75 %; Platelet Count 258 k/uL (150-450); RBC 3.43 m/uL (3.80-5.40); RDW 15.1 % (11.5-15.5); WBC 8.8 k/uL (3.8-10.6)
[2019-02-12 12:40] LABS: Glucose,Whole Blood 99 mg/dL (75-99)
[2019-02-12] MEDS: LEVOFLOXACIN 500 MG TAB PO SCH (13:16)
[2019-02-12] MEDS: SODIUM CHLORIDE 0.9% 1,000 ML IV SCH (15:12)
--- NOTE | 2019-02-12 17:09 | P.PN ---
Progress Note - Text Progress Note Date: 02/12/19 Chief Complaint: Right foot second toe wound Interval history: This is a 73-year-old patient of Dr. Zhang. Chronic stable medical conditions include paroxysmal atrial fibrillation, diabetes with painful peripheral neuropathy, stable meningioma, hyperlipidemia, coronary artery disease with a prior MS, congestive heart failure EF 30%, peripheral artery disease. Patient was here end of December at that time patient was seen by Dr. Mccarthy from vascular surgery. On December 31 he carried out a right big toe amputation at the metatarsophalangeal joint. Patient now presents with infection of the right foot second toe. It has become infected. And is draining. Because of neuropathy patient has menopausal symptoms. There has been increase in foul odor Denies any fever and chills. Dr. Rodriguez from infectious disease and Dr. Mccarthy from vascular surgery was consulted. On February 10 patient had the right foot first and second toe amputated by Dr. Mccarthy Today-no new issues. Starting a diet. No fever no chills. Pain control. Review of systems: Was done for constitutional, cardiovascular, GI, pulmonary. relevant finding as above Active Medications Acetaminophen (Tylenol Tab) 650 mg PO Q6HR PRN PRN Reason: Mild Pain or Fever > 100.5 Last Admin: 02/11/19 02:04 Dose: 650 mg Documented by: Atenolol (Tenormin) 25 mg PO DAILY [facility] Last Admin: 02/12/19 07:29 Dose: 25 mg Documented by: Atorvastatin Calcium (Lipitor) 40 mg PO [facility] Last Admin: 02/11/19 21:04 Dose: 40 mg Documented by: Citalopram [facility] ([facility]lex[facility]) [facility] Admin: 02/12/19 07:29 Dose: 60 mg Documented by: Fenofibrate (Lofibra) 160 mg PO [facility] Last Admin: 02/11/19 21:04 Dose: 160 mg Documented by: Sodium Chloride (Saline 0.9%) 1,000 mls @ 20 mls/hr IV .Q24H [facility] Last Admin: 02/12/19 15:12 Dose: 20 mls/hr Documented by: Vancomycin HCl 1,750 mg/ (Sodium Chloride) 500 mls @ 167 mls/hr IVPB Q24H [facility] Insulin Aspart (Novolog Mix 70-30 Vial) 25 unit SQ AC-LUNCH [facility] Last Admin: 02/12/19 13:16 Dose: 25 unit Documented by: Insulin Aspart (Novolog Mix 70-30 Vial) 50 unit SQ AC-BRKFST [facility] Last Admin: 02/12/19 07:38 Dose: 50 unit Documented by: Insulin Aspart (Novolog Mix 70-30 Vial) 50 unit SQ AC-SUPPER [facility] Last Admin: 02/11/19 17:37 Dose: 50 unit Documented by: Insulin Aspart (Novolog) 0 unit SQ ACHS [facility]; Protocol Last Admin: 02/12/19 13:12 Dose: Not Given Documented by: Levofloxacin (Levaquin) 500 mg PO Q24H [facility] Last Admin: 02/12/19 13:16 Dose: 500 mg Documented by: Lisinopril (Zestril) 10 mg PO DAILY [facility] Last Admin: 02/12/19 07:29 Dose: 10 mg Documented by: Metformin HCl (Glucophage) 1,000 mg PO BID [facility] Last Admin: 02/12/19 07:29 Dose: 1,000 mg Documented by: Naloxone HCl (Narcan) 0.2 mg IV Q2M PRN PRN Reason: Opioid Reversal Oxybutynin Chloride (Ditropan) 5 mg PO HS [facility] Last Admin: 02/11/19 21:04 Dose: 5 mg Documented by: Physical examination: VITAL SIGNS: 97.4, 64, 18, 140/61, 94% room air GENERAL: Sitting at the edge of bed, comfortable,. EYES: Pupils equal. Conjunctiva normal. HEENT: External appearance of nose and ears normal, oral cavity grossly normal. NECK: JVD not raised; masses not palpable. HEART: First and second heart sounds are normal; no edema. LUNGS: Respiratory rate normal; clear to auscultation. ABDOMEN: Soft, nontender, liver spleen not palpable, no masses palpable. PSYCH: Alert and oriented x3; mood and affect normal. MUSCULOSKELETAL: dressing over the right foot Investigations: Reviewed in the clinical context white count 8.8 hemoglobin 9 creatinine 0.73 Accu-Cheks 99 Previous labs White count 11.8, hemoglobin 9.6, creatinine 1.01 blood glucose 319 Foot x-ray shows postsurgical changes of the first digit, with some deformities in the second distal and third distal phalanges. Iron 13 TIBC 326 and saturation low at 3.99 B12 446 folate 12 Assessment: -Right foot, distal first and second toe infection, status post amputation of the same on February Dr. Mccarthy -Recent right foot big toe distal amputation -Paroxysmal atrial fibrillation -Diabetes mellitus type II chronically insulin with diabetic peripheral neuropathy -Benign brain meningioma stable -Hyperlipidemia -Coronary artery disease with a prior history of MS -Chronic congestive heart failure from EF 30% systolic dysfunction from underlying coronary artery disease -Peripheral arterial disease -Obesity BMI 36.3 -Normocytic anemia,, iron deficient, out patient follow-up Plan: continue current medication treatment plan. Dr. Mccarthy will do the dressing change. Antibiotics per Dr. Rodriguez.care was discussed with the patient
[2019-02-12 17:30] LABS: Glucose,Whole Blood 251 mg/dL (75-99)
[2019-02-12] MEDS: ATORVASTATIN 40 MG TAB PO SCH (20:34)
[2019-02-12] MEDS: OXYBUTYNIN CHLORIDE 5 MG TAB PO SCH (20:35)
[2019-02-12] MEDS: FENOFIBRATE 160 MG TAB PO SCH (20:35)
[2019-02-12 20:36] LABS: Glucose,Whole Blood 148 mg/dL (75-99)
[2019-02-13 07:15] LABS: Glucose,Whole Blood 82 mg/dL (75-99)
[2019-02-13] MEDS: VANCOMYCIN 1,750 MG in SODIUM CHLORIDE 0.9% 500 ML 500 ML IVPB SCH (07:40)
[2019-02-13] MEDS: metFORMIN 500 MG TAB PO SCH ×2 (07:41→21:37)
[2019-02-13] MEDS: LISINOPRIL 10 MG TAB PO SCH (07:41)
[2019-02-13] MEDS: CITALOPRAM HYDROBROMIDE 20 MG TAB PO SCH (07:41)
[2019-02-13] MEDS: ATENOLOL 25 MG TAB PO SCH (07:41)
[2019-02-13] MEDS: INSULN ASP PRT/INSULIN ASPART 100 UNIT/ML 10 ML VIAL SQ SCH ×3 (07:41→17:38)
[2019-02-13] MEDS: INSULIN ASPART (NovoLOG) 100 UNIT/ML VIAL SQ SCH ×4 (07:42→21:37)
[2019-02-13 12:22] LABS: Glucose,Whole Blood 61 mg/dL (75-99)
--- NOTE | 2019-02-13 12:25 | PN ---
PROGRESS NOTE This is a 73-year-old diabetic female. Patient had wet gangrene of the right foot big toe and second toe. The patient went for the amputation with primary closure. Today we have changed the dressing. Incision site is clean. Slight redness noted. Dressing change. We will discuss with Infectious Disease for antibiotic. MMODL / IJN: [id number] /
[2019-02-13 12:44] LABS: Glucose,Whole Blood 85 mg/dL (75-99)
[2019-02-13] MEDS: LEVOFLOXACIN 500 MG TAB PO SCH (14:40)
[2019-02-13] MEDS: SODIUM CHLORIDE 0.9% 1,000 ML IV SCH (14:41)
[2019-02-13 17:28] LABS: Glucose,Whole Blood 266 mg/dL (75-99)
--- NOTE | 2019-02-13 19:07 | PN ---
PROGRESS NOTE I am covering for Dr. Helm. DATE OF SERVICE: 02/13/2019 This 73-year-old woman was admitted with right foot second toe wound, underwent amputation of the right great and 2nd toe by Dr. Mcdowell. The patient being closely monitored. No chest pain. No palpitations. No fever. PHYSICAL EXAM: Alert and oriented times three. Pulse 68, blood pressure 93/47, respirations 16, temperature is 98.1, pulse ox 95% on room air. HEENT: Conjunctivae normal. NECK: No JVD. CARDIOVASCULAR SYSTEM: S1, S2 muffled. RESPIRATORY SYSTEM: Breath sounds diminished at the bases. No rhonchi. No crackles. ABDOMEN is soft, nontender. LEGS: Status post amputation. NERVOUS SYSTEM: No focal deficits. LABS: At this time shows glucose is 61 and 85. ASSESSMENT: 1. Right foot distal 1st and 2nd toe infection status post amputation. 2. Recent right big toe distal amputation. 3. Paroxysmal atrial fibrillation. 4. Diabetes mellitus type 2. 5. Benign brain meningioma, stable. 6. Hyperlipidemia. 7. History of coronary artery disease. 8. History of myocardial infarction. 9. Congestive heart failure with chronic systolic dysfunction ejection fraction 30% from underlying coronary artery disease. 10.Peripheral artery disease. 11.Obesity with body mass index of 36.3. 12.Normocytic anemia and deficiency. RECOMMENDATIONS AND DISCUSSION: Recommend to continue current medications, continue with monitoring, symptomatic treatment. PT/OT evaluation. Dr. Mcdowell is following the patient closely. Otherwise, possible ECF rehab. Guarded prognosis. Further recommendations to follow. MMODL / IJN: [id number] /
[2019-02-13 21:37] LABS: Glucose,Whole Blood 237 mg/dL (75-99)
[2019-02-13] MEDS: OXYBUTYNIN CHLORIDE 5 MG TAB PO SCH (21:37)
[2019-02-13] MEDS: ATORVASTATIN 40 MG TAB PO SCH (21:37)
[2019-02-13] MEDS: FENOFIBRATE 160 MG TAB PO SCH (21:37)
[2019-02-14 07:10] LABS: Glucose,Whole Blood 155 mg/dL (75-99)
[2019-02-14] MEDS: INSULN ASP PRT/INSULIN ASPART 100 UNIT/ML 10 ML VIAL SQ SCH ×3 (08:15→17:40)
[2019-02-14] MEDS: INSULIN ASPART (NovoLOG) 100 UNIT/ML VIAL SQ SCH ×3 (08:15→17:40)
[2019-02-14] MEDS: metFORMIN 500 MG TAB PO SCH ×2 (08:16→20:13)
[2019-02-14] MEDS: CITALOPRAM HYDROBROMIDE 20 MG TAB PO SCH (08:16)
[2019-02-14] MEDS: LISINOPRIL 10 MG TAB PO SCH (08:16)
[2019-02-14] MEDS: ATENOLOL 25 MG TAB PO SCH (08:16)
[2019-02-14] MEDS: VANCOMYCIN 1,750 MG in SODIUM CHLORIDE 0.9% 500 ML 500 ML IVPB SCH (08:20)
[2019-02-14 11:56] LABS: Glucose,Whole Blood 138 mg/dL (75-99)
[2019-02-14] MEDS: SODIUM CHLORIDE 0.9% 1,000 ML IV SCH (14:22)
[2019-02-14] MEDS: LEVOFLOXACIN 500 MG TAB PO SCH (14:24)
[2019-02-14 17:49] LABS: Glucose,Whole Blood 202 mg/dL (75-99)
[2019-02-14] MEDS: FENOFIBRATE 160 MG TAB PO SCH (20:13)
[2019-02-14] MEDS: ATORVASTATIN 40 MG TAB PO SCH (20:13)
[2019-02-14] MEDS: OXYBUTYNIN CHLORIDE 5 MG TAB PO SCH (20:13)
[2019-02-14 20:15] LABS: Glucose,Whole Blood 143 mg/dL (75-99)
--- NOTE | 2019-02-14 22:43 | P.PN ---
Subjective Progress Note Date: 02/14/19 73-year-old female who has multiple medical troubles that includes diabetes mellitus type 2 poorly controlled who has been having a nonhealing ulceration to the right great toe was recently evaluated was found evidence of exposed bone and consequently was brought in the hospital. She was taken to the operating room and a great toe amputation has occurred by vascular surgery. She has been having some outpatient follow-up and was evaluated. There is evidence of the wet gangrenous changes to the second toe as well as some residual difficulties to the great toe amputation. She was brought in the hospital with plans for further debridement and amputation. Consultation requested for antibiotic therapy. The patient is without acute pain and is denying fevers or chills at this time. 02/10/2019 the patient has now been taking Care of his head to toe amputations. She is quite comfortable status post the procedure is not voicing any acute complaints. No other acute difficulties have been related. 02/11/2019 no changes status is doing relatively well status post procedure 02/14/2019 patient is feeling better. She is relating that she does not want to go to rehab. She continues to have ongoing difficulties with her wound care and overall status. She relates that she is aware that she's had many hospitalizations but hopefully will be able to do better this time. She does relate that she elevates her legs and does take her medications. Objective - Vital Signs Vital signs: Vital Signs Temp 97.5 F L 02/14/19 21:45 Pulse 76 02/14/19 21:45 Resp 20 02/14/19 21:45 BP 112/66 02/14/19 21:45 Pulse Ox 94 L 02/14/19 21:45 Intake & Output 02/14/19 02/14/19 02/15/19 06:59 18:59 06:59 Intake Total 100 300 Balance 100 300 Intake: Oral 100 300 Other: Voiding Method Bedside Commode # Voids 2 3 2 - Exam 73-year-old woman no distress. HEENT: Anicteric conjunctiva are pink and moist nasal mucosa grossly intact without significant lesions, there is no thrush. Neck: The neck is supple without significant lymphadenopathy or thyromegaly. Lungs: Good bilateral air entry without significant crackles or wheezing. There is no significant bronchial sounds. There is no egophony or dullness. Heart: Irregular with an audible S1 and S2 soft S4 no murmur click or rub. Abdomen: Obese Positive bowel sounds soft and nontender without palpable masses or organomegaly. There was no guarding or rebound. Extremities: The upper extremities have excellent pulses they are symmetric, no significant petechiae or telangiectasia. No splinter hemorrhages were noted. The left foot has evidence of prior toe amputation. No open ulcerations are seen on the left foot. The right foot shows evidence of the surgery with the second toe amputation and revision of the great and amputation Neuro: Awake alert oriented to person place and time. There are no acute new gross focal sensory motor deficits. - Labs CBC & Chem 7: 02/12/19 07:12 02/12/19 07:12 Labs: Abnormal Lab Results - Last 24 Hours (Table) 02/14/19 02/14/19 02/14/19 Range/Units 07:09 11:53 17:47 POC Glucose (mg/dL) 155 H 138 H 202 H (75-99) mg/dL 02/14/19 Range/Units 20:03 POC Glucose (mg/dL) 143 H (75-99) mg/dL Laboratory Results WBC 8.8 k/uL (3.8-10.6) 02/12/19 07:12 RBC 3.43 m/uL (3.80-5.40) L 02/12/19 07:12 Hgb 9.0 gm/dL (11.4-16.0) L 02/12/19 07:12 Hct 29.4 % (34.0-46.0) L 02/12/19 07:12 MCV 85.8 fL (80.0-100.0) 02/12/19 07:12 MCH 26.2 pg (25.0-35.0) 02/12/19 07:12 MCHC 30.5 g/dL (31.0-37.0) L 02/12/19 07:12 RDW 15.1 % (11.5-15.5) 02/12/19 07:12 Plt Count 258 k/uL (150-450) 02/12/19 07:12 Neutrophils % 75 % 02/12/19 07:12 Lymphocytes % 17 % 02/12/19 07:12 Monocytes % 5 % 02/12/19 07:12 Eosinophils % 1 % 02/12/19 07:12 Basophils % 0 % 02/12/19 07:12 Neutrophils # 6.6 k/uL (1.3-7.7) 02/12/19 07:12 Lymphocytes # 1.5 k/uL (1.0-4.8) 02/12/19 07:12 Monocytes # 0.4 k/uL (0-1.0) 02/12/19 07:12 Eosinophils # 0.1 k/uL (0-0.7) 02/12/19 07:12 Basophils # 0.0 k/uL (0-0.2) 02/12/19 07:12 Hypochromasia Moderate 02/12/19 07:12 Sodium 140 mmol/L (137-145) 02/12/19 07:12 Potassium 4.8 mmol/L (3.5-5.1) 02/12/19 07:12 Chloride 108 mmol/L (98-107) H 02/12/19 07:12 Carbon Dioxide 24 mmol/L (22-30) 02/12/19 07:12 Anion Gap 8 mmol/L 02/12/19 07:12 BUN 35 mg/dL (7-17) H 02/12/19 07:12 Creatinine 0.73 mg/dL (0.52-1.04) 02/12/19 07:12 Est GFR (CKD-EPI)AfAm >90 (>60 ml/min/1.73 sqM) 02/12/19 07:12 Est GFR (CKD-EPI)NonAf 83 (>60 ml/min/1.73 sqM) 02/12/19 07:12 Glucose 111 mg/dL (74-99) H 02/12/19 07:12 POC Glucose (mg/dL) 143 mg/dL (75-99) H 02/14/19 20:03 POC Glu Fruit Press Operator ID Tyesha Quinones 02/14/19 20:03 Plasma Lactic Acid Conrad 1.6 mmol/L (0.7-2.0) 02/07/19 14:00 Calcium 9.0 mg/dL (8.4-10.2) 02/12/19 07:12 Iron 13 ug/dL (50-170) L 02/09/19 08:28 TIBC 326 ug/dL (228-460) 02/09/19 08:28 Iron Saturation 3.99 (12.00-45.00) L 02/09/19 08:28 Ferritin 101.9 ng/mL (10.0-291.0) 02/09/19 08:28 Total Bilirubin 0.4 mg/dL (0.2-1.3) 02/09/19 08:28 AST 14 U/L (14-36) 02/09/19 08:28 ALT 14 U/L (9-52) 02/09/19 08:28 Alkaline Phosphatase 93 U/L (38-126) 02/09/19 08:28 Total Protein 6.4 g/dL (6.3-8.2) 02/09/19 08:28 Albumin 3.4 g/dL (3.5-5.0) L 02/09/19 08:28 Vitamin B12 446.0 pg/mL (200.0-944.0) 02/09/19 08:28 Folate 12.1 ng/mL 02/09/19 08:28 Urine Color Yellow 02/08/19 05:25 Urine Appearance Cloudy (Clear) H 02/08/19 05:25 Urine pH 5.0 (5.0-8.0) 02/08/19 05:25 Ur Specific [place] 1.021 (1.001-1.035) 02/08/19 05:25 Urine Protein Trace (Negative) H 02/08/19 05:25 Urine Glucose (UA) 3+ (Negative) H 02/08/19 05:25 Urine Ketones Negative (Negative) 02/08/19 05:25 Urine Blood Negative (Negative) 02/08/19 05:25 Urine Nitrite Negative (Negative) 02/08/19 05:25 Urine Bilirubin Negative (Negative) 02/08/19 05:25 Urine Urobilinogen <2.0 mg/dL (<2.0) 02/08/19 05:25 Ur Leukocyte Esterase Large (Negative) H 02/08/19 05:25 Urine RBC 12 /hpf (0-5) H 02/08/19 05:25 Urine WBC 21 /hpf (0-5) H 02/08/19 05:25 Ur Squamous Epith Cells 13 /hpf (0-4) H 02/08/19 05:25 Urine Bacteria Rare /hpf (None) H 02/08/19 05:25 Hyaline Casts 38 /lpf (0-2) H 02/08/19 05:25 Urine Mucus Occasional /hpf (None) H 02/08/19 05:25 Urine Yeast (Budding) Occasional /hpf (None) H 02/08/19 05:25 Vancomycin Trough 24.2 ug/mL 02/12/19 07:12 Microbiology 02/07/19 14:00 Blood Blood Culture - Final No Growth after 144 hours 02/10/19 14:27 Toe - Right Second Anaerobic Culture - Preliminary 02/10/19 14:27 Toe - Right Second Gram Stain - Final 02/10/19 14:27 Toe - Right Second Tissue Culture - Final Methicillin resist S. aureus Alpha Hemolytic Streptococcus Coagulase Negative Staph Coagulase Negative Staph#2 02/07/19 14:10 Toe - Right Second Gram Stain - Final 02/07/19 14:10 Toe - Right Second Wound Culture - Final Alcaligen. faecalis Assessment and Plan (1) Diabetic ulcer of right foot Narrative/Plan: 73-year-old female that has a long-standing history of diabetes mellitus type 2 peripheral vascular disease with had several toe amputations is now presenting back to hospital with worsening of the amputation site to her right foot. The right amputation is not healing well and there is no evidence of wet gangrenous changes to the second toe. Is related that the early a.m. on Wednesday she was taken to the operating room for revision of the great toe amputation and amputation of that second toe. Antibiotic therapy at this time is of vancomycin and with her ertapenem ALLERGY Azactam with her prior isolated Enterobacter. She give us coverage for the isolate a recent pathogens and recent cultures are pending. This may further help direct antibiotic therapy. 02/10/2019 toe amputation as occurred. Gram-negative bacilli are being isolated. We'll continue current antibiotic therapy until there is the final culture results. Wound care as per the surgeon at this time she is comfortable. February in 2018 culture results are now available and delaney is now been isolated from the foot. It is resistant to multiple antibiotics and with her ertapenem ALLERGY she is transitioned to Levaquin 500 mg a day. This can be utilized in the outpatient setting also. 02/14/2019 as noted culture shows evidence of alcaligines Robert also has evidence of MRSA. Fortunately both are susceptible to levofloxacin. The patient is adamant that she wants to go home. There is of course ongoing concerns given her progressive difficulties and inability to care for herself in the home setting. She'll work with her daughter after discharge to try to have a better discharge plan. If over she again is rapidly readmitted with failure of her blood glucose and overall care, suggested the daughter will likely become her guardian for her to be able to go to rehabilitation. Current Visit: Yes Status: Acute Code(s): E11.621 - TYPE 2 DIABETES MELLITUS WITH FOOT ULCER; L97.519 - NON-PRS CHRONIC ULCER OTH PRT RIGHT FOOT W UNSP SEVERITY SNOMED Code(s): 415908840 (2) Osteomyelitis Current Visit: No Status: Acute Code(s): M86.9 - OSTEOMYELITIS, UNSPECIFIED SNOMED Code(s): 57260825
--- NOTE | 2019-02-15 00:18 | P.PN ---
Subjective Progress Note Date: 02/14/19 Principal diagnosis: This is a 73 year old female that was recently admitted for right great toe infection that extended into the second toe and underwent amputation with Dr. Cr and is being closely monitored. Patient is currently on IV vanco and PT/OT are following. Patient denies any chest pain, shortness of breath, or palpitations at this time. Patient denies any nausea and vomiting and tolerating diet. Patient is afebrile. Blood sugars are being monitored closely. Discussed with the patient at length about possible rehab upon discharge and that she may benefit from it due to the difficulty in ambulating due to the inability to bear weight on the right foot per surgery recommendations. Guarded prognosis Objective - Vital Signs Vital signs: Vital Signs Temp 96.3 F L 02/14/19 14:37 Pulse 77 02/14/19 14:37 Resp 16 02/14/19 14:37 BP 114/54 02/14/19 14:37 Pulse Ox 98 02/14/19 14:37 Intake & Output 02/13/19 02/14/19 02/14/19 18:59 06:59 18:59 Intake Total 750 100 Balance 750 100 Weight 92.986 kg Intake: Oral 750 100 Other: Voiding Method Bedside Commode Bedside Commode # Voids 2 2 3 # Bowel Movements 1 - Exam Gen: This is a 73 year old female in no acute distress. Vital signs are stable. HEENT: Head is atraumatic, normocephalic. Pupils equal, round. Sclerae is anicteric. NECK: Supple. No JVD. No lymphadenopathy. No thyromegaly. LUNGS: Diminished breath sounds at the bases. No wheezes or rhonchi. No intercostal retractions. HEART: Regular rate and rhythm. No murmur. ABDOMEN: Soft. Bowel sounds are present. No masses. No tenderness. EXTREMITIES: No pedal edema. No calf tenderness. Hunter wrap noted on the right foot and dressing is dry and intact. NEUROLOGICAL: Patient is awake, alert and oriented x3. Cranial nerves 2 through 12 are grossly intact. - Labs CBC & Chem 7: 02/12/19 07:12 02/12/19 07:12 Labs: Abnormal Lab Results - Last 24 Hours (Table) 02/13/19 02/13/19 02/14/19 Range/Units 17:26 21:29 07:09 POC Glucose (mg/dL) 266 H 237 H 155 H (75-99) mg/dL 02/14/19 Range/Units 11:53 POC Glucose (mg/dL) 138 H (75-99) mg/dL Microbiology - Last 24 Hours (Table) 02/07/19 14:00 Blood Culture - Final Blood No Growth after 144 hours Assessment and Plan Assessment: Right foot distal first and second toe infection status post amputation; cultures show Alcaligen faecalis with MRSA. infectious disease is following. Recent right big toe distal amputation Paroxysmal atrial fibrillation Diabetes mellitus type 2 Benign brain meningioma, stable Hyperlipidemia History of coronary artery disease History of myocardial infarction Congestive heart failure with chronic systolic dysfunction ejection fraction 30% from underlying coronary artery disease Peripheral artery disease Obesity with body mass index of 36.3 Normocytic anemia and deficiency gait dysfunction secondary to recent right foot surgery as mentioned above. Recommendations and discussion: Recommend continue current medications, continue to monitor blood glucose levels, and right symptomatic treatment. PT/OT are following and working with the patient. Dr. Mcdowell is following the patient closely. Patient is currently on IV vancomycin. Discussing with the patient at length about a possible ECF for rehab. Patient does not want to go to rehab. Will address in the am. Guarded prognosis. Further recommendations to follow. Possible discharge in 24-48 hours.
[2019-02-15] MEDS: INSULIN ASPART (NovoLOG) 100 UNIT/ML VIAL SQ SCH ×5 (00:19→20:43)
[2019-02-15 07:11] LABS: Glucose,Whole Blood 81 mg/dL (75-99)
[2019-02-15] MEDS: CITALOPRAM HYDROBROMIDE 20 MG TAB PO SCH (07:48)
[2019-02-15] MEDS: VANCOMYCIN 1,750 MG in SODIUM CHLORIDE 0.9% 500 ML 500 ML IVPB SCH (07:48)
[2019-02-15] MEDS: ATENOLOL 25 MG TAB PO SCH (07:49)
[2019-02-15] MEDS: metFORMIN 500 MG TAB PO SCH ×2 (07:49→20:43)
[2019-02-15] MEDS: INSULN ASP PRT/INSULIN ASPART 100 UNIT/ML 10 ML VIAL SQ SCH ×3 (07:49→17:30)
[2019-02-15] MEDS: LISINOPRIL 10 MG TAB PO SCH (07:49)
--- NOTE | 2019-02-15 08:06 | PN ---
PROGRESS NOTE Susan had a big toe and second toe amputation for infected gangrene and patient is under care of Dr. Rodriguez for IV antibiotics. We have changed the dressing today. Incision site is clean. No discharge or redness noted. PLAN: Patient will be continued on IV antibiotics under care of Dr. Rodriguez and most likely she will go to rehab for IV antibiotic and patient has not decided yet. I am going out of town for 4 days. I have discussed with Dr. Rodriguez to continue with IV antibiotic and change dressing every other day and nonweightbearing. If they notice any drainage from the incision site, we have to remove the stitches and local wound care. I will follow her back in my office on . Discussed with the patient details. MMODL / IJN: [id number] /
[2019-02-15 09:36] LABS: Calcium 9.2 mg/dL (8.4-10.2); Potassium 4.5 mmol/L (3.5-5.1)
[2019-02-15 12:23] LABS: Glucose,Whole Blood 78 mg/dL (75-99)
[2019-02-15] MEDS: LEVOFLOXACIN 500 MG TAB PO SCH (13:11)
--- NOTE | 2019-02-15 17:02 | P.PN ---
Subjective Progress Note Date: 02/15/19 Principal diagnosis: This is a 73 year old female that was recently admitted for right great toe infection that extended into the second toe and underwent amputation with Dr. Cr and is being closely monitored. Patient is currently on IV vanco and PT/OT are following. Patient denies any chest pain, shortness of breath, or palpitations at this time. Patient denies any nausea and vomiting and tolerating diet. Patient is afebrile. Blood sugars are being monitored closely. Discussed with the patient at length about possible rehab upon discharge and that she may benefit from it due to the difficulty in ambulating due to the inability to bear weight on the right foot per surgery recommendations. Guarded prognosis 02/15/2019 Patient is lying in bed in no acute distress. Patient is currently working with PT/OT for gait dysfunction due to recent right foot surgery with Dr. Mcdowell. Infectious disease is following closely. Patient has agreed to rehab after speaking with her his son-in-law and daughter and has requested [facility] with the second choice of [facility] if [facility] doesn't accept. Per case management authorization is required and paperwork has been placed. Patient denies any chest pain, shortness of breath, palpitations at this time. Patient is afebri le. He is still receiving IV antibiotics. Will continue to monitor blood sugars closely. Guarded prognosis. Objective - Vital Signs Vital signs: Vital Signs Temp 98.2 F 02/15/19 15:00 Pulse 78 02/15/19 15:00 Resp 16 02/15/19 16:00 BP 117/56 02/15/19 15:00 Pulse Ox 95 02/15/19 15:00 Intake & Output 02/14/19 02/15/19 02/15/19 18:59 06:59 18:59 Intake Total 400 Balance 400 Intake: Oral 400 Other: Voiding Method Bedside Commode Bedside Commode Bedside Commode # Voids 3 1 2 - Exam Gen: This is a 73 year old female in no acute distress. Vital signs are stable. HEENT: Head is atraumatic, normocephalic. Pupils equal, round. Sclerae is anicteric. NECK: Supple. No JVD. No lymphadenopathy. No thyromegaly. LUNGS: Diminished breath sounds at the bases. No wheezes or rhonchi. No intercostal retractions. HEART: Regular rate and rhythm. No murmur. ABDOMEN: Soft. Bowel sounds are present. No masses. No tenderness. EXTREMITIES: No pedal edema. No calf tenderness. Hunter wrap noted on the right foot and dressing is dry and intact. NEUROLOGICAL: Patient is awake, alert and oriented x3. Cranial nerves 2 through 12 are grossly intact. - Labs CBC & Chem 7: 02/12/19 07:12 02/15/19 09:05 Labs: Abnormal Lab Results - Last 24 Hours (Table) 02/14/19 02/14/19 02/15/19 Range/Units 17:47 20:03 09:05 BUN 39 H (7-17) mg/dL Creatinine 1.07 H (0.52-1.04) mg/dL Glucose 127 H (74-99) mg/dL POC Glucose (mg/dL) 202 H 143 H (75-99) mg/dL Microbiology - Last 24 Hours (Table) 02/10/19 14:27 Anaerobic Culture - Final Toe - Right Second Anaerobic Gram Positive Cocci 02/10/19 14:27 Gram Stain - Final Toe - Right Second Tissue Culture - Final Methicillin resist S. aureus Alpha Hemolytic Streptococcus Coagulase Negative Staph Coagulase Negative Staph#2 Assessment and Plan Assessment: Right foot distal first and second toe infection status post amputation; cultures show Alcaligen faecalis with MRSA. infectious disease is following. Recent right big toe distal amputation Paroxysmal atrial fibrillation Diabetes mellitus type 2 Benign brain meningioma, stable Hyperlipidemia History of coronary artery disease History of myocardial infarction Congestive heart failure with chronic systolic dysfunction ejection fraction 30% from underlying coronary artery disease Peripheral artery disease Obesity with body mass index of 36.3 Normocytic anemia and deficiency gait dysfunction secondary to recent right foot surgery as mentioned above. Recommendations and discussion: Recommend continue current medications, continue to monitor blood glucose levels, and right symptomatic treatment. PT/OT are following and working with the patient. Dr. Mcdowell is following the patient closely. Patient is current ly on IV vancomycin. Patient today is agreeable to rehab and has requested [facility] or [facility] as her choices. Case management is following and awaiting authorization at this time. Guarded prognosis. Further recommendations to follow. Possible discharge in 24-48 hours.
[2019-02-15] MEDS: SODIUM CHLORIDE 0.9% 1,000 ML IV SCH (17:19)
[2019-02-15 17:23] LABS: Glucose,Whole Blood 88 mg/dL (75-99)
[2019-02-15 20:35] LABS: Glucose,Whole Blood 123 mg/dL (75-99)
[2019-02-15 20:35] LABS: Glucose,Whole Blood 341 mg/dL (75-99)
[2019-02-15] MEDS: OXYBUTYNIN CHLORIDE 5 MG TAB PO SCH (20:43)
[2019-02-15] MEDS: ATORVASTATIN 40 MG TAB PO SCH (20:43)
[2019-02-15] MEDS: FENOFIBRATE 160 MG TAB PO SCH (20:43)
--- NOTE | 2019-02-15 23:51 | P.PN ---
Subjective Progress Note Date: 02/15/19 73-year-old female who has multiple medical troubles that includes diabetes mellitus type 2 poorly controlled who has been having a nonhealing ulceration to the right great toe was recently evaluated was found evidence of exposed bone and consequently was brought in the hospital. She was taken to the operating room and a great toe amputation has occurred by vascular surgery. She has been having some outpatient follow-up and was evaluated. There is evidence of the wet gangrenous changes to the second toe as well as some residual difficulties to the great toe amputation. She was brought in the hospital with plans for further debridement and amputation. Consultation requested for antibiotic therapy. The patient is without acute pain and is denying fevers or chills at this time. 02/10/2019 the patient has now been taking Care of his head to toe amputations. She is quite comfortable status post the procedure is not voicing any acute complaints. No other acute difficulties have been related. 02/11/2019 no changes status is doing relatively well status post procedure 02/14/2019 patient is feeling better. She is relating that she does not want to go to rehab. She continues to have ongoing difficulties with her wound care and overall status. She relates that she is aware that she's had many hospitalizations but hopefully will be able to do better this time. She does relate that she elevates her legs and does take her medications. 02/15/2019 the patient feels slightly better today. She's had a discussion with her daughter does agree now to go to the extended care facility to receive her antibiotic therapy, wound care, and physical therapy to improve her strength lesley t she again can become independent. Objective - Vital Signs Vital signs: Vital Signs Temp 98.5 F 02/15/19 22:40 Pulse 73 02/15/19 22:40 Resp 16 02/15/19 22:40 BP 119/58 02/15/19 22:40 Pulse Ox 94 L 02/15/19 22:40 Intake & Output 02/15/19 02/15/19 02/16/19 06:59 18:59 06:59 Intake Total 400 200 Balance 400 200 Intake: Oral 400 200 Other: Voiding Method Bedside Commode Bedside Commode # Voids 1 2 1 - Exam 73-year-old woman no distress. HEENT: Anicteric conjunctiva are pink and moist nasal mucosa grossly intact without significant lesions, there is no thrush. Neck: The neck is supple without significant lymphadenopathy or thyromegaly. Lungs: Good bilateral air entry without significant crackles or wheezing. There is no significant bronchial sounds. There is no egophony or dullness. Heart: Irregular with an audible S1 and S2 soft S4 no murmur click or rub. Abdomen: Obese Positive bowel sounds soft and nontender without palpable masses or organomegaly. There was no guarding or rebound. Extremities: The upper extremities have excellent pulses they are symmetric, no significant petechiae or telangiectasia. No splinter hemorrhages were noted. The left foot has evidence of prior toe amputation. No open ulcerations are se en on the left foot. The right foot shows evidence of the surgery with the second toe amputation and revision of the great and amputation Neuro: Awake alert oriented to person place and time. There are no acute new gross focal sensory motor deficits. - Labs CBC & Chem 7: 02/12/19 07:12 02/15/19 09:05 Labs: Abnormal Lab Results - Last 24 Hours (Table) 02/15/19 02/15/19 02/15/19 Range/Units 09:05 20:31 20:32 BUN 39 H (7-17) mg/dL Creatinine 1.07 H (0.52-1.04) mg/dL Glucose 127 H (74-99) mg/dL POC Glucose (mg/dL) 341 H 123 H (75-99) mg/dL Microbiology - Last 24 Hours (Table) 02/10/19 14:27 Anaerobic Culture - Final Toe - Right Second Anaerobic Gram Positive Cocci 02/10/19 14:27 Gram Stain - Final Toe - Right Second Tissue Culture - Final Methicillin resist S. aureus Alpha Hemolytic Streptococcus Coagulase Negative Staph Coagulase Negative Staph#2 Laboratory Results WBC 8.8 k/uL (3.8-10.6) 02/12/19 07:12 RBC 3.43 m/uL (3.80-5.40) L 02/12/19 07:12 Hgb 9.0 gm/dL (11.4-16.0) L 02/12/19 07:12 Hct 29.4 % (34.0-46.0) L 02/12/19 07:12 MCV 85.8 fL (80.0-100.0) 02/12/19 07:12 MCH 26.2 pg (25.0-35.0) 02/12/19 07:12 MCHC 30.5 g/dL (31.0-37.0) L 02/12/19 07:12 RDW 15.1 % (11.5-15.5) 02/12/19 07:12 Plt Count 258 k/uL (150-450) 02/12/19 07:12 Neutrophils % 75 % 02/12/19 07:12 Lymphocytes % 17 % 02/12/19 07:12 Monocytes % 5 % 02/12/19 07:12 Eosinophils % 1 % 02/12/19 07:12 Basophils % 0 % 02/12/19 07:12 Neutrophils # 6.6 k/uL (1.3-7.7) 02/12/19 07:12 Lymphocytes # 1.5 k/uL (1.0-4.8) 02/12/19 07:12 Monocytes # 0.4 k/uL (0-1.0) 02/12/19 07:12 Eosinophils # 0.1 k/uL (0-0.7) 02/12/19 07:12 Basophils # 0.0 k/uL (0-0.2) 02/12/19 07:12 Hypochromasia Moderate 02/12/19 07:12 Sodium 141 mmol/L (137-145) 02/15/19 09:05 Potassium 4.5 mmol/L (3.5-5.1) 02/15/19 09:05 Chloride 103 mmol/L (98-107) 02/15/19 09:05 Carbon Dioxide 30 mmol/L (22-30) 02/15/19 09:05 Anion Gap 8 mmol/L 02/15/19 09:05 BUN 39 mg/dL (7-17) H 02/15/19 09:05 Creatinine 1.07 mg/dL (0.52-1.04) H 02/15/19 09:05 Est GFR (CKD-EPI)AfAm 60 (>60 ml/min/1.73 sqM) 02/15/19 09:05 Est GFR (CKD-EPI)NonAf 52 (>60 ml/min/1.73 sqM) 02/15/19 09:05 Glucose 127 mg/dL (74-99) H 02/15/19 09:05 POC Glucose (mg/dL) 123 mg/dL (75-99) H 02/15/19 20:32 POC Glu [employer]ified [employer] Alyssa Carbone 02/15/19 20:32 Plasma Lactic Acid Conrad 1.6 mmol/L (0.7-2.0) 02/07/19 14:00 Calcium 9.2 mg/dL (8.4-10.2) 02/15/19 09:05 Iron 13 ug/dL (50-170) L 02/09/19 08:28 TIBC 326 ug/dL (228-460) 02/09/19 08:28 Iron Saturation 3.99 (12.00-45.00) L 02/09/19 08:28 Ferritin 101.9 ng/mL (10.0-291.0) 02/09/19 08:28 Total Bilirubin 0.4 mg/dL (0.2-1.3) 02/09/19 08:28 AST 14 U/L (14-36) 02/09/19 08:28 ALT 14 U/L (9-52) 02/09/19 08:28 Alkaline Phosphatase 93 U/L (38-126) 02/09/19 08:28 Total Protein 6.4 g/dL (6.3-8.2) 02/09/19 08:28 Albumin 3.4 g/dL (3.5-5.0) L 02/09/19 08:28 Vitamin B12 446.0 pg/mL (200.0-944.0) 02/09/19 08:28 Folate 12.1 ng/mL 02/09/19 08:28 Urine Color Yellow 02/08/19 05:25 Urine Appearance Cloudy (Clear) H 02/08/19 05:25 Urine pH 5.0 (5.0-8.0) 02/08/19 05:25 Ur Specific [place] 1.021 (1.001-1.035) 02/08/19 05:25 Urine Protein Trace (Negative) H 02/08/19 05:25 Urine Glucose (UA) 3+ (Negative) H 02/08/19 05:25 Urine Ketones Negative (Negative) 02/08/19 05:25 Urine Blood Negative (Negative) 02/08/19 05:25 Urine Nitrite Negative (Negative) 02/08/19 05:25 Urine Bilirubin Negative (Negative) 02/08/19 05:25 Urine Urobilinogen <2.0 mg/dL (<2.0) 02/08/19 05:25 Ur Leukocyte Esterase Large (Negative) H 02/08/19 05:25 Urine RBC 12 /hpf (0-5) H 02/08/19 05:25 Urine WBC 21 /hpf (0-5) H 02/08/19 05:25 Ur Squamous Epith Cells 13 /hpf (0-4) H 02/08/19 05:25 Urine Bacteria Rare /hpf (None) H 02/08/19 05:25 Hyaline Casts 38 /lpf (0-2) H 02/08/19 05:25 Urine Mucus Occasional /hpf (None) H 02/08/19 05:25 Urine Yeast (Budding) Occasional /hpf (None) H 02/08/19 05:25 Vancomycin Trough 24.2 ug/mL 02/12/19 07:12 Microbiology 02/10/19 14:27 Toe - Right Second Anaerobic Culture - Final Anaerobic Gram Positive Cocci 02/10/19 14:27 Toe - Right Second Gram Stain - Final 02/10/19 14:27 Toe - Right Second Tissue Culture - Final Methicillin resist S. aureus Alpha Hemolytic Streptococcus Coagulase Negative Staph Coagulase Negative Staph#2 02/07/19 14:00 Blood Blood Culture - Final No Growth after 144 hours 02/07/19 14:10 Toe - Right Second Gram Stain - Final 02/07/19 14:10 Toe - Right Second Wound Culture - Final Alcaligen. faecalis Assessment and Plan (1) Diabetic ulcer of right foot Narrative/Plan: 73-year-old female that has a long-standing history of diabetes mellitus type 2 peripheral vascular disease with had several toe amputations is now presenting back to hospital with worsening of the amputation site to her right foot. The right amputation is not healing well and there is no evidence of wet gangrenous changes to the second toe. Is related that the early a.m. on Wednesday she was taken to the operating room for revision of the great toe amputation and amputation of that second toe. Antibiotic therapy at this time is of vancomycin and with her ertapenem ALLERGY Azactam with her prior isolated Enterobacter. She give us coverage for the isolate a recent pathogens and recent cultures are pending. This may further help direct antibiotic therapy. 02/10/2019 toe amputation as occurred. Gram-negative bacilli are being isolated. We'll continue current antibiotic therapy until there is the final culture results. Wound care as per the surgeon at this time she is comfortable. February in 2018 culture results are now available and delaney is now been isolated from the foot. It is resistant to multiple antibiotics and with her ertapenem ALLERGY she is transitioned to Levaquin 500 mg a day. This can be utilized in the outpatient setting also. 02/14/2019 as noted culture shows evidence of alcaligines Robert also has evidence of MRSA. Fortunately both are susceptible to levofloxacin. The patient is adamant that she wants to go home. There is of course ongoing concerns given her progressive difficulties and inability to care for herself in the home setting. She'll work with her daughter after discharge to try to have a better discharge plan. If over she again is rapidly readmitted with failure of her blood glucose and overall care, suggested the daughter will likely become her guardian for her to be able to go to rehabilitation. 02/15/2019 the patient is now had some improvement of her status in that she is willing to go to rehab to receive her antibiotics, local wound care, physical therapy and offloading to the foot adequate protein intake and glucose control all try to improve this ulceration and prevent further amputation. If this is not a successful course she could have a [id number] amputation soon. Current Visit: Yes Status: Acute Code(s): E11.621 - TYPE 2 DIABETES MELLITUS WITH FOOT ULCER; L97.519 - NON-PRS CHRONIC ULCER OTH PRT RIGHT FOOT W UNSP SEVERITY SNOMED Code(s): 590752998 (2) Osteomyelitis Current Visit: No Status: Acute Code(s): M86.9 - OSTEOMYELITIS, UNSPECIFIED SNOMED Code(s): 66224182
[2019-02-16 07:11] LABS: Glucose,Whole Blood 132 mg/dL (75-99)
[2019-02-16] MEDS: INSULIN ASPART (NovoLOG) 100 UNIT/ML VIAL SQ SCH ×2 (08:10→13:23)
[2019-02-16] MEDS: ATENOLOL 25 MG TAB PO SCH (08:22)
[2019-02-16] MEDS: LISINOPRIL 10 MG TAB PO SCH (08:22)
[2019-02-16] MEDS: INSULN ASP PRT/INSULIN ASPART 100 UNIT/ML 10 ML VIAL SQ SCH ×2 (08:22→13:22)
[2019-02-16] MEDS: metFORMIN 500 MG TAB PO SCH (08:22)
[2019-02-16] MEDS: CITALOPRAM HYDROBROMIDE 20 MG TAB PO SCH (08:22)
[2019-02-16] MEDS: VANCOMYCIN 1,750 MG in SODIUM CHLORIDE 0.9% 500 ML 500 ML IVPB SCH ×2 (08:23→12:31)
[2019-02-16] MEDS ORDERED: LIDOCAINE 1% INJ 10MG/ML (20 ML MDV) ONE (11:42)
--- NOTE | 2019-02-16 11:54 | P.DS ---
Providers Date of admission: 02/07/19 15:51 Expected date of discharge: 02/16/19 Attending physician: Andrew Helm Consults: 02/07/19 15:53 Consult Physician Stat Consulting Provider: Raffy Rodriguez Consult Reason/Comments: foot ulcer Do you want consulting provider notified?: Yes 02/08/19 10:33 Consult Physician Routine Consulting Provider: Kye Mcdowell Consult Reason/Comments: foot infection Do you want consulting provider notified?: Yes Primary care physician: [facility] Course: Final diagnosis Right foot distal first and second toe infection status post agitation Recent right big toe distal amputation Paroxysmal atrial fibrillation Diabetes mellitus type 2 Benign brain meningioma, stable Hyperlipidemia History of coronary artery disease neck fine history of myocardial infarction Congestive heart failure with chronic systolic dysfunction, ejection fraction 30% Peripheral artery disease Obesity with body mass index of 36.3 Normocytic anemia and deficiency Gait dysfunction secondary to right foot surgery as mentioned above Discharge disposition Patient is being discharged in a stable condition with guarded prognosis to [facility] for continued IV antibiotic therapy as well as physical therapy. Patient will continue on IV antibiotics as well as oral antibiotics per infectious disease. Patient is to follow-up with Dr. Mcdowell in the wound clinic next week. Patient will also be following up with Dr. Rodriguez upon discharge from the rehab facility. History of present illness This is a 73-year-old female who was recently admitted for right great toe infection extended into the second toe underwent amputation with Dr. Mcdowell. Patient has been on IV antibiotics of the ankle with oral antibiotics as well during the hospital stay. Patient was reluctant to go to the rehab facility stating that she can handle this on her own but after speaking with Dr. Rodriguez and Dr. Mcdowell in length patient has agreed to go to [facility] for continued IV antibiotic therapy as well as physical therapy she is to remain offloading of the right foot due to her recent surgery. Patient denies any chest pain, shortness of breath, or palpitations at this time. Patient has been working with physical therapy while inpatient. Patient is tolerating diet and denies any nausea or vomiting at this time. She remains afebrile. Patient's condition is currently stable with much improvement. Guarded prognosis On exam vital signs are stable. Blood pressure is 120/58, pulse is 62, respirations are 17, temp is 97.9F, oxygen saturation is 99% on room air. Cardio S1 and S2 are normal. Respiratory system shows diminished lung sounds in the bases otherwise clear to auscultation. Abdomen is soft and nontender. Nervous system shows no focal deficits with mild diffuse weakness . Patient is to remain nonweightbearing and offloading of the right foot. Please refer to medication reconciliation sheet for a list of medications Patient Condition at Discharge: Stable Plan - Discharge Summary New Discharge Prescriptions: New Levofloxacin [Levaquin] 250 mg PO Q24H tab INSULIN ASPART (NovoLOG) [NovoLOG (formulary)] 0 unit SQ ACHS vial Vancomycin 1,750 mg IVPB Q24H vial Continue Citalopram Hydrobromide [Citalopram HBr] 60 mg PO QAM Gemfibrozil [Lopid] 600 mg PO BID metFORMIN HCL 1,000 mg PO BID Atorvastatin [Lipitor] 40 mg PO HS Atenolol 25 mg PO DAILY Apixaban [Eliquis] 5 mg PO DAILY Oxybutynin Chloride [Ditropan] 5 mg PO HS Insulin NPH Hum/Reg Insulin Hm [NovoLIN 70-30 100 UNIT/ML VIAL] 50 unit SQ AC-BRKFST Lisinopril [Prinivil] 10 mg PO DAILY Acetaminophen Tab [Tylenol] 650 mg PO Q6HR PRN tab PRN Reason: Mild Pain Or Fever > 100.5 Insulin NPH Hum/Reg Insulin Hm [NovoLIN 70-30 100 UNIT/ML VIAL] 25 unit SQ AC-LUNCH Insulin NPH Hum/Reg Insulin Hm [NovoLIN 70-30 100 UNIT/ML VIAL] 50 unit SQ AC-SUPPER Discharge Medication List Citalopram Hydrobromide [Citalopram HBr] 60 mg PO QAM 02/21/16 [History] Gemfibrozil [Lopid] 600 mg PO BID 10/15/16 [History] metFORMIN HCL 1,000 mg PO BID 10/15/16 [History] Atorvastatin [Lipitor] 40 mg PO HS 03/18/17 [History] Atenolol 25 mg PO DAILY 09/30/17 [History] Apixaban [Eliquis] 5 mg PO DAILY 02/18/18 [History] Oxybutynin Chloride [Ditropan] 5 mg PO HS 02/19/18 [History] Insulin NPH Hum/Reg Insulin Hm [NovoLIN 70-30 100 UNIT/ML VIAL] 50 unit SQ AC- BRKFST 03/30/18 [History] Lisinopril [Prinivil] 10 mg PO DAILY 11/16/18 [History] Acetaminophen Tab [Tylenol] 650 mg PO Q6HR PRN tab 01/02/19 [Rx] Insulin NPH Hum/Reg Insulin Hm [NovoLIN 70-30 100 UNIT/ML VIAL] 25 unit SQ AC- LUNCH 02/07/19 [History] Insulin NPH Hum/Reg Insulin Hm [NovoLIN 70-30 100 UNIT/ML VIAL] 50 unit SQ AC- SUPPER 02/07/19 [History] INSULIN ASPART (NovoLOG) [NovoLOG (formulary)] 0 unit SQ ACHS vial 02/16/19 [Rx] Levofloxacin [Levaquin] 250 mg PO Q24H tab 02/16/19 [Rx] Vancomycin 1,750 mg IVPB Q24H vial 02/16/19 [Rx] Follow up Appointment(s)/Referral(s): Shon Zhang MD [Primary Care Provider] - 1-2 days Raffy Rodriguez MD [STAFF PHYSICIAN] - 2 Weeks [facility], [NON-STAFF] - Kye Mcdowell MD [STAFF PHYSICIAN] - 02/23/19 Patient Instructions/Handouts: Toe Amputation (DC) Activity/Diet/Wound Care/Special Instructions: Change dressing to foot every other day. Dry kerlix with li wrap. Diabetic diet Activity as tolerated, NWB to right foot. Continue working with PT/OT Continue IV and oral antibiotic therapy per Dr. Rodriguez continue using the sliding scale as needed for blood sugars Check blood sugars [facility] Follow up with Dr. Rodriguez upon discharge from [facility] Follow up with Dr. Cr in the clinic as scheduled. Discharge Disposition: TRANSFER TO SNF/ECF
[2019-02-16] MEDS ORDERED: LIDOCAINE 1% INJ 10MG/ML (20 ML MDV) SQ ONE (11:59)
[2019-02-16 12:31] LABS: Glucose,Whole Blood 152 mg/dL (75-99)
[2019-02-16] MEDS ORDERED: LEVOFLOXACIN 250 MG TAB PO SCH (14:00)
[2019-02-16 14:15] VITALS: BP 109/53; PULSE 77; RESP 16; TEMP 98.3
--- NOTE | 2019-02-20 08:28 | CDI ---
Documentation Clarification Form Date: 02/20/2019 From: Maryan Alicea Phone: If questions call Areli Alvarado @ [phone], Hours-8:30 am & 5 pm Jerzy Reis Admit Date: 02/07/2019 3:51:00 PM Patient Name: Susan Arguelles Visit Number: [id number] Discharge Date: 02/16/2019 4:09:00 PM ATTENTION: The Clinical Documentation Specialists (CDI) and [facility] Coding Staff appreciate your assistance in clarifying documentation. Please respond to the clarification below the line at the bottom and electronically sign. The CDI & [facility] Coding staff will review the response and follow-up if needed. Please note: Queries are made part of the Legal Health Record. If you have any questions, please contact the author of this message via ITS. Dr. Raffy Rodriguez The patient has poorly controlled Type II diabetes, as indicated on progress note 02/10, 02/11, 02/14, 02/15 & 02/08 consult. POC Glucose: 258, 241, 202, 87, 163, 195, 194, 121, 121, 225, 132, 117, 107, 98, 128, 324, 110, 157, 147, 168, 114, 99, 251, 148, 82, 61, 85, 266, 237, 155, 138, 202, 143, 81, 78, 88, 341, 123, 132, 152 Glucose: 319, 161, 107, 111, 127 Treatment: Insulin NovoLog sliding scale protocol Per [facility] 2016 - query the provider for clarification whether the patient has hyperglycemia or hypoglycemia so that the appropriate code may be reported - uncontrolled diabetes indicates that the patient's blood sugar is not at an acceptable level, because it is either too high or too low. In order to capture the severity of Illness and necessary documentation specificity, please clarify if Type 2 uncontrolled diabetes is: Hyperglycemia Hypoglycemia Other, please specify Unable to Determine Please continue to document in your progress notes and discharge summary in order to capture severity of illness and risk of mortality. Include clinical findings that support your diagnosis. uncontrolled diabetes with hyperglycemia MTDD
--- NOTE | 2019-02-20 10:11 | CDI ---
Documentation Clarification Form Date: 02/20/2019 From: Maryan Alicea Phone: If questions call Areli Alvarado @ [phone], Hours-8:30 am & 5 pm M- F Admit Date: 02/07/2019 3:51:00 PM Patient Name: Susan Arguelles Visit Number: [id number] Discharge Date: 02/16/2019 4:09:00 PM ATTENTION: The Clinical Documentation Specialists (CDI) and [facility] Coding Staff appreciate your assistance in clarifying documentation. Please respond to the clarification below the line at the bottom and electronically sign. The CDI & [facility] Coding staff will review the response and follow-up if needed. Please note: Queries are made part of the Legal Health Record. If you have any questions, please contact the author of this message via ITS. Dr. Kylah Cano The patient presented with the following ulcer of right toe with cellulitis and gangrene. CT angio abd aorta w/Runoff was performed. Results: Diffuse atherosclerotic changes with 60-70% right proximal common iliac artery stenosis. Bilateral multifocal SFA disease w significan stenosis distally. History/Risk Factors: Type II DM w gangrene, neuropathy, foot ulcer & osteomyelitis Treatment: Amputation right big toe and the second toe Consult: Michael Blair In your professional opinion, can the specify the cause of the PAD? Can you please clarify the vessel and laterality if known? Can you please clarify the type of vessel if known? [place] Other, please specify Unable to determine In your professional opinion, in order to capture the severity of condition; can you please clarify if the above clinical indicators and treatment signify if there were any associated conditions? Gangrene Intermittent Claudication Rest Pain Ulceration No related conditions Other, please specify Unable to determine unable to determine unable to determine MTDD
--- NOTE | 2019-03-02 11:24 | IR ---
PICC LINE PLACEMENT: HISTORY: Infection requiring long-term antibiotic therapy PROCEDURE: Ultrasound and fluoroscopic guidance of PICC line placement. COMPLICATIONS: None ANESTHESIA: 1. 1% Lidocaine locally. FINDINGS/TECHNIQUE: The procedure was explained to the patient. The risks, complications, benefits and alternatives were discussed and any questions were answered. Informed consent was obtained. The patient was placed supine on the fluoroscopic table and prepped and draped in the usual sterile fash ion. Utilizing a 21 gauge needle and sonographic and fluoroscopic guidance, access in the basilic v ein was achieved and there is placement of a 0.018 guidewire. The vein is patent. A 4-F sheath was placed over the guidewire. The guidewire and dilator were removed and a 4-F. PICC line was placed th rough the sheath with the tip at the level of the SVC. The sheath was removed, the catheter was flus hed and sutured into position. The patient was stable throughout the procedure and remained stable u laurie discharge from the Department of Radiology. The vein puncture was patent under ultrasound. A avila scale image was obtained to document patency of the vein punctured. All elements of the maximal barrier technique were utilized. FLUOROSCOPY TIME: 0.2 minutes and one image submitted. IMPRESSION: Successful PICC line placement under ultrasound and fluoroscopic guidance.
== END 2019-02-16 16:09 | DRG 256 ==
LOC: EC 12:40 → 4MS4W 15:51
PROVIDERS: ADMIT Hospitalist; ATTEND Hospitalist
PROC: 0Y6P0Z0 Detachment at Right 1st Toe, Complete, Open Approach (ICD-10-PCS; principal; 2019-02-10 09:50)
PROC: 0Y6R0Z0 Detachment at Right 2nd Toe, Complete, Open Approach (ICD-10-PCS; principal; 2019-02-10 09:50)
PROC: 02HV33Z Insertion of Infusion Device into Superior Vena Cava, Percutaneous Approach (ICD-10-PCS; 2019-02-16)
DX: E11.52 Type 2 diabetes mellitus with diabetic peripheral angiopathy with gangrene (principal); I96 Gangrene, not elsewhere classified; I50.22 Chronic systolic (congestive) heart failure; T81.30XA Disruption of wound, unspecified, initial encounter; M86.9 Osteomyelitis, unspecified; L97.516 Non-pressure chronic ulcer of other part of right foot with bone involvement without evidence of necrosis; E11.42 Type 2 diabetes mellitus with diabetic polyneuropathy; E11.621 Type 2 diabetes mellitus with foot ulcer; I11.0 Hypertensive heart disease with heart failure; D64.9 Anemia, unspecified; B35.6 Tinea cruris; E11.69 Type 2 diabetes mellitus with other specified complication; E11.65 Type 2 diabetes mellitus with hyperglycemia; B96.89 Other specified bacterial agents as the cause of diseases classified elsewhere; B95.62 Methicillin resistant Staphylococcus aureus infection as the cause of diseases classified elsewhere; I48.0 Paroxysmal atrial fibrillation; D32.0 Benign neoplasm of cerebral meninges; L03.031 Cellulitis of right toe; E78.5 Hyperlipidemia, unspecified; R32 Unspecified urinary incontinence; I25.10 Atherosclerotic heart disease of native coronary artery without angina pectoris; I25.2 Old myocardial infarction; E61.1 Iron deficiency; R26.9 Unspecified abnormalities of gait and mobility; E66.9 Obesity, unspecified; Z68.36 Body mass index [BMI] 36.0-36.9, adult; Z79.01 Long term (current) use of anticoagulants; Z79.4 Long term (current) use of insulin; Z79.899 Other long term (current) drug therapy; Z86.14 Personal history of Methicillin resistant Staphylococcus aureus infection; Z87.891 Personal history of nicotine dependence; Z86.59 Personal history of other mental and behavioral disorders; Z98.891 History of uterine scar from previous surgery; Z90.49 Acquired absence of other specified parts of digestive tract; Z89.421 Acquired absence of other right toe(s); Z89.422 Acquired absence of other left toe(s); Z96.652 Presence of left artificial knee joint; Z98.890 Other specified postprocedural states; Z88.1 Allergy status to other antibiotic agents; Z80.9 Family history of malignant neoplasm, unspecified
CPT/HCPCS: 36415; 36573; 75635; 80048; 80053; 80202; 81001; 82565; 82607; 82728; 82746; 83540; 83550; 83605; 85025; 85027; 87040; 87070; 87075; 87077; 87186; 87205; 88305; 88311; 99284

== ENCOUNTER → 2019-06-02 | Outpatient (CLI) | payer MEDICARE ==
[2019-06-02 15:53] LABS: African American GFR (CKD) 73.5 (60.0-200.0); Albumin 4.5 g/dL (3.80-4.90); Albumin/Globulin Ratio 2.14 (1.60-3.17); Anion Gap 6.1 mmol/L (4.00-12.00); BUN/Creat Ratio 33.33 Ratio (12.00-20.00); Calcium 9.6 mg/dL (8.7-10.3); Carbon Dioxide 26.9 mmol/L (21.6-31.8); Chol/HDL Ratio 3.1; Globulin 2.1 g/dL (1.6-3.3); Non-African American GFR(CKD) 63.4 (60.0-200.0); Potassium 4.6 mmol/L (3.5-5.5); Total Bilirubin 0.3 mg/dL (0.3-1.2); Total Protein 6.6 g/dL (6.2-8.2)
== END | disposition home or self-care (01) ==
LOC: LABWHC1 09:01
PROVIDERS: ATTEND Internal Medicine Endocrinology, Diabetes & Metabolism
DX: E11.65 Type 2 diabetes mellitus with hyperglycemia (principal)
CPT/HCPCS: 36415; 80053; 80061; 82043; 82570; 83036; 84443

== ENCOUNTER → 2019-11-17 | Outpatient (CLI) | payer MEDICARE ==
--- NOTE | 2019-11-17 11:03 | CT ---
EXAMINATION TYPE: CT brain wo con DATE OF EXAM: 11/17/2019 COMPARISON: 04/20/2018 HISTORY: Follow up scan per patient. Occasional headaches. CT DLP: 1090.4 mGycm Automated exposure control for dose reduction was used. FINDINGS: A predominantly calcified extra-axial lesion along the left frontal convexity measures 1.5 cm, unchan ged from 04/19/2017. Abutment of adjacent frontal lobe gyri without significant mass effect or midlin e shift. No extra-axial fluid collection. No hydrocephalus. No effacement of basal subarachnoid ciste rns. Morris -white matter differentiation is maintained. No evidence for acute intracranial hemorrhage or ac [place] ischemic change. Stable calcification bilateral cerebellum and basal ganglia. Intracranial athero sclerotic changes noted. Partially empty sella turcica. Low-lying cerebellar tonsils. Rightward nasal septal deviation. Similar small amount of trapped fluid in the inferior right mastoid air cells. Visualized orbits and globes are clear. Benign bilateral basal ganglionic calcifications. Mild generalized degenerative change. Hyperostosis of the calvarium. Mild patchy white matter hypoden sities suggest changes of chronic small vessel ischemic disease. IMPRESSION: 1. Stable 1.5 cm calcified meningioma or osteoma along the left frontal convexity. 2. Stable nonspecific white matter changes most typical of remote ischemia.
== END | disposition home or self-care (01) ==
LOC: RADCTMAIN 10:14
PROVIDERS: ATTEND Psychiatry & Neurology Neurology
DX: R90.89 Other abnormal findings on diagnostic imaging of central nervous system (principal); I67.82 Cerebral ischemia; D32.9 Benign neoplasm of meninges, unspecified; Z86.69 Personal history of other diseases of the nervous system and sense organs
CPT/HCPCS: 70450

== ENCOUNTER → 2020-01-08 | Outpatient (CLI) | payer MEDICARE ==
--- NOTE | 2020-01-09 16:25 | BD ---
EXAMINATION TYPE: Axial Bone Density DATE OF EXAM: 01/08/2020 COMPARISON: 07/08/2016 CLINICAL HISTORY: Height: 61.7 IN Weight: 214 LBS FRAX RISK QUESTIONS: History of Fracture in Adulthood: FINGERS AGE 71 Secondary Osteoporosis: 3. Menopause before 45: AGE 39 RISK FACTORS HISTORY OF: Active: MINIMAL Postmenopausal woman: AGE 39 Frequent falls: FALLS DUE TO BALANCE MEDICATIONS: Additional Medications: HEART MEDS, METFORMIN, ATENOLOL, LIPITOR, DEPRESSION MEDS EXAM MEASUREMENTS: Bone mineral densitometry was performed using the [employer] System. Bone mineral density as measured about the Lumbar spine is: ----- L1-L4(G/cm2): 1.692 T Score Values are as follows: ----- L2: 2.5 ----- L3: 3.8 ----- L4: 7.4 ----- L1-L4: 4.3 Bone mineral density has: Increased 1.6% since study of: 07/08/2016 Bone mineral density about the R hip (g/cm2): 1.019 Bone mineral density about the L hip (g/cm2): 0.977 T Score values are as follows: -----R Neck: -0.1 -----L Neck: -0.4 -----R Total: 1.0 -----L Total: 0.4 Bone mineral density has: Decreased -0.2% since study of: 07/08/2016 IMPRESSION: Normal (Values between +1 and -1 indicate normal bone mass). Consider repeating this study in 5 year s or sooner if there is some new clinical indication. NOTE: T-SCORE=SD OF THE YOUNG ADULT MEAN.
--- NOTE | 2020-01-10 13:27 | MM ---
Reason for exam: screening (asymptomatic). Last mammogram was performed 1 year and 3 months ago. History: Patient is postmenopausal. Physical Findings: A clinical breast exam by your physician is recommended on an annual basis and results should be correlated with mammographic findings. MG 3D Screening Mammo W/Cad Bilateral CC and MLO view(s) were taken. Prior study comparison: October 17, 2018, bilateral MG 3d screening mammo w/cad. December 14, 2016, bilateral MG 3d screening mammo w/cad. There are scattered fibroglandular densities. Benign vascular and oil cyst calcifications. Inferior and anterior asymmetric density right MLO view does not persist on 3D images. No significant changes when compared with prior studies. ASSESSMENT: Benign, BI-RAD 2 RECOMMENDATION: Routine screening mammogram of both breasts in 1 year.
== END | disposition home or self-care (01) ==
LOC: RADMAMWWP 12:43
PROVIDERS: ATTEND Family Medicine
DX: Z12.31 Encounter for screening mammogram for malignant neoplasm of breast (principal)
CPT/HCPCS: 77063; 77067; 77080

== ENCOUNTER → 2020-01-25 | Outpatient (CLI) | payer MEDICARE ==
--- NOTE | 2020-01-26 09:02 | US ---
EXAMINATION TYPE: US axilla RT DATE OF EXAM: 01/25/2020 COMPARISON: NONE CLINICAL HISTORY: 74-year-old female R22.2 Mass and lump. Right axilla area of swelling x 1 month TECHNIQUE: Targeted ultrasound examination along the right axilla at the site of patient's concern. FINDINGS: No solid or cystic lesion. No axillary lymphadenopathy seen. IMPRESSION: Scanning at the site of patient's swelling within the right axilla shows no discrete sonographic abno rmality.
== END | disposition home or self-care (01) ==
LOC: RADUSWWP 16:20
PROVIDERS: ATTEND Family Medicine
DX: R22.2 Localized swelling, mass and lump, trunk (principal)

== ENCOUNTER → 2020-03-22 | Outpatient (CLI) | payer MEDICARE ==
[2020-03-22 17:25] LABS: Hemoglobin A1C 6.3 % (4.0-6.0)
[2020-03-22 17:27] LABS: Urine Creatinine 74.8 mg/dL
[2020-03-22 18:27] LABS: African American GFR (CKD) 57.7 (60.0-200.0); Albumin 4.4 g/dL (3.80-4.90); Albumin/Globulin Ratio 2.32 (1.60-3.17); Anion Gap 10.2 mmol/L (4.00-12.00); BUN/Creat Ratio 27.27 Ratio (12.00-20.00); Calcium 9.2 mg/dL (8.7-10.3); Carbon Dioxide 24.8 mmol/L (21.6-31.8); Chol/HDL Ratio 3.02; Globulin 1.9 g/dL (1.6-3.3); Non-African American GFR(CKD) 49.8 (60.0-200.0); Potassium 4.4 mmol/L (3.5-5.5); Total Bilirubin 0.2 mg/dL (0.2-1.2); Total Protein 6.3 g/dL (6.2-8.2)
== END | disposition home or self-care (01) ==
LOC: LABWHC1 09:21
PROVIDERS: ATTEND Internal Medicine Endocrinology, Diabetes & Metabolism
DX: E78.2 Mixed hyperlipidemia (principal); E11.65 Type 2 diabetes mellitus with hyperglycemia
CPT/HCPCS: 36415; 80053; 80061; 82043; 82570; 83036; 84443